=== PATIENT | male | born 1945 | race Caucasian/White ===

== ENCOUNTER 2023-10-22 09:16 | Inpatient (IN) ==
[2023-10-22] MEDS: SODIUM CHLORIDE 0.9% 500 ML IV STA (09:59)
--- NOTE | 2023-10-22 10:04 | Emergency Department Note ---
ED Provider Note History of Present Illness Chief Complaint: Referred by Doctor Stated Complaint: REFERRED BY DOCTOR FOR INFECTION Time Seen by Provider: 10/22/23 09:33 Source: patient Mode of arrival: ambulatory Limitations: no limitations Patient is a 77-year-old male that presents to the emergency department with complaints of an elevated white blood cell count, elevated platelets, persistent cough, bloody nose, abdominal pain and bloating, as well as urinary frequency. Patient states that his symptoms have been ongoing since 09 October, so he was seen by his primary care physician who referred him to the emergency room for further workup and evaluation. Patient denies any shortness of breath though does have a cough. Patient denies chest pain but appreciates pain in his upper abdomen. Home Medications Medication Instructions Recorded Confirmed Type allopurinol 100 mg tablet 100 mg PO DAILY 10/22/23 10/22/23 History amlodipine 10 mg tablet 10 mg PO DAILY 10/22/23 10/22/23 History aspirin 81 mg tablet,delayed 81 mg PO DAILY 10/22/23 10/22/23 History release cetirizine 10 mg tablet 10 mg PO DAILY 10/22/23 10/22/23 History metformin 500 mg tablet 500 mg PO BID 10/22/23 10/22/23 History metoprolol succinate 100 mg 100 mg PO DAILY 10/22/23 10/22/23 History tablet,extended release 24 hr olmesartan 20 mg tablet 20 mg PO DAILY 10/22/23 10/22/23 History rosuvastatin 5 mg tablet 5 mg PO DAILY 10/22/23 10/22/23 History Allergies Allergy/AdvReac Type Severity Reaction Status Date / Time tree and shrub pollen Allergy runny Verified 10/22/23 13:15 nose, cough Past Med/Surg History Problem List CAD (coronary artery disease) DMII (diabetes mellitus, type 2) Myelodysplastic syndrome HTN (hypertension) Acute cholecystitis (Acute) Social History Smoking Status: Never smoker Hx Alcohol Use: Yes Alcohol type: beer Hx Substance Use: No Preferred Language: Fijian Communication Ability: Effective Beliefs That Will Affect Care: None Current Living Situation: Spouse Feels Safe at Home: Yes Assistive Devices: Denture - Upper and Glasses Physical Exam Vital Signs Vital Signs - 24 hr 10/22/23 09:27 10/22/23 10:00 10/22/23 10:00 Temperature 37.1 C Temperature Source Temporal Artery Scan Pulse Rate 81 Pulse Rate [Apical] 81 Pulse Rate from SpO2 Sensor Respiratory Rate 14 16 Respiratory Effort / Characteristics Non-Labored Spontaneous Respiratory Depth Normal Blood Pressure 153/72 H Blood Pressure [Right Arm] 172/75 H Blood Pressure Mean 99 Blood Pressure Mean [Right Arm] 107 Pulse Oximetry 92 94 94 Oxygen Delivery Method Room Air Room Air Room Air Sepsis New/Unexplained Change in Mental Status No Sepsis Action Taken by Nursing No Action Required 10/22/23 10:00 10/22/23 10:00 10/22/23 10:00 Temperature Temperature Source Pulse Rate Pulse Rate [Apical] Pulse Rate from SpO2 Sensor 85 Respiratory Rate 27 H Respiratory Effort / Characteristics Respiratory Depth Blood Pressure 149/73 H 149/73 H Blood Pressure [Right Arm] Blood Pressure Mean 120 120 Blood Pressure Mean [Right Arm] Pulse Oximetry 95 Oxygen Delivery Method Sepsis New/Unexplained Change in Mental Status Sepsis Action Taken by Nursing 10/22/23 10:20 10/22/23 11:52 Temperature Temperature Source Pulse Rate 80 82 Pulse Rate [Apical] Pulse Rate from SpO2 Sensor Respiratory Rate 19 Respiratory Effort / Characteristics Respiratory Depth Blood Pressure 162/76 H Blood Pressure [Right Arm] Blood Pressure Mean 104 Blood Pressure Mean [Right Arm] Pulse Oximetry 95 Oxygen Delivery Method Sepsis New/Unexplained Change in Mental Status Sepsis Action Taken by Nursing VITAL SIGNS - Vital signs and nursing notes were reviewed. GENERAL -77-year-old male appearing his stated age who is in no acute distress, though has an unwell appearance. Patient has a flat affect, though communicates well with provider and answers questions appropriately. HEAD - NC/AT. Pupils PERRL. LUNGS - Chest wall symmetric without accessory muscle use, intercostals retractions, or central cyanosis. Breath sounds clear throughout all mendes. No wheezes, rales, or rhonchi appreciated. CARDIAC - RRR with S1/S2. No murmur, rubs, or gallops appreciated. ABDOMEN - Abdominal contour rounded without pulsations or visible masses. Abdominal pain noted in his upper abdominal area. BS normoactive all four quadrants. No tenderness to palpation appreciated. No guarding. No palpable masses, hepatosplenomegaly, or ascites noted. Patient does report feeling bloated. PSYCH - A&Ox3 and cooperates fully with examiner. Pt is very pleasant and interacts well with examiner. Course Course Patient is a 77-year-old male who presents to the emergency department with complaints of elevated white blood cell count, elevated platelets, a persistent cough, upper abdominal pain, bloody noses, and increased frequency in urination. Patient states that he has been having the symptoms since October 09, therefore he went to see his primary care physician who ordered blood work. His primary care physician then referred him to the emergency department for further workup and evaluation. Patient was evaluated by myself in ER room C10. Findings and exam were noted in the physical exam above. Patient was ordered an IV and lab work, bio fire swab, chest x-ray, abdominal CT, and fluids. Patient is stable at this time slightly hypotensive with a blood pressure of 172/75. Patient is not short of breath and has an O2 sat of 94% on room air. Patient is afebrile. Patient CT shows an acute cholecystitis which correlates clinically with patient's upper abdominal pain, nausea, feelings of bloating and elevated white blood cell count. Discussed with patient that he has an acute Audrey and would likely need to stay in the hospital and patient verbalizes understanding and is agreeable to that plan. 11:40-General Surgery was called for consult at this time. I spoke with Dr. Erickson who was given a report of the patient's status and findings. Dr. Erickson reviewed his CT scan while he was on the phone with him. States that he will see the patient and to have the patient admitted to medicine. 11:55-spoke with Dr. Case with [facility] hospitalist group who reviewed the patient's case and will admit the patient to medicine. Administered Medications Lactated Ringer's (Lr) 1,000 mls @ 100 mls/hr IV .Q10H LORRIE Stop: 11/21/23 12:14 Last Admin: 10/22/23 12:15 Dose: 100 mls/hr Documented By: JONAH Pantoprazole Sodium 40 mg/ (Syringe) 10 mls @ 5 mls/min IV DAILY@1100 LORRIE Stop: 11/21/23 12:44 Last Admin: 10/22/23 13:20 Dose: 5 mls/min Documented By: JONAH Discontinued Medications Sodium Chloride (Nss) 500 mls @ 999 mls/hr IV .Q31M STA Stop: 10/22/23 10:15 Last Infusion: 10/22/23 10:31 Dose: Infused Documented By: Admin: 10/22/23 09:59 Dose: 999 mls/hr Documented By: BHARAT Lactated Ringer's (Lr) 500 mls @ 999 mls/hr IV .Q31M ONE Stop: 10/22/23 12:32 Last Infusion: 10/22/23 13:30 Dose: Infused Documented By: Admin: 10/22/23 12:56 Dose: 999 mls/hr Documented By: JONAH Piperacillin Sod/Tazobactam Sod (Zosyn) 4.5 gm in 100 mls @ 200 mls/hr IV NOW STA Stop: 10/22/23 12:59 Last Infusion: 10/22/23 13:32 Dose: Infused Documented By: Admin: 10/22/23 12:53 Dose: 200 mls/hr Documented By: JONAH Ioversol (Optiray 320 100ml) 94 ml IV ONCE ONE Stop: 10/22/23 10:52 Last Admin: 10/22/23 10:51 Dose: 94 ml Documented By: ERIC Ketorolac Tromethamine (Ketorolac Tromethamine 15 Mg/Ml Vial) 15 mg IV NOW STA Stop: 10/22/23 10:43 Last Admin: 10/22/23 10:45 Dose: 15 mg Documented By: BHARAT Morphine Sulfate (Morphine Sulfate 4 Mg/Ml 1 Ml Carp\Vial) 4 mg IV NOW STA Stop: 10/22/23 11:36 Last Admin: 10/22/23 11:50 Dose: 4 mg Documented By: JONAH Ondansetron HCl (Ondansetron Inj 2 Mg/Ml 2 Ml Vial) 4 mg IV NOW STA Stop: 10/22/23 11:36 Last Admin: 10/22/23 11:50 Dose: 4 mg Documented By: JONAH Medical Decision Making Differential Diagnosis Differential diagnoses includes gastritis, gastroenteritis, small bowel obstruction, pancreatitis, peritonitis, constipation, abdominal abcess, acute coronary syndrome, pulmonary embolism, pneumothorax, pericarditis, myocarditis, endocarditis, anxiety, musculoskeletal pain, GERD, costochondritis, pneumonia, cancer, among others. Medical Records Attestation: I reviewed the patient's medical records. Home Medications was personally reviewed by nv Laboratory Data 10/22/23 09:45 10/22/23 09:45 Lab Results 10/22/23 Range/Units 09:45 WBC 14.51 H (4.8-10.8) K/ul RBC 2.60 L (4.70-6.10) M/uL Hgb 9.0 L (14.0-18.0) g/dl Hct 26.9 L (42.0-52.0) % MCV 103.5 H (80.0-100.0) fL MCH 34.6 H (25.0-34.0) pg MCHC 33.5 (32.0-36.0) g/dL RDW Std Deviation 97.8 H (36.4-46.3) fL RDW Coeff of Cha 26.5 H (11.5-14.5) % Plt Count 990 H (130-400) K/uL MPV 10.3 (9.4-12.4) fL Immature Gran % (Auto) 1.4 % Neut % (Auto) 73.9 % Lymph % (Auto) 9.2 % [place] % (Auto) 14.7 % Eos % (Auto) 0.2 % Baso % (Auto) 0.6 % Neut # (Auto) 10.74 H (1.40-6.50) K/uL Lymph # (Auto) 1.33 (1.20-3.40) K/uL [place] # (Auto) 2.13 H (0.11-0.59) K/uL Eos # (Auto) 0.03 (0.00-0.50) K/uL Baso # (Auto) 0.08 (0.00-0.20) K/uL Immature Gran # (Auto) 0.20 (0.01-0.20) K/uL Polychromasia 2+ Target Cells 1+ Rouleaux 1+ Sodium 132 L (136-145) mmol/L Potassium 4.2 (3.5-5.1) mmol/L Chloride 99 (98-107) mmol/L Carbon Dioxide 25 (21-32) mmol/L Anion Gap 8 (3-11) BUN 17 (6-23) mg/dl Creatinine 1.16 (0.6-1.4) mg/dl Est Cr Clr Drug Dosing 55.8 ml/min Est GFR ( Amer) 70.5 ml/min Est GFR (Non-Af Amer) 60.8 ml/min BUN/Creatinine Ratio 14.7 (10-20) Glucose 107 H (70-99(Fasting)) mg/dl Calcium 8.9 (8.6-10.3) mg/dl Total Bilirubin 0.6 (0.2-1.0) mg/dl AST 51 H (13-39) U/L ALT 59 H (7-52) U/L Alkaline Phosphatase 227 H (34-104) U/L Troponin I High Sens 14.0 (0-20) pg/ml Total Protein 8.9 H (6.0-8.3) gm/dl Albumin 3.3 L (3.4-5.0) gm/dl Globulin 5.6 H (2.5-4.0) gm/dl Albumin/Globulin Ratio 0.6 L (0.9-2) Lipase 17 (11-82) U/L Adenovirus (PCR) Not Detected (NotDetected) B. pertussis DNA (PCR) Not Detected (NotDetected) B.parapertussis DNA PCR Not Detected (NotDetected) C. pneumoniae DNA (PCR) Not Detected (NotDetected) Coronavirus OC43 (PCR) Not Detected (NotDetected) Coronavirus HKU1 (PCR) Not Detected (NotDetected) Coronavirus 229E (PCR) Not Detected (NotDetected) SARS-CoV-2 (PCR) Not Detected (NotDetected) Coronavirus NL63 (PCR) Not Detected (NotDetected) Human Metapneumovir PCR Not Detected (NotDetected) Influenza Type A (PCR) Not Detected (NotDetected) Influenza Type B (PCR) Not Detected (NotDetected) M. pneumoniae (PCR) Not Detected (NotDetected) Parainfluenza 1 (PCR) Not Detected (NotDetected) Parainfluenza 2 (PCR) Not Detected (NotDetected) Parainfluenza 3 (PCR) Not Detected (NotDetected) Parainfluenza 4 (PCR) Not Detected (NotDetected) RSV (PCR) Not Detected (NotDetected) Entero/Rhino (PCR) Not Detected (NotDetected) Imaging Data Radiologist's Impression: Chest X-Ray 10/22/23 09:46 XR chest 1V portable CLINICAL HISTORY: cough x 2-3 weeks COMPARISON STUDY: Chest CT September 14, 2019. Chest radiograph August 26, 2022. FINDINGS: Disrupted median sternotomy wires were shown on prior exams. Moderate cardiomegaly is unchanged. There is no evidence for pulmonary edema. There is no pneumothorax or pleural effusion. Mild elevation of the right hemidiaphragm is unchanged. Linear left basilar opacity favors atelectasis or scarring. Apparent left basilar opacity is likely related to epicardial fat pad. IMPRESSION: No acute cardiopulmonary findings. No significant change in appearance of the chest. Cardiomegaly. ACT 112: Negative or not required by law. Electronically signed by: Johann Marie M.D. 10/22/2023 10:43 AM Abdomen/Pelvis CT 10/22/23 09:47 CT abd pelvis IV con only CLINICAL HISTORY: abd pain and bloating TECHNIQUE: Helical axial images of the abdomen and pelvis were obtained and displayed. Automated dose lowering techniques and/or adjustment according to patient size were utilized for this exam. This exam was performed with intravenous contrast. CT DOSE: 1343.26 mGy.cm COMPARISON: None available at the time of this dictation. FINDINGS: Lower chest: Bibasilar atelectasis versus scarring is seen. Liver: Unremarkable. No focal lesions are seen. Gallbladder and biliary tree: The gallbladder is markedly distended with thickened espinoza measuring up to 6 mm. A gallstone is noted in the gallbladder neck. Irregular projections towards the inferior liver parenchyma are nonspecific and may represent diverticula, less likely adjacent abscess. No intra- or extrahepatic biliary ductal dilation. Pancreas: Unremarkable, no focal lesions. Spleen: Unremarkable. Adrenals: Unremarkable. Kidneys and ureters: Nonobstructive nephrolithiasis is seen. A few renal cysts are seen. Bladder: Unremarkable. Reproductive organs: Unremarkable. Bowel: Unremarkable. Lymph nodes Retroperitoneal: 12 mm retroperitoneal lymph node is noted. Pelvic: Unremarkable. Mesenteric: Unremarkable. Peritoneum: Normal. Vessels: Unremarkable. Abdominal wall: Unremarkable. Bones: Degenerative changes in the visualized spine. Chronic appearing fracture of the left transverse process of L3. IMPRESSION: Findings are compatible with acute cholecystitis. No definite rupture is seen.. Irregular outpouchings towards the liver are favored to represent diverticula rather than abscess. ACT 112: Negative or not required by law. Electronically signed by: Norberto Mcconnell M.D. 10/22/2023 11:11 AM MDM Narrative Patient is a 77-year-old male who presents to the emergency department with complaints of elevated white blood cell count, elevated platelets, a persistent cough, upper abdominal pain, bloody noses, and increased frequency in urination. Patient states that he has been having the symptoms since October 09, therefore he went to see his primary care physician who ordered blood work. This is when he found out about his elevated white blood cell count at 12.6 and an elevated platelet count at 1029. Patient brought those results with him today. His primary care physician then referred him to the emergency department for further workup and evaluation. Patient was evaluated by myself in ER room C10. Findings and exam were noted in the physical exam above. Patient has a somewhat ill or unwell appearance to him. Patient's skin color is pale and patient has a flat affect. Patient notes that he is currently having some upper abdominal pain but declines any pain medication at this time. Patient was ordered an IV and lab work, bio fire swab, chest x-ray, abdominal CT, and fluids. Patient is stable at this time slightly hypotensive with a blood pressure of 172/75. Patient is not short of breath and has an O2 sat of 94% on room air. Patient is afebrile. A CT for PE study was considered however the patient is not hypoxic or tachycardic at this time. Patient denies any chest pain or feelings of shortness of breath. Patient only complains of a persistent cough. Patient's lab work came back and confirmed his elevated white blood cell count. Patient also continues to have a and elevated platelet count which may need further workup from hematology. Patient also had a CT scan done that came back showing an acute cholecystitis. Discussed with patient that he has an acute cholecystitis and would likely need to stay in the hospital. I called general surgery to consult with them at this time. I spoke with Dr. Erickson from general surgery who reviewed the patient's case with me and reviewed the patient's CT while we are on the phone. Dr. Erickson is agreeable to treat the patient here and states that he will see the patient and to have the patient admitted to medicine. I spoke with Dr. Case from [facility] hospitalist group who reviewed the patient's case as well and will admit the patient to the hospital under their care. Impression Acute cholecystitis Discharge Plan Visit Data Chief Complaint: Referred by Doctor Stated Complaint: REFERRED BY DOCTOR FOR INFECTION ED Provider: Carolyn Urbina ED Midlevel Provider: Aliya Chapman Discharge Problem: Acute cholecystitis Patient Disposition: Admitted As Inpatient
[2023-10-22 10:11] LABS: Basophils # (auto) 0.08 K/uL (0.00-0.20); Basophils % (auto) 0.6 %; Eosinophils # (auto) 0.03 K/uL (0.00-0.50); Eosinophils % (auto) 0.2 %; Hematocrit (blood only) 26.9 % (42.0-52.0); Immature Granulocytes % (auto) 1.4 %; Lymphocytes # (auto) 1.33 K/uL (1.20-3.40); Lymphocytes % (auto) 9.2 %; Mean Corpuscular Hemoglobin 34.6 pg (25.0-34.0); Mean Corpuscular Hgb Conc 33.5 g/dL (32.0-36.0); Mean Corpuscular Volume 103.5 fL (80.0-100.0); Mean Platelet Volume 10.3 fL (9.4-12.4); Monocytes # (auto) 2.13 K/uL (0.11-0.59); Monocytes % (auto) 14.7 %; Neutrophils # (auto) 10.74 K/uL (1.40-6.50); Neutrophils % (auto) 73.9 %; Platelet Count 990 K/uL (130-400); RDW Coefficient of Variation 26.5 % (11.5-14.5); RDW Standard Deviation 97.8 fL (36.4-46.3); White Blood Count 14.51 K/ul (4.8-10.8)
[2023-10-22 10:28] LABS: Albumin Globulin Ratio 0.6 (0.9-2); Albumin Level 3.3 gm/dl (3.4-5.0); BUN Creatinine Ratio 14.7 (10-20); Bilirubin,Total 0.6 mg/dl (0.2-1.0); Calcium 8.9 mg/dl (8.6-10.3); Creatinine Clr Calc Pharmacy 55.8 ml/min; Est GFR (African American) 70.5 ml/min; Est GFR (Non-African American) 60.8 ml/min; Globulin 5.6 gm/dl (2.5-4.0); Potassium 4.2 mmol/L (3.5-5.1); Total Protein 8.9 gm/dl (6.0-8.3)
[2023-10-22 10:31] LABS: Polychromasia 2+; Rouleaux 1+; Target Cells 1+
[2023-10-22] MEDS: KETOROLAC TROMETHAMINE 15 MG/ML VIAL IV STA (10:45)
--- NOTE | 2023-10-22 10:45 | XRay Report ---
XR chest 1V portable CLINICAL HISTORY: cough x 2-3 weeks COMPARISON STUDY: Chest CT September 14, 2019. Chest radiograph August 26, 2022. FINDINGS: Disrupted median sternotomy wires were shown on prior exams. Moderate cardiomegaly is uncha nged. There is no evidence for pulmonary edema. There is no pneumothorax or pleural effusion. Mild el evation of the right hemidiaphragm is unchanged. Linear left basilar opacity favors atelectasis or sc arring. Apparent left basilar opacity is likely related to epicardial fat pad. IMPRESSION: No acute cardiopulmonary findings. No significant change in appearance of the chest. Car diomegaly. ACT 112: Negative or not required by law. Electronically signed by: Johann Marie M.D. 10/22/2023 10:43 AM
[2023-10-22] MEDS: OPTIRAY 320 100ml IV ONE (10:51)
[2023-10-22 10:57] LABS: Adenovirus PCR Not Detected (NotDetected); Bordetella parapertussis PCR Not Detected (NotDetected); Bordetella pertussis PCR Not Detected (NotDetected); Chlamydia pneumoniae PCR Not Detected (NotDetected); Coronavirus 229E PCR Not Detected (NotDetected); Coronavirus CoV-2 (COVID19)PCR Not Detected (NotDetected); Coronavirus HKU1 PCR Not Detected (NotDetected); Coronavirus NL63 PCR Not Detected (NotDetected); Coronavirus OC43PCR Not Detected (NotDetected); Human Metapneumovirus PCR Not Detected (NotDetected); Influenza A PCR Not Detected (NotDetected); Influenza B PCR Not Detected (NotDetected); Mycoplasma pneumoniae PCR Not Detected (NotDetected); Parainfluenza Virus 1 PCR Not Detected (NotDetected); Parainfluenza Virus 2 PCR Not Detected (NotDetected); Parainfluenza Virus 3 PCR Not Detected (NotDetected); Parainfluenza Virus 4 PCR Not Detected (NotDetected); Respiratory Syncytial VirusPCR Not Detected (NotDetected); Rhinovirus/Enterovirus PCR Not Detected (NotDetected)
--- OUTSIDE RECORDS SUMMARY | 2023-10-22 11:01 | External Medical Summary | Continuity of Care Document ---
Author Name Unknown Organization [address] Address [address], [place] [id number] Care Team Providers Care Sales Support Specialist Name Role Phone May Siegel Primary Care Physician [phone] [id number] Date(s): 10/19/23 - 10/19/23 [facility] [address], [address] [place] [address] [phone] Encounter Diagnosis CAD in rincon artery(Discharge Diagnosis) - 10/19/23 Tricuspid valve regurgitation(Discharge Diagnosis) - 10/19/23 Irregular heart rhythm(Discharge Diagnosis) - 10/19/23 HTN (hypertension)(Discharge Diagnosis) - 10/19/23 HLD (hyperlipidemia)(Discharge Diagnosis) - 10/19/23 Discharge Disposition: Home or Self Care Attending Physician: SOLOMON Medina Sarah A Allergies, Adverse Reactions, Alerts Substance Criticality Severity Reaction Reaction Severity Status simvastatin myalgias Active Lipitor myalgias Active Trees Unable to assess criticality Mild Sneezing Active Assessment and Plan Extracted from: Title:Cardiology Office Visit Note Author:SOLOMON Hale rd, Sarah A Date:10/19/23 IMPRESSION: 1. Coronary artery disease status post coronary bypass grafting x4, 07/2018 at [facility] with a HYMAN to the LAD, SVG to the PDA, SVG to the diagonal and an SVG to the marginal branch. 2. Preserved left ventricular systolic function July 2018 with type 2 diastolic dysfunction. 3. History of angioplasty and stenting 10/2003 with a Cypher drug-eluting stent and a Hepacoat stent involving the left circumflex. 4. Pre-bypass surgery catheterization, normal left main; 50% proximal and a 70% mid LAD lesion, which was positive by FFR; 70% ostial D1 lesion in a moderate size vessel; known OM lesion and a large bifurcating vessel; large, dominant RCA with a 95% proximal lesion. Significant mid lesion and a distal 50% lesion involving a moderate-sized PDA and post PDA. 5. Hypertension. 6. Hyperlipidemia. 7. History of sternal nonunion, status post partial sternectomy and debridement, 12/2019. 8. Intolerance to Lipitor and Zocor. 9. Gout. 10. Osteoarthritis.11. Upper GI bleed, 05/2021, secondary to NSAIDs in [place]. Mr. Olvera is not having any concerning anginal symptoms. He is on appropriate CAD medications with aspirin He is hypertensive. He will increase amlodipine to 10 mg daily - will let us know if he has swelling in his lower extremitiesor if his bp is not coming under 135/85. His rhythm was irregular to auscultation today. EKG showed SR with PACs. His LDL was at goal on labs last month. Last echo was 3 years ago. I will have him geta repeat. He will return to the clinic in a year Immunizations Given and Recorded Vaccine Date Status Refusal Reason tetanus/diphtheria/pertuss, acel (Tdap) 09/17/23 G iven SARS-CoV-2 (COVID-19) mRNA-vacc - PTO119 01/31/23 Recorded zoster vaccine, inactivated 11/20/22 Recorded zoster vaccine, inactivated 08/26/22 Recorded zoster vaccine, inactivated 03/14/20 Recorded SARS-CoV-2 mRNA-1273 (6y+ bivalent) 01/15/22 Recor ded pneumococcal 20-valent conjugate vaccine 12/11/21 Recorded SARS-CoV-2 (COVID-19) mRNA-1273 vaccine 08/07/21 R ecorded SARS-CoV-2 (COVID-19) mRNA BNT-162b2 vax 01/10/21 Recorded pneumococcal 23-valent vaccine 11/16/20 Recorded pneumococcal 23-valent vaccine 02/18/12 Recorded influenza virus vaccine, inactivated 1 12/20/19 Gi stefania influenza virus vaccine, inactivated 01/31/19 Give n pneumococcal 13-valent vaccine 12/14/14 Recorded influenza virus vaccine, H1N1 03/01/09 Recorded 1Early/Late Reason: Early/Late Reason: Other : Medications allopurinol 100 mg oral tablet Start: 09/15/23 8:24:00 AM EDT, 1 tab, PO, bid, Disp# 180 tab, Refills: 3, Pharmacy: [facility] Start Date: 09/15/23 Status: Ordered amLODIPine 10 mg oral tablet Start: 10/19/23 9:39:00 AM EDT, 1 tab, PO, Daily, Disp# 90 tab, Refills: 3, [facility] Start Date: 10/19/23 Status: Ordered Aranesp 25 mcg/0.42 mL injectable solution Start: 08/27/21 2:40:00 PM EDT, 25 mcg =, IV, [id number], unsure of dosage as given by [facility] depending on lab work q 2wks Start Date: 08/27/21 Status: Ordered aspirin 81 mg oral delayed release tablet Start: 09/06/18 4:06:00 PM EDT, 1 tab, PO, Daily Start Date: 09/06/18 Status: Ordered Co-Q10 200 mg oral capsule Start: 09/06/18 4:06:00 PM EDT, 200 mg =, PO, Daily Start Date: 09/06/18 Status: Ordered metFORMIN 500 mg oral tablet Start: 02/19/23 4:18:00 PM EST, 1 tab, PO, bid, Disp# 180 tab, Refills: 3, [facility] Start Date: 02/19/23 Status: Ordered Metoprolol Succinate ER 100 mg oral tablet, extended release Start: 09/09/23 1:01:00 PM EDT, See Instructions, Disp# 90 tab, Refills: 3, TAKE 1 TABLET DAILY, Pharmacy: [facility] Start Date: 09/09/23 Status: Ordered Mucinex D Max Strength Start: 08/27/21 2:26:00 PM EDT Start Date: 08/27/21 Status: Ordered multivitamin Start: 09/06/18 4:07:00 PM EDT, 1 tab, PO, Daily Start Date: 09/06/18 Status: Ordered Nitrostat 0.4 mg sublingual tablet Start: 09/06/18 4:07:00 PM EDT, 1 tab, SL, q5min, PRN: as needed for chest pain Start Date: 09/06/18 Status: Ordered olmesartan 20 mg oral tablet Start: 08/31/23 4:56:00 PM EDT, 1 tab, PO, Daily, Disp# 90 tab, Refills: 3, Pharmacy: [facility]/pharmacy #[id number] Start Date: 08/31/23 Status: Ordered Vernon-3 oral capsule Start: 09/06/18 4:08:00 PM EDT, 1 cap, PO, Daily Start Date: 09/06/18 Status: Ordered One Touch Delica Plus (33G) Lancets Start: 09/25/22 1:31:00 PM EDT, See Instructions, Disp# 100 each, Refills: 6, Use to check bloodsugar once daily. Dx: E11.9 , Pharmacy: [facility]/pharmacy #[id number] Start Date: 09/25/22 Status: Ordered One Touch Verio Glucose Monitor Start: 09/29/22 11:11:00 AM EDT, See Instructions, Disp# 1 each, Refills: 6, Use to test bloodsugarsonce daily. Dx: E11.9 , Pharmacy: [facility]/pharmacy #[id number] Start Date: 09/29/22 Status: Ordered One Touch Verio Test Strips Start: 09/29/22 11:11:00 AM EDT, See Instructions, Disp# 100 strip, Refills: 6, Use to test bloodsugars once daily. Dx: E11.9 , Pharmacy: [facility]/pharmacy #[id number] Start Date: 09/29/22 Status: Ordered rosuvastatin 5 mg oral tablet Start: 09/09/23 1:01:00 PM EDT, See Instructions, Disp# 90 tab, Refills: 3, TAKE 1 TABLET AT BEDTIME, Pharmacy: [facility] Start Date: 09/09/23 Status: Ordered Tylenol 500 mg oral tablet Start: 12/25/19 10:34:00 AM EDT, 2 tab, PO, q8h, Disp# 24 tab, Refills: 0, PRN: mild pain, Pharmacy: [facility] [place] Start Date: 12/25/19 Status: Ordered ZyrTEC Start: 09/30/18 8:53:00 AM EDT, 10 mg =, PO, Daily Start Date: 09/30/18 Status: Ordered Mental Status 10/19/23 Barriers to Learning one year None evide nt Mandatory Health Literacy Documentation Yes Health Literacy Communication Barriers N ever Primary Language [place] Problem List Condition Confirmation Course Effective Dates Status H ealth Status Informant Acute low back pain Confirmed Active Acute bilateral back pain Confirmed Active Benign essential HTN Confirmed Active Benign essential HTN Confirmed Active 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 Confirmed Active Bruit of right carotid artery Confirmed Active Chronic kidney disease (CKD) Confirmed Active Chronic kidney disease (CKD) Confirmed Active Chronic recurrent sinusitis Confirmed Active Constipation Confirmed Active CAD (coronary artery disease) Confirmed Active Dyspnea Confirmed Active Sternal fracture Confirmed Active Chronic gout Confirmed Active Chronic gout Confirmed Active Acute pain of left hip Confirmed Active Borderline hyperlipidemia Confirmed Active Lumbar radiculopathy, chronic Confirmed Active Nocturia Confirmed Active OA (osteoarthritis) of foot Confirmed Active Chronic pain of toe Confirmed Active Annual physical exam Confirmed Active Annual physical exam Confirmed Active Post-operative state Confirmed Active Mid sternal chest pain Confirmed Active Type 2 diabetes, HbA1c goal < 7% Confirmed Active Diagnosis Diagnosis Type Effective Dates Health Status Clinical Service Informant CAD in rincon artery Discharge Diagnosis 10/19/23 Non-Specified Tricuspid valve regurgitation Discharge Diagnosis 10/19/23 Non-Specified HLD (hyperlipidemia) Discharge Diagnosis 10/19/23 Non-Specified Irregular heart rhythm Discharge Diagnosis 10/19/23 Non-Specified HTN (hypertension) Discharge Diagnosis 10/19/23 Non-Specified Procedures Procedure Date Related Diagnosis Body Site Status Colonoscopy 1, 2 09/14/22 Complete d CXR - Chest X-ray 3 08/26/[address] of lumbar spine 4 12/02/21 Comp leted Bone marrow biopsy 08/01/20 Comple cyndi CABG x 4 - Coronary artery b ypass grafts x 4 5 07/14/18 Completed Cardiac catheterization 07/11/18 C ompleted Colonoscopy 6 09/30/16 Completed Cystoscopy 04/19/12 Completed LASER SURGERY OF PROSTATE 2011 Completed Bilateral Rotator cuff repair 2008 Completed Total LEFT knee replacement 2001 Completed Appendectomy 1950 Completed 1Repeat 5 years 2Diverticulosis in the sigmoid colon and in the descending colon. The examination was otherwise normal. No specimens collected. 3No acute chest disease. 4[facility] Impression: 1. No acute fractures within the lumbar spine 2. Degenerative changes as described, most pronounced at the L3-L4 and L4-L5 levels 5[facility] - [facility] Watson Alex 6normal Vital Signs Most recent to oldest [Reference Range]: 1 Patient Weight 88.8 kg (8/6/24 9:18 AM) Heart Rate 76 bpm (10/19/23 9:18 AM) Respiratory Rate 18 br/min (10/19/23 9:18 AM) Blood Pressure 142/68mmHg (10/19/23 9:18 AM) BP Location # 1 Left Arm (10/19/23 9:18 AM) Social History Social History Type Response Smoking Status Never smoked cigaret vilma Sex Male Sex Representation Male (finding) Implantable Device List Procedure Provider Procedure Date Device Type Site Unknown Unknown 12/19/19 Unknown Unknown Device Identifier Serial Number Lot or Batch Number Manufacturing Date Expiration Date Distinct Identification Code MRI Safety Implantable Status Assigning Authority Unknown Unknown [id number] Unknown 01/12/21 Unknown Unknown Active Unknown Cardiology Outpatient Note * SOLOMON Medina Sarah A: PERFORM, MODIFY Event Display: Cardiology Outpt Note Authored Date: [id number] Primary Care Provider MD Christal, May Orozco Chief Complaint denies chest pain/ tightness, flutters, heart racing, palpitations, shortness of breath, dizziness,or lightheadedness, no edema l, no unusual bleeding, gym 7 days a week 30 min mix without difficulty History of Present Illness Mr. Olvera presents for follow up of his history ofhis history of coronary bypass grafting x4 on 07/2018, preserved left ventricular systolic function (07/2020), rincon 3-vessel coronary artery disease, hypertension, and hyperlipidemia. He is being followed by his pcp for a new finding of hyponatremia. He is off hctz and has increasedhis sodium intake in his diet. Home bps are similar to today. He goes to the gym every day - no sob or chest pain - mix of cardio and weights. No edema Occasional brief palpitation Review of Systems All other systems reviewed and negative except as discussed in the HPI Physical Exam Vitals & Measurements HR:76(Monitored) RR:18 BP:142/68 SpO2:97% WT:88.800kg(Dosing) WT:88.8kg Physical Examination General: Alert and oriented, No acute distress. Respiratory: Lungs are clear to auscultation, Respirations are non-labored. Cardiovascular:Irregular, No murmur, No edema, no carotid bruits to auscultation bilaterally. Integumentary: Warm, Dry, [place] Neurologic: Alert, Oriented. Cognition and Speech: Speech clear and coherent. Psychiatric: Cooperative, Appropriate mood & affect. Assessment/Plan IMPRESSION: 1. Coronary artery disease status post coronary bypass grafting x4, 07/2018 at [facility] with a HYMAN to the LAD, SVG to the PDA, SVG to the diagonal and an SVG to the marginal branch. 2. Preserved left ventricular systolic function July 2018 with type 2 diastolic dysfunction. 3. History of angioplasty and stenting 10/2003 with a Cypher drug-eluting stent and a Hepacoat stent involving the left circumflex. 4. Pre-bypass surgery catheterization, normal left main; 50% proximal and a 70% mid LAD lesion, which was positive by FFR; 70% ostial D1 lesion in a moderate size vessel; known OM lesion and a large bifurcating vessel; large, dominant RCA with a 95% proximal lesion. Significant mid lesion and adistal 50% lesion involving a moderate-sized PDA and post PDA. 5. Hypertension. 6. Hyperlipidemia. 7. History of sternal nonunion, status post partial sternectomy and debridement, 12/2019. 8. Intolerance to Lipitor and Zocor. 9. Gout. 10. Osteoarthritis.11. Upper GI bleed, 05/2021, secondary to NSAIDs in [place]. Mr. Olvera is not having any concerning anginal symptoms. He is on appropriate CAD medications with aspirin He is hypertensive. He will increase amlodipine to 10 mg daily - will let us know if he has swelling in his lower extremitiesor if his bp is not coming under 135/85. His rhythm was irregular to auscultation today. EKG showed SR with PACs. His LDL was at goal on labs last month. Last echo was 3 years ago. I will have him geta repeat. 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 Nocturia OA (osteoarthritis) of foot Post-operative state Sternal fracture Type 2 diabetes, HbA1c goal < 7% Resolved IFG (impaired fasting glucose) Procedure/Surgical History Colonoscopy| Service Date: 09/14/2022XR - Chest X-ray| Service Date: 08/26/2022T of lumbar spine| Service Date: 12/02/2021one marrow biopsy| Service Date: 08/01/2020ABG x 4 - Coronary artery bypass grafts x 4| Service Date: 07/14/2018Cardiac catheterization| Service Date: 07/11Colonoscopy| Service Date: 09/30/2016Cystoscopy| Service Date: 04/19/2012LASER SURGERY OF PROSTATE| Service Date: 2012Bilateral Rotator cuff repair| Service Date: 2008Total LEFT knee replacement| Service Date: 2001Appendectomy| Service Date: 1949 Medications acetaminophen(Tylenol 500 mg oral tablet), 1000 mg= 2 tab, PO, q8h, PRN allopurinol(allopurinol 100 mg oral tablet), 1 tab, PO, bid amLODIPine(amLODIPine 10 mg oral tablet), 10 mg= 1 tab, PO, Daily, 3 refills aspirin(aspirin 81 mg oral delayed release tablet), 81 mg= 1 tab, PO, Daily cetirizine(ZyrTEC), 10 mg, PO, Daily darbepoetin britta(Aranesp 25 mcg/0.42 mL injectable solution), 25 mcg, IV, [id number] diabetes supplies(One Touch Verio Glucose Monitor), See Instructions, 6 refills diabetes supplies(One Touch Verio Test Strips), See Instructions, 6 refills diabetes supplies(One Touch Delica Plus (33G) Lancets), See Instructions, 6 refills guaiFENesin-pseudoephedrine(Mucinex D Max Strength) metFORMIN(metFORMIN 500 mg oral tablet), 500 mg= 1 tab, PO, bid, 3 refills metoprolol(Metoprolol Succinate ER 100 mg oral tablet, extended release), See Instructions, 3 refills multivitamin, 1 tab, PO, Daily nitroglycerin(Nitrostat 0.4 mg sublingual tablet), 0.4 mg= 1 tab, SL, q5min, PRN olmesartan(olmesartan 20 mg oral tablet), 20 mg= 1 tab, PO, Daily, 3 refills omega-3 polyunsaturated fatty acids(Vernon-3 oral capsule), 1 cap, PO, Daily rosuvastatin(rosuvastatin 5 mg oral tablet), See Instructions, 3 refills ubiquinone(Co-Q10 200 mg oral capsule), 200 mg, PO, Daily Allergies Trees (Mild)Sneezing Lipitormyalgias simvastatinmyalgias Social History Smoking Status Never smoked cigarettes Alcohol - Denies Alcohol Use Use:Current Type:Beer Frequency:1-2 times per week Exercise Duration (average number of minutes):120 Times per week:Daily Exercise type:treadmill/free weights Sexual Sexually active:Yes Self described orientation:Straight or heterosexual Substance Abuse - Denies Substance Abuse Tobacco - Denies Tobacco Use Use:Never smoker Family History Heart attack: Father. Heart disease: Father and Brother. Stroke: Father. Health Status Family Member(s) Electronic Signature on File CC: May Siegel MD [address] [place] [phone] Electronically Reviewed/Signed by: SOLOMON Bo Author Signature Dt/Tm:10/19/2023 09:57 AM [facility] [place] [facility] Patient Care team information Care Team Personnel Name: Danette Gill Amy E Position: Pharmacist Member Role: Pharmacy - Lifetime Address: [address] [address] [place] Name: SOLOMON Rodriguez Mayeen R Position: Nurse Pract - CT Surgery Member Role: Lifetime Relationship Address: [address] [place] [address] [place] Name: MD Siegel Amy L Position: Physician - Family Med Member Role: Primary Care Provider Address: [address] [place] [address] [place] Care Team Related Persons Name: YONY OLVERA Name: YONY OLVERA"
--- OUTSIDE RECORDS SUMMARY | 2023-10-22 11:01 | External Medical Summary | Summary of Care ---
Author Name Unknown Organization [facility] Address [address] [place] [address] Phone [phone] Care Team Providers Care Gasser Machine Operator Name Role Phone May Siegel MD Primary Care Provider Reason for Visit * Reason Comments Outpatient Testing Encounter Details Date Type Department Care Team (Late st Contact Info) Description 10/20/2023 11:00 AM EDT Laboratory Laboratory [facility] [place] [address] [place] [phone] [place], Lab [address] [place] [id number] MDS (myelodysplastic syndrome), low grade (HCC) Allergies No known active allergiesdocumented as of this encounter (statuses as of 10/20/2023) Medications Medication Sig Dispensed Refills Start Date End Date Status Aspirin 81 MG Oral Tablet Delayed Release Take 1 Tablet by mouth in the morning. Active CoQ10 200 MG Oral Capsule Take by mouth. Active Rosuvastatin Calcium 5 MG Oral Tablet Take 1 Tablet by mouth in the morning. Active hydroCHLOROthiazide 25 MG Oral Tablet (Hydrodiuril) Take 1 Tablet by mouth in the morning. Active Nitroglycerin 0.4 MG Sublingual Tablet Sublingual (Nitrostat) Place 0.4 mg under the tongue every 5 minutes as needed for Pain, Chest. Active [place]-3 1000 MG Oral Capsule Take by mouth. Active Metoprolol Succinate ER 100 MG Oral Tablet Extended Release 24 Hour (Toprol XL) Take 1 Tablet by mouth in the morning. Active Acetaminophen 500 MG Oral Tablet (Tylenol) Take 500 mg by mouth every 6 hours as needed. Active ZyrTEC Allergy 10 MG Oral Capsule (Cetirizine HCl) Take 1 Capsule by mouth in the morning. Active Allopurinol 100 MG Oral Tablet (Zyloprim) Take 1 Tablet by mouth in the morning. Active Olmesartan Medoxomil 20 MG Oral Tablet (Benicar) 01/01/2022 Active amLODIPine Besylate 5 MG Oral Tablet (Norvasc) Take 1 Tablet by mouth in the morning. Active metFORMIN HCl 500 MG Oral Tablet (Glucophage) Take 1 Tablet by mouth 2 times a day with morning and evening meals. Active documented as of this encounter (statuses as of 10/20/2023) Active Problems Problem Noted Date Diagnosed Date Anemia 08/16/2020 MDS (myelodysplastic syndrome), low grade 2020 documented as of this encounter (statuses as of 10/20/2023) Immunizations Name Administration Dates Next Due Seasonal Influenza, Quadrivalent Hd, 65+ Yrs documented as of this encounter Social History Tobacco Use Types Packs/Day Years Used Date Smoking Tobacco: Former Cigarettes Pipe Smokeless Tobacco: Never Alcohol Use Standard Drinks/Week Comments Yes 0 (1 standard drink = 0.6 oz pur e alcohol) AUDIT-C Answer Date Recorded Q1: How often do you have a drink containing alc ohol? Monthly or less 07/25/2020 Q2: How many drinks containi ng alcohol do you have on a typical day when you are drinking? 1 or 2 07/25/2020 Q3: How often do you have si x or more drinks on one occasion? Less than monthly 07/25/2020 Utilities Answer Date Recorded Do you have trouble paying y our heating, water, or electric bill? (Adult - for ages 18 years and over) Not on file 08/31/2023 Is your family able to pay t he heat, water, or electric bill? (Household - for ages 0-17 years) Not on file 08/31/2023 Does your family have access to good internet? (Household - for ages 0-17 years) Not on file 08/31/2023 Social Connections Answer Date Recorded How often do you feel lonely or isolated from those around you? (Adult - for ages 18 years and over) Not on file 08/31/2023 Sex and Gender Information Value Date Recorded Sex Assigned at Not on file Gender Identity Not on file Sexual Orientation Not on file Job Start Date Occupation Industry Not on file Not on file Not on file documented as of this encounter Plan of Treatment Upcoming Encounters Date Type Department Care Team (Late st Contact Info) Description 10/20/2023 11:30 AM EDT Immunization/Injecti on Hematology/Oncology Treatment, [address] [place] [phone] Imelda, Chair [address] [place] [address] [address] [place] [address] Arrived 10/29/2023 9:00 AM EDT Office Visit Hematology/Oncology [facility] [address] [place] [address] [address] [place] [phone] Tamara Christiansen CRNP [address] [place], [place] [address] [address] 11/03/2023 11:00 AM EDT Laboratory Laboratory [facility] [address] [place] [address] [place] [phone] Imelda Lab [facility] [address] [place], [place] [address] 11/03/2023 11:30 AM EDT Immunization/Injecti on Hematology/Oncology Treatment, [address] [phone] Imelda, Chair [address] [place] [address] [address] [place], [place] [address] 11/17/2023 11:00 AM EDT Laboratory Laboratory Kenzie Segura [place] [address] [place], [place] [phone] [place], Lab [place] [address] [place], [place] [address] 11/17/2023 11:30 AM EDT Immunization/Injecti on Hematology/Oncology Treatment, [address] [place] [phone] Imelda, Chair 7 Hem Onc [address] [facility] [address] Pending Results Name Type Priority Associated Diagnoses Date /Time CBC WITH WBC DIFFERENTIAL Lab STAT MDS (myelodysplastic syndrome), low grade (HCC) 10/20/2023 10:55 AM EDT CBC Lab STAT MDS (myelodysplastic syndrome), low grade (HCC) 10/20/2023 10:55 AM EDT DIFFERENTIAL, AUTOMATED Lab STAT MDS (myelodysplastic syndrome), low grade (HCC) 10/20/2023 10:55 AM EDT Health Maintenance Due Date Last Done Comments Depression Screening 1957 Hepatitis C Screening 1963 DTaP,Tdap,and Td Vaccines (1 - Tdap) 1964 COVID-19 Vaccine (3 - 2022- season) 2023 01/31/2023, 01/10/2021 Influenza Vaccine (FLU shot) (#1) 2023 11/27/2022, 11/27/2022, 12/20/2019, Additional history exists Pneumococcal Vaccine: 65+ Years Completed 12/11/2021, 11/16/2020, 12/14/2014, Additional history exists Zoster Vaccines Completed 11/20/2022, 08/13, 03/14/2020 HPV (Gardasil) Vaccine Aged Out No lo nger eligible based on patient's age to complete this topic Hepatitis B Vaccine Aged Out No longe r eligible based on patient's age to complete this topic MENINGOCOCCAL (MENACTRA/MENVEO) Aged Out No longer eligible based on patient's age to complete this topic documented as of this encounter Medical Devices Not on filedocumented as of this encounter Visit Diagnoses Diagnosis MDS (myelodysplastic syndrome), low grade (HCC) Low grade myelodysplastic syndrome lesions documented in this encounter Care Teams Gasser Machine Operator Relationship Specialty Start Date End Date May Siegel MD [facility] Darrian Silva [facility] [address] [place] [address] PCP - General Family Medicine 07/04/20 documented as of this encounter
--- OUTSIDE RECORDS SUMMARY | 2023-10-22 11:01 | External Medical Summary | Summary of Care ---
Author Name Unknown Organization [facility] Address [address] [place] [address] Phone [phone] Care Team Providers Care Bar Machine Operator Production Name Role Phone May Siegel MD Primary Care Provider Reason for Visit * Reason Comments Medication Administration Aranesp Inject ion * Episode Based Medications (Routine) - Authorized Specialty Diagnoses / Procedures Referred By Contac t Referred To Contact Diagnoses MDS (myelodysplastic syndrome), low grade (HCC) Anemia, unspecified type Procedures [place] DARBEPOETIN ARIEL, NON-ESRD Ramesh Urbina MD [address] [place] [address] Anc Hem/Onc Kenzie Segura DEPT CLOSED - 01/26/23 200 [facility] [place] [phone] Referral ID Status Reason Start Date Expiration Date V isits Requested Visits Authorized [id number] Authorized 08/15/2020 03/14/2099 99 99 Encounter Details Date Type Department Care Team (Late st Contact Info) Description 10/06/2023 11:30 AM EDT Immunization/I njection Hematology/Oncology Treatment, [place] [address] [place] [address] Imelda, Chair 2 Hem Onc Scen[address] [place] [address] MDS (myelodysplastic syndrome), low grade (HCC)*; Anemia, unspecified type Allergies No known active allergiesdocumented as of [...] minutes as needed for Pain, Chest. Active Entriken-3 1000 MG Oral Capsule Take by mouth. [...] on file documented as of this encounter Last Filed Vital Signs Vital Sign Reading Time Taken Comments Blood Pressure 178/77 10/06/2023 11:41 AM EDT Pulse 72 10/06/2023 11:41 AM EDT Temperature 36.3 C (97.3 F) 10/06/2023 11:41 AM E DT Respiratory Rate 16 10/06/2023 11:41 AM EDT Oxygen Saturation 92% 10/06/2023 11:41 AM EDT Inhaled Oxygen Concentration - - Weight - - Height - - Body Mass Index - - documented in this encounter Nursing Notes * Sharmila Che RN - 10/06/2023 12:16 PM EDT Patient ambulatory to chair 7 Patient voices no complaints or issues Safety and Risk for Injury Patient will remain free from injury. Ensure appropriate safety devices are available. Provide and maintain safe environment. Goals: patient will remain free of injury Possible barriers to meeting goals: Stability of the patient: Moderately stable - low risk of patient condition declining or worsening Summary regarding today's goals: Met: patient remained free of injury Dr. Urbina made aware of patient's BP, okay to proceed with injection, pharm made aware. Patient instructed on use of heat and massage functions where applicable. Patient shown how to operate the heat function of the chair and to alert nursing staff if the chair feels too warm. Patient instructed on the risk of potential velazquez while using the heat function. Patient discharged in good condition, verbalized no complaints or issues. documented in this encounter Plan of Treatment Upcoming Encounters Date Type Department Care Team (Late st Contact Info) Description 10/29/2023 9:00 AM EDT Office Visit Hematology/Oncology [facility] Imelda [place] [address] [place] [phone] Tamara Christiansen CRNP 400 [facility] [place] [address] 11/03/2023 11:00 AM EDT Laboratory Laboratory [facility] [place] [address] [address] [place] [address] Im[place], Lab [facility] [address] [facility] [place] [address] 11/03/2023 11:30 AM EDT Immunization/Injecti on Hematology/Oncology [address], [address] [address] Imelda, Chair 3 Hem Onc [facility] [address] [place] [address] 11/17/2023 11:00 AM EDT Laboratory Laboratory [facility] [place] [address] [place] [address] Imelda, Lab [facility] [address] [place] [address] 11/17/2023 11:30 AM EDT Immunization/Injecti on Hematology/Oncology Treatment, [place] 200 [facility] [phone] Imelda, Chair 7 Hem Onc Scenery [address] [place] [address] Health Maintenance Due Date Last Done Comments [...] Diagnoses Diagnosis MDS (myelodysplastic syndrome), low grade (HCC)- Primary Low grade myelodysplastic syndrome lesions Anemia, unspecified type documented in this encounter Administered Medications Inactive Administered Medications - up to 3 most recent administrations Medication Order MAR Action Action Date Dose Rate Site Darbepoetin Ariel (Aranesp) inj 500 mcg 500 mcg, Subcutaneous, ONCE, On Wed10/06/23 at 1230, For 1 dose, If hgb <11 Given 10/06/2023 11:47 AM EDT 500 mcg Arm Left Upper documented in this encounter Care Teams Bar Machine Operator Production Relationship Specialty Start Date End Date May Siegel MD [address] [place] [address], [place] [address] PCP - General Family Medicine 07/04/20 documented as of this encounter
--- OUTSIDE RECORDS SUMMARY | 2023-10-22 11:01 | External Medical Summary | Summary of Care ---
Author Name Unknown Organization [facility] Address [address] [place] [address] Phone [phone] Care Team Providers Care Training And Documentation Specialist Name Role Phone May Siegel MD Primary Care Provider Reason for Visit * Reason Comments Medication Administration Aranesp 500mcg * Episode Based Medications (Routine) - Authorized Specialty Diagnoses / Procedures Referred By Contac t Referred To Contact Diagnoses MDS (myelodysplastic syndrome), low grade (HCC) Anemia, unspecified type Procedures [place] DARBEPOETIN ARIEL, NON-ESRD Ramesh Urbina MD 200 [facility] [place] [address] Anc Hem/Onc Kenzie Segura DEPT CLOSED - 01/26/23 200 [address] [place] [address] Referral ID Status Reason Start Date Expiration Date V isits Requested Visits Authorized [id number] Authorized 08/15/2020 03/14/2099 99 99 Encounter Details Date Type Department Care Team (Late st Contact Info) Description 09/22/2023 11:30 AM EDT Immunization/I njection [facility]ematology/Oncology [facility], [place] [facility] [address] Nurse, Med 4 MDS (myelodysplastic syndrome), low grade (HCC)*; Anemia, unspecified type Allergies No known active allergiesdocumented as of this encounter (statuses as of 10/21/2023) Medications Medication Sig Dispensed Refills Start Date [...] minutes as needed for Pain, Chest. Active Clarendon-3 1000 MG Oral Capsule Take by mouth. [...] as of this encounter (statuses as of 10/21/2023) Active Problems Problem Noted Date Diagnosed Date Anemia 08/16/2020 MDS (myelodysplastic syndrome), low grade 2020 documented as of this encounter (statuses as of 10/21/2023) Immunizations Name Administration Dates Next Due Seasonal Influenza, Quadrivalent Hd, 65+ Yrs documented as of this encounter Social History Tobacco Use Types Packs/Day Years Used Date Smoking Tobacco: Former Cigarettes Pipe Smokeless Tobacco: Never Tobacco Cessation:Counseling Given: Not Answered Alcohol Use Standard Drinks/Week Comments Yes 0 [...] Sign Reading Time Taken Comments Blood Pressure 154/74 09/22/2023 11:27 AM EDT Pulse - - Temperature - - Respiratory Rate - - Oxygen Saturation - - Inhaled Oxygen Concentration - - Weight - - Height - - Body Mass Index - - documented in this encounter Nursing Notes * Leigh Lozada LPN - 09/22/2023 11:39 AM EDT Aranesp 500mcg administered SQ into the left upper extremity per standing order. HGB 9.9 Blood pressure 154/74 - Per Dr. Booth ok to proceed with the Aranesp injection. documented in this encounter Plan of Treatment Upcoming Encounters Date Type Department Care Team (Late st Contact Info) Description 10/29/2023 9:00 AM EDT Office Visit Hematology/Oncology [place] [address] [place] [phone] Tamara Christiansen CRNP [address] [place] [address] 11/03/2023 11:00 AM EDT Laboratory Laboratory [facility] [address] [place] [phone] mIelda, Lab Scenery [address] [place] [address] 11/03/2023 11:30 AM EDT Immunization/Injecti on Hematology/Oncology Treatment, [place] 200 [facility], [place] [phone] Imelda, Chair 3 Hem Onc Scenery 200 [facility] [place], [place] [address] 11/17/2023 11:00 AM EDT Laboratory Laboratory [facility] [place] [address] [place], [place] [phone] Imelda, Lab Scenery 200 [facility] [place], [place] [address] 11/17/2023 11:30 AM EDT Immunization/Injecti on Hematology/Oncology Treatment, [place] 200 [facility], [place] [phone] Imelda, Chair 7 Hem Onc Scenery 200 [facility] [place] [address] Health Maintenance Due Date Last Done Comments [...] 500 mcg 500 mcg, Subcutaneous, ONCE, On Wed09/22/23 at 1230, For 1 dose, If hgb <11 Given 09/22/2023 11:37 AM EDT 500 mcg Arm Left Upper documented in this encounter Care Teams Training And Documentation Specialist Relationship Specialty Start Date End Date May Siegel MD [facility] 1 [place] [address] PCP - General Family Medicine 07/04/20 documented as of this encounter
--- OUTSIDE RECORDS SUMMARY | 2023-10-22 11:01 | External Medical Summary | Continuity of Care Document ---
Author Name Unknown Organization [facility] [address] [facility] 1 Address 303 [facility], [place] [id number] Care Team Providers Care Mechanical Test Engineer Name Role Phone May Siegel Primary Care Physician [phone] [facility]counter [facility] [id number] Date(s): 10/15/23 - 10/15/23 [facility] 303 [facility] [place] 1 [facility] 303 [facility] 1 [place], [place] [phone] Encounter Diagnosis Hypo-osmolality and hyponatremia(Final) - Discharge Disposition: Home or Self Care Attending Physician: MD Siegel Amy L Referring Physician: MD Siegel Amy L Allergies, Adverse Reactions, Alerts Substance Criticality Severity Reaction Reaction Severity Status simvastatin myalgias Active Lipitor myalgias Active Trees Unable to assess criticality Mild Sneezing Active Immunizations Given and Recorded Vaccine Date Status Refusal Reason tetanus/diphtheria/pertuss, acel (Tdap) 09/17/23 G iven SARS-CoV-2 (COVID-19) mRNA-vacc - [id number] 01/31/23 Recorded zoster vaccine, inactivated 11/20/22 Recorded [...] bid, Disp# 180 tab, Refills: 3, [facility] Start Date: 09/15/23 Status: Ordered amLODIPine 5 mg oral tablet Start: 05/24/23 9:50:00 AM EDT, 1 tab, PO, Daily, Disp# 90 tab, Refills: 3, [facility] Start Date: 05/24/23 Status: Ordered Aranesp 25 mcg/0.42 mL injectable solution Start: 08/27/21 2:40:00 PM EDT, 25 mcg =, IV, [id number], unsure of dosage as given by [facility] depending on lab work q 2wks Start Date: 08/27/21 Status: Ordered aspirin 81 mg oral delayed release tablet Start: 09/06/18 4:06:00 PM EDT, 1 tab, PO, Daily Start Date: 09/06/18 Status: Ordered Co-Q10 200 mg oral capsule Start: 09/06/18 4:06:00 PM EDT, 200 mg =, PO, Daily Start Date: 09/06/18 Status: Ordered hydroCHLOROthiazide 25 mg oral tablet Start: 11/27/22 8:10:00 AM EDT, See Instructions, Disp# 90 tab, Refills: 3, TAKE 1 TABLET DAILY, [facility]: [facility] Start Date: 11/27/22 Status: Ordered metFORMIN 500 mg oral tablet Start: 02/19/23 4:18:00 PM EST, 1 tab, PO, bid, Disp# 180 tab, Refills: 3, [facility] Start Date: 02/19/23 Status: Ordered Metoprolol Succinate ER 100 mg oral tablet, extended release Start: 09/09/23 1:01:00 PM EDT, See Instructions, Disp# 90 tab, Refills: 3, TAKE 1 TABLET DAILY, Pharmacy: [facility] Start Date: 09/09/23 Status: Ordered [...] Daily, Disp# 90 tab, Refills: 3, Pharmacy: [facility]/pharmacy #[id number] Start Date: 08/31/23 Status: Ordered Comanche-3 oral capsule Start: 09/06/18 4:08:00 PM EDT, 1 cap, PO, Daily Start Date: 09/06/18 Status: Ordered One Touch Delica Plus (33G) Lancets Start: 09/25/22 1:31:00 PM EDT, See Instructions, Disp# 100 each, Refills: 6, Use to check bloodsugar once daily. Dx: E11.9 , [id number] Start Date: 09/25/22 Status: Ordered One Touch Verio Glucose Monitor Start: 09/29/22 11:11:00 AM EDT, See Instructions, Disp# 1 each, Refills: 6, Use to test bloodsugarsonce daily. Dx: E11.9 , Pharmacy: [id number] Start Date: 09/29/22 Status: Ordered One Touch Verio Test Strips Start: 09/29/22 11:11:00 AM EDT, See Instructions, Disp# 100 strip, Refills: 6, Use to test bloodsugars once daily. Dx: E11.9 , Pharmacy: [id number] Start Date: 09/29/22 Status: Ordered rosuvastatin 5 mg oral tablet Start: 09/09/23 1:01:00 PM EDT, See Instructions, Disp# 90 tab, Refills: 3, TAKE 1 TABLET AT BEDTIME, Pharmacy: [facility] Start Date: 09/09/23 Status: Ordered Tylenol 500 mg oral tablet Start: 12/25/19 10:34:00 AM EDT, 2 tab, PO, q8h, Disp# 24 tab, Refills: 0, PRN: mild pain, Pharmacy: [facility] [place] Start Date: 12/25/19 Status: Ordered ZyrTEC Start: 09/30/18 8:53:00 AM EDT, 10 mg =, PO, Daily Start Date: 09/30/18 Status: Ordered Problem List Condition Confirmation Course Effective Dates [...] diabetes, HbA1c goal < 7% Confirmed Active Procedures Procedure Date Related Diagnosis Body Site [...] specimens collected. 3No acute chest disease. 4[facility] [address] Impression: 1. No acute fractures within the lumbar spine 2. Degenerative changes as described, most pronounced at the L3-L4 and L4-L5 levels 5[facility] Watson Alex 6normal Results Laboratory List Name Date Sodium Level (SODIUM) 8/2/24 Most recent to oldest [Reference Range]: 1 Na [137-145 mmol/L] 127 mmol/L 1 *LOW* (10/15/23 3:01 PM) 1Result Comment: Testing Performed By: Dept of Pathology [facility] Jorden Silva, [address] [place] [address] Social History Social History Type Response Smoking Status Never smoked cigaret vilma Sex Male Sex Representation Male (finding) Implantable Device List Procedure Provider Procedure Date Device Type Site Unknown Unknown 12/19/19 Unknown Unknown Device Identifier Serial Number Lot or Batch Number Manufacturing Date Expiration Date Distinct Identification Code MRI Safety Implantable Status Assigning Authority Unknown Unknown [id number] O Unknown 01/12/21 Unknown Unknown Active Unknown Patient Care team information Care Team Personnel Name: Danette Gill Amy E Position: Pharmacist Member Role: Pharmacy - Lifetime Address: [place] [address] [place] Name: SOLOMON Rodriguez Mayeen R Position: Nurse Pract - CT Surgery Member Role: Lifetime Relationship Address: [address] [place] [address] [place] Name: MD Siegel Amy L Position: Physician - Family Med Member Role: Primary Care Provider Address: 303 [facility] 1 [place] [address] Care Team Related Persons Name: YONY OLVERA Name: YONY OLVERA
--- OUTSIDE RECORDS SUMMARY | 2023-10-22 11:01 | External Medical Summary ---
Author Name Unknown Address Unknown Organization K[facility] [place] [address] Laboratory Report Ordering Provider Test Date Status NICANOR PANIAGUA 10/20/2023 10:55:11 Final Observation Date Value Abnormality Reference (Units ) Status WBC, Total 10/20/2023 10:55:11 12.61 Above high normal 4.00-10.80 (K/uL) Final RBC 10/20/2023 10:55:11 2.67 4.50-5.25 (M/uL) Final Hemoglobin 10/20/2023 10:55:11 9.6 Below low normal 14.0-16.8 (g/dL) Final HCT 10/20/2023 10:55:11 29.0 Below low normal 40.0-48.4 (%) Final MCV 10/20/2023 10:55:11 108.6 82.0-99.5 (fL) Final MCH 10/20/2023 10:55:11 36.0 27.0-34.0 (pg) Final MCHC 10/20/2023 10:55:11 33.1 32.0-36.0 (g/dL) Final RDW 10/20/2023 10:55:11 26.3 11.5-15.5 (%) Final Platelets 10/20/2023 10:55:11 1069 Above upper panic limits 140-400 (K/uL) Final MPV 10/20/2023 10:55:11 10.1 6.6-11.1 (fL) Final Performing Location [facility] [place] [address]
--- OUTSIDE RECORDS SUMMARY | 2023-10-22 11:01 | External Medical Summary | Summary of Care ---
Author Name Unknown Organization [facility] Address [address] [place] [address] Phone [phone] Care Team Providers Care Senior Radiation Therapist Name Role Phone May Siegel MD Primary Care Provider [phone] Reason for Visit * Reason Comments Outpatient Testing Encounter Details Date Type Department Care Team (Late st Contact Info) Description 10/06/2023 11:00 AM EDT Laboratory Laboratory [facility] [place] [address] [place] [phone] [place], Lab Scenery [address] [place] [address] MDS (myelodysplastic syndrome), low grade (HCC) Allergies No known active allergiesdocumented as of this encounter (statuses as of 10/06/2023) Medications Medication Sig Dispensed Refills Start Date [...] minutes as needed for Pain, Chest. Active Fletcher-3 1000 MG Oral Capsule Take by mouth. [...] as of this encounter (statuses as of 10/06/2023) Active Problems Problem Noted Date Diagnosed Date Anemia 08/16/2020 MDS (myelodysplastic syndrome), low grade 2020 documented as of this encounter (statuses as of 10/06/2023) Immunizations Name Administration Dates Next Due Seasonal [...] Upcoming Encounters Date Type Department Care Team (Latest Contact Info) Description 10/06/2023 11:30 AM EDT Immunization/Inject ion Hematology/Oncolog y Treatment, [place] 200 [facility] [place] [phone] Imelda, Chair 2 Hem Onc Scenery 200 [place] [address] MDS (myelodysplastic syndrome), low grade (HCC)*; Anemia, unspecified type 10/20/2023 11:00 AM EDT Laboratory Laboratory [facility] Imel[place] [address] [place] [phone] [place], Lab [place] [address] [place] [id number] 10/20/2023 11:30 AM EDT Immunization/Inject ion Hematology/Oncolog y Treatment, [place] 200 [facility] [place] [phone] Imelda, Chair 1 Hem Onc [facility] [address] [place] [address] [address] 10/29/2023 9:00 AM EDT Office Visit Hematology/Oncolog y [facility] [place] [address] [place] [address] Tamara Christiansen CRNP 400 [facility] [place] [address] 11/03/2023 11:00 AM EDT Laboratory Laboratory [facility] [place] [address] [place] [phone] Imelda, Lab [facility] [address] [facility] [place] [address] 11/03/2023 11:30 AM EDT Immunization/Inject ion Hematology/Oncolog y Treatment, [place] 200 [facility] [place] [address] Imelda, Chair 3 Hem Onc [address] [place] [address] 11/17/2023 11:00 AM EDT Laboratory Laboratory [facility] [place] 200 [facility] [place] [phone] Imelda, Lab [address] [place] [address] 11/17/2023 11:30 AM EDT Immunization/Inject ion Hematology/Oncolog y Treatment, [address], [place] [address] Health Maintenance Due Date Last Done Comments Depression Screening 1957 Hepatitis C Screening 1963 DTaP,Tdap,and Td Vaccines (1 - Tdap) 1964 COVID-19 Vaccine (3 - season) 2023 01/31/2023, 01/10/2021 Influenza Vaccine (FLU [...] Not on filedocumented as of this encounter Procedures Procedure Name Priority Date/Time Associated Diagnosis Comments DIFFERENTIAL, AUTOMATED STAT 10/06/2023 11:01 AM EDT MDS (myelodysplastic syndrome), low grade (HCC) CBC STAT 10/06/2023 11:01 AM EDT MDS (myelodysplastic syndrome), low grade (HCC) CBC STAT 10/06/2023 11:01 AM EDT MDS (myelodysplastic syndrome), low grade (HCC) documented in this encounter Results * (ABNORMAL) DIFFERENTIAL, AUTOMATED (10/06/2023 11:01 AM EDT) WBC 7.15 4.00 - 10.80 K/uL 10/06/2023 11:16 AM EDT [facility] 56-02 Neutrophils % 70.7 40.0 - 75.0 % 10/06/2023 11:16 AM EDT LAB[facility]ORY [place] 56-02 Lymphocytes % 12.4(L) 18.0 - 42.0 % 10/06/2023 11:16 AM EDT LAB[facility]ATORY [place] 56-02 Monocytes % 15.1(H) 1.0 - 11.0 % 10/06/2023 11:16 AM EDT [facility] [place] 56-02 Eosinophils % 1.0 0.0 - 6.0 % 10/06/2023 11:16 AM EDT LAB[facility]ORY [facility] 56-02 Basophils % 0.8 0.0 - 2.0 % 10/06/2023 11:16 AM EDT LAB[facility]ATORY [facility] 56-02 Absolute Neutrophils 5.05 1.80 - 7.70 K/uL 10/06/2023 11:16 AM EDT LAB[facility]ORY [place] 56-02 Absolute Lymphocytes 0.89(L) 1.00 - 4.80 K/ul 10/06/2023 11:16 AM EDT [facility] 56-02 Absolute Monocytes 1.08 0.00 - 1.10 K/uL 10/06/2023 11:16 AM EDT [facility]ORY [place] 56-02 Absolute Eosinophils 0.07 0.00 - 0.70 K/uL 10/06/2023 11:16 AM EDT LAB[facility]ATORY [facility] 56-02 Absolute Basophils 0.06 0.00 - 0.20 K/uL 10/06/2023 11:16 AM EDT [facility]ORY [place] 56-02 Blood Venous blood specimen / Unknown Venipuncture / Unknown 10/06/2023 11:01 AM EDT 10/06/2023 11:01 AM EDT Ramesh Urbina MD LAB BLOOD ORDERABLES [facility] 56 [address] [place] [phone] * (ABNORMAL) CBC (10/06/2023 11:01 AM EDT) WBC 7.15 4.00 - 10.80 K/uL 10/06/2023 11:16 [address] EDT [address] RBC 2.65 4.50 - 5.25 M/uL 10/06/2023 11:16 AM EDT [address] HGB 9.9(L) 14.0 - 16.8 g/dL 10/06/2023 11:16 AM EDT [address] HCT 30.2(L) 40.0 - 48.4 % 10/06/2023 11:16 AM EDT [address] MCV 114.0 82.0 - 99.5 fL 10/06/2023 11:16 AM EDT [address] MCH 37.4 27.0 - 34.0 pg 10/06/2023 11:16 AM EDT [address] MCHC 32.8 32.0 - 36.0 g/dL 10/06/2023 11:16 AM EDT [address] RDW 25.2 11.5 - 15.5 % 10/06/2023 11:[address] EDT [address] PLT 903(H) 140 - 400 K/uL 10/06/2023 11:16 AM EDT [address] MPV 10.0 6.6 - 11.1 fL 10/06/2023 11:16 AM EDT [facility] 56 Blood Venous blood specimen / Unknown Venipuncture / Unknown 10/06/2023 11:01 AM EDT 10/06/2023 11:01 AM EDT Ramesh Urbina MD LAB BLOOD ORDERABLES [facility] 56-[address] [place] [address] documented in this encounter Visit Diagnoses Diagnosis MDS (myelodysplastic syndrome), low grade (HCC)- Primary Low grade myelodysplastic syndrome lesions Anemia, unspecified type MDS (myelodysplastic syndrome), low grade (HCC) Low grade myelodysplastic syndrome lesions documented in this encounter Care Teams Senior Radiation Therapist Relationship Specialty Start Date End Date May Siegel MD [facility] [address] [place] [address] PCP - General Family Medicine 07/04/20 documented as of this encounter
--- OUTSIDE RECORDS SUMMARY | 2023-10-22 11:01 | External Medical Summary | Summary of Care ---
Author Name Unknown Organization [facility] Address [address] [place] [address] Phone [phone] Care Team Providers Care Overlock Elastic Attacher Name Role Phone May Siegel MD Primary Care Provider [phone] Reason for Visit * Reason Comments Medication Administration Aranesp 500mcg * Episode Based Medications (Routine) - Authorized Specialty Diagnoses / Procedures Referred By Contac t Referred To Contact Diagnoses MDS (myelodysplastic syndrome), low grade (HCC) Anemia, unspecified type Procedures [place] DARBEPOETIN ARIEL, NON-ESRD Ramesh Urbina MD 200 [facility] [place] [address] Anc Hem/Onc Kenzie Segura DEPT CLOSED - 01/26/[address] [place] [phone] Referral ID Status Reason Start Date Expiration Date V isits Requested Visits Authorized [id number] Authorized 08/15/2020 03/14/2099 99 99 Encounter Details Date Type Department Care Team (Late st Contact Info) Description 09/22/2023 11:30 AM EDT Immunization/I njection Hematology/Oncology Treatment, [place] [address] [place] [address] Nurse, Med [address] [place] [address] [address] MDS (myelodysplastic syndrome), low grade (HCC)*; Anemia, unspecified type Allergies No known active allergiesdocumented as of this encounter (statuses as of 09/22/2023) Medications Medication Sig Dispensed Refills Start Date [...] minutes as needed for Pain, Chest. Active [place]-3 1000 MG Oral Capsule Take by mouth. [...] as of this encounter (statuses as of 09/22/2023) Active Problems Problem Noted Date Diagnosed Date Anemia 08/16/2020 MDS (myelodysplastic syndrome), low grade 2020 documented as of this encounter (statuses as of 09/22/2023) Immunizations Name Administration Dates Next Due Seasonal [...] Description 10/06/2023 11:00 AM EDT Laboratory Laboratory [facility] Jemal Rodriguez [address] [place] [phone] William Segura [facility] [address] [facility] [place] [address] 10/06/2023 11:30 AM EDT Immunization/Injecti on Hematology/Oncology Treatment, [place] 200 [facility], [place] [phone] Nurse, Med 4 [address] [place], [place] [address] 10/20/2023 11:00 AM EDT Laboratory Laboratory [facility] [place] [address] [place], [place] [address] Park, Lab [facility] [address] [place], [place] [address] 10/20/2023 11:30 AM EDT Immunization/Injecti on Hematology/Oncology Treatment, [place] 200 [facility], [place] [address] Nurse, Med 4 [address] [place], [place] [address] 10/29/2023 9:00 AM EDT Office Visit Hematology/Oncology [facility] [address] [place], [place] [phone] Tamara Christiansen CRNP [address] [place], [place] [address] [address] 11/03/2023 11:00 AM EDT Laboratory Laboratory [facility] [place] [address] [place], [place] [address] Im[place]da, Lab [facility] [address] [place], [place] [address] 11/03/2023 11:30 AM EDT Immunization/Injecti on Hematology/Oncology Treatment, [place] 200 [facility], [place] [phone] Nurse, Med 4 [address] [place], [place] [address] 11/17/2023 11:00 AM EDT Laboratory Laboratory [facility] 200 [facility] [place], [place] [phone] William Segura [facility] [address] [place] [address] 11/17/2023 11:30 AM EDT Immunization/Injecti on Hematology/Oncology Treatment, [place] [address] [facility] [phone] Nurse, Med 200 [facility] [place] [address] Health Maintenance Due Date Last Done Comments [...] Upper documented in this encounter Care Teams Overlock Elastic Attacher Relationship Specialty Start Date End Date May Siegel MD [address] [facility] 1 [place] [address] PCP - General Family Medicine 07/04/20 documented as of this encounter
--- OUTSIDE RECORDS SUMMARY | 2023-10-22 11:01 | External Medical Summary | Summary of Care ---
Author Name Unknown Organization [facility] Address [address] [place] [address] Phone [phone] Care Team Providers Care Sales Product Specialist Name Role Phone May Siegel MD Primary Care Provider [phone] Reason for Visit * Reason Comments Medication Administration Aranesp 500mcg * Episode Based Medications (Routine) - Authorized Specialty Diagnoses / Procedures Referred By Contac t Referred To Contact Diagnoses MDS (myelodysplastic syndrome), low grade (HCC) Anemia, unspecified type Procedures [place] DARBEPOETIN ARIEL, NON-ESRD Ramesh Urbina MD 200 [facility] [place] [address] Anc Hem/Onc Kenzie Segura DEPT CLOSED - 01/26/[address] [place] [address] [address] [phone] Referral ID Status Reason Start Date Expiration Date V isits Requested Visits Authorized [id number] Authorized 08/15/2020 03/14/2099 99 99 Encounter Details Date Type Department Care Team (Late st Contact Info) Description 08/25/2023 11:30 AM EDT Immunization/I njection Hematology/Oncology Treatment, [place] [address] [place] [address] Nurse, Med [address] [place] [address] [address] MDS (myelodysplastic syndrome), low grade (HCC)*; Anemia, [...] minutes as needed for Pain, Chest. Active Ar[place]-3 1000 MG Oral Capsule Take by mouth. [...] on one occasion? Less than monthly 07/25/2020 Sex and Gender Information Value Date Recorded Sex Assigned at Not on file Gender Identity Not on file Sexual Orientation Not on file Job Start Date Occupation Industry Not on file Not on file Not on file documented as of this encounter Last Filed Vital Signs Vital Sign Reading Time Taken Comments Blood Pressure 150/63 08/25/2023 11:13 AM EDT Pulse - - Temperature - - Respiratory Rate - - Oxygen Saturation - - Inhaled Oxygen Concentration - - Weight - - Height - - Body Mass Index - - documented in this encounter Nursing Notes * Leigh Lozada LPN - 08/25/2023 11:19 AM EDT Aranesp 500mcg administered SQ into the left upper extremity per standing order. Patient tolerated injection and will return in 2 weeks. HGB 9.3 documented in this encounter Plan of Treatment Upcoming Encounters Date Type Department Care Team (Late st Contact Info) Description 10/06/2023 11:00 AM EDT Laboratory Laboratory [facility] Imelda [place] [address] [place] [phone] William Segura Loc [address] [facility] [place] [address] 10/06/2023 11:30 AM EDT Immunization/Injecti on Hematology/Oncology Treatment, [place] [address] [place] [phone] Nurse, Med 4 [address] [place] [address] 10/20/2023 11:00 AM EDT Laboratory Laboratory [facility] Imelda [place] [address] [place] [phone] William Segura [address] [facility] [place] [address] 10/20/2023 11:30 AM EDT Immunization/Injecti on Hematology/Oncology Treatment, [place] 200 [facility] Pamela [place], [place] [phone] Nurse, Med 4 [address] [place], [place] [address] 10/29/2023 9:00 AM EDT Office Visit Hematology/Oncology [facility] [place] [address] [place], [place] [phone] Tamara Christiansen CRNP [facility] [place] [address] 11/03/2023 11:00 AM EDT Laboratory Laboratory [facility] [place] [address] [place], [place] [address] Imelda, Lab [place] [address] [address] [place], [place] [address] 11/03/2023 11:30 AM EDT Immunization/Injecti on Hematology/Oncology Treatment, [place] 200 [facility] Pamela [place], [place] [phone] Nurse, Med 4 [address] [place], [place] [address] 11/17/2023 11:00 AM EDT Laboratory Laboratory [facility] [place] [address] [place], [place] [phone] Imelda, Lab [facility] [address] [place] [address] 11/17/2023 11:30 AM EDT Immunization/Injecti on Hematology/Oncology Treatment, [place] [facility] [place] [phone] Nurse, Med 4 [address] [place], [place] [address] Health Maintenance Due Date Last Done Comments [...] 500 mcg 500 mcg, Subcutaneous, ONCE, On Wed08/25/23 at 1215, For 1 dose, If hgb <11 Given 08/25/2023 11:17 AM EDT 500 mcg Arm Left Upper documented in this encounter Care Teams Sales Product Specialist Relationship Specialty Start Date End Date May Siegel MD [facility] [address] [place] [address] PCP - General Family Medicine 07/04/20 documented as of this encounter
--- OUTSIDE RECORDS SUMMARY | 2023-10-22 11:01 | External Medical Summary | Summary of Care ---
Author Name Unknown Organization [facility] Address [address] [place] [address] Phone [phone] Care Team Providers Care Rotary Veneer Machine Operator Name Role Phone May Siegel MD Primary Care Provider [phone] Reason for Visit * Reason Comments Medication Administration Aranesp * Episode Based Medications (Routine) - Authorized Specialty Diagnoses / Procedures Referred By Contac t Referred To Contact Diagnoses MDS (myelodysplastic syndrome), low grade (HCC) Anemia, unspecified type Procedures [place] DARBEPOETIN ARIEL, NON-ESRD Ramesh Urbina MD 200 [facility] [place] [address] Anc Hem/Onc Kenzie Segura DEPT CLOSED - 01/26/[address] [facility] [place] [phone] Referral ID Status Reason Start Date Expiration Date V isits Requested Visits Authorized [id number] Authorized 08/15/2020 03/14/2099 99 99 Encounter Details Date Type Department Care Team (Late st Contact Info) Description 10/20/2023 11:30 AM EDT Immunization/I njection Hematology/Oncology Treatment, [place] [address] [place] [address] Imelda, Chair [address] [facility] [place] [address] MDS (myelodysplastic syndrome), low grade (HCC)*; Anemia, [...] minutes as needed for Pain, Chest. Active [place]-3 1000 MG Oral Capsule Take by mouth. [...] Sign Reading Time Taken Comments Blood Pressure 148/75 10/20/2023 11:26 AM EDT Pulse - - Temperature 37.2 C (98.9 F) 10/20/2023 11:26 AM E DT Respiratory Rate - - Oxygen Saturation - - Inhaled Oxygen Concentration - - Weight - - Height - - Body Mass Index - - documented in this encounter Nursing Notes * Danielle Hardy LPN - 10/20/2023 11:40 AM EDT Pt arrived for Aranesp injection. Hgb 9.6. BP WNL. Administered in [place]AT[place]. Pt tolerated well. Pt reports he hasn't been feeling well and has had some stomach aches. He also reports that he has been having fevers in evening and they've been running around 101. Pt is afebrile here in office. Pts Plts are elevated to 1069. Pts WBCs are also elevated at 12.61. Spoke to nurse specialist and patient is going to schedule with PCP BENNY. Pt was discharged in stable condition. Will return in 2 weeks. documented in this encounter Plan of Treatment Upcoming Encounters Date Type Department Care Team (Late st Contact Info) Description 10/29/2023 9:00 AM EDT Office Visit Hematology/Oncology [facility] [place] [address] [place], [place] [phone] Tamara Christiansen CRNP [address] [facility] [place] [address] 11/03/2023 11:00 AM EDT Laboratory Laboratory [facility] [place] [address] [place], [place] [phone] Imelda, Lab [facility] [address] [place], [place] [address] 11/03/2023 11:30 AM EDT Immunization/Injecti on Hematology/Oncology Treatment, [place] 200 [facility], [place] [address] Imelda, Chair 3 Hem Onc [facility] [address] [place], [place] [address] 11/17/2023 11:00 AM EDT Laboratory Laboratory [facility] [place] [address] [place], [place] [address] Imelda, Lab [facility] [address] [place] [address] 11/17/2023 11:30 AM EDT Immunization/Injecti on Hematology/Oncology Treatment, [place] 200 [place] [address] Imelda, Chair 7 Hem Onc [facility] 200 [place] [address] Health Maintenance Due Date Last Done Comments [...] 500 mcg 500 mcg, Subcutaneous, ONCE, On Wed10/20/23 at 1230, For 1 dose, If hgb <11 Given 10/20/2023 11:30 AM EDT 500 mcg Arm Left Upper documented in this encounter Care Teams Rotary Veneer Machine Operator Relationship Specialty Start Date End Date May Siegel MD [address] [place] [address] PCP - General Family Medicine 07/04/20 documented as of this encounter
--- OUTSIDE RECORDS SUMMARY | 2023-10-22 11:01 | External Medical Summary | Summary of Care ---
Author Name Unknown Organization [facility] Address [address] [place] [address] Phone [phone] Care Team Providers Care Jewelry Store Manager Name Role Phone May Siegel MD Primary Care Provider [phone] Reason for Visit * Reason Comments Medication Administration Aranesp Inject ion * Episode Based Medications (Routine) - Authorized Specialty Diagnoses / Procedures Referred By Contac t Referred To Contact Diagnoses MDS (myelodysplastic syndrome), low grade (HCC) Anemia, unspecified type Procedures [place] DARBEPOETIN ARIEL, NON-ESRD Ramesh Urbina MD [address] [place] [address] Anc Hem/Onc Kenzie Segura DEPT CLOSED - 01/26/23 200 [facility] [place] [address] Referral ID Status Reason Start Date Expiration Date V isits Requested Visits Authorized [id number] Authorized 08/15/2020 03/14/2099 99 99 Encounter Details Date Type Department Care Team (Late st Contact Info) Description 10/06/2023 11:30 AM EDT Immunization/I njection Hematology/Oncology Treatment, [place] [address] [place] [address] Imelda, Chair 2 Hem Onc [place] [address] [place] [address] MDS (myelodysplastic syndrome), low grade (HCC)*; Anemia, [...] minutes as needed for Pain, Chest. Active [place]-3 1000 MG Oral Capsule Take by mouth. [...] Description 10/20/2023 11:00 AM EDT Laboratory Laboratory [facility] [place] [address] [place] [phone] Imelda Lab [facility] [address] [facility] [place] [address] 10/20/2023 11:30 AM EDT Immunization/Injecti on Hematology/Oncology Treatment, [address] [phone] Imelda, Chair 1 Hem Onc [place] [address] [place] [address] 10/29/2023 9:00 AM EDT Office Visit Hematology/Oncology [facility] [place] [address] [place] [address] [address] [phone] Tamara Christiansen, [place] [address] [place] [address] 11/03/2023 11:00 AM EDT Laboratory Laboratory [facility] Im[place] [address] [place] [address] Imelda, Lab [facility] [address] [facility] [place] [address] 11/03/2023 11:30 AM EDT Immunization/Injecti on Hematology/Oncology Treatment, [address] [place] [address] Imelda, Chair 3 Hem Onc [place] [address] [place] [address] [address] 11/17/2023 11:00 AM EDT Laboratory Laboratory [facility] [place] [address] [place] [address] Imelda [facility] 200 [facility] [place] [address] 11/17/2023 11:30 AM EDT Immunization/Injecti on Hematology/Oncology Treatment, [place] 200 [facility] [phone] Health Maintenance Due Date Last Done Comments [...] Upper documented in this encounter Care Teams Jewelry Store Manager Relationship Specialty Start Date End Date May Siegel MD [address] [facility] 1 [place] [address] PCP - General Family Medicine 07/04/20 documented as of this encounter
--- OUTSIDE RECORDS SUMMARY | 2023-10-22 11:01 | External Medical Summary ---
Author Name Unknown Address Unknown Organization K09:[facility] [place] [address] Laboratory Report Ordering Provider Test Date Status NICANOR PANIAGUA 10/06/2023 11:01:51 Final Observation Date Value Abnormality Reference (Units ) Status SYNC LEUKOCYTES IN BLOOD BY AUTOMATED COUNT 10/06/2023 11:01:51 7.15 4.00-10.80 (K/uL) Final Segs 10/06/2023 11:01:51 70.7 40.0-75.0 (%) Final Lymphs % 10/06/2023 11:01:51 12.4 Below low normal 18.0-42.0 (%) Final Monos 10/06/2023 11:01:51 15.1 Above high normal 1.0-11.0 (%) Final Eosinophils 10/06/2023 11:01:51 1.0 0.0-6.0 (%) Final Basos 10/06/2023 11:01:51 0.8 0.0-2.0 (%) Final Absolute Segs 10/06/2023 11:01:51 5.05 1.80-7.70 (K/uL) Final Lymphs, absolute 10/06/2023 11:01:51 0.89 Below low normal 1.00-4.80 (K/ul) Final Monos, Abs 10/06/2023 11:01:51 1.08 0.00-1.10 (K/uL) Final Eos, Abs 10/06/2023 11:01:51 0.07 0.00-0.70 (K/uL) Final Basos, Abs 10/06/2023 11:01:51 0.06 0.00-0.20 (K/uL) Final Performing Location [facility] [address]
--- OUTSIDE RECORDS SUMMARY | 2023-10-22 11:01 | External Medical Summary ---
Author Name Unknown Address Unknown Organization K09:[facility] [address] [place] [address] Laboratory Report Ordering Provider Test Date Status NICANOR PANIAGUA 10/20/2023 10:55:11 Final Observation Date Value Abnormality Reference (Units ) Status SYNC LEUKOCYTES IN BLOOD BY AUTOMATED COUNT 10/20/2023 10:55:11 12.61 Above high normal 4.00-10.80 (K/uL) Final Neutrophils/100 leukocytes in Blood by Manual count 10/20/2023 10:55:11 78.0 Above high normal 40.0-75.0 (%) Final Lymphocytes/100 leukocytes in Blood by Manual count 10/20/2023 10:55:11 7.0 Below low normal 18.0-42.0 (%) Final Monocytes/100 leukocytes in Blood by Manual count 10/20/2023 10:55:11 14.0 Above high normal 1.0-11.0 (%) Final Metamyelocytes/100 leukocytes in Blood by Manual count 10/20/2023 10:55:11 1.0 Above high normal <=0.0 (%) Final Neutrophils [#/volume] in Blood by Manual count 10/20/2023 10:55:11 9.84 Above high normal 1.80-7.70 (K/uL) Final Lymphocytes [#/volume] in Blood by Manual count 10/20/2023 10:55:11 0.88 Below low normal 1.00-4.80 (K/uL) Final Monocytes [#/volume] in Blood by Manual count 10/20/2023 10:55:11 1.77 Above high normal 0.00-1.10 (K/uL) Final Metamyelocytes [#/volume] in Blood by Manual count 10/20/2023 10:55:11 0.13 Above high normal <=0.00 (K/uL) Final Nucleated erythrocytes/100 leukocytes [Ratio] in Blood by Automated count 10/20/2023 10:55:11 Final Acanthocytes [Presence] in Blood by Light microscopy 10/20/2023 10:55:11 Moderate Abnormal None Seen Final Target cells [Presence] in Blood by Light microscopy 10/20/2023 10:55:11 Moderate Abnormal None Seen Final Giant platelets [Presence] in Blood by Light microscopy 10/20/2023 10:55:11 Present Abnormal None Seen Final Performing Location [facility] [address] [place] [address]
--- OUTSIDE RECORDS SUMMARY | 2023-10-22 11:01 | External Medical Summary ---
Author Name Unknown Address Unknown Organization K09:[facility] [place] [address] Laboratory Report Ordering Provider Test Date Status NICANOR PANIAGUA 10/06/2023 11:01:51 Final Observation Date Value Abnormality Reference (Units ) Status WBC, Total 10/06/2023 11:01:51 7.15 4.00-10.8 0 (K/uL) Final RBC 10/06/2023 11:01:51 2.65 4.50-5.25 (M/uL) Final Hemoglobin 10/06/2023 11:01:51 9.9 Below low normal 14 .0-16.8 (g/dL) Final HCT 10/06/2023 11:01:51 30.2 Below low normal 40. 0-48.4 (%) Final MCV 10/06/2023 11:01:51 114.0 82.0-99.5 (fL) Final MCH 10/06/2023 11:01:51 37.4 27.0-34.0 (pg) Final MCHC 10/06/2023 11:01:51 32.8 32.0-36.0 (g/dL) Final RDW 10/06/2023 11:01:51 25.2 11.5-15.5 (%) Final Platelets 10/06/2023 11:01:51 903 Above high normal 14 0-400 (K/uL) Final MPV 10/06/2023 11:01:51 10.0 6.6-11.1 ( fL) Final Performing Location [facility] [place] [address]
--- OUTSIDE RECORDS SUMMARY | 2023-10-22 11:02 | External Medical Summary ---
Author Name Unknown Address Unknown Organization K01:[facility] [place] [facility] [address] [place] [address] Laboratory Report Ordering Provider Test Date Status NICANOR PANIAGUA 09/22/2023 10:55:55 Final Observation Date Value Abnormality Reference (Units ) Status Iron 09/22/2023 10:55:55 297 Above high normal 45-176 (ug/dL) Final Iron-binding capacity 09/22/2023 10:55:55 317 250-425 (ug/dL) Final Transferrin Sat % 09/22/2023 10:55:55 94 Above high normal 15-55 (%) Final Performing Location LABORATORY C - [address] [place] [address]
--- OUTSIDE RECORDS SUMMARY | 2023-10-22 11:02 | External Medical Summary | Summary of Care ---
Author Name Unknown Organization [facility] Address [address] [place] [address] Phone [phone] Care Team Providers Care Telesales Agent Name Role Phone May Siegel MD Primary Care Provider [phone] Reason for Visit * Reason Comments Outpatient Testing Encounter Details Date Type Department Care Team (Late st Contact Info) Description 09/08/2023 9:30 AM EDT Laboratory Laboratory [facility] [place] [address] [place] [phone] [place], Lab Scenery [address] [place] [address] MDS (myelodysplastic syndrome), low grade (HCC) Allergies No known active allergiesdocumented as of this encounter (statuses as of 09/08/2023) Medications Medication Sig Dispensed Refills Start Date [...] minutes as needed for Pain, Chest. Active [place]-3 1000 MG Oral Capsule Take by mouth. [...] as of this encounter (statuses as of 09/08/2023) Active Problems Problem Noted Date Diagnosed Date Anemia 08/16/2020 MDS (myelodysplastic syndrome), low grade 2020 documented as of this encounter (statuses as of 09/08/2023) Immunizations Name Administration Dates Next Due Seasonal [...] Care Team (Late st Contact Info) Description 09/08/2023 10:15 AM EDT Immunization/Injecti on Hematology/Oncology Treatment, [place] 200 [facility] [place] [phone] Nurse, Med [address] [place] [address] Arrived 09/22/2023 11:00 AM EDT Laboratory Laboratory [facility] [place] [address] [place] [address] [place] Lab [place] [address] [place] [address] 09/22/2023 11:30 AM EDT Immunization/Injecti on Hematology/Oncology Treatment, [place] [address] [place] [address] Nurse, Med 4 [address] [place] [address] 10/06/2023 11:00 AM EDT Laboratory Laboratory [facility] [place] [address] [place] [address] [place], Lab Scenery [address] [facility] [place], [place] [address] 10/06/2023 11:30 AM EDT Immunization/Injecti on Hematology/Oncology Treatment, [place] 200 [facility] [place], [place] [address] Nurse, Med 4 [address] [place] [address] 10/20/2023 11:00 AM EDT Laboratory Laboratory [facility] [place] [address] [place] [address] [address] [place], Lab Scenery [address] [facility] [place] [address] 10/20/2023 11:30 AM EDT Immunization/Injecti on Hematology/Oncology Treatment [place] [address] [place], [place] [phone] Nurse, Med 4 [address] [place], [place] [address] 10/29/2023 9:00 AM EDT Office Visit Hematology/Oncology [facility] [place] [address] [place], [place] [address] Tamara Christiansen CRNP [address] [place] [address] [place] [address] 11/03/2023 11:00 AM EDT Laboratory Laboratory [facility] [place] [address] [place], [place] [phone] [place] Lab [place] [address] [place], [place] [address] 11/03/2023 11:30 AM EDT Immunization/Injecti on Hematology/Oncology Treatment, [place] 200 [facility] [place], [place] [phone] Nurse, Med 4 [address] [place], [place] [address] 11/17/2023 11:00 AM EDT Laboratory Laboratory [facility] [place]elda [place] [address] [place], [place] [phone] [place] Lab [place] [address] [place] [address] 11/17/2023 11:30 AM EDT Immunization/Injecti on Hematology/Oncology Treatment, [place] [address] [place], [place] [phone] Nurse, Med 4 [address] [place], [place] [address] Pending Results Name Type Priority Associated Diagnoses Date /Time CBC WITH WBC DIFFERENTIAL Lab STAT MDS (myelodysplastic syndrome), low grade (HCC) 09/08/2023 9:22 AM EDT CBC Lab STAT MDS (myelodysplastic syndrome), low grade (HCC) 09/08/2023 9:22 AM EDT DIFFERENTIAL, AUTOMATED Lab STAT MDS (myelodysplastic syndrome), low grade (HCC) 09/08/2023 9:22 AM EDT Health Maintenance Due Date Last Done Comments Depression Screening 1957 Hepatitis C Screening 1963 DTaP,Tdap,and Td Vaccines (1 - Tdap) 1965 Zoster Vaccines (1 of 2) 1996 Pneumococcal Vaccine: 65+ Years (1 of 1 - PCV) 11/02/2011 COVID-19 Vaccine ( - 2022- season) 2022 Influenza Vaccine (FLU shot) Completed , 11/27/2022, 12/20/2019, Additional history exists GARDASIL-HPV IMMUNIZATION SERIES Aged Out No longer eligible based on patient's age to complete this topic Hepatitis B Aged Out No longer eligi ble based on patient's age to complete this topic MENINGOCOCCAL (MENACTRA/MENVEO) Aged Out No longer eligible based on patient's age to complete this topic documented as of this encounter Medical Devices Not on filedocumented as of this encounter Visit Diagnoses Diagnosis MDS (myelodysplastic syndrome), low grade (HCC) Low grade myelodysplastic syndrome lesions documented in this encounter Care Teams Telesales Agent Relationship Specialty Start Date End Date May Siegel MD [facility] Darrian [address] [address] PCP - General Family Medicine 07/04/20 documented as of this encounter
--- OUTSIDE RECORDS SUMMARY | 2023-10-22 11:02 | External Medical Summary ---
Author Name Unknown Address Unknown Organization K09:[facility]- [address] [place] [address] Laboratory Report Ordering Provider Test Date Status NICANOR PANIAGUA 09/08/2023 09:22:33 Final Observation Date Value Abnormality Reference (Units ) Status SYNC LEUKOCYTES IN BLOOD BY AUTOMATED COUNT 09/08/2023 09:22:33 6.09 4.00-10.80 (K/uL) Final Neutrophils/100 leukocytes in Blood by Manual count 09/08/2023 09:22:33 66.0 40.0-75.0 (%) Final Lymphocytes/100 leukocytes in Blood by Manual count 09/08/2023 09:22:33 16.0 Below low normal 18.0-42.0 (%) Final Monocytes/100 leukocytes in Blood by Manual count 09/08/2023 09:22:33 13.0 Above high normal 1.0-11.0 (%) Final Eosinophils/100 leukocytes in Blood by Manual count 09/08/2023 09:22:33 3.0 0.0-6.0 (%) Final Metamyelocytes/100 leukocytes in Blood by Manual count 09/08/2023 09:22:33 2.0 Above high normal <=0.0 (%) Final Neutrophils [#/volume] in Blood by Manual count 09/08/2023 09:22:33 4.02 1.80-7.70 (K/uL) Final Lymphocytes [#/volume] in Blood by Manual count 09/08/2023 09:22:33 0.97 Below low normal 1.00-4.80 (K/uL) Final Monocytes [#/volume] in Blood by Manual count 09/08/2023 09:22:33 0.79 0.00-1.10 (K/uL) Final Eosinophils [#/volume] in Blood by Manual count 09/08/2023 09:22:33 0.18 0.00-0.70 (K/uL) Final Metamyelocytes [#/volume] in Blood by Manual count 09/08/2023 09:22:33 0.12 Above high normal <=0.00 (K/uL) Final Nucleated erythrocytes/100 leukocytes [Ratio] in Blood by Automated count 09/08/2023 09:22:33 1 Above high normal <=0 (/100 WBCs) Final Stomatocytes [Presence] in Blood by Light microscopy 09/08/2023 09:22:33 Moderate Abnormal None Seen Final Target cells [Presence] in Blood by Light microscopy 09/08/2023 09:22:33 Moderate Abnormal None Seen Final Variant lymphocytes [Presence] in Blood by Light microscopy 09/08/2023 09:22:33 Present Abnormal None Seen Final Performing Location [facility]- 02 [address] [place] [address]
--- OUTSIDE RECORDS SUMMARY | 2023-10-22 11:02 | External Medical Summary | Summary of Care ---
Author Name Unknown Organization [facility] Address [address] [place] [address] Phone [phone] Care Team Providers Care Nut Sifter Name Role Phone May Siegel MD Primary Care Provider [phone] Reason for Visit * Reason Comments Medication Administration Aranesp * Episode Based Medications (Routine) - Authorized Specialty Diagnoses / Procedures Referred By Contac t Referred To Contact Diagnoses MDS (myelodysplastic syndrome), low grade (HCC) Anemia, unspecified type Procedures AL DARBEPOETIN ARIEL, NON-ESRD Ramesh Urbina MD 200 [facility] [place] [address] Anc Hem/Onc Kenzie Segura DEPT CLOSED - 01/26/[address] [place] [address] [address] Referral ID Status Reason Start Date Expiration Date V isits Requested Visits Authorized [id number] Authorized 08/15/2020 03/14/2099 99 99 Encounter Details Date Type Department Care Team (Late st Contact Info) Description 09/08/2023 10:15 AM EDT Immunization/I njection Hematology[facility]cology [facility], [place] [facility] [place] [address] Nurse, Med [address] [place] [address] [address] MDS (myelodysplastic syndrome), low grade (HCC)*; Anemia, unspecified type Allergies No known active allergiesdocumented as of this encounter (statuses as of 09/18/2023) Medications Medication Sig Dispensed Refills Start Date [...] minutes as needed for Pain, Chest. Active [place]-3 1000 MG Oral Capsule Take by mouth. [...] as of this encounter (statuses as of 09/18/2023) Active Problems Problem Noted Date Diagnosed Date Anemia 08/16/2020 MDS (myelodysplastic syndrome), low grade 2020 documented as of this encounter (statuses as of 09/18/2023) Immunizations Name Administration Dates Next Due Seasonal [...] Sign Reading Time Taken Comments Blood Pressure 148/77 09/08/2023 9:31 AM EDT Pulse - - Temperature - - Respiratory Rate - - Oxygen Saturation - - Inhaled Oxygen Concentration - - Weight - - Height - - Body Mass Index - - documented in this encounter Nursing Notes * Danielle Hardy LPN - 09/08/2023 10:14 AM EDT Pt arrived for Aranesp injection. Hgb 9.5. BP WNL. Administered in KATELYNN. Pt tolerated well. To return in 2 weeks. Discharged in stable condition. documented in this encounter Plan of Treatment Upcoming Encounters Date Type Department Care Team (Late st Contact Info) Description 09/22/2023 11:00 AM EDT Laboratory Laboratory Kenzie Segura [place] [address] [place] [address] [place] Lab [facility] [address] [place] [address] 09/22/2023 11:30 AM EDT Immunization/Injecti on Hematology/Oncology Treatment, [place] 200 [facility], [place] [phone] Nurse, Med 4 [address] [place], [place] [address] 10/06/2023 11:00 AM EDT Laboratory Laboratory [facility] [place] [address] [place] [address] [place], Lab Scenery [address] [facility] [place], [place] [address] 10/06/2023 11:30 AM EDT Immunization/Injecti on Hematology/Oncology Treatment, [place] 200 [facility] [place], [place] [address] Nurse, Med 4 [address] [place] [address] 10/20/2023 11:00 AM EDT Laboratory Laboratory [facility] [place] [address] [place], [place] [phone] [place], Lab Sar[place] [address] [place], [place] [address] 10/20/2023 11:30 AM EDT Immunization/Injecti on Hematology/Oncology Treatment, [place] [address] [place], [place] [phone] Nurse, Med 4 [address] [place], [place] [address] 10/29/2023 9:00 AM EDT Office Visit Hematology/Oncology [facility] [place] [address] [phone] Tamara Christiansen CRNP [address] [place] [address] 11/03/2023 11:00 AM EDT Laboratory Laboratory [facility] [place] [address] [place] [phone] Im[place]da Lab Scenery [address] [facility] [place] [address] 11/03/2023 11:30 AM EDT Immunization/Injecti on Hematology/Oncology Treatment, [place] [facility] [phone] Nurse, Med 4 [address] [place] [address] 11/17/2023 11:00 AM EDT Laboratory Laboratory [facility] Imelda [place] [address] [place] [phone] [place], Lab Scenery 200 [facility] [place] [address] 11/17/2023 11:30 AM EDT Immunization/Injecti on Hematology/Oncology Treatment, [place] [facility] [phone] Nurse, Med 4 200 [facility] [place] [address] Health Maintenance Due Date Last Done Comments Depression Screening 1957 Hepatitis C Screening 1964 DTaP,Tdap,and Td Vaccines (1 - Tdap) 1965 Zoster Vaccines (1 of 2) 1996 Pneumococcal Vaccine: 65+ Years (1 of 1 - PCV) 11/02/2011 COVID-19 Vaccine (1 - 2022-24 season) 2022 Influenza Vaccine (FLU shot) (#1) 2023 11/27/2022, 11/27/2022, 12/20/2019, Additional history exists HPV (Gardasil) Vaccine Aged Out No lo [...] 500 mcg 500 mcg, Subcutaneous, ONCE, On Wed09/08/23 at 1100, For 1 dose, If hgb <11 Given 09/08/2023 9:59 AM EDT 500 mcg Arm Left Upper documented in this encounter Care Teams Nut Sifter Relationship Specialty Start Date End Date May Siegel MD [address] [address] PCP - General Family Medicine 07/04/20 documented as of this encounter
--- OUTSIDE RECORDS SUMMARY | 2023-10-22 11:02 | External Medical Summary | Summary of Care ---
Author Name Unknown Organization [facility] Address [address] [place] [address] Phone [phone] Care Team Providers Care Salvage Winder Name Role Phone May Siegel MD Primary Care Provider [phone] Reason for Visit * Reason Comments Outpatient Testing Encounter Details Date Type Department Care Team (Late st Contact Info) Description 09/22/2023 11:00 AM EDT Laboratory Laboratory [facility] [place] [address] [place] [address] [place], Lab Scenery [address] [place] [address] MDS (myelodysplastic syndrome), low grade (HCC); Encounter for long-term (current) use of medications Allergies No known active allergiesdocumented as of [...] minutes as needed for Pain, Chest. Active Christine-3 1000 MG Oral Capsule Take by mouth. [...] Contact Info) Description 09/22/2023 11:30 AM EDT Immunization/Injecti on Hematology/Oncology Treatment, [place] [address] [place] [phone] Nurse, Med [address] [place] [address] [address] Arrived 10/06/2023 11:00 AM EDT Laboratory Laboratory Kenzie Segura [place] [address] [place] [address] [address] Imelda Lab Ken[place] [address] [place] [address] [address] 10/06/2023 11:30 AM EDT Immunization/Injecti on Hematology/Oncology Treatment, [place] [address] [place] [address] Nurse, Med [address] [place] [address] [address] 10/20/2023 11:00 AM EDT Laboratory Laboratory Kenzie Segura [place] [address] [address] [place], Lab Ken[place] [address] [place] [address] [address] 10/20/2023 11:30 AM EDT Immunization/Injecti on Hematology/Oncology Treatment, [place] [address] [place] [address] Nurse, Med [address] [address] 10/29/2023 9:00 AM EDT Office Visit Hematology/Oncology Kenzie Segura [place] [address] [phone] Tamara Christiansen CRNP [facility] [place] [address] 11/03/2023 11:00 AM EDT Laboratory Laboratory [facility] [place] [address] [place] [phone] Im[place]da Lab Scenery [address] [place] [address] 11/03/2023 11:30 AM EDT Immunization/Injecti on Hematology/Oncology Treatment, [place] 200 [facility], [place] [phone] Nurse, Med 4 [address] [place] [address] 11/17/2023 11:00 AM EDT Laboratory Laboratory [facility] Imelda [place] [address] [place] [phone] [place], Lab Scenery [address] [facility] [place], [place] [address] 11/17/2023 11:30 AM EDT Immunization/Injecti on Hematology/Oncology Treatment, [place] 200 [facility], [place] [phone] Nurse, Med 4 [address] [place], [place] [address] Pending Results Name Type Priority Associated Diagnoses Date /Time COMPREHENSIVE METABOLIC PANEL Lab STAT MDS (myelodysplastic syndrome), low grade (HCC) Encounter for long-term (current) use of medications 09/22/2023 10:55 AM EDT FERRITIN Lab STAT MDS (myelodysplastic syndrome), low grade (HCC) Encounter for long-term (current) use of medications 09/22/2023 10:55 AM EDT IRON SCREEN, INCLUDING TIBC Lab STAT MDS (myelodysplastic syndrome), low grade (HCC) Encounter for long-term (current) use of medications 09/22/2023 10:55 AM EDT FOLIC ACID Lab STAT MDS (myelodysplastic syndrome), low grade (HCC) Encounter for long-term (current) use of medications 09/22/2023 10:55 AM EDT VITAMIN B12 Lab STAT MDS (myelodysplastic syndrome), low grade (HCC) Encounter for long-term (current) use of medications 09/22/2023 10:55 AM EDT CBC WITH WBC DIFFERENTIAL Lab STAT MDS (myelodysplastic syndrome), low grade (HCC) 09/22/2023 10:55 AM EDT CBC Lab STAT MDS (myelodysplastic syndrome), low grade (HCC) 09/22/2023 10:55 AM EDT DIFFERENTIAL, AUTOMATED Lab STAT MDS (myelodysplastic syndrome), low grade (HCC) 09/22/2023 10:55 AM EDT Health Maintenance Due Date [...] grade (HCC) Low grade myelodysplastic syndrome lesions Encounter for long-term (current) use of medications Encounter for long-term (current) use of other medications documented in this encounter Care Teams Salvage Winder Relationship Specialty Start Date End Date May Siegel MD [facility] [place] [address] PCP - General Family Medicine 07/04/20 documented as of this encounter
--- OUTSIDE RECORDS SUMMARY | 2023-10-22 11:02 | External Medical Summary ---
Author Name Unknown Address Unknown Organization K09:[facility] [address] [place] [address] Laboratory Report Ordering Provider Test Date Status NICANOR PANIAGUA 09/22/2023 10:55:55 Final Observation Date Value Abnormality Reference (Units ) Status BUN 09/22/2023 10:55:55 18 6-20 (mg/dL) Final Creatinine 09/22/2023 10:55:55 1.1 0.6-1.2 (mg/dL) Final Glomerular filtration rate/1.73 sq M.predicted [Volume Rate/Area] in Serum, Plasma or Blood by Creatinine-based formula (CKD-EPI) 09/22/2023 10:55:55 74 >=60 (mL/min) Final eGFR is calculated based on the CKD-EPI 2020 equation Sodium 09/22/2023 10:55:55 131 Below low normal 135 -146 (mmol/L) Final Potassium 09/22/2023 10:55:55 4.1 3.5-5.1 (m mol/L) Final Cl 09/22/2023 10:55:55 92 Below low normal 98- 107 (mmol/L) Final CO2 09/22/2023 10:55:55 25 22-32 (mmo l/L) Final Anion gap 09/22/2023 10:55:55 14 7-15 (mmol /L) Final Glucose 09/22/2023 10:55:55 113 70-120 (mg /dL) Final Albumin 09/22/2023 10:55:55 4.5 3.8-5.0 (g /dL) Final AST (Aspartate aminotransferase) 09/22/2023 10:55:55 34 10-50 (U/L) Fin al Alk Phos 09/22/2023 10:55:55 48 35-130 (U/ L) Final Bilirubin, Total 09/22/2023 10:55:55 1.0 <=1 .2 (mg/dL) Final Calcium 09/22/2023 10:55:55 9.3 8.4-10.2 ( mg/dL) Final Protein 09/22/2023 10:55:55 8.1 6.0-8.3 (g /dL) Final ALT (Alanine aminotransferase) 09/22/2023 10:55:55 22 10-50 (U/L) Mateusz comer Performing Location [facility] [address] [place] [address]
--- OUTSIDE RECORDS SUMMARY | 2023-10-22 11:02 | External Medical Summary ---
Author Name Unknown Address Unknown Organization K01:[facility] [address] [place] [address] Laboratory Report Ordering Provider Test Date Status NICANOR PANIAGUA 09/22/2023 10:55:55 Final Observation Date Value Abnormality Reference (Units ) Status Ferritin 09/22/2023 10:55:55 528 Above high normal 30 -400 (ng/mL) Final Performing Location [facility] - [address] [place] [address]
--- OUTSIDE RECORDS SUMMARY | 2023-10-22 11:02 | External Medical Summary ---
Author Name Unknown Address Unknown Organization K09:[facility] [place] [address] Laboratory Report Ordering Provider Test Date Status NICANOR PANIAGUA 09/08/2023 09:22:33 Final Observation Date Value Abnormality Reference (Units ) Status WBC, Total 09/08/2023 09:22:33 6.09 4.00-10.8 0 (K/uL) Final RBC 09/08/2023 09:22:33 2.43 4.50-5.25 (M/uL) Final Hemoglobin 09/08/2023 09:22:33 9.5 Below low normal 14 .0-16.8 (g/dL) Final HCT 09/08/2023 09:22:33 28.9 Below low normal 40. 0-48.4 (%) Final MCV 09/08/2023 09:22:33 118.9 82.0-99.5 (fL) Final MCH 09/08/2023 09:22:33 39.1 27.0-34.0 (pg) Final MCHC 09/08/2023 09:22:33 32.9 32.0-36.0 (g/dL) Final RDW 09/08/2023 09:22:33 24.5 11.5-15.5 (%) Final Platelets 09/08/2023 09:22:33 655 Above high normal 14 0-400 (K/uL) Final MPV 09/08/2023 09:22:33 10.2 6.6-11.1 ( fL) Final Performing Location [facility] [place] [address]
--- OUTSIDE RECORDS SUMMARY | 2023-10-22 11:02 | External Medical Summary ---
Author Name Unknown Address Unknown Organization K09:[facility] [address] [place] [address] Laboratory Report Ordering Provider Test Date Status NICANOR PANIAGUA 09/22/2023 10:55:55 Final Observation Date Value Abnormality Reference (Units ) Status SYNC LEUKOCYTES IN BLOOD BY AUTOMATED COUNT 09/22/2023 10:55:55 7.26 4.00-10.80 (K/uL) Final Neutrophils/100 leukocytes in Blood by Manual count 09/22/2023 10:55:55 55.0 40.0-75.0 (%) Final Lymphocytes/100 leukocytes in Blood by Manual count 09/22/2023 10:55:55 28.0 18.0-42.0 (%) Final Monocytes/100 leukocytes in Blood by Manual count 09/22/2023 10:55:55 15.0 Above high normal 1.0-11.0 (%) Final Eosinophils/100 leukocytes in Blood by Manual count 09/22/2023 10:55:55 1.0 0.0-6.0 (%) Final Basophils/100 leukocytes in Blood by Manual count 09/22/2023 10:55:55 1.0 0.0-2.0 (%) Final Neutrophils [#/volume] in Blood by Manual count 09/22/2023 10:55:55 3.99 1.80-7.70 (K/uL) Final Lymphocytes [#/volume] in Blood by Manual count 09/22/2023 10:55:55 2.03 1.00-4.80 (K/uL) Final Monocytes [#/volume] in Blood by Manual count 09/22/2023 10:55:55 1.09 0.00-1.10 (K/uL) Final Eosinophils [#/volume] in Blood by Manual count 09/22/2023 10:55:55 0.07 0.00-0.70 (K/uL) Final Basophils [#/volume] in Blood by Manual count 09/22/2023 10:55:55 0.07 0.00-0.20 (K/uL) Final Nucleated erythrocytes/100 leukocytes [Ratio] in Blood by Automated count 09/22/2023 10:55:55 2 Above high normal <=0 (/100 WBCs) Final Target cells [Presence] in Blood by Light microscopy 09/22/2023 10:55:55 Moderate Abnormal None Seen Final Variant lymphocytes [Presence] in Blood by Light microscopy 09/22/2023 10:55:55 Present Abnormal None Seen Final Performing Location [facility] [address] [place] [address]
--- OUTSIDE RECORDS SUMMARY | 2023-10-22 11:02 | External Medical Summary ---
Author Name Unknown Address Unknown Organization K09:[facility] [place] [address] Laboratory Report Ordering Provider Test Date Status NICANOR PANIAGUA 09/22/2023 10:55:55 Final Observation Date Value Abnormality Reference (Units ) Status WBC, Total 09/22/2023 10:55:55 7.26 4.00-10.8 0 (K/uL) Final RBC 09/22/2023 10:55:55 2.56 4.50-5.25 (M/uL) Final Hemoglobin 09/22/2023 10:55:55 9.9 Below low normal 14 .0-16.8 (g/dL) Final HCT 09/22/2023 10:55:55 29.4 Below low normal 40. 0-48.4 (%) Final MCV 09/22/2023 10:55:55 114.8 82.0-99.5 (fL) Final MCH 09/22/2023 10:55:55 38.7 27.0-34.0 (pg) Final MCHC 09/22/2023 10:55:55 33.7 32.0-36.0 (g/dL) Final RDW 09/22/2023 10:55:55 24.1 11.5-15.5 (%) Final Platelets 09/22/2023 10:55:55 947 Above high normal 14 0-400 (K/uL) Final MPV 09/22/2023 10:55:55 9.4 6.6-11.1 ( fL) Final Performing Location [facility] [place] [address]
--- OUTSIDE RECORDS SUMMARY | 2023-10-22 11:02 | External Medical Summary | Summary of Care ---
Author Name Unknown Organization [facility] Address [address] [place] [address] Phone [phone] Care Team Providers Care Cap Sizer Name Role Phone May Siegel MD Primary Care Provider [phone] Reason for Visit * Reason Comments Medication Administration Aranesp 500mcg * Episode Based Medications (Routine) - Authorized Specialty Diagnoses / Procedures Referred By Contac t Referred To Contact Diagnoses MDS (myelodysplastic syndrome), low grade (HCC) Anemia, unspecified type Procedures [place] DARBEPOETIN ARIEL, NON-ESRD Ramesh Urbina MD 200 [facility] [place] [address] Anc Hem/Onc Kenzie Segura DEPT CLOSED - 01/26/[address] [place] [phone] Referral ID Status Reason Start Date Expiration Date V isits Requested Visits Authorized [id number] Authorized 08/15/2020 03/14/2099 99 99 Encounter Details Date Type Department Care Team (Late st Contact Info) Description 08/25/2023 11:30 AM EDT Immunization/I njection Hematology/Oncology Treatment, [place] [address] [place] [address] Nurse, Med [address] [place] [address] [address] [address] MDS (myelodysplastic syndrome), low grade (HCC)*; Anemia, unspecified type Allergies No known active allergiesdocumented as of this encounter (statuses as of 08/25/2023) Medications Medication Sig Dispensed Refills Start Date [...] minutes as needed for Pain, Chest. Active [place]-3 1000 MG Oral Capsule Take by mouth. [...] as of this encounter (statuses as of 08/25/2023) Active Problems Problem Noted Date Diagnosed Date Anemia 08/16/2020 MDS (myelodysplastic syndrome), low grade 2020 documented as of this encounter (statuses as of 08/25/2023) Immunizations Name Administration Dates Next Due Seasonal [...] Description 09/08/2023 9:30 AM EDT Laboratory Laboratory [facility] [place] [address] [place] [phone] William Segura Loc [address] [facility] [place] [address] 09/08/2023 10:15 AM EDT Immunization/Injectio n Hematology/Oncology Treatment, [place] [address] [place] [phone] Nurse, Med 4 [address] [place] [address] 09/22/2023 11:00 AM EDT Laboratory Laboratory [facility] Imelda [place] [address] [place] [phone] William Segura [address] [facility] [place] [address] 09/22/2023 11:30 AM EDT Immunization/Injectio n Hematology/Oncology Treatment, [place] 200 [facility], [place] [phone] Nurse, Med 4 [address] [place], [place] [address] 10/06/2023 11:00 AM EDT Laboratory Laboratory [facility] [place] [address] [place], [place] [address] Park, Lab Scene [address] [place] [address] 10/06/2023 11:30 AM EDT Immunization/Injectio n Hematology/Oncology Treatment, [place] 200 [facility], [place] [address] Nurse, Med 4 [address] [place], [place] [address] 10/20/2023 11:00 AM EDT Laboratory Laboratory [facility] [address] [place], [place] [phone] Park, Lab [facility] [address] [place] [address] 10/20/2023 11:30 AM EDT Immunization/Injectio n Hematology/Oncology Treatment, [place] [facility] [place], [place] [address] Nurse, Med 4 [address] [place], [place] [address] 10/29/2023 9:15 AM EDT Office Visit Hematology/Oncology [facility] [place] [address] [place] [phone] Ramesh Urbina MD [address] [place], [place] [address] 11/03/2023 11:00 AM EDT Laboratory Laboratory [facility] [place] [address] [place] [phone] Park, Lab Scenery [address] [place] [address] 11/03/2023 11:30 AM EDT Immunization/Injectio n Hematology/Oncology Treatment, [place] 200 [facility] Pamela [place] [phone] Nurse, Med [address] [place] [address] 11/17/2023 11:00 AM EDT Laboratory Laboratory [facility] [place] [address] [place] [phone] Park, Lab [facility] [address] [place] [address] [address] 11/17/2023 11:30 AM EDT Immunization/Injectio n Hematology/Oncology Treatment, [place] 200 [facility] Pamela [place] [phone] Nurse, Med [address] [place] [address] [address] [address] Health Maintenance Due Date Last Done Comments Depression Screening 1957 Hepatitis C Screening 1964 DTaP,Tdap,and Td Vaccines (1 - Tdap) 1965 Zoster Vaccines (1 of 2) 1996 Pneumococcal Vaccine: 65+ Years (1 of 1 - PCV) 11/02/2011 COVID-19 Vaccine (1 - 2022-24 season) 2022 Influenza Vaccine (FLU shot) Completed [...] Upper documented in this encounter Care Teams Cap Sizer Relationship Specialty Start Date End Date May Siegel MD [facility] Darrian [address] [place] [address] PCP - General Family Medicine 07/04/20 documented as of this encounter
--- OUTSIDE RECORDS SUMMARY | 2023-10-22 11:02 | External Medical Summary | Continuity of Care Document ---
Author Name Unknown Organization [facility] [address] [facility] Address [address] [place], [place] [id number] Care Team Providers Care Carrot Buncher Name Role Phone May Siegel Primary Care Physician [phone] Encounter [facility] [id number] Date(s): 09/17/23 - 09/17/23 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) - Discharge Disposition: Home or Self Care Attending Physician: MD Siegel Amy L Referring Physician: MD Siegel Amy L Allergies, Adverse Reactions, Alerts Substance Criticality Severity Reaction Reaction Severity Status simvastatin myalgias Active Lipitor myalgias Active Trees Unable to assess criticality Mild Sneezing Active Immunizations Given and Recorded Vaccine Date Status Refusal Reason tetanus/diphtheria/pertuss, acel (Tdap) 09/17/23 G iven SARS-CoV-2 (COVID-19) mRNA-vacc - [id number] 01/31/23 Recorded zoster vaccine, inactivated 11/20/22 Recorded [...] bid, Disp# 180 tab, Refills: 3, Pharmacy: [facility] Start Date: 09/15/23 Status: Ordered amLODIPine 5 mg oral tablet Start: 05/24/23 9:50:00 AM EDT, 1 tab, PO, Daily, Disp# 90 tab, Refills: 3, Pharmacy: [facility] Start Date: 05/24/23 Status: Ordered Aranesp 25 mcg/0.42 mL injectable solution Start: 08/27/21 2:40:00 PM EDT, 25 mcg =, IV, [id number], unsure of dosage as given by C onc depending on lab work q 2wks [...] 3, TAKE 1 TABLET DAILY, Pharmacy: [facility] Start Date: 11/27/22 Status: Ordered metFORMIN 500 mg oral tablet Start: 02/19/23 4:18:00 PM EST, 1 tab, PO, bid, Disp# 180 tab, Refills: 3, [facility] Start Date: 02/19/23 Status: Ordered Metoprolol Succinate ER 100 mg oral tablet, extended release Start: 09/09/23 1:01:00 PM EDT, See Instructions, Disp# 90 tab, Refills: 3, TAKE 1 TABLET DAILY, Pharmacy: [facility] Start Date: 09/09/23 Status: Ordered [...] Daily, Disp# 90 tab, Refills: 3, Pharmacy: [facility]/pharmacy #[id number] Start Date: 08/31/23 Status: Ordered [place]-3 oral capsule Start: 09/06/18 4:08:00 PM EDT, 1 cap, PO, Daily Start Date: 09/06/18 Status: Ordered One Touch Delica Plus (33G) Lancets Start: 09/25/22 1:31:00 PM EDT, See Instructions, Disp# 100 each, Refills: 6, Use to check bloodsugar once daily. Dx: E11.9 , Pharmacy: [facility]/pharmacy #[id number] Start Date: 09/25/22 Status: Ordered One Touch Verio Glucose Monitor Start: 09/29/22 11:11:00 AM EDT, See Instructions, Disp# 1 each, Refills: 6, Use to test bloodsugarsonce daily. Dx: E11.9 , Pharmacy: [facility]/pharmacy #[id number] Start Date: 09/29/22 Status: Ordered One Touch Verio Test Strips Start: 09/29/22 11:11:00 AM EDT, See Instructions, Disp# 100 strip, Refills: 6, Use to test bloodsugars once daily. Dx: E11.9 , Pharmacy: [facility]/pharmacy #[id number] Start Date: 09/29/22 Status: Ordered rosuvastatin 5 mg oral tablet Start: 09/09/23 1:01:00 PM EDT, See Instructions, Disp# 90 tab, Refills: 3, TAKE 1 TABLET AT BEDTIME, Pharmacy: [facility] Start Date: 09/09/23 Status: Ordered Tylenol 500 mg oral tablet Start: 12/25/19 10:34:00 AM EDT, 2 tab, PO, q8h, Disp# 24 tab, Refills: 0, PRN: mild pain, Pharmacy: [facility] [place] Start Date: 12/25/19 Status: Ordered ZyrTEC Start: [...] specimens collected. 3No acute chest disease. 4[facility] Impression: 1. No acute fractures within the lumbar spine 2. Degenerative changes as described, most pronounced at the L3-L4 and L4-L5 levels 5[facility] Alex 6normal Results Laboratory List Name Date Comprehensive Metabolic Panel (COMP META B PANEL) 09/17/23 Hemoglobin A1C (HEMOGLOBIN, A1C) 09/17/23 Lipid Profile (LIPOPROTEINS) 09/17/23 Thyroid Stimulating Hormone (TSH) 09/17/23 Most recent to oldest [Reference Range]: 1 eGFR CKD-EPI [>60 mL/min/1.73 m2] 66 mL/ min/1.73 m2 1 (09/17/23 8:42 AM) Estimated Average Glucose 97 mg/dL (09/17/23 8:42 AM) Non-HDL 56 mg/dL 2 (09/17/23 8:42 AM) Estimated CrCl 56.74 mL/min (09/17/23 10:44 AM) Anion Gap [5-14 mmol/L] 6 mmol/L (09/17/23 8:42 AM) Alb [3.5-5.0 g/dL] 4.0 g/dL (09/17/23 8:42 AM) Alk Phos [38-126 unit/L] 46 unit/L (09/17/23 8:42 AM) ALT [<50 unit/L] 26 unit/L (09/17/23 8:42 AM) AST [15-46 unit/L] 57 unit/L *HI* (09/17/23 8:42 AM) BUN [7-20 mg/dL] 22 mg/dL *HI* (09/17/23 8:42 AM) Ca [8.4-10.2 mg/dL] 9.4 mg/dL (09/17/23 8:42 AM) Chol/HDL 2 (09/17/23 8:42 AM) Chol [125-200 mg/dL] 113 mg/dL *LOW* (09/17/23 8:42 AM) Cl- [96-107 mmol/L] 94 mmol/L *LOW* (09/17/23 8:42 AM) HCO3 [22-30 mmol/L] 29 mmol/L (09/17/23 8:42 AM) Cret [0.70-1.30 mg/dL] 1.15 mg/dL (09/17/23 8:42 AM) HbA1c [<5.7 %] 5.0 % 3 (09/17/23 8:42 AM) Glu [74-106 mg/dL] 107 mg/dL *HI* (09/17/23 8:42 AM) HDL [>35 mg/dL] 57 mg/dL (09/17/23 8:42 AM) K [3.5-5.1 mmol/L] 4.1 mmol/L (09/17/23 8:42 AM) LDL Chol, Calculated [50-130 mg/dL] 43 m g/dL *LOW* (09/17/23 8:42 AM) Na [137-145 mmol/L] 129 mmol/L *LOW* (09/17/23 8:42 AM) T Bili [0.2-1.3 mg/dL] 0.9 mg/dL (09/17/23 8:42 AM) Prot [6.3-8.2 g/dL] 8.1 g/dL (09/17/23 8:42 AM) TG [<200 mg/dL] 64 mg/dL (09/17/23 8:42 AM) TSH [0.47-4.68 uIU/mL] 2.84 uIU/mL 4 (09/17/23 8:42 AM) 1Result Comment: Testing Performed By: Dept of Pathology [facility] Jorden Silva, [facility] [place] [address] 2Result Comment: Testing Performed By: Dept of Pathology [facility] Jorden Silva, [facility] [place] [address] 3Result Comment: ADA Recommended [place] Reference Range: Normal: <5.7% Prediabetes: 5.7-6.4% Diabetes: >6.4% 4Result Comment: Testing Performed By: Dept of Pathology [facility] Jorden Silva, [facility] [place] [address] Social History Social History Type Response Smoking Status Never smoked cigaret vilma Sex Male Implantable Device List Procedure Provider Procedure Date Device Type Site Unknown Unknown 12/19/19 Unknown Unknown Device Identifier Serial Number Lot or Batch Number Manufacturing Date Expiration Date Distinct Identification Code MRI Safety Implantable Status Assigning Authority Unknown Unknown [id number] O Unknown 01/12/21 Unknown Unknown Active Unknown Patient Care team information Care Team Personnel Name: Danette Gill Amy E Position: Pharmacist Member Role: Pharmacy - Lifetime Address: Address: [facility] [address] [place] [address] [place] Name: SOLOMON Rodriguez Mayeen R Position: Nurse Pract - CT Surgery Member Role: Lifetime Relationship Address: Address: [address] [facility] [address] [place] [address] [place] Name: MD Siegel Amy L Position: Physician - Family Med Member Role: Primary Care Provider Address: Address: [address] [place] [address] [address] [place] [address] Care Team Related Persons Name: YONY OLVERA Address: [place] Address: [address] [id number] Name: YONY OLVERA Address: home [address] [facility] [place] [id number]
--- OUTSIDE RECORDS SUMMARY | 2023-10-22 11:02 | External Medical Summary | Summary of Care ---
Author Name Unknown Organization [facility] Address [address] [place] [address] Phone [phone] Care Team Providers Care Regular Senior Care Provider Name Role Phone May Siegel MD Primary Care Provider [phone] Reason for Visit * Reason Comments Medication Administration Aranesp * Episode Based Medications (Routine) - Authorized Specialty Diagnoses / Procedures Referred By Contac t Referred To Contact Diagnoses MDS (myelodysplastic syndrome), low grade (HCC) Anemia, unspecified type Procedures [place] DARBEPOETIN ARIEL, NON-ESRD Ramesh Urbina MD 200 [facility] [place] [address] Anc Hem/Onc Kenzie Segura DEPT CLOSED - 01/26/[address] [place] [address] [phone] Referral ID Status Reason Start Date Expiration Date V isits Requested Visits Authorized [id number] Authorized 08/15/2020 03/14/2099 99 99 Encounter Details Date Type Department Care Team (Late st Contact Info) Description 09/08/2023 10:15 AM EDT Immunization/I njection [facility]ematology/Oncology Treatment, [place] [facility] [place] [phone] Nurse, Med [address] [place] [address] [address] [address] MDS (myelodysplastic syndrome), low grade (HCC)*; Anemia, [...] minutes as needed for Pain, Chest. Active [place]-3 1000 MG Oral Capsule Take by mouth. [...] 11:00 AM EDT Laboratory Laboratory Kenzie Segura [place] [address] [place] [address] Imelda Lab [facility] [address] [place] [address] 09/22/2023 11:30 AM EDT Immunization/Injecti on Hematology/Oncology Treatment, [place] 200 [facility], [place] [phone] Nurse, Med 4 [address] [place], [place] [address] 10/06/2023 11:00 AM EDT Laboratory Laboratory [facility] [place] [address] [place] [address] Park, Lab Scenery [address] [facility] [place], [place] [address] 10/06/2023 11:30 AM EDT Immunization/Injecti on Hematology/Oncology Treatment, [place] 200 [facility] Santiago [place], [place] [address] Nurse, Med 4 [address] [place] [address] 10/20/2023 11:00 AM EDT Laboratory Laboratory [facility] [place] [address] [place], [place] [phone] Imelda, Lab Saroj [address] [place], [place] [address] 10/20/2023 11:30 AM EDT Immunization/Injecti on Hematology/Oncology Treatment, [place] [address] [place], [place] [phone] Nurse, Med 4 [address] [place], [place] [address] 10/29/2023 9:00 AM EDT Office Visit Hematology/Oncology [facility] Imelda [place] [address] [place] [address] [phone] Tamara Christiansen CRNP [address] [place] [address] 11/03/2023 11:00 AM EDT Laboratory Laboratory [facility] [place] [address] [place] [phone] Imelda Lab Scenery [address] [facility] [place] [address] 11/03/2023 11:30 AM EDT Immunization/Injecti on Hematology/Oncology Treatment, [place] [facility] [phone] Nurse, Med 4 [address] [place] [address] 11/17/2023 11:00 AM EDT Laboratory Laboratory [facility] Imelda [place] [address] [place] [phone] Imelda, Lab Scenery 200 [facility] [place] [address] 11/17/2023 11:30 AM EDT Immunization/Injecti on Hematology/Oncology Treatment, [place] 200 [facility] Pamela [place] [phone] Nurse, Med 4 [address] [facility] [place] [address] Health Maintenance Due Date Last Done Comments Depression Screening 1957 Hepatitis C Screening 1964 DTaP,Tdap,and Td Vaccines (1 - Tdap) 1965 Zoster Vaccines (1 of 2) 1996 Pneumococcal Vaccine: 65+ Years (1 of 1 - PCV) 11/02/2011 COVID-19 Vaccine ( - 2022-24 season) 2022 Influenza Vaccine (FLU [...] Upper documented in this encounter Care Teams Regular Senior Care Provider Relationship Specialty Start Date End Date May Siegel MD [facility] Darrian [address] [address] PCP - General Family Medicine 07/04/20 documented as of this encounter
--- OUTSIDE RECORDS SUMMARY | 2023-10-22 11:02 | External Medical Summary ---
Author Name Unknown Address Unknown Organization [id number]:[facility] - [address] [place] [address] Laboratory Report Ordering Provider Test Date Status NICANOR PANIAGUA 09/22/2023 10:55:55 Final Observation Date Value Abnormality Reference (Units ) Status Vitamin B12 09/22/2023 10:55:55 [phone] (pg/mL) Final Performing Location LAB[facility]ATORY [facility] - [address] [place] [address]
--- OUTSIDE RECORDS SUMMARY | 2023-10-22 11:02 | External Medical Summary ---
Author Name Unknown Address Unknown Organization [id number]:[facility] [place] [address] [place] [address] Laboratory Report Ordering Provider Test Date Status NICANOR PANIAGUA 09/22/2023 10:55:55 Final Observation Date Value Abnormality Reference (Units ) Status Folic Acid 09/22/2023 10:55:55 >20.0 >4.5 (ng/ mL) Final Performing Location [facility]ATORY [facility] - [address] [place] [address]
--- OUTSIDE RECORDS SUMMARY | 2023-10-22 11:02 | External Medical Summary | Continuity of Care Document ---
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) - 09/16/23 Type 2 diabetes, HbA1c goal < 7%(Discharge Diagnosis) - 09/16/23 Bruit of right carotid artery(Discharge Diagnosis) - 09/17/23 Nocturia(Discharge Diagnosis) - 09/17/23 Benign essential HTN(Discharge Diagnosis) - 09/16/23 Borderline hyperlipidemia(Discharge Diagnosis) - 09/16/23 CAD (coronary artery disease)(Discharge Diagnosis) - 09/16/23 Acute hyponatremia(Discharge Diagnosis) - 09/17/23 Discharge Disposition: Home or Self Care Attending Physician: MD Siegel Amy L Allergies, Adverse Reactions, Alerts Substance Criticality Severity Reaction Reaction Severity Status simvastatin myalgias Active Lipitor myalgias Active Trees Unable to assess criticality Mild Sneezing Active Assessment and Plan Extracted from: Title:Office Visit Note Author:MD Siegel Amy L D ate:09/17/23 1.Myelodysplasia present i n bone marrow STATUS: Chronic, stable. DATA: hxreviewed. GOAL: Maintain satisfactoryblood counts. PLAN: Cont current heme/onc follow up & monitoring. 2.Type 2 diabetes, HbA1c goal < 7% Status : chronic, controlled. Data : diet reviewed. Goal : maintain normal blood sugars. Plan : will reviewrecordfor lastglucose &A1C.Continue same meds, pending labs. 3.Bruit of right carotid artery STATUS: new finding,stable. DATA: examreviewed. GOAL: evaluate& txcause of bruit. PLAN: get carotiddoppler. To decide on management & tx accordingly. 4.Nocturia STATUS: new complaint,stable. DATA: hxreviewed. GOAL: Maintain adequate urine flow, relieve sx of BPH. PLAN: discussedpossibleadditionofalpha-blockerfor sxrelief, buthedeclinesatthistime. 5.CAD (coronary artery disease) STATUS : chronic, stable. DATA : hx & exam reviewed. GOAL : maintain euvolemia, stable cardiac rhythm. PLAN : continue cardiology follow up. 6.Benign essential HTN Status : chronic, under faircontrol. Data : BP readings reviewed. Goal : maintain normal BP. Plan : continue current BP meds. 7.Borderline hyperlipidemia STATUS : chronic, stable. DATA : diet & exercise reviewed. GOAL: improve metabolic profile. PLAN : continue Rosuvastatin& to monitor lifestyle. 8. Health maintenance Give tetanus booster today. Return [id number]. Time:Total time spent with this patient on day of evaluation including chart review, ordering, education and coordination of care elements: 35_ minutes Immunizations Given and Recorded Vaccine Date Status Refusal Reason tetanus/diphtheria/pertuss, acel (Tdap) 09/17/23 G iven SARS-CoV-2 (COVID-19) mRNA-vacc - [id number] 01/31/23 Recorded zoster vaccine, inactivated 11/20/22 Recorded [...] Disp# 180 tab, Refills: 3, [facility]acy: [facility] Start Date: 09/15/23 Status: Ordered amLODIPine 5 mg oral tablet Start: 05/24/23 9:50:00 AM EDT, 1 tab, PO, Daily, Disp# 90 tab, Refills: 3, Pharmacy: [facility] Start Date: 05/24/23 Status: Ordered Aranesp 25 mcg/0.42 mL injectable solution Start: 08/27/21 2:40:00 PM EDT, 25 mcg =, IV, [id number], unsure of dosage as given by [facility] depending on lab work q 2wks [...] Refills: 3, TAKE 1 TABLET DAILY, Pharmacy: [facility] Start Date: 11/27/22 Status: Ordered metFORMIN 500 mg oral tablet Start: 02/19/23 4:18:00 PM EST, 1 tab, PO, bid, Disp# 180 tab, Refills: 3, [facility] Start Date: 02/19/23 Status: Ordered Metoprolol Succinate ER 100 mg oral tablet, extended release Start: 09/09/23 1:01:00 PM EDT, See Instructions, Disp# 90 tab, Refills: 3, TAKE 1 TABLET DAILY, Pharmacy: [facility] Start Date: 09/09/23 Status: Ordered [...] Daily, Disp# 90 tab, Refills: 3, Pharmacy: [facility]/pharmacy #[id number] Start Date: 08/31/23 Status: Ordered Brunswick-3 oral capsule Start: 09/06/18 4:08:00 PM EDT, 1 cap, PO, Daily Start Date: 09/06/18 Status: Ordered One Touch Delica Plus (33G) Lancets Start: 09/25/22 1:31:00 PM EDT, See Instructions, Disp# 100 each, Refills: 6, Use to check bloodsugar once daily. Dx: E11.9 , Pharmacy: [facility]/pharmacy #[id number] Start Date: 09/25/22 Status: Ordered One Touch Verio Glucose Monitor Start: 09/29/22 11:11:00 AM EDT, See Instructions, Disp# 1 each, Refills: 6, Use to test bloodsugarsonce daily. Dx: E11.9 , Pharmacy: [facility]/pharmacy #[id number] Start Date: 09/29/22 Status: Ordered One Touch Verio Test Strips Start: 09/29/22 11:11:00 AM EDT, See Instructions, Disp# 100 strip, Refills: 6, Use to test bloodsugars once daily. Dx: E11.9 , Pharmacy: [facility]/pharmacy #[id number] Start Date: 09/29/22 Status: Ordered rosuvastatin 5 mg oral tablet Start: 09/09/23 1:01:00 PM EDT, See Instructions, Disp# 90 tab, Refills: 3, TAKE 1 TABLET AT BEDTIME, Pharmacy: [facility] Start Date: 09/09/23 Status: Ordered Tylenol 500 mg oral tablet Start: 12/25/19 10:34:00 AM EDT, 2 tab, PO, q8h, Disp# 24 tab, Refills: 0, PRN: mild pain, Pharmacy: [facility] Start Date: 12/25/19 Status: Ordered ZyrTEC Start: 09/30/18 8:53:00 AM EDT, 10 mg =, PO, Daily Start Date: 09/30/18 Status: Ordered Mental Status 09/17/23 Barriers to Learning one year None evide nt Mandatory Health Literacy Documentation Yes Health Literacy Communication Barriers N ever Primary Language Russian Problem List Condition Confirmation Course Effective Dates [...] Effective Dates Health Status Clinical Service Informant 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 3No acute chest disease. 4[facility] Impression: 1. No acute fractures within the lumbar spine 2. Degenerative changes as described, most pronounced at the L3-L4 and L4-L5 levels [address] [place] [address] - Dr. Watson Alex 6normal Vital Signs Most recent to oldest [Reference Range]: 1 Patient Weight 91.4 kg (09/17/23 8:52 AM) Heart Rate 70 bpm (09/17/23 8:52 AM) Respiratory Rate 18 br/min (09/17/23 8:52 AM) Blood Pressure 142/70mmHg (09/17/23 8:52 AM) Cuff Pulse Pressure 72 mmHg (09/17/23 8:52 AM) BP Location # 1 Left Arm (09/17/23 8:52 AM) Social History Social History Type Response Smoking Status Never smoked cigaret vilma Sex Male Implantable Device List Procedure Provider Procedure Date Device Type Site Unknown Unknown 12/19/19 Unknown Unknown Device Identifier Serial Number Lot or Batch Number Manufacturing Date Expiration Date Distinct Identification Code MRI Safety Implantable Status Assigning Authority Unknown Unknown [id number] O Unknown 01/12/21 Unknown Unknown Active Unknown FCM Outpt Note * MD Christal, May Orozco: PERFORM Event Display: FCM Outpt Note Authored Date: [id number] Chief Complaint follow up, no concerns History of Present Illness * This patient is being followed longitudinally for chronic serious medical problems by Dr. May Siegel. Their most recent visitwith Dr. Siegel:02/23/23. Here for recheck offollowing concerns : 1) Myelodysplasia - he is stillhaving struggles with anemia. His heme has him on a med for this & he gets regular labs. They had wanted to do another bone marrow biopsy, but he declined to dothis. 2) Type 2 DM - he has not been doing glucometers, because he felt that they never changed. He feels that his diet is good. No low BS. 3) CAD- no problems with this. No chest pain, palpitations or leg swelling. He sees cardiology regularly. Vaccines - tetanus?? Review of Systems Review of Systems- Constitutional: no fatigue or changes in weight. HEENT: no vision changes, or sinus congestion. Respiratory: no cough, SOB, or wheezing. Cardiac: no chest pain, palpitations or pedal edema. GI: no abdominal pain, vomiting or change in bowel habits. : + nocturia. Neurologic: no headaches. Musculoskeletal: back pains resolved. Physical Exam Vitals & Measurements HR:70(Monitored) RR:18 BP:142/70 SpO2:96% WT:91.4kg WT:91.400kg(Dosing) PHQ2 Data(Data Documented on:09/17/2023 08:52) Emotional health assessment NEGATIVE PE : Alert, in NAD. HEENT - PERRL. TM's - normal. Nares - clear. Oropharynx - normal. Neck - supple, without thyromegaly or lymphadenopathy. ? Faintright carotid bruit, no bruit on left. Lungs - clear, with good breath sounds bilaterally. Heart - RRR without murmur. No pedal edema. Abdomen - +BS, soft, NT without HSM or mass. Neuro - alert & oriented, speech & cognition normal. Skin - warm & dry. Psych - affect appropriate. 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 DATA: hxreviewed. GOAL: Maintain satisfactoryblood counts. PLAN: Cont current heme/onc follow up & monitoring. 2.Type 2 diabetes, HbA1c goal < 7% Status : chronic, controlled. Data : diet reviewed. Goal : maintain normal blood sugars. Plan : will reviewrecordfor lastglucose &A1C.Continue same meds, pending labs. 3.Bruit of right carotid artery STATUS: new finding,stable. DATA: examreviewed. GOAL: evaluate& txcause of bruit. PLAN: get carotiddoppler. To decide on management & tx accordingly. 4.Nocturia STATUS: new complaint,stable. DATA: hxreviewed. GOAL: Maintain adequate urine flow, relieve sx of BPH. PLAN: discussedpossibleadditionofalpha-blockerfor sxrelief, buthedeclinesatthistime. 5.CAD (coronary artery disease) STATUS : chronic, stable. DATA : hx & exam reviewed. GOAL : maintain euvolemia, stable cardiac rhythm. PLAN : continue cardiology follow up. 6.Benign essential HTN Status : chronic, under faircontrol. Data : BP readings reviewed. Goal : maintain normal BP. Plan : continue current BP meds. 7.Borderline hyperlipidemia STATUS : chronic, stable. DATA : diet & exercise reviewed. GOAL: improve metabolic profile. PLAN : continue Rosuvastatin& to monitor lifestyle. 8. Health maintenance Give tetanus booster today. Return [id number]. Time:Total time spent with this patient on day of evaluation including chart review, ordering, education and coordination of care elements: 35_ minutes Problem List/Past Medical History Ongoing Acute bilateral [...] Date: 04/19/2012LASER SURGERY OF PROSTATE| Service Date: ilateral Rotator cuff repair| Service Date: 2008Total LEFT knee replacement| Service Date: 2001Appendectomy| Service Date: 1949 Medications acetaminophen(Tylenol 500 mg oral tablet), 1000 mg= 2 tab, PO, q8h, PRN allopurinol(allopurinol 100 mg oral tablet), 1 tab, PO, bid amLODIPine(amLODIPine 5 mg oral tablet), 1 tab, PO, Daily aspirin(aspirin 81 mg oral delayed release tablet), 81 mg= 1 tab, PO, Daily cetirizine(ZyrTEC), 10 mg, PO, Daily darbepoetin britta(Aranesp 25 mcg/0.42 mL injectable solution), 25 mcg, IV, [id number] diabetes supplies(One Touch Verio Glucose Monitor), See Instructions, 6 refills diabetes supplies(One Touch Verio Test Strips), See Instructions, 6 refills diabetes supplies(One Touch Delica Plus (33G) Lancets), See Instructions, 6 refills guaiFENesin-pseudoephedrine(Mucinex D Max Strength) hydroCHLOROthiazide(hydroCHLOROthiazide 25 mg oral tablet), See Instructions metFORMIN(metFORMIN 500 mg oral tablet), 500 mg= 1 tab, PO, bid, 3 refills metoprolol(Metoprolol Succinate ER 100 mg oral tablet, extended release), See Instructions, 3 refills multivitamin, 1 tab, PO, Daily nitroglycerin(Nitrostat 0.4 mg sublingual tablet), 0.4 mg= 1 tab, SL, q5min, PRN olmesartan(olmesartan 20 mg oral tablet), 20 mg= 1 tab, PO, Daily, 3 refills omega-3 polyunsaturated fatty acids(Brunswick-3 oral capsule), 1 cap, PO, Daily rosuvastatin(rosuvastatin [...] Brother. Stroke: Father. Health Status Family Member(s) Immunizations Vaccine Date Status tetanus/diphtheria/pertuss, acel (Tdap) 09/17/2023 Given SARS-CoV-2 (COVID-19) mRNA-vacc - [id number] 01/31/2023 Recorded zoster vaccine, inactivated 11/20/2022 Recorded zoster vaccine, inactivated 08/26/2022 Recorded SARS-CoV-2 mRNA-1273 (6y+ bivalent) 01/15/2022 Recorded pneumococcal 20-valent conjugate vaccine 12/11/2021 Recorded SARS-CoV-2 (COVID-19) mRNA-1273 vaccine 08/07/2021 Recorded SARS-CoV-2 (COVID-19) mRNA BNT-162b2 vax 01/10/2021 Recorded pneumococcal 23-valent vaccine 11/16/2020 Recorded zoster vaccine, inactivated 03/14/2020 Recorded influenza virus vaccine, inactivated 12/20/2019 Given Comments : Early/Late Reason: Other : influenza virus vaccine, inactivated 01/31/2019 Given pneumococcal 13-valent vaccine 12/14/2014 Recorded pneumococcal 23-valent vaccine 02/18/2012 Recorded influenza virus vaccine, H1N1 03/01/2009 Recorded Recommendations Health Maintenance Pending(in the next year) Due Adult Influenza Vaccine due09/12/23and every 1year Adult Social Determinants of Health Screening due09/17/23Unknown Frequency Hepatitis C Screening due09/17/23One-time only Medicare Annual Wellness Visit due09/17/23and every 1year Due In Future Diabetes Management A1c not due until02/23/24and every 366day Satisfied(in the past 1 year) Satisfied Adult Tdap/Td Vaccine on09/17/23.Satisfied by JOE Colmenares Karli R Body Mass Index on02/23/23.Satisfied by JOE Colmenares Karli R Diabetes Management A1c on02/22/23.Satisfied by Contributor_system, [id number] Diabetic Eye Exam on07/09/23.Satisfied by JOE Colmenares Karli R Electronic Signature on File Electronically Reviewed/Signed by: May Siegel MD Author Signature Dt/Tm:09/17/2023 10:44 AM Mixing Machine Tender [facility] [address] [facility], [address] [place] [address] [facility] Patient Care team information Care Team Personnel Name: Danette Gill Amy E Position: Pharmacist Member Role: Pharmacy - Lifetime Address: Address: [address] [address] Name: SOLOMON Rodriguez Mayeen R Position: Nurse Pract - CT Surgery Member Role: Lifetime Relationship Address: Address: [address] [place], [place] [address], [place] [address] Name: MD Christal, May Orozco Position: Physician - Family Med Member Role: Primary Care Provider Address: Address: [address] [place] [address] [address] [place], [place] [address] Care Team Related Persons Name: YONY OLVERA Address: [place] Address: [address] [phone] Name: YONY OLVERA Address: home [address] [facility] [id number]"
--- OUTSIDE RECORDS SUMMARY | 2023-10-22 11:02 | External Medical Summary | Summary of Care ---
Author Name Unknown Organization [facility] Address [address] [place] [address] Phone [phone] Care Team Providers Care Tumor Registrar Name Role Phone May Siegel MD Primary Care Provider [phone] Reason for Visit * Reason Comments Medication Administration Aranesp 500mcg * Episode Based Medications (Routine) - Authorized Specialty Diagnoses / Procedures Referred By Contac t Referred To Contact Diagnoses MDS (myelodysplastic syndrome), low grade (HCC) Anemia, unspecified type Procedures [place] DARBEPOETIN ARIEL, NON-ESRD Ramesh Urbina MD [address] [facility] [place] [address] Anc Hem/Onc Kenzie Segura DEPT CLOSED - 01/26/[address] [place] [address] [phone] Referral ID Status Reason Start Date Expiration Date V isits Requested Visits Authorized [id number] Authorized 08/15/2020 03/14/2099 99 99 Encounter Details Date Type Department Care Team (Late st Contact Info) Description 08/25/2023 11:30 AM EDT Immunization/I njection Hematology/Oncology Treatment, [place] [address] [place] [phone] Nurse, Med [address] [place] [address] [address] MDS (myelodysplastic syndrome), low grade (HCC)*; Anemia, [...] minutes as needed for Pain, Chest. Active [place]-3 1000 MG Oral Capsule Take by mouth. [...] Description 09/08/2023 9:30 AM EDT Laboratory Laboratory [facility] [place] [address] [place] [address] [phone] William Segura [address] [facility] [place] [address] 09/08/2023 10:15 AM EDT Immunization/Injectio n Hematology/Oncology Treatment, [place] [address] [place] [phone] Nurse, Med 4 [address] [place] [address] 09/22/2023 11:00 AM EDT Laboratory Laboratory [facility] Imelda [place] [address] [place] [phone] William Segura [address] [facility] [place] [address] 09/22/2023 11:30 AM EDT Immunization/Injectio n Hematology/Oncology Treatment, [place] 200 [facility], [place] [phone] Nurse, Med 4 [address] [place], [place] [address] 10/06/2023 11:00 AM EDT Laboratory Laboratory [facility] [place] [address] [place], [place] [address] Park, Lab Scene [address] [place] [address] 10/06/2023 11:30 AM EDT Immunization/Injectio n Hematology/Oncology Treatment, [place] 200 [facility], [place] [address] Nurse, Med 4 [address] [place], [place] [address] 10/20/2023 11:00 AM EDT Laboratory Laboratory [facility] [address] [place], [place] [phone] Park, Lab [facility] [address] [place], [place] [address] 10/20/2023 11:30 AM EDT Immunization/Injectio n Hematology/Oncology Treatment, [place] [facility] [place], [place] [address] Nurse, Med 4 [address] [place], [place] [address] 10/29/2023 9:15 AM EDT Office Visit Hematology/Oncology [facility] [place] [address] [place] [phone] Ramesh Urbina MD [address] [place], [place] [address] 11/03/2023 11:00 AM EDT Laboratory Laboratory [facility] [place] [address] [place] [phone] Park, Lab Scenery [address] [place] [address] 11/03/2023 11:30 AM EDT Immunization/Injectio n Hematology/Oncology Treatment, [place] [address] [facility] Pamela [place] [phone] Nurse, Med [address] [place] [address] 11/17/2023 11:00 AM EDT Laboratory Laboratory [facility] [place] [address] [place] [phone] Park, Lab [facility] [address] [place] [address] [address] 11/17/2023 11:30 AM EDT Immunization/Injectio n Hematology/Oncology Treatment, [place] [address] [facility] [place]ela [place] [phone] Nurse, Med [address] [place] [address] [address] Health Maintenance Due Date Last Done Comments [...] Upper documented in this encounter Care Teams Tumor Registrar Relationship Specialty Start Date End Date May Siegel MD [facility] [address] [place] [address] PCP - General Family Medicine 07/04/20 documented as of this encounter
--- OUTSIDE RECORDS SUMMARY | 2023-10-22 11:02 | External Medical Summary | Summary of Care ---
Author Name Unknown Organization [facility] Address [address] [place] [address] Phone [phone] Care Team Providers Care Human Resources Assistant Name Role Phone May Siegel MD Primary Care Provider [phone] Reason for Visit * Reason Comments Medication Administration Aranesp * Episode Based Medications (Routine) - Authorized Specialty Diagnoses / Procedures Referred By Contac t Referred To Contact Diagnoses MDS (myelodysplastic syndrome), low grade (HCC) Anemia, unspecified type Procedures [place] DARBEPOETIN ARIEL, NON-ESRD Ramesh Urbina MD [address] [facility] [place] [address] Anc Hem/Onc Kenzie Segura DEPT CLOSED - 01/26/[address] [place] [address] [phone] Referral ID Status Reason Start Date Expiration Date V isits Requested Visits Authorized [id number] Authorized 08/15/2020 03/14/2099 99 99 Encounter Details Date Type Department Care Team (Late st Contact Info) Description 09/08/2023 10:15 AM EDT Immunization/I njection Hematology/Oncology Treatment, [place] [facility] [place] [address] Nurse, Med [address] [place] [address] [address] MDS (myelodysplastic syndrome), low grade (HCC)*; Anemia, unspecified type Allergies No known active allergiesdocumented as of this encounter (statuses as of 09/20/2023) Medications Medication Sig Dispensed Refills Start Date [...] minutes as needed for Pain, Chest. Active [place]-3 1000 MG Oral Capsule Take by mouth. [...] as of this encounter (statuses as of 09/20/2023) Active Problems Problem Noted Date Diagnosed Date Anemia 08/16/2020 MDS (myelodysplastic syndrome), low grade 2020 documented as of this encounter (statuses as of 09/20/2023) Immunizations Name Administration Dates Next Due Seasonal [...] 11:00 AM EDT Laboratory Laboratory Kenzie Segura [place] [address] [place] [phone] Imelda Lab [facility] [address] [place] [address] 09/22/2023 11:30 AM EDT Immunization/Injecti on Hematology/Oncology Treatment, [place] 200 [facility], [place] [phone] Nurse, Med 4 [address] [place], [place] [address] 10/06/2023 11:00 AM EDT Laboratory Laboratory [facility] [place] [address] [place] [address] Park, Lab Scenery [address] [facility] [place], [place] [address] 10/06/2023 11:30 AM EDT Immunization/Injecti on Hematology/Oncology Treatment, [place] 200 [facility] [place], [place] [address] Nurse, Med 4 [address] [place] [address] 10/20/2023 11:00 AM EDT Laboratory Laboratory [facility] [place] [address] [place], [place] [phone] Imelda, Lab [place] [address] [place], [place] [address] 10/20/2023 11:30 AM EDT Immunization/Injecti on Hematology/Oncology Treatment, [place] [address] [place], [place] [phone] Nurse, Med 4 [address] [place], [place] [address] 10/29/2023 9:00 AM EDT Office Visit Hematology/Oncology [facility] Imelda [place] [address] [place] [address] [phone] Tamara Christiansen CRNP [address] [place] [address] 11/03/2023 11:00 AM EDT Laboratory Laboratory [facility] [place] [address] [place] [phone] Imelda Lab Scenery [address] [facility] [place] [address] 11/03/2023 11:30 AM EDT Immunization/Injecti on Hematology/Oncology Treatment, [place] [facility] [phone] Nurse, Med 4 [address] [place] [address] 11/17/2023 11:00 AM EDT Laboratory Laboratory [facility] Imelda [place] [address] [place] [phone] Imelda, Lab Scenery 200 [facility] [place] [address] 11/17/2023 11:30 AM EDT Immunization/Injecti on Hematology/Oncology Treatment, [place] [facility] [phone] Nurse, Med 4 200 [facility] [address] Health Maintenance Due Date Last Done Comments [...] Upper documented in this encounter Care Teams Human Resources Assistant Relationship Specialty Start Date End Date May Siegel MD [address] [address] PCP - General Family Medicine 07/04/20 documented as of this encounter
--- OUTSIDE RECORDS SUMMARY | 2023-10-22 11:03 | External Medical Summary | Summary of Care ---
Author Name Unknown Organization [facility] Address [address] [place] [address] Phone [phone] Care Team Providers Care Starchmaker Name Role Phone May Siegel MD Primary Care Provider [phone] Reason for Visit * Reason Comments Medication Administration Aranesp * Episode Based Medications (Routine) - Authorized Specialty Diagnoses / Procedures Referred By Contac t Referred To Contact Diagnoses MDS (myelodysplastic syndrome), low grade (HCC) Anemia, unspecified type Procedures IN DARBEPOETIN ARIEL, NON-ESRD Ramesh Urbina MD [address] [facility] [place] [address] Anc Hem/Onc Kenzie Segura DEPT CLOSED - 01/26/[address] [place] [phone] Referral ID Status Reason Start Date Expiration Date V isits Requested Visits Authorized [id number] Authorized 08/15/2020 03/14/2099 99 99 Encounter Details Date Type Department Care Team (Late st Contact Info) Description 07/14/2023 11:30 AM EDT Immunization/I njection Hematology/Oncology Treatment, [place] [address] [facility] [place] [address] Nurse, Med [address] [place] [address] [address] MDS (myelodysplastic syndrome), low grade (HCC)*; Anemia, unspecified type Allergies No known active allergiesdocumented as of this encounter (statuses as of 08/23/2023) Medications Medication Sig Dispensed Refills Start Date [...] minutes as needed for Pain, Chest. Active [place]-3 1000 MG Oral Capsule Take by mouth. [...] as of this encounter (statuses as of 08/23/2023) Active Problems Problem Noted Date Diagnosed Date Anemia 08/16/2020 MDS (myelodysplastic syndrome), low grade 2020 documented as of this encounter (statuses as of 08/23/2023) Immunizations Name Administration Dates Next Due Seasonal [...] Sign Reading Time Taken Comments Blood Pressure 130/62 07/14/2023 11:02 AM EDT Pulse - - Temperature - - Respiratory Rate - - Oxygen Saturation - - Inhaled Oxygen Concentration - - Weight - - Height - - Body Mass Index - - documented in this encounter Nursing Notes * Danielle Hardy LPN - 07/14/2023 1:22 PM EDT 1100: Pt arrived for Aranesp injection. Hgb 8.2. BP WNL. Administered in KATELYNN. Pt tolerated well. Toreturn in 2 weeks. Discharged in stable condition. documented in this encounter Plan of Treatment Upcoming Encounters Date Type Department Care Team (Late st Contact Info) Description 10/29/2023 9:15 AM EDT Office Visit Hematology/Oncology [facility] [address] [facility] [place] [address] Ramesh Urbina MD 200 [place] [address] Health Maintenance Due Date Last Done Comments [...] 500 mcg 500 mcg, Subcutaneous, ONCE, On Wed07/14/23 at 1215, For 1 dose, If hgb <11 Given 07/14/2023 11:04 AM EDT 500 mcg Arm Right Upper documented in this encounter Care Teams Starchmaker Relationship Specialty Start Date End Date May Siegel MD [address] [place] [address] PCP - General Family Medicine 07/04/20 documented as of this encounter
--- OUTSIDE RECORDS SUMMARY | 2023-10-22 11:03 | External Medical Summary | Summary of Care ---
Author Name Unknown Organization [facility] Address [address] [facility] [place] [address] Phone [phone] Care Team Providers Care Equipment Oiler Name Role Phone May Siegel MD Primary Care Provider [phone] Reason for Visit * Reason Comments Treatment Encounter Details Date Type Department Care Team (Late st Contact Info) Description 07/28/2023 1:45 PM EDT Office Visit Hematology/Oncology [facility] [place] 200 [facility] [place] [phone] [facility] [address] MDS (myelodysplastic syndrome), low grade (HCC)* Allergies No known active allergiesdocumented as of this encounter (statuses as of 07/28/2023) Medications Medication Sig Dispensed Refills Start Date End Date Status Aspirin 81 MG Oral Tablet Delayed Release Take 1 Tablet by mouth in the morning. 0 Active CoQ10 200 MG Oral Capsule Take by mouth. 0 Active Rosuvastatin Calcium 5 MG Oral Tablet Take 1 Tablet by mouth in the morning. 0 Active hydroCHLOROthiazide 25 MG Oral Tablet (Hydrodiuril) Take 1 Tablet by mouth in the morning. 0 Active Nitroglycerin 0.4 MG Sublingual Tablet Sublingual (Nitrostat) Place 0.4 mg under the tongue every 5 minutes as needed for Pain, Chest. 0 Active [place]-3 1000 MG Oral Capsule Take by mouth. 0 Active Metoprolol Succinate ER 100 MG Oral Tablet Extended Release 24 Hour (Toprol XL) Take 1 Tablet by mouth in the morning. 0 Active Acetaminophen 500 MG Oral Tablet (Tylenol) Take 500 mg by mouth every 6 hours as needed. 0 Active ZyrTEC Allergy 10 MG Oral Capsule (Cetirizine HCl) Take 1 Capsule by mouth in the morning. 0 Active Allopurinol 100 MG Oral Tablet (Zyloprim) Take 1 Tablet by mouth in the morning. 0 Active Olmesartan Medoxomil 20 MG Oral Tablet (Benicar) 0 01/01/2022 Active amLODIPine Besylate 5 MG Oral Tablet (Norvasc) Take 1 Tablet by mouth in the morning. 0 Active metFORMIN HCl 500 MG Oral Tablet (Glucophage) Take 1 Tablet by mouth 2 times a day with morning and evening meals. 0 Active documented as of this encounter (statuses as of 07/28/2023) Active Problems Problem Noted Date Diagnosed Date Anemia 08/16/2020 MDS (myelodysplastic syndrome), low grade 2020 documented as of this encounter (statuses as of 07/28/2023) Immunizations Name Administration Dates Next Due Seasonal [...] Sign Reading Time Taken Comments Blood Pressure 149/71 07/28/2023 1:27 PM EDT Pulse 78 07/28/2023 1:27 PM EDT Temperature 36.5 C (97.7 F) 07/28/2023 1:27 PM ED T Respiratory Rate 16 07/28/2023 1:27 PM EDT Oxygen Saturation 94% 07/28/2023 1:27 PM EDT Inhaled Oxygen Concentration - - Weight 90.8 kg (200 lb 1.6 oz) 07/28/2023 1:27 P M EDT Height - - Body Mass Index 33.56 01/27/2023 1:08 PM EST documented in this encounter Progress Notes * Ramesh Urbina MD - 07/28/2023 1:45 PM EDT NOLBERTO OLVERA MR # [id number] :1945 77-year-old male, Date of initial consultation with me 07/25/2020 DIAGNOSIS: -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 -Anemia and thrombocytosis. - SF3B1 gene. Positive CURRENT TREATMENT: - Aranesp 500 microgram every 2 weekly started on 08/21/2020. Presently he is not on any oral iron replacement therapy. He had upper GI bleed (thought to be ibuprofen related), received 4 units of PRBC in late May 2021 when he was in [place]. DIAGNOSTIC WORKUP: He is referred to hematology for evaluation of thrombocytosis. I reviewed his medical records. Background history: -he had CABG surgery earlier in July of 2017 - he had no evidence of bony union at the sternotomy site. -he received 1 unit PRBC during the surgery. 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 -he received 6 weeks of antibiotic treatment following that. -he did not have significant local symptoms other than some clicking sensation. He did not have fever at that time. -he received 2 units of PRBC at that time. Blood workup done on 01/04/2020: -WBC 9007, H&H of 8.9/28.6, MCV 99.7, Platelet count of 800,000. -WBC 7300, H&H of 9.9/31.5, MCV 97.8, Platelet count of 592,000 (02/05/2020). - some nucleated red blood cells noted. -BUN/Creat: 16/1.1, normal liver function test (02/02/2020). CT chest (09/14/2019) 1. Linear median sternotomy with separation of right and left bone sternal components of 8 mm throughout. 2. No evidence for bony union at this time. 3. Lungs are grossly clear with mild dependent basilar atelectasis. Blood workup done on 07/01/2020: -WBC 8700, H&H of 9.6/29.8, Platelet count of 551,000. MPV 10.6. -Normal LFT. -BUN/Creat: 16/1.0. Blood workup done on 07/25/2020: -WBC 7400, H&H of 8.4/24.7, Platelet count of 457,000, MPV 9.8, MCV 94.3. -Absolute reticulocyte count --> 18,000 -Ferritin level --> 1364 -Serum iron: 278, TIBC 278, iron saturation 100% -Vitamin B12 --> 351 -Folic acid --> 8.2 -LDH --> 184 -C reactive protein --> less than 3. Bone marrow exam some (08/01/2020): -hypercellular bone marrow with multi lineage maturation and megakaryocytic proliferation, no excess blast -adequate iron stores with increased sideroblast -flow cytometry --> negative. -Normal male chromosome. 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 -EPO level --> 50 (08/01/2020: IPSS score --> 0 which falls into low risk category -revised IPSS score --> 2 which falls into low risk category. OTHER IMPORTANT HISTORY: - History of gout, -Hypertension -Hyperlipidemia - Earlier he responded quite well with Aranesp, when he was in [place] during the winter months, inlate May 2021, he was admitted at local hospital for upper GI bleed, found to have ibuprofen induced the upper GI bleed, he was taking ibuprofen for the back pain. He received 4 units of PRBC during that time. INTERVAL HISTORY: He has come the clinic for the follow-up, he came to clinic by himself. He says that lately for the last few weeks, he is having increasing shortness of breath, not able to run more on the treadmill, denies any bleeding from the sites, he takes multivitamin every day, nonausea no vomiting, not on any oral iron supplementation, no abdominal symptoms, no leg edema, no tingling and numbness of extremities, current weight around 200 lb. No past medical history on file. No past surgical history on file. Current Outpatient Medications Medication Sig Dispense Refill Aspirin 81 MG Oral Tablet Delayed Release Take 1 Tablet by mouth in the morning. CoQ10 200 MG Oral Capsule Take by mouth. Rosuvastatin Calcium 5 MG Oral Tablet Take 1 Tablet by mouth in the morning. hydroCHLOROthiazide 25 MG Oral Tablet (Hydrodiuril) Take 1 Tablet by mouth in the morning. Nitroglycerin 0.4 MG Sublingual Tablet Sublingual (Nitrostat) Place 0.4 mg under the tongue every 5minutes as needed for Pain, Chest. [place]-3 1000 MG Oral Capsule Take by mouth. Metoprolol Succinate ER 100 MG Oral Tablet Extended Release 24 Hour (Toprol XL) Take 1 Tablet by mouth in the morning. Acetaminophen 500 MG Oral Tablet (Tylenol) Take 500 mg by mouth every 6 hours as needed. ZyrTEC Allergy 10 MG Oral Capsule (Cetirizine HCl) Take 1 Capsule by mouth in the morning. Allopurinol 100 MG Oral Tablet (Zyloprim) Take 1 Tablet by mouth in the morning. Olmesartan Medoxomil 20 MG Oral Tablet (Benicar) amLODIPine Besylate 5 MG Oral Tablet (Norvasc) Take 1 Tablet by mouth in the morning. metFORMIN HCl 500 MG Oral Tablet (Glucophage) Take 1 Tablet by mouth 2 times a day with morning andevening meals. No current facility-administered medications for this visit. No family history on file. Social History Socioeconomic History Marital status: Spouse name: Not on file Number of children: Not on file Years of education: Not on file Highest education level: Not on file Occupational History Not on file Social Needs Financial resource strain: Not on file Food insecurity Worry: Not on file Inability: Not on file Transportation needs Medical: Not on file Non-medical: Not on file Tobacco Use Smoking status: Former Smoker Types: Cigarettes, Pipe Smokeless tobacco: Never Used Substance and Sexual Activity Alcohol use: Yes Frequency: Monthly or less Drinks per session: 1 or 2 Binge frequency: Less than monthly Drug use: Never Sexual activity: Not on file Lifestyle Physical activity Days per week: Not on file Minutes per session: Not on file Stress: Not on file Relationships Social connections Talks on phone: Not on file Gets together: Not on file Attends samaritan service: Not on file Active member of club or organization: Not on file Attends meetings of clubs or organizations: Not on file Relationship status: Not on file Intimate partner violence Fear of current or ex partner: Not on file Emotionally abused: Not on file Physically abused: Not on file Forced sexual activity: Not on file Other Topics Concern Not on file Social History Narrative Not on file Vaping/E-Cigarette Use Vaping/E-Cigarette Substances Vaping/E-Cigarette Devices On Exam: BP 149/71 (BP Site: Left Arm, BP Position: Sitting, BP Cuff Size: Regular) | Pulse 78 | Temp 36.5 C (97.7 F) (Tympanic) | Resp 16 | Wt 90.8 kg (200 lb 1.6 oz) | SpO2 94% | BMI 33.56 kg/m | BSA 2.04 m Constitutional: Patient is alert, cooperative and oriented x 3. Well built man, Patient is in no acute distress. HEENT:No icterus, no pallor, Throat and pharynx normal. Sinuses are non-tender. Neck: Supple and without lymphadenopathy or masses. No JVD. No Palpable supraclavicular lymph nodes. Lungs: Clear to auscultation. Bilateral symmetric air entry. No wheezing or rhonchi. Cardiovascular: Normal heart sounds, no murmurs.Regular rate and rhythm. Abdomen: soft, nontender, no hepatomegaly, no splenomegaly. Bowel sounds are normal. Neurological: No gross focal neurological deficit; walks with a normal gait. Extremities: No finger clubbing, No cyanosis. No leg edema. Skin:: No skin rash. SPINE: No spinal or paraspinal tenderness. LABS: Blood workup done on 01/27/2023: -WBC 6800, H&H of 9.7/29.4, Platelet count of 513594. Anemia workup done on 01/13/2023: -Vitamin B12 -->337, folic acid--> 17.2 -Serum iron: 290, TIBC 310, iron saturation 9%. -Ferritin level --> 581 Blood workup done on 07/28/2023: -WBC 8200, H&H of 7.8/23.7, MCV 117, Platelet count of 222025. Anemia workup done on 06/30/2023: -Vitamin B12 --> 303 -folic acid > 20 -Serum iron: 255, iron saturation 92%, TIBC 278 -Ferritin level --> 878 -BUN/Creat: 27/1.3, normal LFT, Calcium 9.3. IMAGING: As described above. ASSESSMENT AND PLAN: 77-year-old male, Myelodysplastic syndrome with ring sideroblast, (July 2020) - normal male chromosome - no increased blasts noted in the bone marrow examination - SF3B1 gene mutation positive. -Ferritin level is around 1300 range at that time the diagnosis in July 2020. (he did receive blood transfusion when he had a cardiac surgery earlier). -EPO level is around 50 Presently he is receiving Aranesp every 2 weekly, gradual improvement Hemoglobin level, Earlier when he was in [place] during the winter months, he had upper GI bleed, he was admitted for4 days in late May 2021, received 4 units of PRBC during that time. Currently he receives Aranesp 500 microgram every 2 weekly if the hemoglobin level less than 11 g/dL, overall he had done well, hemoglobin level between 9 - 10 g/dL. Lately he has not feeling well, has more shortness of breath, blood workup done recently showed gradual drop in the gammaglobulin, latest hemoglobin 7.8 g/dL. No evidence of iron deficiency, B12 deficiency folic acid deficiency, slightly abnormal kidney function test noted with serum around 1.3 mg/dL. Denies any bleeding from the sites. No other systemic symptoms. It is possible he may have progression of the underlying myelodysplastic syndrome, talked to him about getting a bone marrow evaluation but he declined for that. We talked about next treatment options that can be considered with Ana , indications of that, typically It is considered after he become transfusion-dependent. Talked to him that he may need backup blood transfusion if hemoglobin less than 7. Will continue Aranesp every 2 weekly as we planned I am planning to see him back in about [address] Ramesh Urbina Hem/Onc (This note was completed using the dictation program Fluency Direct. As such, there may be misspellings, word substitutions, or other variations that should not change the essence of the clinical content of this encounter note. If there is need for further clarification, please direct questions to the provider listed above.) documented in this encounter Nursing Notes * Danielle Macias MED ASSIST - 07/28/2023 1:29 PM EDT Patient identifed by name and birthdate Do you have any concerns about pain management for today's visit? No Living Will or Advance Directive for Health Care as noted on the problem list. [facility] is a way you can talk to your provider on line through e-mail. Would you like to sign up? I can activate it for you? ALREADY ACTIVE Filed Vitals: 07/28/23 1327 BP: 149/71 Pulse: 78 Resp: 16 Temp: 36.5 C (97.7 F) TempSrc: Tympanic SpO2: 94% Weight: 90.8 kg (200 lb 1.6 oz) Patient was instructed to not get up on the exam table/exam chair until directed and assisted by their provider; patient is to remain seated in the chair/ wheelchair/ exam table/ exam chair for fall prevention and safety reasons. Patient is aware to have assistance to step down off exam table/exam chair with personnel. Patient voiced full comprehension of instructions. documented in this encounter Plan of Treatment Upcoming Encounters Date Type Department Care Team (Latest Contact Info) Description 07/28/2023 2:30 PM EDT Immunization/Inject ion Hematology/Oncology Treatment, [place] 200 [facility] [place] [phone] Nurse, Med 4 200 [facility] [place] [address] MDS (myelodysplastic syndrome), low grade (HCC)*; Anemia, unspecified type 08/11/2023 11:00 AM EDT Laboratory Laboratory [facility] [place] 200 [facility] [place] [phone] [place] [facility] 200 [facility] [place] [address] 08/11/2023 11:30 AM EDT Immunization/Inject ion Hematology/Oncology Treatment, [place] [facility] [phone] Nurse, Med 4 [address] [place] [address] Health Maintenance Due Date Last Done Comments [...] (HCC)- Primary Low grade myelodysplastic syndrome lesions MDS (myelodysplastic syndrome), low grade (HCC)- Primary Low grade myelodysplastic syndrome lesions Anemia, unspecified type documented in this encounter Care Teams Equipment Oiler Relationship Specialty Start Date End Date May Siegel MD [facility] Darrian Silva [address] [address] PCP - General Family Medicine 07/04/20 documented as of this encounter"
--- OUTSIDE RECORDS SUMMARY | 2023-10-22 11:03 | External Medical Summary ---
Author Name Unknown Address Unknown Organization K09:[facility] Kenzie [place]OPEZ [address] Laboratory Report Ordering Provider Test Date Status NICANOR PANIAGUA 08/11/2023 10:58:23 Final Observation Date Value Abnormality Reference (Units ) Status WBC, Total 08/11/2023 10:58:23 7.77 4.00-10.8 0 (K/uL) Final RBC 08/11/2023 10:58:23 2.03 4.50-5.25 (M/uL) Final Hemoglobin 08/11/2023 10:58:23 8.0 Below low normal 14 .0-16.8 (g/dL) Final HCT 08/11/2023 10:58:23 24.5 Below low normal 40. 0-48.4 (%) Final MCV 08/11/2023 10:58:23 120.7 82.0-99.5 (fL) Final MCH 08/11/2023 10:58:23 39.4 27.0-34.0 (pg) Final MCHC 08/11/2023 10:58:23 32.7 32.0-36.0 (g/dL) Final RDW 08/11/2023 10:58:23 25.9 11.5-15.5 (%) Final Platelets 08/11/2023 10:58:23 619 Above high normal 14 0-400 (K/uL) Final MPV 08/11/2023 10:58:23 9.9 6.6-11.1 ( fL) Final Performing Location [facility] [place] [address]
--- OUTSIDE RECORDS SUMMARY | 2023-10-22 11:03 | External Medical Summary | Summary of Care ---
Author Name Unknown Organization [facility] Address [address] [facility] [place] [address] Phone [phone] Care Team Providers Care Brim Welt Sewing Machine Operator Name Role Phone May Siegel MD Primary Care Provider [phone] Reason for Visit * Reason Comments Outpatient Testing Encounter Details Date Type Department Care Team (Late st Contact Info) Description 07/28/2023 12:50 PM EDT Laboratory Laboratory [facility] [address] [place] [phone] [place], Lab [address] [place] [address] MDS (myelodysplastic syndrome), low grade (HCC) Allergies [...] as needed for Pain, Chest. 0 Active [place]-3 1000 MG Oral Capsule Take by mouth. [...] Care Team (Latest Contact Info) Description 07/28/2023 1:45 PM EDT Office Visit Hematology/Oncology [place] Jemal Rodriguez [address] [place] [phone] Ramesh Urbina MD [address] [place] [address] NOLBERTO Ovalle W[place] 07/28/2023 2:30 PM EDT Immunization/Inject ion Hematology/Oncology Treatment, [place] 200 [facility], [place] [phone] Nurse, Med 4 200 [facility] [place], [place] [address] Arrived 08/11/2023 11:00 AM EDT Laboratory Laboratory [facility] [place] 200 [facility] [place], [place] [phone] [place], Lab [facility] 200 [facility] [place], [place] [address] 08/11/2023 11:30 AM EDT Immunization/Inject ion Hematology/Oncology Treatment, [place] [address] [facility], [place] [phone] Nurse, Med 4 200 [facility] [place], [place] [address] Pending Results Name Type Priority Associated Diagnoses Date /Time CBC WITH WBC DIFFERENTIAL Lab STAT MDS (myelodysplastic syndrome), low grade (HCC) 07/28/2023 12:40 PM EDT CBC Lab STAT MDS (myelodysplastic syndrome), low grade (HCC) 07/28/2023 12:40 PM EDT DIFFERENTIAL, AUTOMATED Lab STAT MDS (myelodysplastic syndrome), low grade (HCC) 07/28/2023 12:40 PM EDT Health Maintenance Due Date Last Done [...] lesions documented in this encounter Care Teams Brim Welt Sewing Machine Operator Relationship Specialty Start Date End Date May Siegel MD [address] [place] [address] PCP - General Family Medicine 07/04/20 documented as of this encounter
--- OUTSIDE RECORDS SUMMARY | 2023-10-22 11:03 | External Medical Summary ---
Author Name Unknown Address Unknown Organization K09:[facility] [address] [place] [address] Laboratory Report Ordering Provider Test Date Status NICANOR PANIAGUA 08/11/2023 10:58:23 Final Observation Date Value Abnormality Reference (Units ) Status SYNC LEUKOCYTES IN BLOOD BY AUTOMATED COUNT 08/11/2023 10:58:23 7.77 4.00-10.80 (K/uL) Final Neutrophils/100 leukocytes in Blood by Manual count 08/11/2023 10:58:23 62.0 40.0-75.0 (%) Final Lymphocytes/100 leukocytes in Blood by Manual count 08/11/2023 10:58:23 24.0 18.0-42.0 (%) Final Monocytes/100 leukocytes in Blood by Manual count 08/11/2023 10:58:23 8.0 1.0-11.0 (%) Final Eosinophils/100 leukocytes in Blood by Manual count 08/11/2023 10:58:23 5.0 0.0-6.0 (%) Final Metamyelocytes/100 leukocytes in Blood by Manual count 08/11/2023 10:58:23 1.0 Above high normal <=0.0 (%) Final Neutrophils [#/volume] in Blood by Manual count 08/11/2023 10:58:23 4.82 1.80-7.70 (K/uL) Final Lymphocytes [#/volume] in Blood by Manual count 08/11/2023 10:58:23 1.86 1.00-4.80 (K/uL) Final Monocytes [#/volume] in Blood by Manual count 08/11/2023 10:58:23 0.62 0.00-1.10 (K/uL) Final Eosinophils [#/volume] in Blood by Manual count 08/11/2023 10:58:23 0.39 0.00-0.70 (K/uL) Final Metamyelocytes [#/volume] in Blood by Manual count 08/11/2023 10:58:23 0.08 Above high normal <=0.00 (K/uL) Final Nucleated erythrocytes/100 leukocytes [Ratio] in Blood by Automated count 08/11/2023 10:58:23 2 Above high normal <=0 (/100 WBCs) Final Acanthocytes [Presence] in Blood by Light microscopy 08/11/2023 10:58:23 Moderate Abnormal None Seen Final Polychromasia [Presence] in Blood by Light microscopy 08/11/2023 10:58:23 Many Abnormal None Seen Final Schistocytes 08/11/2023 10:58:23 Moderate Abnormal None Seen Final Target cells [Presence] in Blood by Light microscopy 08/11/2023 10:58:23 Many Abnormal None Seen Final Dacrocytes [Presence] in Blood by Light microscopy 08/11/2023 10:58:23 Moderate Abnormal None Seen Final Giant platelets [Presence] in Blood by Light microscopy 08/11/2023 10:58:23 Present Abnormal None Seen Final Performing Location [facility] [address] [place] [address]
--- OUTSIDE RECORDS SUMMARY | 2023-10-22 11:03 | External Medical Summary | Summary of Care ---
Author Name Unknown Organization [facility] Address [address] [place] [address] Phone [phone] Care Team Providers Care Construction Mgr Name Role Phone May Siegel MD Primary Care Provider [phone] Reason for Visit * Reason Comments Outpatient Testing Encounter Details Date Type Department Care Team (Late st Contact Info) Description 08/11/2023 11:00 AM EDT Laboratory Laboratory [facility] [place] [address] [place] [phone] [place], Lab Scenery [address] [place] [address] MDS (myelodysplastic syndrome), low grade (HCC) Allergies No known active allergiesdocumented as of this encounter (statuses as of 08/11/2023) Medications Medication Sig Dispensed Refills Start Date [...] minutes as needed for Pain, Chest. Active [place]-3 1000 MG Oral Capsule Take by mouth. [...] as of this encounter (statuses as of 08/11/2023) Active Problems Problem Noted Date Diagnosed Date Anemia 08/16/2020 MDS (myelodysplastic syndrome), low grade 2020 documented as of this encounter (statuses as of 08/11/2023) Immunizations Name Administration Dates Next Due Seasonal [...] Care Team (Late st Contact Info) Description 08/11/2023 11:30 AM EDT Immunization/Injec tion Hematology/Oncology Treatment, [place] [address] [place] [phone] [facility] [address] Ar[facility] 10/29/2023 9:15 AM EDT Office Visit Hematology/Oncology Kenzie Segura [place] 200 [facility] [place], [place] [address] Ramesh Urbina MD 200 [facility] [place], [place] [address] Pending Results Name Type Priority Associated Diagnoses Date /Time CBC WITH WBC DIFFERENTIAL Lab STAT MDS (myelodysplastic syndrome), low grade (HCC) 08/11/2023 10:58 AM EDT CBC Lab STAT MDS (myelodysplastic syndrome), low grade (HCC) 08/11/2023 10:58 AM EDT DIFFERENTIAL, AUTOMATED Lab STAT MDS (myelodysplastic syndrome), low grade (HCC) 08/11/2023 10:58 AM EDT Health Maintenance Due Date Last [...] lesions documented in this encounter Care Teams Construction Mgr Relationship Specialty Start Date End Date May Siegel MD [facility] [address] [place] [address] PCP - General Family Medicine 07/04/20 documented as of this encounter
--- OUTSIDE RECORDS SUMMARY | 2023-10-22 11:03 | External Medical Summary | Summary of Care ---
Author Name Unknown Organization [facility] Address [address] [place] [address] Phone [phone] Care Team Providers Care Cleaner And Presser Name Role Phone May Siegel MD Primary Care Provider [phone] Reason for Visit * Reason Comments Medication Administration Aranesp * Episode Based Medications (Routine) - Authorized Specialty Diagnoses / Procedures Referred By Contac t Referred To Contact Diagnoses MDS (myelodysplastic syndrome), low grade (HCC) Anemia, unspecified type Procedures [place] DARBEPOETIN ARIEL, NON-ESRD Raemsh Urbina MD 200 [facility] [place] [address] Anc Hem/Onc Kenzie Segura DEPT CLOSED - 01/26/[address] [place] [phone] Referral ID Status Reason Start Date Expiration Date V isits Requested Visits Authorized [id number] Authorized 08/15/2020 03/14/2099 99 99 Encounter Details Date Type Department Care Team (Late st Contact Info) Description 07/28/2023 2:30 PM EDT Immunization/I njection Hematology/Oncology Treatment, [place] 200 [facility] [place] [address] Nurse, Med [address] [place] [address] [address] MDS (myelodysplastic syndrome), low grade (HCC)*; Anemia, [...] as needed for Pain, Chest. 0 Active [place]-3 1000 MG Oral Capsule Take by mouth. [...] on file documented as of this encounter Nursing Notes * Danielle Hardy LPN - 07/28/2023 2:03 PM EDT Pt arrived for Aranesp injection. Hgb 7.8. Administered in KATELYNN. Pt tolerated well. To return in 2 weeks. Discharged in stable condition. documented in this encounter Plan of Treatment Upcoming Encounters Date Type Department Care Team (Late st Contact Info) Description 08/11/2023 11:00 AM EDT Laboratory Laboratory [facility] [address] [place] [phone] [facility] 200 [facility] [place] [address] 08/11/2023 11:30 AM EDT Immunization/Injectio n Hematology/Oncology Treatment, [place] [address] [place] [phone] Nurse, Med 4 200 [facility] [place] [address] Health Maintenance Due Date Last Done Comments [...] 500 mcg 500 mcg, Subcutaneous, ONCE, On Wed07/28/23 at 1400, For 1 dose, If hgb <11 Given 07/28/2023 1:57 PM EDT 500 mcg Arm Right Upper documented in this encounter Care Teams Cleaner And Presser Relationship Specialty Start Date End Date May Siegel MD [address] [place] [address] 1 [place] [address] PCP - General Family Medicine 07/04/20 documented as of this encounter
--- OUTSIDE RECORDS SUMMARY | 2023-10-22 11:03 | External Medical Summary ---
Author Name Unknown Address Unknown Organization [facility] [place] [address] Laboratory Report Ordering Provider Test Date Status NICANOR PANIAGUA 07/28/2023 12:40:11 Final Observation Date Value Abnormality Reference (Units ) Status SYNC LEUKOCYTES IN BLOOD BY AUTOMATED COUNT 07/28/2023 12:40:11 8.21 4.00-10.80 (K/uL) Final Segs 07/28/2023 12:40:11 64.3 40.0-75.0 (%) Final Lymphs % 07/28/2023 12:40:11 18.8 18.0-42.0 (%) Final Monos 07/28/2023 12:40:11 15.3 Above high normal 1.0-11.0 (%) Final Eosinophils 07/28/2023 12:40:11 0.7 0.0-6.0 (%) Final Basos 07/28/2023 12:40:11 0.9 0.0-2.0 (%) Final Absolute Segs 07/28/2023 12:40:11 5.28 1.80-7.70 (K/uL) Final Lymphs, absolute 07/28/2023 12:40:11 1.54 1.00-4.80 (K/ul) Final Monos, Abs 07/28/2023 12:40:11 1.26 Above high normal 0.00-1.10 (K/uL) Final Eos, Abs 07/28/2023 12:40:11 0.06 0.00-0.70 (K/uL) Final Basos, Abs 07/28/2023 12:40:11 0.07 0.00-0.20 (K/uL) Final Performing Location [facility] [place] [address]
--- OUTSIDE RECORDS SUMMARY | 2023-10-22 11:03 | External Medical Summary | Summary of Care ---
Author Name Unknown Organization [facility] Address [address] [place] [address] Phone [phone] Care Team Providers Care Switch Coupler Name Role Phone May Siegel MD Primary Care Provider [phone] Reason for Visit * Reason Comments Medication Administration Aranesp * Episode Based Medications (Routine) - Authorized Specialty Diagnoses / Procedures Referred By Contac t Referred To Contact Diagnoses MDS (myelodysplastic syndrome), low grade (HCC) Anemia, unspecified type Procedures [place] DARBEPOETIN ARIEL, NON-ESRD Ramesh Urbina MD 200 [facility] [place] [address] Anc Hem/Onc Kenzie Segura DEPT CLOSED - 01/26/[address] [place] [address] [phone] Referral ID Status Reason Start Date Expiration Date V isits Requested Visits Authorized [id number] Authorized 08/15/2020 03/14/2099 99 99 Encounter Details Date Type Department Care Team (Late st Contact Info) Description 08/11/2023 11:30 AM EDT Immunization/I njection [facility], [place] [facility] [place] [address] Nurse, Med [address] [place] [address] [address] MDS (myelodysplastic syndrome), low grade (HCC)*; Anemia, [...] minutes as needed for Pain, Chest. Active [place]-3 1000 MG Oral Capsule Take by mouth. [...] Sign Reading Time Taken Comments Blood Pressure 113/65 08/11/2023 11:19 AM EDT Pulse - - Temperature - - Respiratory Rate - - Oxygen Saturation - - Inhaled Oxygen Concentration - - Weight - - Height - - Body Mass Index - - documented in this encounter Nursing Notes * Danielle Hardy LPN - 08/11/2023 11:38 AM EDT Pt arrived for Aranesp injection. Hgb 8.0. BP WNL. Administered in CLOTILDE. Pt tolerated well. To return in 2 weeks. Discharged in stable condition. documented in this encounter Plan of Treatment Upcoming Encounters Date Type Department Care Team (Late st Contact Info) Description 10/29/2023 9:15 AM EDT Office Visit Hematology/Oncology [facility] 200 [facility] [place] [phone] Ramesh Urbina MD 200 [facility] [place] [address] Health Maintenance Due Date Last Done Comments [...] 500 mcg 500 mcg, Subcutaneous, ONCE, On Wed08/11/23 at 1230, For 1 dose, If hgb <11 Given 08/11/2023 11:33 AM EDT 500 mcg Arm Right Upper documented in this encounter Care Teams Switch Coupler Relationship Specialty Start Date End Date May Siegel MD [address] [place] [address] PCP - General Family Medicine 07/04/20 documented as of this encounter
--- OUTSIDE RECORDS SUMMARY | 2023-10-22 11:03 | External Medical Summary | Summary of Care ---
Author Name Unknown Organization [facility] Address [address] [place] [address] Phone [phone] Care Team Providers Care Consulting Sales Manager Name Role Phone May Siegel MD Primary Care Provider [phone] Reason for Visit * Reason Comments Medication Administration Aranesp * Episode Based Medications (Routine) - Authorized Specialty Diagnoses / Procedures Referred By Contac t Referred To Contact Diagnoses MDS (myelodysplastic syndrome), low grade (HCC) Anemia, unspecified type Procedures [place] DARBEPOETIN ARIEL, NON-ESRD Ramesh Urbina MD 200 [place] [address] Anc Hem/Onc Kenzie Segura DEPT CLOSED - 01/26/[address] [place] [address] [address] Referral ID Status Reason Start Date Expiration Date V isits Requested Visits Authorized [id number] Authorized 08/15/2020 03/14/2099 99 99 Encounter Details Date Type Department Care Team (Late st Contact Info) Description 08/11/2023 11:30 AM EDT Immunization/I njection [facility] [place] [facility] [place] [address] Nurse, Med [address] [place] [address] [address] MDS (myelodysplastic syndrome), low grade (HCC)*; Anemia, unspecified type Allergies No known active allergiesdocumented as of this encounter (statuses as of 08/20/2023) Medications Medication Sig Dispensed Refills Start Date [...] minutes as needed for Pain, Chest. Active [place]-3 1000 MG Oral Capsule Take by mouth. [...] as of this encounter (statuses as of 08/20/2023) Active Problems Problem Noted Date Diagnosed Date Anemia 08/16/2020 MDS (myelodysplastic syndrome), low grade 2020 documented as of this encounter (statuses as of 08/20/2023) Immunizations Name Administration Dates Next Due Seasonal [...] 10/29/2023 9:15 AM EDT Office Visit Hematology/Oncology [facility] 200 [place] [phone] Ramesh Urbina MD 200 [place] [address] Health Maintenance Due Date Last Done Comments [...] Upper documented in this encounter Care Teams Consulting Sales Manager Relationship Specialty Start Date End Date May Siegel MD [address] [place] [address] PCP - General Family Medicine 07/04/20 documented as of this encounter
--- OUTSIDE RECORDS SUMMARY | 2023-10-22 11:03 | External Medical Summary ---
Author Name Unknown Address Unknown Organization [facility] [place] [address] Laboratory Report Ordering Provider Test Date Status NICANOR PANIAGUA 08/25/2023 10:40:32 Correction Observation Date Value Abnormality Reference (Units ) Status WBC, Total 08/25/2023 10:40:32 6.93 4.00-10.8 0 (K/uL) Final RBC 08/25/2023 10:40:32 2.32 4.50-5.25 (M/uL) Final Hemoglobin 08/25/2023 10:40:32 9.3 Below low normal 14 .0-16.8 (g/dL) Final HCT 08/25/2023 10:40:32 28.1 Below low normal 40. 0-48.4 (%) Final MCV 08/25/2023 10:40:32 121.1 82.0-99.5 (fL) Final MCH 08/25/2023 10:40:32 40.1 27.0-34.0 (pg) Final MCHC 08/25/2023 10:40:32 33.1 32.0-36.0 (g/dL) Final RDW 08/25/2023 10:40:32 25.1 11.5-15.5 (%) Final Platelets 08/25/2023 10:40:32 520 Above high normal 14 0-400 (K/uL) Final MPV 08/25/2023 10:40:32 10.3 6.6-11.1 ( fL) Final Performing Location [facility] [place] [address]
--- OUTSIDE RECORDS SUMMARY | 2023-10-22 11:03 | External Medical Summary ---
Author Name Unknown Address Unknown Organization [facility] [place] [address] Laboratory Report Ordering Provider Test Date Status NICANOR PANIAGUA 07/28/2023 12:40:11 Final Observation Date Value Abnormality Reference (Units ) Status WBC, Total 07/28/2023 12:40:11 8.21 4.00-10.8 0 (K/uL) Final RBC 07/28/2023 12:40:11 2.02 4.50-5.25 (M/uL) Final Hemoglobin 07/28/2023 12:40:11 7.8 Below low normal 14 .0-16.8 (g/dL) Final HCT 07/28/2023 12:40:11 23.7 Below low normal 40. 0-48.4 (%) Final MCV 07/28/2023 12:40:11 117.3 82.0-99.5 (fL) Final MCH 07/28/2023 12:40:11 38.6 27.0-34.0 (pg) Final MCHC 07/28/2023 12:40:11 32.9 32.0-36.0 (g/dL) Final RDW 07/28/2023 12:40:11 24.2 11.5-15.5 (%) Final Platelets 07/28/2023 12:40:11 621 Above high normal 14 0-400 (K/uL) Final MPV 07/28/2023 12:40:11 10.1 6.6-11.1 ( fL) Final Performing Location [facility] [place] [place] [address]
--- OUTSIDE RECORDS SUMMARY | 2023-10-22 11:03 | External Medical Summary | Summary of Care ---
Author Name Unknown Organization [facility] Address [address] [place] [address] Phone [phone] Care Team Providers Care Customer Success Advocate Name Role Phone May Siegel MD Primary Care Provider [phone] Reason for Visit * Reason Comments Outpatient Testing Encounter Details Date Type Department Care Team (Late st Contact Info) Description 08/25/2023 11:00 AM EDT Laboratory Laboratory [facility] [address] [place] [phone] [place], Lab Scenery [address] [place] [address] MDS (myelodysplastic syndrome), low grade (HCC) Allergies [...] minutes as needed for Pain, Chest. Active [place]-3 1000 MG Oral Capsule Take by mouth. [...] Department Care Team (Latest Contact Info) Description 08/25/2023 11:30 AM EDT Immunization/Inject ion Hematology/Oncology Treatment, [place] [address] [place] [address] Nurse, Med 200 [facility] [place] [address] MDS (myelodysplastic syndrome), low grade (HCC)*; Anemia, unspecified type 09/08/2023 9:30 AM EDT Laboratory Laboratory [facility] [address] [place], [place] [phone] [place], Lab Scenery [address] [place] [address] 09/08/2023 10:15 AM EDT Immunization/Inject ion Hematology/Oncology Treatment, [place] 200 [facility], [place] [address] Nurse, Med 4 [address] [place], [place] [address] 09/22/2023 11:00 AM EDT Laboratory Laboratory [facility] [address] [place], [place] [address] [place], Lab Scenery [address] [place], [place] [address] 09/22/2023 11:30 AM EDT Immunization/Inject ion Hematology/Oncology Treatment, [place] 200 [facility] [place], [place] [address] Nurse, Med 4 [address] [place], [place] [address] 10/06/2023 11:00 AM EDT Laboratory Laboratory [facility] [place] [address] [place] [phone] [place], Lab Scenery [address] [place] [address] 10/06/2023 11:30 AM EDT Immunization/Inject ion Hematology/Oncology Treatment, [place] 200 [place] [address] Nurse, Med 4 [address] [place], [place] [address] 10/20/2023 11:00 AM EDT Laboratory Laboratory [facility] [address] [place] [address] [place], Lab Scenery [address] [place] [address] 10/20/2023 11:30 AM EDT Immunization/Inject ion Hematology/Oncology Treatment, [place] 200 [facility] [place], [place] [address] Nurse, Med 4 [address] [place], [place] [address] 10/29/2023 9:15 AM EDT Office Visit Hematology/Oncology [facility] [address] [place] [address] Ramesh Urbina MD [address] [place], [place] [address] 11/03/2023 11:00 AM EDT Laboratory Laboratory [facility] [place] [address] [place], [place] [address] [place], Lab Scenery [address] [place] [address] 11/03/2023 11:30 AM EDT Immunization/Inject ion Hematology/Oncology Treatment, [place] 200 [facility] [place], [place] [address] Nurse, Med 4 [address] [place] [address] 11/17/2023 11:00 AM EDT Laboratory Laboratory [facility] [place] [address] [place] [address] [place], Lab Scenery [address] [place] [address] 11/17/2023 11:30 AM EDT Immunization/Inject ion Hematology/Oncology Treatment, [place] 200 [facility] [place] [address] Nurse, Med 4 [address] [place] [address] Health Maintenance Due Date Last Done Comments [...] Date/Time Associated Diagnosis Comments DIFFERENTIAL, AUTOMATED STAT 08/25/2023 10:40 AM EDT MDS (myelodysplastic syndrome), low grade (HCC) CBC STAT 08/25/2023 10:40 AM EDT MDS (myelodysplastic syndrome), low grade (HCC) CBC STAT 08/25/2023 10:40 AM EDT MDS (myelodysplastic syndrome), low grade (HCC) DIFFERENTIAL, TECHNOLOGIST REVIEW Routine 08/25/2023 10:40 AM EDT MDS (myelodysplastic syndrome), low grade (HCC) documented in this encounter Results * (ABNORMAL) DIFFERENTIAL, TECHNOLOGIST REVIEW (08/25/2023 10:40 AM EDT) WBC 6.93 4.00 - 10.80 K/uL 08/25/2023 11:08 AM EDT [facility] [place] 56-02 Neutrophils % 68.0 40.0 - 75.0 % 08/25/2023 11:08 AM EDT [facility] [place] 56-02 Lymphocytes % 18.0 18.0 - 42.0 % 08/25/2023 11:08 AM EDT [address] Monocytes % 11.0 1.0 - 11.0 % 08/25/2023 11:08 AM EDT [facility] 5602 Basophils % 1.0 0.0 - 2.0 % 08/25/2023 11:08 AM EDT [address] Metamyelocytes % 2.0(H) <=0.0 % 08/25/19 11:08 AM EDT [facility] 5602 Absolute Neutrophils 4.71 1.80 - 7.70 K/uL 08/25/2023 11:08 AM EDT [address] Absolute Lymphocytes 1.25 1.00 - 4.80 K/uL 08/25/2023 11:08 AM EDT [address] Absolute Monocytes 0.76 0.00 - 1.10 K/uL 08/25/2023 11:08 AM EDT [address] Absolute Basophils 0.07 0.00 - 0.20 K/uL 08/25/2023 11:08 AM EDT [address] Absolute Metamyelocytes 0.14(H) <=0.00 K/uL 08/25/2023 11:08 AM EDT [address] nRBCs 08/25/2023 11:08 AM EDT [address] Acanthocytes Moderate( A) None Seen 08/25/2023 11:08 AM EDT [address] Polychromasia Moderate( A) None Seen 08/25/2023 11:08 AM T [address] Schistocytes Few(A) None Seen 08/25/2023 11:08 AM EDT [address] Target Cells Moderate( A) None Seen 08/25/2023 11:08 AM EDT [address] Reactive Lymphocytes Present(A ) None Seen 08/25/2023 11:08 AM T [address] Blood Venous blood specimen / Unknown Venipuncture / Unknown 08/25/2023 10:40 AM EDT 08/25/2023 10:40 AM EDT Ramesh Urbina MD LAB BLOOD ORDERABLES [facility] [place] 56- [address] [place] [address] * DIFFERENTIAL, AUTOMATED (08/25/2023 10:40 AM EDT) Blood Venous blood specimen / Unknown Venipuncture / Unknown 08/25/2023 10:40 AM EDT 08/25/2023 10:40 AM EDT Ramesh Urbina MD LAB BLOOD ORDERABLES [place] [address] [address] [place] [address] * (ABNORMAL) CBC (08/25/2023 10:40 AM EDT) WBC 6.93 4.00 - 10.80 K/uL 08/25/2023 11:08 AM EDT [address] RBC 2.32 4.50 - 5.25 M/uL 08/25/2023 11:08 AM EDT [address] HGB 9.3(L) 14.0 - 16.8 g/dL 08/25/2023 11:08 AM EDT [address] HCT 28.1(L) 40.0 - 48.4 % 08/25/2023 11:08 AM EDT [place] [address] MCV 121.1 82.0 - 99.5 fL 08/25/2023 11:08 AM EDT [address] MCH 40.1 27.0 - 34.0 pg 08/25/2023 11:08 AM EDT [address] MCHC 33.1 32.0 - 36.0 g/dL 08/25/2023 11:08 AM EDT [address] RDW 25.1 11.5 - 15.5 % 08/25/2023 11:08 AM EDT [facility] 56 PLT 520(H) 140 - 400 K/uL 08/25/2023 11:08 AM EDT [address] MPV 10.3 6.6 - 11.1 fL 08/25/2023 11:08 AM EDT [facility] 56 Blood Venous blood specimen / Unknown Venipuncture / Unknown 08/25/2023 10:40 AM EDT 08/25/2023 10:40 AM EDT Ramesh Urbina MD LAB BLOOD ORDERABLES [facility] [place] 56-[address] [place] [address] documented in this encounter Visit Diagnoses Diagnosis MDS (myelodysplastic syndrome), low grade (HCC) Low grade myelodysplastic syndrome lesions MDS (myelodysplastic syndrome), low grade (HCC)- Primary Low grade myelodysplastic syndrome lesions Anemia, unspecified type documented in this encounter Care Teams Customer Success Advocate Relationship Specialty Start Date End Date May Siegel MD [facility] [address] [place] [address] PCP - General Family Medicine 07/04/20 documented as of this encounter
--- OUTSIDE RECORDS SUMMARY | 2023-10-22 11:03 | External Medical Summary ---
Author Name Unknown Address Unknown Organization K09:[facility] [place] 56- - [address] [place] [address] Laboratory Report Ordering Provider Test Date Status NICANOR PANIAGUA 08/25/2023 10:40:32 Final Observation Date Value Abnormality Reference (Units ) Status SYNC LEUKOCYTES IN BLOOD BY AUTOMATED COUNT 08/25/2023 10:40:32 6.93 4.00-10.80 (K/uL) Final Neutrophils/100 leukocytes in Blood by Manual count 08/25/2023 10:40:32 68.0 40.0-75.0 (%) Final Lymphocytes/100 leukocytes in Blood by Manual count 08/25/2023 10:40:32 18.0 18.0-42.0 (%) Final Monocytes/100 leukocytes in Blood by Manual count 08/25/2023 10:40:32 11.0 1.0-11.0 (%) Final Basophils/100 leukocytes in Blood by Manual count 08/25/2023 10:40:32 1.0 0.0-2.0 (%) Final Metamyelocytes/100 leukocytes in Blood by Manual count 08/25/2023 10:40:32 2.0 Above high normal <=0.0 (%) Final Neutrophils [#/volume] in Blood by Manual count 08/25/2023 10:40:32 4.71 1.80-7.70 (K/uL) Final Lymphocytes [#/volume] in Blood by Manual count 08/25/2023 10:40:32 1.25 1.00-4.80 (K/uL) Final Monocytes [#/volume] in Blood by Manual count 08/25/2023 10:40:32 0.76 0.00-1.10 (K/uL) Final Basophils [#/volume] in Blood by Manual count 08/25/2023 10:40:32 0.07 0.00-0.20 (K/uL) Final Metamyelocytes [#/volume] in Blood by Manual count 08/25/2023 10:40:32 0.14 Above high normal <=0.00 (K/uL) Final Nucleated erythrocytes/100 leukocytes [Ratio] in Blood by Automated count 08/25/2023 10:40:32 Final Acanthocytes [Presence] in Blood by Light microscopy 08/25/2023 10:40:32 Moderate Abnormal None Seen Final Polychromasia [Presence] in Blood by Light microscopy 08/25/2023 10:40:32 Moderate Abnormal None Seen Final Schistocytes 08/25/2023 10:40:32 Few Abnormal None Seen Final Target cells [Presence] in Blood by Light microscopy 08/25/2023 10:40:32 Moderate Abnormal None Seen Final Variant lymphocytes [Presence] in Blood by Light microscopy 08/25/2023 10:40:32 Present Abnormal None Seen Final Performing Location [facility] [place] 42- [address] [place] [address]
--- OUTSIDE RECORDS SUMMARY | 2023-10-22 11:03 | External Medical Summary | Summary of Care ---
Author Name Unknown Organization [facility] Address [address] [place] [address] Phone [phone] Care Team Providers Care Workforce Analyst Name Role Phone May Siegel MD Primary Care Provider [phone] Reason for Visit * Reason Comments Outpatient Testing Encounter Details Date Type Department Care Team (Late st Contact Info) Description 08/25/2023 11:00 AM EDT Laboratory Laboratory [facility] [address] [place] [phone] [place], Lab Scenery [address] [place] [address] MDS (myelodysplastic syndrome), low grade (HCC) Allergies [...] minutes as needed for Pain, Chest. Active Eden-3 1000 MG Oral Capsule Take by mouth. [...] Description 09/08/2023 9:30 AM EDT Laboratory Laboratory [place] Jemal Rodriguez [address] [place] [address] [phone] William Segura [address] [place] [address] 09/08/2023 10:15 AM EDT Immunization/Injectio n Hematology/Oncology Treatment, [place] 200 [facility], [place] [address] Nurse, Med 4 [address] [place], [place] [address] 09/22/2023 11:00 AM EDT Laboratory Laboratory [facility] [place] [address] [place], [place] [address] [place], Lab Scenery [address] [place] [address] 09/22/2023 11:30 AM EDT Immunization/Injectio n Hematology/Oncology Treatment, [place] 200 [facility], [place] [address] Nurse, Med 4 [address] [place], [place] [address] 10/06/2023 11:00 AM EDT Laboratory Laboratory [facility] [place] [address] [place] [address] [place], Lab Scenery [address] [place], [place] [address] 10/06/2023 11:30 AM EDT Immunization/Injectio n Hematology/Oncology Treatment, [place] 200 [facility] [place], [place] [address] Nurse, Med 4 [address] [place] [address] 10/20/2023 11:00 AM EDT Laboratory Laboratory [facility] [place] [address] [place] [address] [place], Lab Scenery [address] [place] [address] 10/20/2023 11:30 AM EDT Immunization/Injectio n Hematology/Oncology Treatment, [place] 200 [facility], [place] [address] Nurse, Med 4 [address] [place], [place] [address] 10/29/2023 9:15 AM EDT Office Visit Hematology/Oncology [facility] [place] [address] [place], [place] [phone] Ramesh Urbina MD [address] [place], [place] [address] 11/03/2023 11:00 AM EDT Laboratory Laboratory [facility] [place] [address] [place], [place] [phone] [place], Lab Scenery 200 [facility] [place], [place] [address] 11/03/2023 11:30 AM EDT Immunization/Injectio n Hematology/Oncology Treatment, [place] 200 [facility], [place] [phone] Nurse, Med 4 [address] [place], [place] [address] 11/17/2023 11:00 AM EDT Laboratory Laboratory [facility] [place] [address] [place], [place] [phone] [place], Lab Scenery 200 [facility] [place] [address] 11/17/2023 11:30 AM EDT Immunization/Injectio n Hematology/Oncology Treatment, [place] 200 [facility], [place] [address] Nurse, Med 4 [address] [place] [address] Health Maintenance Due Date Last Done Comments [...] 10.80 K/uL 08/25/2023 11:08 AM EDT [facility] [place] [facility]02 Neutrophils % 68.0 40.0 - 75.0 % 08/25/2023 11:08 AM EDT [facility]02 Lymphocytes % 18.0 18.0 - 42.0 % 08/25/2023 11:08 AM EDT [facility] [place] 56-02 Monocytes % 11.0 1.0 - 11.0 % 08/25/2023 11:08 AM EDT [facility] [place] 56-02 Basophils % 1.0 0.0 - 2.0 % 08/25/2023 11:08 AM EDT [facility] [place] 56-02 Metamyelocytes % 2.0(H) <=0.0 % 08/25/19 11:08 AM EDT [place] [address] Absolute Neutrophils 4.71 1.80 - 7.70 K/uL 08/25/2023 11:08 AM EDT [address] Absolute Lymphocytes 1.25 1.00 - 4.80 K/uL 08/25/2023 11:08 AM EDT [address] Absolute Monocytes 0.76 0.00 - 1.10 K/uL 08/25/2023 11:08 AM EDT [address] Absolute Basophils 0.07 0.00 - 0.20 K/uL 08/25/2023 11:08 AM EDT [address] Absolute Metamyelocytes 0.14(H) <=0.00 K/uL 08/25/2023 11:08 AM EDT [address] nRBCs 08/25/2023 11:08 AM EDT [place] [address] Acanthocytes Moderate( A) None Seen 08/25/2023 11:08 AM EDT [address] Polychromasia Moderate( A) None Seen 08/25/2023 11:08 AM EDT [place] [address] Schistocytes Few(A) None Seen 08/25/2023 11:08 AM EDT [place] [address] Target Cells Moderate( A) None Seen 08/25/2023 11:08 AM EDT [address] Reactive Lymphocytes Present(A ) None Seen 08/25/2023 11:08 AM EDT [place] [address] Blood Venous blood specimen / Unknown Venipuncture / Unknown 08/25/2023 10:40 AM EDT 08/25/2023 10:40 AM EDT Ramesh Urbina MD LAB BLOOD ORDERABLES [address] [place] [address] * DIFFERENTIAL, AUTOMATED (08/25/2023 10:40 AM EDT) Blood Venous blood specimen / Unknown Venipuncture / Unknown 08/25/2023 10:40 AM EDT 08/25/2023 10:40 AM EDT Ramesh Urbina MD LAB BLOOD ORDERABLES [place] [address] [address] [place] [address] * (ABNORMAL) CBC (08/25/2023 10:40 AM EDT) WBC 6.93 4.00 - 10.80 K/uL 08/25/2023 11:08 AM EDT [address] RBC 2.32 4.50 - 5.25 M/uL 08/25/2023 11:08 AM EDT [address] HGB 9.3(L) 14.0 - 16.8 g/dL 08/25/2023 11:08 AM EDT [address] HCT 28.1(L) 40.0 - 48.4 % 08/25/2023 11:08 AM EDT [address] MCV 121.1 82.0 - 99.5 fL 08/25/2023 11:08 AM EDT [address] MCH 40.1 27.0 - 34.0 pg 08/25/2023 11:08 AM EDT [address] MCHC 33.1 32.0 - 36.0 g/dL 08/25/2023 11:08 AM EDT [address] RDW 25.1 11.5 - 15.5 % 08/25/2023 11:08 AM EDT [address] PLT 520(H) 140 - 400 K/uL 08/25/2023 11:08 AM EDT [address] MPV 10.3 6.6 - 11.1 fL 08/25/2023 11:08 AM EDT [facility] 56 Blood Venous blood specimen / Unknown Venipuncture / Unknown 08/25/2023 10:40 AM EDT 08/25/2023 10:40 AM EDT Ramesh Urbina MD LAB BLOOD ORDERABLES [facility] 200 [place] [address] documented in this encounter Visit Diagnoses Diagnosis MDS (myelodysplastic syndrome), low grade (HCC) Low grade myelodysplastic syndrome lesions documented in this encounter Care Teams Workforce Analyst Relationship Specialty Start Date End Date May Siegel MD [address] [place] [address] [place] [address] PCP - General Family Medicine 07/04/20 documented as of this encounter
--- OUTSIDE RECORDS SUMMARY | 2023-10-22 11:03 | External Medical Summary | Summary of Care ---
Author Name Unknown Organization [facility] Address [address] [place] [address] Phone [phone] Care Team Providers Care Air Route Controller Name Role Phone May Siegel MD Primary Care Provider [phone] Reason for Visit * Reason Comments Medication Administration Aranesp 500mcg * Episode Based Medications (Routine) - Authorized Specialty Diagnoses / Procedures Referred By Contac t Referred To Contact Diagnoses MDS (myelodysplastic syndrome), low grade (HCC) Anemia, unspecified type Procedures [place] DARBEPOETIN ARIEL, NON-ESRD Ramesh Urbina MD 200 [facility] [place] [address] Anc Hem/Onc Kenzie Segura DEPT CLOSED - 01/26/[address] [place] [address] [phone] Referral ID Status Reason Start Date Expiration Date V isits Requested Visits Authorized [id number] Authorized 08/15/2020 03/14/2099 99 99 Encounter Details Date Type Department Care Team (Late st Contact Info) Description 06/16/2023 11:30 AM EDT Immunization/I njection Hematology/Oncology Treatment, [place] [address] [place] [address] Nurse, Med [address] [place] [address] [address] MDS (myelodysplastic syndrome), low grade (HCC)*; Anemia, [...] as needed for Pain, Chest. 0 Active [place]-3 1000 MG Oral Capsule Take by mouth. [...] Reading Time Taken Comments Blood Pressure 154/74 06/16/2023 11:01 AM EDT Pulse - - Temperature - - Respiratory Rate - - Oxygen Saturation - - Inhaled Oxygen Concentration - - Weight - - Height - - Body Mass Index - - documented in this encounter Nursing Notes * Leigh Lozada LPN - 06/16/2023 11:26 AM EDT Aranesp 500mcg administered SQ into left upper extremity per standing order HGB 9.5 Blood pressure 154/74; Reviewed and approved by Dr. Albino Booth to proceed with Aranesp injection. Patient tolerated injection and will return in 2 weeks. Appointment scheduled * Leigh Lozada LPN - 06/16/2023 11:05 AM EDT Patient's blood pressure is 154/74. Reviewed blood pressure recording with Dr. Davalos; advised is ok to continue with Aranesp injection today after lab results. documented in this encounter Plan of Treatment Upcoming Encounters Date Type Department Care Team (Latest Contact Info) Description 07/28/2023 1:45 PM EDT Office Visit Hematology/Oncology [place] Jemal [place] [address] [place] [address] [address] Rmaesh Urbina MD [address] [place] [address] [place] 07/28/2023 2:30 PM EDT Immunization/Inject ion Hematology/Oncology Treatment, [place] 200 [facility], [place] [address] Nurse, Med 4 [address] [place] [address] MDS (myelodysplastic syndrome), low grade (HCC)*; Anemia, unspecified type 08/11/2023 11:00 AM EDT Laboratory Laboratory [facility] [place] [address] [place] [phone] [place], Lab Scenery 200 [facility] [place] [address] 08/11/2023 11:30 AM EDT Immunization/Inject ion [facility]ematology[facility], [place] [facility] [address] Nurse, Med 4 [address] [place] [address] Health Maintenance Due Date Last Done Comments [...] unspecified type MDS (myelodysplastic syndrome), low grade (HCC)- Primary Low grade myelodysplastic syndrome lesions Anemia, unspecified type documented in this encounter Administered Medications Inactive Administered Medications - up to 3 most recent administrations Medication Order MAR Action Action Date Dose Rate Site Darbepoetin Ariel (Aranesp) inj 500 mcg 500 mcg, Subcutaneous, ONCE, On Wed06/16/23 at 1230, For 1 dose, If hgb <11 Given 06/16/2023 11:24 AM EDT 500 mcg Arm Left Upper documented in this encounter Care Teams Air Route Controller Relationship Specialty Start Date End Date May Siegel MD [address] [address] PCP - General Family Medicine 07/04/20 documented as of this encounter
--- OUTSIDE RECORDS SUMMARY | 2023-10-22 11:03 | External Medical Summary ---
Author Name Unknown Address Unknown Organization [facility] 56-02 - [address] [place] [address] Laboratory Report Ordering Provider Test Date Status [...] Abnormal None Seen Final Performing Location [facility] 78- 00 - [address] [place] [address]
--- OUTSIDE RECORDS SUMMARY | 2023-10-22 11:03 | External Medical Summary ---
Author Name Unknown Address Unknown Organization [facility] [address] [place] [address] Laboratory Report Ordering Provider Test Date Status [...] 6.6-11.1 ( fL) Final Performing Location [facility] [place] [address]
--- OUTSIDE RECORDS SUMMARY | 2023-10-22 11:03 | External Medical Summary | Summary of Care ---
Author Name Unknown Organization [facility] Address [address] [place] [address] Phone [phone] Care Team Providers Care Legal Associate Name Role Phone May Siegel MD Primary Care Provider [phone] Reason for Visit * Reason Comments Medication Administration Aranesp * Episode Based Medications (Routine) - Authorized Specialty Diagnoses / Procedures Referred By Contac t Referred To Contact Diagnoses MDS (myelodysplastic syndrome), low grade (HCC) Anemia, unspecified type Procedures [place] DARBEPOETIN ARIEL, NON-ESRD Ramesh Urbina MD 200 [facility] [place] [address] Anc Hem/Onc Kenzie Segura DEPT CLOSED - 01/26/[address] [place] [address] [address] Referral ID Status Reason Start Date Expiration Date V isits Requested Visits Authorized [id number] Authorized 08/15/2020 03/14/2099 99 99 Encounter Details Date Type Department Care Team (Late st Contact Info) Description 07/28/2023 2:30 PM EDT Immunization/I njection Hematology/Oncology Treatment, [place] 200 [facility] [place] [address] Nurse, Med [address] [place] [address] [address] MDS (myelodysplastic syndrome), low grade (HCC)*; Anemia, unspecified type Allergies No known active allergiesdocumented as of this encounter (statuses as of 08/21/2023) Medications Medication Sig Dispensed Refills Start Date [...] minutes as needed for Pain, Chest. Active [place]-3 1000 MG Oral Capsule Take by mouth. [...] as of this encounter (statuses as of 08/21/2023) Active Problems Problem Noted Date Diagnosed Date Anemia 08/16/2020 MDS (myelodysplastic syndrome), low grade 2020 documented as of this encounter (statuses as of 08/21/2023) Immunizations Name Administration Dates Next Due Seasonal [...] AM EDT Office Visit Hematology/Oncology Kenzie Segura [place] 200 [facility] [place] [address] Ramesh Urbina MD 200 [facility] [place] [address] Health Maintenance Due Date Last Done Comments [...] Upper documented in this encounter Care Teams Legal Associate Relationship Specialty Start Date End Date May Siegel MD [address] [place] [address] PCP - General Family Medicine 07/04/20 documented as of this encounter
--- OUTSIDE RECORDS SUMMARY | 2023-10-22 11:04 | External Medical Summary | Summary of Care ---
Author Name Unknown Organization [facility] Address [address] [place] [address] Phone [phone] Care Team Providers Care Keyseater Operator Name Role Phone May Siegel MD Primary Care Provider [phone] Reason for Visit * Reason Comments Medication Administration Aranesp * Episode Based Medications (Routine) - Authorized Specialty Diagnoses / Procedures Referred By Contac t Referred To Contact Diagnoses MDS (myelodysplastic syndrome), low grade (HCC) Anemia, unspecified type Procedures [place] DARBEPOETIN ARIEL, NON-ESRD Ramesh Urbina MD 200 [facility] [place] [address] Anc Hem/Onc Kenzie Segura DEPT CLOSED - 01/26/[address] [place] [address] [address] [address] Referral ID Status Reason Start Date Expiration Date V isits Requested Visits Authorized [id number] Authorized 08/15/2020 03/14/2099 99 99 Encounter Details Date Type Department Care Team (Late st Contact Info) Description 06/02/2023 11:30 AM EDT Immunization/I njection [facility]emat[facility], [place] [facility] [place] [address] Nurse, Med [address] [place] [place] [address] MDS (myelodysplastic syndrome), low grade (HCC)*; Anemia, unspecified type Allergies No known active allergiesdocumented as of this encounter (statuses as of 07/16/2023) Medications Medication Sig Dispensed Refills Start Date [...] as needed for Pain, Chest. 0 Active [place]-3 1000 MG Oral Capsule Take by mouth. [...] as of this encounter (statuses as of 07/16/2023) Active Problems Problem Noted Date Diagnosed Date Anemia 08/16/2020 MDS (myelodysplastic syndrome), low grade 2020 documented as of this encounter (statuses as of 07/16/2023) Immunizations Name Administration Dates Next Due Seasonal [...] Sign Reading Time Taken Comments Blood Pressure 136/68 06/02/2023 11:11 AM EDT Pulse - - Temperature - - Respiratory Rate - - Oxygen Saturation - - Inhaled Oxygen Concentration - - Weight - - Height - - Body Mass Index - - documented in this encounter Nursing Notes * Danielle Hardy LPN - 06/02/2023 11:21 AM EDT Pt arrived for Aranesp injection. Hgb 9.4. Administered in [place]. Pt tolerated well. BP WNL. To return in 2 weeks. Discharged in stable condition. documented in this encounter Plan of Treatment Upcoming Encounters Date Type Department Care Team (Late st Contact Info) Description 07/28/2023 12:50 PM EDT Laboratory Laboratory [facility] Imelda [place] [address] [place] [address] William Segura [place] [address] [address] [facility] [place] [address] 07/28/2023 1:45 PM EDT Office Visit [facility] [place] [address] [place] [address] Ramesh Urbina MD [address] [place] [address] 07/28/2023 2:30 PM EDT Immunization/Injectio n Hematology/Oncology Treatment, [address] [place] [address] Nurse, Med 4 200 [facility] [place] [address] 08/11/2023 11:00 AM EDT Laboratory Laboratory [facility] [place] [address] [place] [phone] Imelda [facility] 200 [facility] [place] [address] 08/11/2023 11:30 AM EDT Immunization/Injectio n Hematology/Oncology Treatment, [place] [address] [place] [address] Nurse, Med 4 [address] [place] [address] Health Maintenance Due Date Last Done Comments Depression Screening 1957 Hepatitis C Screening 1964 DTaP,Tdap,and Td Vaccines (1 - Tdap) 1965 Zoster Vaccines (1 of 2) 1996 Pneumococcal Vaccine: 65+ Years (1 of 1 - PCV) 11/02/2011 COVID-19 Vaccine (1 - 2022- season) 2022 Influenza Vaccine (FLU [...] 500 mcg 500 mcg, Subcutaneous, ONCE, On Wed06/02/23 at 1215, For 1 dose, If hgb <11 Given 06/02/2023 11:16 AM EDT 500 mcg Arm Left Upper documented in this encounter Care Teams Keyseater Operator Relationship Specialty Start Date End Date May Siegel MD [facility] [address] [facility] 1 [place] [address] PCP - General Family Medicine 07/04/20 documented as of this encounter
--- OUTSIDE RECORDS SUMMARY | 2023-10-22 11:04 | External Medical Summary | Summary of Care ---
Author Name Unknown Organization [facility] Address [address] [place] [address] Phone [phone] Care Team Providers Care Manager Emergency Department Name Role Phone May Siegel MD Primary Care Provider [phone] Reason for Visit * Reason Comments Outpatient Testing Encounter Details Date Type Department Care Team (Late st Contact Info) Description 06/16/2023 11:00 AM EDT Laboratory Laboratory [facility] [address] [place] [address] [place], Lab Scenery [address] [place] [address] MDS (myelodysplastic syndrome), low grade (HCC) Allergies No known active allergiesdocumented as of this encounter (statuses as of 06/16/2023) Medications Medication Sig Dispensed Refills Start Date [...] as needed for Pain, Chest. 0 Active [place]-3 1000 MG Oral Capsule Take by mouth. [...] as of this encounter (statuses as of 06/16/2023) Active Problems Problem Noted Date Diagnosed Date Anemia 08/16/2020 MDS (myelodysplastic syndrome), low grade 2020 documented as of this encounter (statuses as of 06/16/2023) Immunizations Name Administration Dates Next Due Seasonal [...] Contact Info) Description 06/16/2023 11:30 AM EDT Immunization/Injectio n Hematology/Oncology Treatment, [place] [address] [place] [address] Nurse, Med 4 200 [facility] [place] [address] Arrived 06/30/2023 10:50 AM EDT Laboratory Laboratory [facility] Imelda [place] [address] [place], [place] [address] [place], Lab Scenery [address] [place], [place] [address] 06/30/2023 11:15 AM EDT Immunization/Injectio n Hematology/Oncology Treatment, [place] 200 [facility] [place], [place] [address] Nurse, Med 4 [address] [place], [place] [address] 07/14/2023 11:00 AM EDT Laboratory Laboratory [facility] [place] [address] [place], [place] [address] [place], Lab Scenery [address] [facility], [place] [address] 07/14/2023 11:30 AM EDT Immunization/Injectio n Hematology/Oncology Treatment, [place] 200 [facility], [place] [phone] Nurse, Med 4 [address] [place], [place] [address] 07/28/2023 12:50 PM EDT Laboratory [facility] [place] [address] [place], [place] [phone] Imel[place], Lab Scenery [address] [place] [address] 07/28/2023 1:45 PM EDT Office Visit Hematology/Oncology [facility] [place] [address] [place], [place] [phone] Ramesh Urbina MD [address] [place], [place] [address] 07/28/2023 2:30 PM EDT Immunization/Injectio n Hematology/Oncology Treatment, [place] 200 [facility], [place] [address] Nurse, Med 4 200 [facility] [place], [place] [address] 08/11/2023 11:00 AM EDT Laboratory Laboratory [facility] [place] 200 [facility] [place] [address] [place], Lab [address] [facility] [place] [address] 08/11/2023 11:30 AM EDT Immunization/Injectio n Hematology/Oncology Treatment, [place] 200 [facility], [place] [address] Nurse, Med 4 200 [facility] [place] [address] Pending Results Name Type Priority Associated Diagnoses Date /Time CBC WITH WBC DIFFERENTIAL Lab STAT MDS (myelodysplastic syndrome), low grade (HCC) 06/16/2023 10:54 AM EDT CBC Lab STAT MDS (myelodysplastic syndrome), low grade (HCC) 06/16/2023 10:54 AM EDT DIFFERENTIAL, AUTOMATED Lab STAT MDS (myelodysplastic syndrome), low grade (HCC) 06/16/2023 10:54 AM EDT Health Maintenance Due Date Last [...] lesions documented in this encounter Care Teams Manager Emergency Department Relationship Specialty Start Date End Date May Siegel MD [address] [place] [address] PCP - General Family Medicine 07/04/20 documented as of this encounter
--- OUTSIDE RECORDS SUMMARY | 2023-10-22 11:04 | External Medical Summary ---
Author Name Unknown Address Unknown Organization [facility] [address] Laboratory Report Ordering Provider Test Date Status NICANOR PANIAGUA 06/30/2023 10:41:51 Final Observation Date Value Abnormality Reference (Units ) Status WBC, Total 06/30/2023 10:41:51 7.05 4.00-10.8 0 (K/uL) Final RBC 06/30/2023 10:41:51 2.21 4.50-5.25 (M/uL) Final Hemoglobin 06/30/2023 10:41:51 8.4 Below low normal 14 .0-16.8 (g/dL) Final HCT 06/30/2023 10:41:51 25.1 Below low normal 40. 0-48.4 (%) Final MCV 06/30/2023 10:41:51 113.6 82.0-99.5 (fL) Final MCH 06/30/2023 10:41:51 38.0 27.0-34.0 (pg) Final MCHC 06/30/2023 10:41:51 33.5 32.0-36.0 (g/dL) Final RDW 06/30/2023 10:41:51 24.6 11.5-15.5 (%) Final Platelets 06/30/2023 10:41:51 596 Above high normal 14 0-400 (K/uL) Final MPV 06/30/2023 10:41:51 10.4 6.6-11.1 ( fL) Final Performing Location [facility] [place] [address]
--- OUTSIDE RECORDS SUMMARY | 2023-10-22 11:04 | External Medical Summary | Summary of Care ---
Author Name Unknown Organization [facility] Address [address] [place] [address] Phone [phone] Care Team Providers Care Health Policy Manager Name Role Phone May Siegel MD Primary Care Provider [phone] Reason for Visit * Reason Comments Medication Administration Aranesp * Episode Based Medications (Routine) - Authorized Specialty Diagnoses / Procedures Referred By Contac t Referred To Contact Diagnoses MDS (myelodysplastic syndrome), low grade (HCC) Anemia, unspecified type Procedures [place] DARBEPOETIN ARIEL, NON-ESRD Ramesh Urbina MD 200 [facility] [place] [address] Anc Hem/Onc Kenzie Segura DEPT CLOSED - 01/26/[address] [place] [address] [phone] Referral ID Status Reason Start Date Expiration Date V isits Requested Visits Authorized [id number] Authorized 08/15/2020 03/14/2099 99 99 Encounter Details Date Type Department Care Team (Late st Contact Info) Description 07/14/2023 11:30 AM EDT Immunization/I njection Hematology/Oncology Treatment, [place] [facility] [place] [address] Nurse, Med [address] [place] [address] [address] MDS (myelodysplastic syndrome), low grade (HCC)*; Anemia, unspecified type Allergies No known active allergiesdocumented as of this encounter (statuses as of 07/14/2023) Medications Medication Sig Dispensed Refills Start Date [...] as needed for Pain, Chest. 0 Active [place]-3 1000 MG Oral Capsule Take by mouth. [...] as of this encounter (statuses as of 07/14/2023) Active Problems Problem Noted Date Diagnosed Date Anemia 08/16/2020 MDS (myelodysplastic syndrome), low grade 2020 documented as of this encounter (statuses as of 07/14/2023) Immunizations Name Administration Dates Next Due Seasonal [...] Description 07/28/2023 12:50 PM EDT Laboratory Laboratory [facility] Im[place]da [place] [address] [place] [phone] William Segura [place] [address] Kenzie Parker [facility] [place] [address] 07/28/2023 1:45 PM EDT Office Visit [facility] [place] [address] [place] [phone] Ramesh Urbina MD 200 [facility] [place] [address] 07/28/2023 2:30 PM EDT Immunization/Injectio n Hematology/Oncology Treatment, [address] [place] [phone] Nurse, Med 4 200 [facility] [place] [address] 08/11/2023 11:00 AM EDT Laboratory Laboratory [facility] Imelda [place] [address] [place] [phone] Imelda Lab [facility] 200 [facility] [place] [address] 08/11/2023 11:30 AM EDT Immunization/Injectio n Hematology/Oncology Treatment, [place] [address] [place] [phone] Nurse, Med 4 200 [facility] [place] [address] Health Maintenance Due Date Last Done Comments [...] Upper documented in this encounter Care Teams Health Policy Manager Relationship Specialty Start Date End Date May Siegel MD [address] Silva [facility] 1 [place] [address] PCP - General Family Medicine 07/04/20 documented as of this encounter
--- OUTSIDE RECORDS SUMMARY | 2023-10-22 11:04 | External Medical Summary ---
Author Name Unknown Address Unknown Organization K09:[facility]- 200 Kenzie Farrell [place] [address] Laboratory Report Ordering Provider Test Date Status NICANOR PANIAGUA 06/30/2023 10:41:51 Final Observation Date Value Abnormality Reference (Units ) Status BUN 06/30/2023 10:41:51 27 Above high normal 6-20 (mg/dL) Final Creatinine 06/30/2023 10:41:51 1.3 Above high normal 0.6-1.2 (mg/dL) Final Glomerular filtration rate/1.73 sq M.predicted [Volume Rate/Area] in Serum, Plasma or Blood by Creatinine-based formula (CKD-EPI) 06/30/2023 10:41:51 59 Below low normal >=60 (mL/min) Final eGFR is calculated based on the CKD-EPI 2020 equation Sodium 06/30/2023 10:41:51 134 Below low normal 135 -146 (mmol/L) Final Potassium 06/30/2023 10:41:51 4.6 3.5-5.1 (m mol/L) Final Cl 06/30/2023 10:41:51 97 Below low normal 98- 107 (mmol/L) Final CO2 06/30/2023 10:41:51 25 22-32 (mmo l/L) Final Anion gap 06/30/2023 10:41:51 12 7-15 (mmol /L) Final Glucose 06/30/2023 10:41:51 124 Above high normal 70 -120 (mg/dL) Final Albumin 06/30/2023 10:41:51 4.1 3.8-5.0 (g /dL) Final AST (Aspartate aminotransferase) 06/30/2023 10:41:51 34 10-50 (U/L) Fin al Alk Phos 06/30/2023 10:41:51 45 35-130 (U/ L) Final Bilirubin, Total 06/30/2023 10:41:51 0.7 <=1 .2 (mg/dL) Final Calcium 06/30/2023 10:41:51 9.3 8.4-10.2 ( mg/dL) Final Protein 06/30/2023 10:41:51 7.1 6.0-8.3 (g /dL) Final ALT (Alanine aminotransferase) 06/30/2023 10:41:51 25 10-50 (U/L) Mateusz comer Performing Location [facility] [place] [address]
--- OUTSIDE RECORDS SUMMARY | 2023-10-22 11:04 | External Medical Summary | Summary of Care ---
Author Name Unknown Organization [facility] Address [address] [place] [address] Phone [phone] Care Team Providers Care Analytical Laboratory Technician Name Role Phone May Siegel MD Primary Care Provider [phone] Reason for Visit * Reason Comments Medication Administration Aranesp * Episode Based Medications (Routine) - Authorized Specialty Diagnoses / Procedures Referred By Contac t Referred To Contact Diagnoses MDS (myelodysplastic syndrome), low grade (HCC) Anemia, unspecified type Procedures [place] DARBEPOETIN ARIEL, NON-ESRD Ramesh Urbina MD [address] [facility] [place] [address] Anc Hem/Onc Kenzie Segura DEPT CLOSED - 01/26/[address] [place] [address] [phone] Referral ID Status Reason Start Date Expiration Date V isits Requested Visits Authorized [id number] Authorized 08/15/2020 03/14/2099 99 99 Encounter Details Date Type Department Care Team (Late st Contact Info) Description 05/19/2023 11:45 AM EST Immunization/I njection [facility]ematology[facility]cology Treatment, [place] [facility] [place] [phone] Nurse, Med [address] [id number] MDS (myelodysplastic syndrome), low grade (HCC)*; Anemia, unspecified type Allergies No known active allergiesdocumented as of this encounter (statuses as of 07/17/2023) Medications Medication Sig Dispensed Refills Start Date [...] as needed for Pain, Chest. 0 Active [place]-3 1000 MG Oral Capsule Take by mouth. [...] as of this encounter (statuses as of 07/17/2023) Active Problems Problem Noted Date Diagnosed Date Anemia 08/16/2020 MDS (myelodysplastic syndrome), low grade 2020 documented as of this encounter (statuses as of 07/17/2023) Immunizations Name Administration Dates Next Due Seasonal [...] Sign Reading Time Taken Comments Blood Pressure 145/74 05/19/2023 11:28 AM EST Pulse 69 05/19/2023 11:28 AM EST Temperature - - Respiratory Rate - - Oxygen Saturation - - Inhaled Oxygen Concentration - - Weight - - Height - - Body Mass Index - - documented in this encounter Nursing Notes * Danielle Hardy LPN - 05/19/2023 1:11 PM EST Pt arrived for Aranesp injection. Hgb 10.1. Administered in CLOTILDE. Pt tolerated well. To return in 2 weeks. Discharged in stable condition. documented in this encounter Plan of Treatment Upcoming Encounters Date Type Department Care Team (Late st Contact Info) Description 07/28/2023 12:50 PM EDT Laboratory Laboratory [facility] [place] 200 Kenzie Parker [place] [phone] William Segura [facility] [address] [place] [address] 07/28/2023 1:45 PM EDT Office Visit Hematology/Oncology [facility] [place] 200 [place] [phone] Ramesh Urbina MD 200 Sar[address] [place] [address] 07/28/2023 2:30 PM EDT Immunization/Injectio n Hematology/Oncology Treatment, [place] [facility] [phone] Nurse, Med 4 200 [facility] [place] [address] 08/11/2023 11:00 AM EDT Laboratory Laboratory [facility] [place] [address] [facility] [place] [phone] Park, Lab [facility] 200 [facility] Parker [facility] [place] [address] 08/11/2023 11:30 AM EDT Immunization/Injectio n Hematology/Oncology Treatment, [place] 200 [facility] [phone] Nurse, Med [address] [facility] [address] [facility] [place] [address] Health Maintenance Due Date Last Done Comments [...] 500 mcg 500 mcg, Subcutaneous, ONCE, On Wed05/19/23 at 1230, For 1 dose, If hgb <11 Given 05/19/2023 11:32 AM EST 500 mcg Arm Left Upper documented in this encounter Care Teams Analytical Laboratory Technician Relationship Specialty Start Date End Date May Siegel MD [address] Darrian Silva [facility] 1 [place] [address] PCP - General Family Medicine 07/04/20 documented as of this encounter
--- OUTSIDE RECORDS SUMMARY | 2023-10-22 11:04 | External Medical Summary | Summary of Care ---
Author Name Unknown Organization [facility] Address [address] [place] [address] Phone [phone] Care Team Providers Care Repairer Welding Equipment Name Role Phone May Siegel MD Primary Care Provider [phone] Reason for Visit * Reason Comments Medication Administration Aranesp 500mcg * Episode Based Medications (Routine) - Authorized Specialty Diagnoses / Procedures Referred By Contac t Referred To Contact Diagnoses MDS (myelodysplastic syndrome), low grade (HCC) Anemia, unspecified type Procedures [place] DARBEPOETIN ARIEL, NON-ESRD Ramesh Urbina MD 200 [facility] [place] [address] Anc Hem/Onc Kenzie Segura DEPT CLOSED - 01/26/[address] [place] [address] [phone] Referral ID Status Reason Start Date Expiration Date V isits Requested Visits Authorized [id number] Authorized 08/15/2020 03/14/2099 99 99 Encounter Details Date Type Department Care Team (Late st Contact Info) Description 06/30/2023 11:15 AM EDT Immunization/I njection Hematology/Oncology Treatment, [place] [address] [place] [phone] Nurse, Med [address] [place] [address] [address] MDS (myelodysplastic syndrome), low grade (HCC)*; Anemia, unspecified type Allergies No known active allergiesdocumented as of this encounter (statuses as of 06/30/2023) Medications Medication Sig Dispensed Refills Start Date [...] as needed for Pain, Chest. 0 Active [place]-3 1000 MG Oral Capsule Take by mouth. [...] as of this encounter (statuses as of 06/30/2023) Active Problems Problem Noted Date Diagnosed Date Anemia 08/16/2020 MDS (myelodysplastic syndrome), low grade 2020 documented as of this encounter (statuses as of 06/30/2023) Immunizations Name Administration Dates Next Due Seasonal [...] Sign Reading Time Taken Comments Blood Pressure 127/72 06/30/2023 10:56 AM EDT Pulse - - Temperature - - Respiratory Rate - - Oxygen Saturation - - Inhaled Oxygen Concentration - - Weight - - Height - - Body Mass Index - - documented in this encounter Nursing Notes * Leigh Lozada LPN - 06/30/2023 11:05 AM EDT Aranesp 500mcg administered SQ into left upper extremity per standing order. HGB 8.4 Patient tolerated injection and will return in 2 weeks. documented in this encounter Plan of Treatment Upcoming Encounters Date Type Department Care Team (Late st Contact Info) Description 07/14/2023 11:00 AM EDT Laboratory Laboratory Kenzie Segura [place] [address] [phone] William Segura [address] [place] [address] [address] 07/14/2023 11:30 AM EDT Immunization/Injectio n Hematology/Oncology Treatment, [place] [address] [place] [phone] Nurse, Med [address] [place] [address] [address] 07/28/2023 12:50 PM EDT Laboratory Laboratory Kenzie Segura [place] [address] [phone] [place], Lab [place] 200 Kenzie [place] [address] 07/28/2023 1:45 PM EDT Office Visit Hematology/Oncology [facility] [place] [facility] [place] [phone] Ramesh Urbina MD 200 [facility] [place] [address] 07/28/2023 2:30 PM EDT Immunization/Injectio n Hematology/Oncology Treatment, [place] 200 [facility] [phone] Nurse, Med 4 200 [facility] [place] [address] 08/11/2023 11:00 AM EDT Laboratory Laboratory [facility] [place] 200 [place] [phone] [place], [facility] [place], [place] [address] 08/11/2023 11:30 AM EDT Immunization/Injectio n Hematology/Oncology Treatment, [place] 200 [facility], [place] [phone] Nurse, Med 4 200 [facility] [place], [place] [address] Health Maintenance Due Date Last Done Comments [...] 500 mcg 500 mcg, Subcutaneous, ONCE, On Wed06/30/23 at 1200, For 1 dose, If hgb <11 Given 06/30/2023 11:03 AM EDT 500 mcg Arm Left Upper documented in this encounter Care Teams Repairer Welding Equipment Relationship Specialty Start Date End Date May Siegel MD [facility] [address] [address] PCP - General Family Medicine 07/04/20 documented as of this encounter
--- OUTSIDE RECORDS SUMMARY | 2023-10-22 11:04 | External Medical Summary ---
Author Name Unknown Address Unknown Organization K01:[facility] - [address] [place] [address] Laboratory Report Ordering Provider Test Date Status ARCELIAVICK 06/30/2023 10:41:51 Final Observation Date Value Abnormality Reference (Units ) Status Folic Acid 06/30/2023 10:41:51 >20.0 >4.5 (ng/ mL) Final Performing Location [facility] - [address] [place] [address]
--- OUTSIDE RECORDS SUMMARY | 2023-10-22 11:04 | External Medical Summary ---
Author Name Unknown Address Unknown Organization K01:[facility] [address] [place] [address] Laboratory Report Ordering Provider Test Date Status NICANOR PANIAGUA 06/30/2023 10:41:51 Final Observation Date Value Abnormality Reference (Units ) Status Vitamin B12 06/30/2023 10:41:51 [phone] (pg/mL) Final Performing Location [facility] - [address] [place] [address]
--- OUTSIDE RECORDS SUMMARY | 2023-10-22 11:04 | External Medical Summary | Summary of Care ---
Author Name Unknown Organization [facility] Address [address] [place] [address] Phone [phone] Care Team Providers Care Sleeve Wheel Maker Name Role Phone May Siegel MD Primary Care Provider [phone] Reason for Visit * Reason Comments Outpatient Testing Encounter Details Date Type Department Care Team (Late st Contact Info) Description 07/14/2023 11:00 AM EDT Laboratory Laboratory [facility] [address] [place] [phone] [place], Lab [place] [address] [place] [address] MDS (myelodysplastic syndrome), low grade (HCC) Allergies [...] as needed for Pain, Chest. 0 Active [place]-3 1000 MG Oral Capsule Take by mouth. [...] Department Care Team (Latest Contact Info) Description 07/14/2023 11:30 AM EDT Immunization/Inject ion Hematology/Oncology Treatment, [place] [address] [place] [phone] Nurse, Med 200 [facility] [place] [address] MDS (myelodysplastic syndrome), low grade (HCC)*; Anemia, unspecified type 07/28/2023 12:50 PM EDT Laboratory Laboratory [facility] [place] [address] [place], [place] [phone] [place] Lab [facility] 200 [facility] [place], [place] [address] 07/28/2023 1:45 PM EDT Office Visit Hematology/Oncology [facility] [place] 200 [facility] [place], [place] [phone] Ramesh Urbina MD 200 [facility], [place] [address] 07/28/2023 2:30 PM EDT Immunization/Inject ion Hematology/Oncology Treatment, [place] 200 [facility], [place] [phone] Nurse, Med 4 200 [facility] [place], [place] [address] 08/11/2023 11:00 AM EDT Laboratory Laboratory [facility] [place] 200 [facility] [place], [place] [phone] [place], Lab [facility] 200 [facility] [place], [place] [address] 08/11/2023 11:30 AM EDT Immunization/Inject ion Hematology/Oncology Treatment, [place] 200 [facility], [place] [phone] Nurse, Med 4 200 [facility] [place] [address] Health Maintenance Due Date Last Done Comments Depression Screening 1957 Hepatitis C Screening 1964 DTaP,Tdap,and Td Vaccines (1 - Tdap) 1965 Zoster Vaccines (1 of 2) 1996 Pneumococcal Vaccine: 65+ Years (1 of 1 - PCV) 11/02/2011 COVID-19 Vaccine (2022-24 season) 2022 Influenza Vaccine (FLU shot) Completed [...] Date/Time Associated Diagnosis Comments DIFFERENTIAL, AUTOMATED STAT 07/14/2023 10:48 AM EDT MDS (myelodysplastic syndrome), low grade (HCC) CBC STAT 07/14/2023 10:48 AM EDT MDS (myelodysplastic syndrome), low grade (HCC) CBC STAT 07/14/2023 10:48 AM EDT MDS (myelodysplastic syndrome), low grade (HCC) documented in this encounter Results * (ABNORMAL) DIFFERENTIAL, AUTOMATED (07/14/2023 10:48 AM EDT) WBC 7.21 4.00 - 10.80 K/uL 07/14/2023 10:57 AM EDT [facility] [place] 56-02 Neutrophils % 61.9 40.0 - 75.0 % 07/14/2023 10:57 AM EDT [facility]-02 Lymphocytes % 20.9 18.0 - 42.0 % 07/14/2023 10:57 AM EDT [facility] 56-02 Monocytes % 14.7(H) 1.0 - 11.0 % 07/14/2023 10:57 AM EDT [facility] 56-02 Eosinophils % 1.5 0.0 - 6.0 % 07/14/2023 10:57 AM EDT [facility] 56-02 Basophils % 1.0 0.0 - 2.0 % 07/14/2023 10:57 AM EDT [facility]-02 Absolute Neutrophils 4.46 1.80 - 7.70 K/uL 07/14/2023 10:57 AM EDT [facility] 56- Absolute Lymphocytes 1.51 1.00 - 4.80 K/ul 07/14/2023 10:57 AM EDT [facility] 56- Absolute Monocytes 1.06 0.00 - 1.10 K/uL 07/14/2023 10:57 AM EDT [facility] 56- Absolute Eosinophils 0.11 0.00 - 0.70 K/uL 07/14/2023 10:57 AM EDT [facility] 56- Absolute Basophils 0.07 0.00 - 0.20 K/uL 07/14/2023 10:57 AM EDT [facility] 56- Blood Venous blood specimen / Unknown Venipuncture / Unknown 07/14/2023 10:48 AM EDT 07/14/2023 10:48 AM EDT Ramesh Urbina MD LAB BLOOD ORDERABLES Performing Organization Address City/State/[facility] Co de Phone Number [facility] [address] [place] [address] * (ABNORMAL) CBC (07/14/2023 10:48 AM EDT) WBC 7.21 4.00 - 10.80 K/uL 07/14/2023 10:57 AM EDT [facility] 56- RBC 2.11 4.50 - 5.25 M/uL 07/14/2023 10:57 AM T [facility] 56- HGB 8.2(L) 14.0 - 16.8 g/dL 07/14/2023 10:57 AM EDT [facility] 56- HCT 24.1(L) 40.0 - 48.4 % 07/14/2023 10:57 AM EDT [facility] 56- MCV 114.2 82.0 - 99.5 fL 07/14/2023 10:57 AM EDT [facility] 56- MCH 38.9 27.0 - 34.0 pg 07/14/2023 10:57 AM EDT [facility] 56 MCHC 34.0 32.0 - 36.0 g/dL 07/14/2023 10:57 AM EDT [facility] RDW 25.2 11.5 - 15.5 % 07/14/2023 10:57 AM EDT [facility] PLT 629(H) 140 - 400 K/uL 07/14/2023 10:57 AM EDT [facility] MPV 10.1 6.6 - 11.1 fL 07/14/2023 10:57 AM EDT [facility] Blood Venous blood specimen / Unknown Venipuncture / Unknown 07/14/2023 10:48 AM EDT 07/14/2023 10:48 AM EDT Ramesh Urbina MD LAB BLOOD ORDERABLES [facility] [address] [place] [address] documented in this encounter Visit Diagnoses Diagnosis MDS (myelodysplastic syndrome), low grade (HCC)- Primary Low grade myelodysplastic syndrome lesions Anemia, unspecified type MDS (myelodysplastic syndrome), low grade (HCC) Low grade myelodysplastic syndrome lesions documented in this encounter Care Teams Sleeve Wheel Maker Relationship Specialty Start Date End Date May Siegel MD [facility] [place] [address] [address] PCP - General Family Medicine 07/04/20 documented as of this encounter
--- OUTSIDE RECORDS SUMMARY | 2023-10-22 11:04 | External Medical Summary | Summary of Care ---
Author Name Unknown Organization [facility] Address [address] [place] [address] Phone [phone] Care Team Providers Care Signals Intelligence Superintendent Name Role Phone May Siegel MD Primary Care Provider Reason for Visit * Reason Comments Outpatient Testing Encounter Details Date Type Department Care Team (Late st Contact Info) Description 07/14/2023 10:50 AM EDT Laboratory Laboratory [facility] [address] [place] [phone] [facility] [address] [place] [address] Arrived Allergies No known active allergiesdocumented as of [...] as needed for Pain, Chest. 0 Active [place]-3 1000 MG Oral Capsule Take by mouth. [...] 11:30 AM EDT Immunization/Inject ion Hematology/Oncology Treatment, [place] [address] [place] [phone] Nurse, Med 200 [facility] [place] [address] MDS (myelodysplastic syndrome), low grade (HCC)*; Anemia, unspecified type 07/28/2023 12:50 PM EDT Laboratory Laboratory [facility] [place] 200 [facility] [place], [place] [phone] Park Lab [facility] 200 [facility] [place], [place] [address] 07/28/2023 1:45 PM EDT Office Visit Hematology/Oncology [facility] [place] 200 [place] [phone] Ramesh Urbina MD 200 [facility] [place], [place] [address] 07/28/2023 2:30 PM EDT Immunization/Inject ion Hematology/Oncology Treatment, [place] 200 [facility] Pamela [place] [phone] Nurse, Med 4 [address] Kenzie [address] [place], [place] [address] 08/11/2023 11:00 AM EDT Laboratory Laboratory [facility] Imelda [place] 200 [facility] [place], [place] [phone] [place], Lab [facility] 200 [facility] [place], [place] [address] 08/11/2023 11:30 AM EDT Immunization/Inject ion Hematology/Oncology Treatment, [address] [address] Nurse, Med 4 200 [facility] [place], [place] [address] Health Maintenance Due Date Last Done Comments [...] Not on filedocumented as of this encounter Care Teams Signals Intelligence Superintendent Relationship Specialty Start Date End Date May Siegel MD [address] [place] [address] PCP - General Family Medicine 07/04/20 documented as of this encounter
--- OUTSIDE RECORDS SUMMARY | 2023-10-22 11:04 | External Medical Summary ---
Author Name Unknown Address Unknown Organization K09:[facility] [place] [address] Laboratory Report Ordering Provider Test Date Status NICANOR PANIAGUA 07/14/2023 10:48:44 Final Observation Date Value Abnormality Reference (Units ) Status SYNC LEUKOCYTES IN BLOOD BY AUTOMATED COUNT 07/14/2023 10:48:44 7.21 4.00-10.80 (K/uL) Final Segs 07/14/2023 10:48:44 61.9 40.0-75.0 (%) Final Lymphs % 07/14/2023 10:48:44 20.9 18.0-42.0 (%) Final Monos 07/14/2023 10:48:44 14.7 Above high normal 1.0-11.0 (%) Final Eosinophils 07/14/2023 10:48:44 1.5 0.0-6.0 (%) Final Basos 07/14/2023 10:48:44 1.0 0.0-2.0 (%) Final Absolute Segs 07/14/2023 10:48:44 4.46 1.80-7.70 (K/uL) Final Lymphs, absolute 07/14/2023 10:48:44 1.51 1.00-4.80 (K/ul) Final Monos, Abs 07/14/2023 10:48:44 1.06 0.00-1.10 (K/uL) Final Eos, Abs 07/14/2023 10:48:44 0.11 0.00-0.70 (K/uL) Final Basos, Abs 07/14/2023 10:48:44 0.07 0.00-0.20 (K/uL) Final Performing Location [facility] [place] [address]
--- OUTSIDE RECORDS SUMMARY | 2023-10-22 11:04 | External Medical Summary ---
Author Name Unknown Address Unknown Organization K09:[facility] [place] [address] Laboratory Report Ordering Provider Test Date Status NICANOR PANIAGUA 07/14/2023 10:48:44 Final Observation Date Value Abnormality Reference (Units ) Status WBC, Total 07/14/2023 10:48:44 7.21 4.00-10.8 0 (K/uL) Final RBC 07/14/2023 10:48:44 2.11 4.50-5.25 (M/uL) Final Hemoglobin 07/14/2023 10:48:44 8.2 Below low normal 14 .0-16.8 (g/dL) Final HCT 07/14/2023 10:48:44 24.1 Below low normal 40. 0-48.4 (%) Final MCV 07/14/2023 10:48:44 114.2 82.0-99.5 (fL) Final MCH 07/14/2023 10:48:44 38.9 27.0-34.0 (pg) Final MCHC 07/14/2023 10:48:44 34.0 32.0-36.0 (g/dL) Final RDW 07/14/2023 10:48:44 25.2 11.5-15.5 (%) Final Platelets 07/14/2023 10:48:44 629 Above high normal 14 0-400 (K/uL) Final MPV 07/14/2023 10:48:44 10.1 6.6-11.1 ( fL) Final Performing Location [facility] [place] [address]
--- OUTSIDE RECORDS SUMMARY | 2023-10-22 11:04 | External Medical Summary ---
Author Name Unknown Address Unknown Organization K09:[facility] [place] [address] Laboratory Report Ordering Provider Test Date Status NICANOR PANIAGUA 06/30/2023 10:41:51 Final Observation Date Value Abnormality Reference (Units ) Status SYNC LEUKOCYTES IN BLOOD BY AUTOMATED COUNT 06/30/2023 10:41:51 7.05 4.00-10.80 (K/uL) Final Segs 06/30/2023 10:41:51 61.4 40.0-75.0 (%) Final Lymphs % 06/30/2023 10:41:51 19.9 18.0-42.0 (%) Final Monos 06/30/2023 10:41:51 15.9 Above high normal 1.0-11.0 (%) Final Eosinophils 06/30/2023 10:41:51 2.1 0.0-6.0 (%) Final Basos 06/30/2023 10:41:51 0.7 0.0-2.0 (%) Final Absolute Segs 06/30/2023 10:41:51 4.33 1.80-7.70 (K/uL) Final Lymphs, absolute 06/30/2023 10:41:51 1.40 1.00-4.80 (K/ul) Final Monos, Abs 06/30/2023 10:41:51 1.12 Above high normal 0.00-1.10 (K/uL) Final Eos, Abs 06/30/2023 10:41:51 0.15 0.00-0.70 (K/uL) Final Basos, Abs 06/30/2023 10:41:51 0.05 0.00-0.20 (K/uL) Final Performing Location [facility] [place] [address]
--- OUTSIDE RECORDS SUMMARY | 2023-10-22 11:04 | External Medical Summary ---
Author Name Unknown Address Unknown Organization K09:[facility] [place] [address] Laboratory Report Ordering Provider Test Date Status NICANOR PANIAGUA 07/28/2023 12:40:11 Final Observation Date Value Abnormality Reference (Units ) Status Nucleated erythrocytes/100 leukocytes [Ratio] in Blood by Automated count 07/28/2023 12:40:11 Final Acanthocytes [Presence] in Blood by Light microscopy 07/28/2023 12:40:11 Moderate Abnormal None Seen Final Elliptocytes [Presence] in Blood by Light microscopy 07/28/2023 12:40:11 Moderate Abnormal None Seen Final Polychromasia [Presence] in Blood by Light microscopy 07/28/2023 12:40:11 Moderate Abnormal None Seen Final Schistocytes 07/28/2023 12:40:11 Few Abnormal None Seen Final Target cells [Presence] in Blood by Light microscopy 07/28/2023 12:40:11 Moderate Abnormal None Seen Final Dacrocytes [Presence] in Blood by Light microscopy 07/28/2023 12:40:11 Moderate Abnormal None Seen Final Performing Location [facility] [place] [address]
--- OUTSIDE RECORDS SUMMARY | 2023-10-22 11:04 | External Medical Summary ---
Author Name Unknown Address Unknown Organization K01:[facility] - [address] [place] [address] Laboratory Report Ordering Provider Test Date Status NICANOR PANIAGUA 06/30/2023 10:41:51 Final Observation Date Value Abnormality Reference (Units ) Status Iron 06/30/2023 10:41:51 255 Above high normal 45-176 (ug/dL) Final Iron-binding capacity 06/30/2023 10:41:51 278 250-425 (ug/dL) Final Transferrin Sat % 06/30/2023 10:41:51 92 Above high normal 15-55 (%) Final Performing Location [facility] - [address] [place] [address]
--- OUTSIDE RECORDS SUMMARY | 2023-10-22 11:04 | External Medical Summary | Summary of Care ---
Author Name Unknown Organization [facility] Address [address] [place] [address] Phone [phone] Care Team Providers Care Physical Anthropologist Name Role Phone May Siegel MD Primary Care Provider Reason for Visit * Reason Comments Medication Administration Aranesp 500mcg * Episode Based Medications (Routine) - Authorized Specialty Diagnoses / Procedures Referred By Contac t Referred To Contact Diagnoses MDS (myelodysplastic syndrome), low grade (HCC) Anemia, unspecified type Procedures [place] DARBEPOETIN ARIEL, NON-ESRD Ramesh Urbina MD 200 [facility] [place] [address] Anc Hem/Onc Kenzie Segura DEPT CLOSED - 01/26/[address] [place] [address] [address] [phone] Referral ID Status Reason Start Date Expiration Date V isits Requested Visits Authorized [id number] Authorized 08/15/2020 03/14/2099 99 99 Encounter Details Date Type Department Care Team (Late st Contact Info) Description 06/16/2023 11:30 AM EDT Immunization/I njection Hematology/Oncology Treatment, [place] [address] [place] [address] Nurse, Med [address] [place] [address] [address] MDS (myelodysplastic syndrome), low grade (HCC)*; Anemia, [...] as needed for Pain, Chest. 0 Active [place]-3 1000 MG Oral Capsule Take by mouth. [...] Team (Late st Contact Info) Description 06/30/2023 10:50 AM EDT Laboratory [facility] Rodriguez [address] [place] [phone] [place] Scenery [address] [place] [address] 06/30/2023 11:15 AM EDT Immunization/Injectio n Hematology/Oncology Treatment, [place] 200 [facility], [place] [phone] Nurse, Med 4 [address] [place], [place] [address] 07/14/2023 11:00 AM EDT Laboratory Laboratory [facility] [place] [address] [place], [place] [phone] [place], Lab Scenery [address] [place], [place] [address] 07/14/2023 11:30 AM EDT Immunization/Injectio n Hematology/Oncology Treatment, [place] 200 [facility], [place] [phone] Nurse, Med 4 [address] [place], [place] [address] 07/28/2023 12:50 PM EDT Laboratory Laboratory [facility] [place] [address] [place], [place] [phone] [place], Lab Scene [address] [place], [place] [address] 07/28/2023 1:45 PM EDT Office Visit Hematology/Oncology [facility] [place] [address] [place], [place] [phone] Ramesh Urbina MD [address] [place], [place] [address] 07/28/2023 2:30 PM EDT Immunization/Injectio n Hematology/Oncology Treatment, [place] 200 [facility], [place] [phone] Nurse, Med 4 [address] [place], [place] [address] 08/11/2023 11:00 AM EDT Laboratory Laboratory [facility] [place] [address] [place], [place] [phone] [place], Lab Scenery 200 [facility] [place] [address] 08/11/2023 11:30 AM EDT Immunization/Injectio n Hematology[facility]cology Treatment, [place] [address] [facility] [phone] Nurse, Med 200 [facility] [address] Health Maintenance Due Date Last Done Comments [...] Upper documented in this encounter Care Teams Physical Anthropologist Relationship Specialty Start Date End Date May Siegel MD [facility] Dar[address] Silva [facility] 1 [place], [place] [address] PCP - General Family Medicine 07/04/20 documented as of this encounter
--- OUTSIDE RECORDS SUMMARY | 2023-10-22 11:04 | External Medical Summary | Summary of Care ---
Author Name Unknown Organization [facility] Address [address] [place] [facility] [place] [address] Phone [phone] Care Team Providers Care Veneer Gluer Name Role Phone May Siegel MD Primary Care Provider [phone] Reason for Visit * Reason Comments Outpatient Testing Encounter Details Date Type Department Care Team (Late st Contact Info) Description 06/30/2023 10:50 AM EDT Laboratory Laboratory [facility] [place] [address] [place] [phone] [place], Lab Scenery [address] [place] [address] MDS (myelodysplastic syndrome), low grade (HCC); Encounter [...] as needed for Pain, Chest. 0 Active [place]-3 1000 MG Oral Capsule Take by mouth. [...] Department Care Team (Latest Contact Info) Description 06/30/2023 11:15 AM EDT Immunization/Inject ion Hematology/Oncology Treatment, [place] [address] [place] [address] Nurse, Med 4 [address] [place], [place] [address] MDS (myelodysplastic syndrome), low grade (HCC)*; Anemia, unspecified type 07/14/2023 11:00 AM EDT Laboratory Laboratory [facility] [address] [place], [place] [phone] [place], Lab Scenery [address] [facility] [place], [place] [address] 07/14/2023 11:30 AM EDT Immunization/Inject ion Hematology/Oncology Treatment, [place] 200 [facility], [place] [address] Nurse, Med 4 [address] [place], [place] [address] 07/28/2023 12:50 PM EDT Laboratory Laboratory [facility] [place] [address] [place], [place] [address] [place], Lab Scenery [address] [facility] [place], [place] [address] 07/28/2023 1:45 PM EDT Office Visit Hematology/Oncology [facility] [place] [address] [place], [place] [address] Ramesh Urbina MD [address] [place], [place] [address] 07/28/2023 2:30 PM EDT Immunization/Inject ion Hematology/Oncology Treatment, [place] 200 [facility], [place] [address] Nurse, Med 4 [address] [place], [place] [address] 08/11/2023 11:00 AM EDT Laboratory Laboratory [facility] [place] [address] [place], [place] [address] [place], Lab Scenery [address] [facility] [place] [address] 08/11/2023 11:30 AM EDT Immunization/Inject ion Hematology/Oncology Treatment, [place] [address] [place] [address] [facility] [place] [facility] [address] Pending Results Name Type Priority Associated Diagnoses Date /Time COMPREHENSIVE METABOLIC PANEL Lab STAT MDS (myelodysplastic syndrome), low grade (HCC) Encounter for long-term (current) use of medications 06/30/2023 10:41 AM EDT FERRITIN Lab STAT MDS (myelodysplastic syndrome), low grade (HCC) Encounter for long-term (current) use of medications 06/30/2023 10:41 AM EDT IRON SCREEN, INCLUDING TIBC Lab STAT MDS (myelodysplastic syndrome), low grade (HCC) Encounter for long-term (current) use of medications 06/30/2023 10:41 AM EDT FOLIC ACID Lab STAT MDS (myelodysplastic syndrome), low grade (HCC) Encounter for long-term (current) use of medications 06/30/2023 10:41 AM EDT VITAMIN B12 Lab STAT MDS (myelodysplastic syndrome), low grade (HCC) Encounter for long-term (current) use of medications 06/30/2023 10:41 AM EDT Health Maintenance Due Date Last [...] Date/Time Associated Diagnosis Comments DIFFERENTIAL, AUTOMATED STAT 06/30/2023 10:41 AM EDT MDS (myelodysplastic syndrome), low grade (HCC) CBC STAT 06/30/2023 10:41 AM EDT MDS (myelodysplastic syndrome), low grade (HCC) CBC STAT 06/30/2023 10:41 AM EDT MDS (myelodysplastic syndrome), low grade (HCC) documented in this encounter Results * (ABNORMAL) DIFFERENTIAL, AUTOMATED (06/30/2023 10:41 AM EDT) WBC 7.05 4.00 - 10.80 K/uL 06/30/2023 10:51 AM EDT [facility]-02 Neutrophils % 61.4 40.0 - 75.0 % 06/30/2023 10:51 AM EDT [facility] 56-02 Lymphocytes % 19.9 18.0 - 42.0 % 06/30/2023 10:51 AM EDT [facility] 56-02 Monocytes % 15.9(H) 1.0 - 11.0 % 06/30/2023 10:51 AM EDT [facility] [place] 56-02 Eosinophils % 2.1 0.0 - 6.0 % 06/30/2023 10:51 AM EDT [facility] [place] 56-02 Basophils % 0.7 0.0 - 2.0 % 06/30/2023 10:51 AM EDT [facility] [place]-02 Absolute Neutrophils 4.33 1.80 - 7.70 K/uL 06/30/2023 10:51 AM EDT [facility] [place] 56-02 Absolute Lymphocytes 1.40 1.00 - 4.80 K/ul 06/30/2023 10:51 AM EDT [facility] [place] 56-02 Absolute Monocytes 1.12(H) 0.00 - 1.10 K/uL 06/30/2023 10:51 AM EDT [facility] [place] 56-02 Absolute Eosinophils 0.15 0.00 - 0.70 K/uL 06/30/2023 10:51 AM EDT [facility] [place] 56-02 Absolute Basophils 0.05 0.00 - 0.20 K/uL 06/30/2023 10:51 AM EDT [facility] 56 Blood Venous blood specimen / Unknown Venipuncture / Unknown 06/30/2023 10:41 AM EDT 06/30/2023 10:41 AM EDT Ramesh Urbina MD LAB BLOOD ORDERABLES [facility] 56 [address] [place], [place] [id number] * (ABNORMAL) CBC (06/30/2023 10:41 AM EDT) WBC 7.05 4.00 - 10.80 K/uL 06/30/2023 10:51 AM EDT [facility] 56 RBC 2.21 4.50 - 5.25 M/uL 06/30/2023 10:51 AM EDT [address] HGB 8.4(L) 14.0 - 16.8 g/dL 06/30/2023 10:51 AM EDT [facility] 56 HCT 25.1(L) 40.0 - 48.4 % 06/30/2023 10:51 AM EDT [facility] 56 MCV 113.6 82.0 - 99.5 fL 06/30/2023 10:51 AM EDT [facility] 56- MCH 38.0 27.0 - 34.0 pg 06/30/2023 10:51 AM EDT [facility] 56- MCHC 33.5 32.0 - 36.0 g/dL 06/30/2023 10:51 AM EDT [facility] 56- RDW 24.6 11.5 - 15.5 % 06/30/2023 10:51 AM EDT [facility] 56- PLT 596(H) 140 - 400 K/uL 06/30/2023 10:51 AM EDT [facility] 56 MPV 10.4 6.6 - 11.1 fL 06/30/2023 10:51 AM EDT [facility] 56 Blood Venous blood specimen / Unknown Venipuncture / Unknown 06/30/2023 10:41 AM EDT 06/30/2023 10:41 AM EDT Ramesh Urbina MD LAB BLOOD ORDERABLES [facility] [place] 56-02 [address] [place] [address] documented in this encounter Visit Diagnoses Diagnosis MDS (myelodysplastic syndrome), low grade (HCC)- Primary Low grade myelodysplastic syndrome lesions Anemia, unspecified type MDS (myelodysplastic syndrome), low grade (HCC) Low grade myelodysplastic syndrome lesions Encounter for long-term (current) use of medications Encounter for long-term (current) use of other medications documented in this encounter Care Teams Veneer Gluer Relationship Specialty Start Date End Date May Siegel MD [address] [place] [address] PCP - General Family Medicine 07/04/20 documented as of this encounter
--- OUTSIDE RECORDS SUMMARY | 2023-10-22 11:04 | External Medical Summary ---
Author Name Unknown Address Unknown Organization K01:[facility] - [address] [place] [address] Laboratory Report Ordering Provider Test Date Status NICANOR PANIAGUA 06/30/2023 10:41:51 Final Observation Date Value Abnormality Reference (Units ) Status Ferritin 06/30/2023 10:41:51 878 Above high normal 30 -400 (ng/mL) Final Performing Location [facility] - [address] [place] [address]
--- OUTSIDE RECORDS SUMMARY | 2023-10-22 11:04 | External Medical Summary | Summary of Care ---
Author Name Unknown Organization [facility] Address [address] [place] [address] Phone [phone] Care Team Providers Care Director Mortgage Name Role Phone May Siegel MD Primary Care Provider Reason for Visit * Reason Comments Medication Administration Aranesp 500mcg * Episode Based Medications (Routine) - Authorized Specialty Diagnoses / Procedures Referred By Contac t Referred To Contact Diagnoses MDS (myelodysplastic syndrome), low grade (HCC) Anemia, unspecified type Procedures [place] DARBEPOETIN ARIEL, NON-ESRD Ramesh Urbina MD 200 [facility] [place] [address] Anc Hem/Onc Kenzie Segura DEPT CLOSED - 01/26/[address] [place] [address] [address] [phone] Referral ID Status Reason Start Date Expiration Date V isits Requested Visits Authorized [id number] Authorized 08/15/2020 03/14/2099 99 99 Encounter Details Date Type Department Care Team (Late st Contact Info) Description 06/30/2023 11:15 AM EDT Immunization/I njection Hematology/Oncology Treatment, [place] [address] [place] [address] Nurse, Med [address] [place] [address] [place] [address] MDS (myelodysplastic syndrome), low grade (HCC)*; Anemia, unspecified type Allergies No known active allergiesdocumented as of this encounter (statuses as of 07/21/2023) Medications Medication Sig Dispensed Refills Start Date [...] as needed for Pain, Chest. 0 Active [place]-3 1000 MG Oral Capsule Take by mouth. [...] as of this encounter (statuses as of 07/21/2023) Active Problems Problem Noted Date Diagnosed Date Anemia 08/16/2020 MDS (myelodysplastic syndrome), low grade 2020 documented as of this encounter (statuses as of 07/21/2023) Immunizations Name Administration Dates Next Due Seasonal [...] Description 07/28/2023 12:50 PM EDT Laboratory Laboratory [facility] [place] [address] [place] [phone] William Segura [place] [address] [address] [place] [address] 07/28/2023 1:45 PM EDT Office Visit Hematology/Oncology [facility] [place] [address] [place] [address] [phone] Ramesh Urbina MD 200 [facility] [place] [address] 07/28/2023 2:30 PM EDT Immunization/Injectio n Hematology/Oncology Treatment, [address] [place] [address] Nurse, Med 4 200 [facility] [place] [address] 08/11/2023 11:00 AM EDT Laboratory Laboratory [facility] [place] [address] [place] [phone] [facility] 200 [facility] [place] [address] 08/11/2023 11:30 AM EDT Immunization/Injectio n Hematology/Oncology Treatment, [place] [address] [place] [phone] Nurse, Med 4 200 [facility] [place] [address] Health Maintenance Due Date Last Done Comments [...] Upper documented in this encounter Care Teams Director Mortgage Relationship Specialty Start Date End Date May Siegel MD [address] [facility] 1 [place] [address] PCP - General Family Medicine 07/04/20 documented as of this encounter
--- OUTSIDE RECORDS SUMMARY | 2023-10-22 11:05 | External Medical Summary ---
Author Name Unknown Address Unknown Organization K09:[facility] [place] [address] Laboratory Report Ordering Provider Test Date Status NICANOR PANIAGUA 06/16/2023 10:54:14 Final Observation Date Value Abnormality Reference (Units ) Status SYNC LEUKOCYTES IN BLOOD BY AUTOMATED COUNT 06/16/2023 10:54:14 8.57 4.00-10.80 (K/uL) Final Segs 06/16/2023 10:54:14 60.0 40.0-75.0 (%) Final Lymphs % 06/16/2023 10:54:14 23.7 18.0-42.0 (%) Final Monos 06/16/2023 10:54:14 13.7 Above high normal 1.0-11.0 (%) Final Eosinophils 06/16/2023 10:54:14 1.5 0.0-6.0 (%) Final Basos 06/16/2023 10:54:14 1.1 0.0-2.0 (%) Final Absolute Segs 06/16/2023 10:54:14 5.15 1.80-7.70 (K/uL) Final Lymphs, absolute 06/16/2023 10:54:14 2.03 1.00-4.80 (K/ul) Final Monos, Abs 06/16/2023 10:54:14 1.17 Above high normal 0.00-1.10 (K/uL) Final Eos, Abs 06/16/2023 10:54:14 0.13 0.00-0.70 (K/uL) Final Basos, Abs 06/16/2023 10:54:14 0.09 0.00-0.20 (K/uL) Final Performing Location [facility] [place] [address]
--- OUTSIDE RECORDS SUMMARY | 2023-10-22 11:05 | External Medical Summary ---
Author Name Unknown Address Unknown Organization K09:[facility] [place] [address] Laboratory Report Ordering Provider Test Date Status NICANOR PANIAGUA 06/16/2023 10:54:14 Final Observation Date Value Abnormality Reference (Units ) Status Nucleated erythrocytes/100 leukocytes [Ratio] in Blood by Automated count 06/16/2023 10:54:14 Final Acanthocytes [Presence] in Blood by Light microscopy 06/16/2023 10:54:14 Moderate Abnormal None Seen Final Polychromasia [Presence] in Blood by Light microscopy 06/16/2023 10:54:14 Moderate Abnormal None Seen Final Schistocytes 06/16/2023 10:54:14 Few Abnormal None Seen Final Stomatocytes [Presence] in Blood by Light microscopy 06/16/2023 10:54:14 Moderate Abnormal None Seen Final Target cells [Presence] in Blood by Light microscopy 06/16/2023 10:54:14 Moderate Abnormal None Seen Final Performing Location [facility] [place] [address]
--- OUTSIDE RECORDS SUMMARY | 2023-10-22 11:05 | External Medical Summary ---
Author Name Unknown Address Unknown Organization K09:[facility] [place] Kenzie [place]OPEZ [address] Laboratory Report Ordering Provider Test Date Status NICANOR PANIAGUA 06/16/2023 10:54:14 Final Observation Date Value Abnormality Reference (Units ) Status WBC, Total 06/16/2023 10:54:14 8.57 4.00-10.8 0 (K/uL) Final RBC 06/16/2023 10:54:14 2.51 4.50-5.25 (M/uL) Final Hemoglobin 06/16/2023 10:54:14 9.5 Below low normal 14 .0-16.8 (g/dL) Final HCT 06/16/2023 10:54:14 28.4 Below low normal 40. 0-48.4 (%) Final MCV 06/16/2023 10:54:14 113.1 82.0-99.5 (fL) Final MCH 06/16/2023 10:54:14 37.8 27.0-34.0 (pg) Final MCHC 06/16/2023 10:54:14 33.5 32.0-36.0 (g/dL) Final RDW 06/16/2023 10:54:14 23.7 11.5-15.5 (%) Final Platelets 06/16/2023 10:54:14 680 Above high normal 14 0-400 (K/uL) Final MPV 06/16/2023 10:54:14 10.2 6.6-11.1 ( fL) Final Performing Location [facility] [place] [address]
--- OUTSIDE RECORDS SUMMARY | 2023-10-22 11:05 | External Medical Summary | Summary of Care ---
Author Name Unknown Organization [facility] Address [address] [place] [address] Phone [phone] Care Team Providers Care Tack Picker Name Role Phone May Siegel MD Primary Care Provider [phone] Reason for Visit * Reason Comments Medication Administration Aranesp * Episode Based Medications (Routine) - Authorized Specialty Diagnoses / Procedures Referred By Contac t Referred To Contact Diagnoses MDS (myelodysplastic syndrome), low grade (HCC) Anemia, unspecified type Procedures [place] DARBEPOETIN ARIEL, NON-ESRD Ramesh Urbina MD 200 [place] [address] Anc Hem/Onc Kenzie Segura DEPT CLOSED - 01/26/[address] [place] [address] [phone] Referral ID Status Reason Start Date Expiration Date V isits Requested Visits Authorized [id number] Authorized 08/15/2020 03/14/2099 99 99 Encounter Details Date Type Department Care Team (Late st Contact Info) Description 04/21/2023 11:30 AM EST Immunization/I njection [facility]ology[facility], [place] [address] [facility] [place] [address] Nurse, Med [address] [place] [address] [address] MDS (myelodysplastic syndrome), low grade (HCC)*; Anemia, unspecified type Allergies No known active allergiesdocumented as of this encounter (statuses as of 06/08/2023) Medications Medication Sig Dispensed Refills Start Date [...] as needed for Pain, Chest. 0 Active [place]-3 1000 MG Oral Capsule Take by mouth. [...] as of this encounter (statuses as of 06/08/2023) Active Problems Problem Noted Date Diagnosed Date Anemia 08/16/2020 MDS (myelodysplastic syndrome), low grade 2020 documented as of this encounter (statuses as of 06/08/2023) Immunizations Name Administration Dates Next Due Seasonal [...] Sign Reading Time Taken Comments Blood Pressure 146/79 04/21/2023 11:11 AM EST Pulse 69 04/21/2023 11:11 AM EST Temperature - - Respiratory Rate - - Oxygen Saturation - - Inhaled Oxygen Concentration - - Weight - - Height - - Body Mass Index - - documented in this encounter Nursing Notes * Danielle Hardy LPN - 04/21/2023 11:41 AM EST Pt arrived for Aranesp injection. Hgb 9.3. Administered in CLOTILDE. Pt tolerated well. BP WNL. To return in 2 weeks. Discharged in stable condition. documented in this encounter Plan of Treatment Upcoming Encounters Date Type Department Care Team (Late st Contact Info) Description 06/16/2023 11:00 AM EDT Laboratory [facility] Jemal Rodriguez [address] [place] [address] [phone] William Segura [facility] [place] [address] [address] 06/16/2023 11:30 AM EDT Immunization/Injectio n Hematology/Oncology Treatment, [place] [address] [phone] Nurse, Med [address] [place] [address] 07/28/2023 1:45 PM EDT Office Visit Hematology/Oncology Kenzie Segura [place] [phone] Ramesh Urbina MD [address] [facility] [place] [address] Health Maintenance Due Date Last Done Comments [...] 500 mcg 500 mcg, Subcutaneous, ONCE, On Wed04/21/23 at 1230, For 1 dose, If hgb <11 Given 04/21/2023 11:25 AM EST 500 mcg Arm Right Upper documented in this encounter Care Teams Tack Picker Relationship Specialty Start Date End Date May Siegel MD [address] [place], [place] [address] PCP - General Family Medicine 07/04/20 documented as of this encounter
--- OUTSIDE RECORDS SUMMARY | 2023-10-22 11:05 | External Medical Summary | Summary of Care ---
Author Name Unknown Organization [facility] Address [address] [facility] [place] [address] Phone [phone] Care Team Providers Care Inspector And Hand Packager Name Role Phone May Siegel MD Primary Care Provider [phone] Reason for Visit * Reason Comments Outpatient Testing Encounter Details Date Type Department Care Team (Late st Contact Info) Description 05/19/2023 11:10 AM EST Laboratory [facility] [address] [place] [phone] [facility] [address] [place] [address] MDS (myelodysplastic syndrome), low grade (HCC) Allergies No known active allergiesdocumented as of this encounter (statuses as of 05/19/2023) Medications Medication Sig Dispensed Refills Start Date [...] as needed for Pain, Chest. 0 Active [place]-3 1000 MG Oral Capsule Take by mouth. [...] as of this encounter (statuses as of 05/19/2023) Active Problems Problem Noted Date Diagnosed Date Anemia 08/16/2020 MDS (myelodysplastic syndrome), low grade 2020 documented as of this encounter (statuses as of 05/19/2023) Immunizations Name Administration Dates Next Due Seasonal [...] Department Care Team (Latest Contact Info) Description 05/19/2023 11:45 AM EST Immunization/Inject ion Hematology/Oncology Treatment, [place] [address] [place] [address] [facility] Med 4 [facility] [address] [facility]DS (myelodysplastic syndrome), low grade (HCC)*; Anemia, unspecified type 06/02/2023 11:00 AM EDT Laboratory Laboratory [facility] [place] [address] [place], [place] [phone] [facility] [place], [place] [address] 06/02/2023 11:30 AM EDT Immunization/Inject ion Hematology/Oncology Treatment, [place] 200 [facility], [place] [address] Nurse, Med 4 [address] [place] [address] 06/16/2023 11:00 AM EDT Laboratory Laboratory [facility] [place] [address] [facility] [place] [phone] [facility] [address] [facility] [place], [place] [address] 06/16/2023 11:30 AM EDT Immunization/Inject ion Hematology/Oncology Treatment, [place] 200 [facility], [place] [phone] Nurse, Med 4 200 [facility] [place], [place] [address] 07/28/2023 1:45 PM EDT Office Visit Hematology/Oncology [facility] [place] 200 [facility] [place], [place] [phone] Ramesh Urbina MD 200 [facility] [place], [place] [address] Health Maintenance Due Date Last Done Comments [...] Date/Time Associated Diagnosis Comments DIFFERENTIAL, AUTOMATED STAT 05/19/2023 10:59 AM EST MDS (myelodysplastic syndrome), low grade (HCC) CBC STAT 05/19/2023 10:59 AM EST MDS (myelodysplastic syndrome), low grade (HCC) CBC STAT 05/19/2023 10:59 AM EST MDS (myelodysplastic syndrome), low grade (HCC) documented in this encounter Results * (ABNORMAL) DIFFERENTIAL, AUTOMATED (05/19/2023 10:59 AM EST) WBC 6.19 4.00 - 10.80 K/uL 05/19/2023 11:12 AM EST [facility] 56-02 Neutrophils % 58.6 40.0 - 75.0 % 05/19/2023 11:12 AM EST [facility] 56-02 Lymphocytes % 22.5 18.0 - 42.0 % 05/19/2023 11:12 AM EST [facility] 56-02 Monocytes % 16.6(H) 1.0 - 11.0 % 05/19/2023 11:12 AM EST [facility] 56-02 Eosinophils % 1.8 0.0 - 6.0 % 05/19/2023 11:12 AM EST [facility] 56-02 Basophils % 0.5 0.0 - 2.0 % 05/19/2023 11:12 AM EST [facility] 56-02 Absolute Neutrophils 3.63 1.80 - 7.70 K/uL 05/19/2023 11:12 AM EST [facility] 56-02 Absolute Lymphocytes 1.39 1.00 - 4.80 K/ul 05/19/2023 11:12 AM [facility] 56 Absolute Monocytes 1.03 0.00 - 1.10 K/uL 05/19/2023 11:12 AM [facility] 56 Absolute Eosinophils 0.11 0.00 - 0.70 K/uL 05/19/2023 11:12 AM [facility] 56 Absolute Basophils 0.03 0.00 - 0.20 K/uL 05/19/2023 11:12 AM [facility] 56 Blood Venous blood specimen / Unknown Venipuncture / Unknown 05/19/2023 10:59 AM EST 05/19/2023 10:59 AM EST Ramesh Urbina MD LAB BLOOD ORDERABLES Performing Organization Address City/State/[facility] Co de Phone Number [facility] [address] [place] [address] * (ABNORMAL) CBC (05/19/2023 10:59 AM EST) WBC 6.19 4.00 - 10.80 K/uL 05/19/2023 11:12 AM [facility] RBC 2.71 4.50 - 5.25 M/uL 05/19/2023 11:12 AM [facility] 56 HGB 10.1(L) 14.0 - 16.8 g/dL 05/19/2023 11:12 AM [facility] HCT 30.6(L) 40.0 - 48.4 % 05/19/2023 11:12 AM [facility] 56 MCV 112.9 82.0 - 99.5 fL 05/19/2023 11:12 AM [facility] 56 MCH 37.3 27.0 - 34.0 pg 05/19/2023 11:12 AM [facility] 56 MCHC 33.0 32.0 - 36.0 g/dL 05/19/2023 11:12 AM [facility] 56 RDW 23.9 11.5 - 15.5 % 05/19/2023 11:12 AM EST [facility] 56 PLT 567(H) 140 - 400 K/uL 05/19/2023 11:12 AM EST [facility] 56 MPV 10.0 6.6 - 11.1 fL 05/19/2023 11:12 AM EST [facility] 56 Blood Venous blood specimen / Unknown Venipuncture / Unknown 05/19/2023 10:59 AM EST 05/19/2023 10:59 AM EST Ramesh Urbina MD LAB BLOOD ORDERABLES [facility] [address] [place] [address] documented in this encounter Visit Diagnoses Diagnosis MDS (myelodysplastic syndrome), low grade (HCC)- Primary Low grade myelodysplastic syndrome lesions Anemia, unspecified type MDS (myelodysplastic syndrome), low grade (HCC) Low grade myelodysplastic syndrome lesions documented in this encounter Care Teams Inspector And Hand Packager Relationship Specialty Start Date End Date May Siegel MD [address] [place] [address] PCP - General Family Medicine 07/04/20 documented as of this encounter
--- OUTSIDE RECORDS SUMMARY | 2023-10-22 11:05 | External Medical Summary | Summary of Care ---
Author Name Unknown Organization [facility] Address [address] [place] [address] Phone [phone] Care Team Providers Care Lockstitch Tunnel Elastic Operator Name Role Phone May Siegel MD Primary Care Provider [phone] Reason for Visit * Reason Comments Medication Administration Aranesp * Episode Based Medications (Routine) - Authorized Specialty Diagnoses / Procedures Referred By Contac t Referred To Contact Diagnoses MDS (myelodysplastic syndrome), low grade (HCC) Anemia, unspecified type Procedures [place] DARBEPOETIN ARIEL, NON-ESRD Ramesh Urbina MD 200 [facility] [place] [address] Anc Hem/Onc Kenzie Segura DEPT CLOSED - 01/26/[address] [place] [address] [address] [phone] Referral ID Status Reason Start Date Expiration Date V isits Requested Visits Authorized [id number] Authorized 08/15/2020 03/14/2099 99 99 Encounter Details Date Type Department Care Team (Late st Contact Info) Description 05/19/2023 11:45 AM EST Immunization/I njection Hematology/Oncology Treatment, [place] [facility] [place] [address] Nurse, Med [address] [place] [address] [address] MDS (myelodysplastic syndrome), low grade (HCC)*; Anemia, [...] as needed for Pain, Chest. 0 Active [place]-3 1000 MG Oral Capsule Take by mouth. [...] Team (Late st Contact Info) Description 06/02/2023 11:00 AM EDT Laboratory Laboratory [facility] [place] [address] [place] [address] [address] [phone] William Segura [address] [facility] [place] [address] 06/02/2023 11:30 AM EDT Immunization/Injectio n Hematology/Oncology Treatment, [place] [address] [place] [phone] Nurse, Med [address] [place] [address] [address] 06/16/2023 11:00 AM EDT Laboratory Laboratory [facility] [place] [address] [place] [address] [phone] William Segura [facility] 200 [facility] [place] [address] 06/16/2023 11:30 AM EDT Immunization/Injectio n Hematology/Oncology Treatment, [place] [address] [facility] [address] [place] [phone] Nurse, Med 200 [facility] [place] [address] 07/28/2023 1:45 PM EDT Office Visit Hematology/Oncology [facility] [place] 200 [facility] [place] [phone] Ramesh Urbina MD 200 [facility] [place] [address] Health Maintenance Due Date Last Done Comments [...] Upper documented in this encounter Care Teams Lockstitch Tunnel Elastic Operator Relationship Specialty Start Date End Date May Siegel MD [address] [facility] 1 [place] [address] PCP - General Family Medicine 07/04/20 documented as of this encounter
--- OUTSIDE RECORDS SUMMARY | 2023-10-22 11:05 | External Medical Summary | Summary of Care ---
Author Name Unknown Organization [facility] Address [address] [place] [address] Phone [phone] Care Team Providers Care Lock Setter Name Role Phone May Siegel MD Primary Care Provider [phone] Reason for Visit * Reason Comments Medication Administration Aranesp * Episode Based Medications (Routine) - Authorized Specialty Diagnoses / Procedures Referred By Contac t Referred To Contact Diagnoses MDS (myelodysplastic syndrome), low grade (HCC) Anemia, unspecified type Procedures [place] DARBEPOETIN ARIEL, NON-ESRD Ramesh Urbina MD 200 [place] [address] Anc Hem/Onc Kenzie Segura DEPT CLOSED - 01/26/[address] [place] [address] [phone] Referral ID Status Reason Start Date Expiration Date V isits Requested Visits Authorized [id number] Authorized 08/15/2020 03/14/2099 99 99 Encounter Details Date Type Department Care Team (Late st Contact Info) Description 03/24/2023 11:30 AM EST Immunization/I njection Hematology/Oncology Treatment, [place] [facility] [place] [address] Nurse, Med [address] [place] [address] [address] MDS (myelodysplastic syndrome), low grade (HCC)*; Anemia, unspecified type Allergies No known active allergiesdocumented as of this encounter (statuses as of 05/10/2023) Medications Medication Sig Dispensed Refills Start Date [...] as needed for Pain, Chest. 0 Active [place]-3 1000 MG Oral Capsule Take by mouth. [...] as of this encounter (statuses as of 05/10/2023) Active Problems Problem Noted Date Diagnosed Date Anemia 08/16/2020 MDS (myelodysplastic syndrome), low grade 2020 documented as of this encounter (statuses as of 05/10/2023) Immunizations Name Administration Dates Next Due Seasonal [...] Sign Reading Time Taken Comments Blood Pressure 137/68 03/24/2023 11:23 AM EST Pulse 88 03/24/2023 11:23 AM EST Temperature - - Respiratory Rate - - Oxygen Saturation - - Inhaled Oxygen Concentration - - Weight - - Height - - Body Mass Index - - documented in this encounter Nursing Notes * Danielle Hardy LPN - 03/24/2023 2:12 PM EST 1130: Pt arrived for Aranesp injection. Hgb 8.8. Administered in CLOTILDE. Pt tolerated well. BP WNL. Toreturn in 2 weeks. Discharged in stable condition. documented in this encounter Plan of Treatment Upcoming Encounters Date Type Department Care Team (Late st Contact Info) Description 05/19/2023 11:10 AM EST Laboratory [facility] [place] [address] [place] [address] [phone] William Segura [address] [place] [address] [address] 05/19/2023 11:45 AM EST Immunization/Injectio n Hematology/Oncology Treatment, [place] [address] [place] [phone] Nurse, Med [address] [place] [address] [address] 06/02/2023 11:00 AM EDT Laboratory Laboratory Kenzie Segura [place] [address] [place] [address] [phone] [facility] 200 [facility] [place], [place] [address] 06/02/2023 11:30 AM EDT Immunization/Injectio n Hematology/Oncology Treatment, [place] 200 [facility], [place] [phone] Nurse, Med 4 200 [place] [address] 06/16/2023 11:00 AM EDT Laboratory Laboratory [facility] [place] [address] [facility] [place] [phone] [facility] [place] [address] [facility] [place] [address] 06/16/2023 11:30 AM EDT Immunization/Injectio n Hematology/Oncology Treatment, [place] 200 [facility], [place] [phone] Nurse, Med 4 200 [facility] [place], [place] [address] 07/28/2023 1:45 PM EDT Office Visit Hematology/Oncology [facility] [place] [address] [facility] [place], [place] [phone] Ramesh Urbina MD 200 [facility] [place], [place] [address] Health Maintenance Due Date Last Done Comments [...] 500 mcg 500 mcg, Subcutaneous, ONCE, On Wed03/24/23 at 1230, For 1 dose, If hgb <11 Given 03/24/2023 11:39 AM EST 500 mcg Arm Right Upper documented in this encounter Care Teams Lock Setter Relationship Specialty Start Date End Date May Siegel MD [address] [address] PCP - General Family Medicine 07/04/20 documented as of this encounter
--- OUTSIDE RECORDS SUMMARY | 2023-10-22 11:05 | External Medical Summary ---
Author Name Unknown Address Unknown Organization K09[facility] [place] [address] Laboratory Report Ordering Provider Test Date Status NICANOR PANIAGUA 05/19/2023 10:59:41 Final Observation Date Value Abnormality Reference (Units ) Status SYNC LEUKOCYTES IN BLOOD BY AUTOMATED COUNT 05/19/2023 10:59:41 6.19 4.00-10.80 (K/uL) Final Segs 05/19/2023 10:59:41 58.6 40.0-75.0 (%) Final Lymphs % 05/19/2023 10:59:41 22.5 18.0-42.0 (%) Final Monos 05/19/2023 10:59:41 16.6 Above high normal 1.0-11.0 (%) Final Eosinophils 05/19/2023 10:59:41 1.8 0.0-6.0 (%) Final Basos 05/19/2023 10:59:41 0.5 0.0-2.0 (%) Final Absolute Segs 05/19/2023 10:59:41 3.63 1.80-7.70 (K/uL) Final Lymphs, absolute 05/19/2023 10:59:41 1.39 1.00-4.80 (K/ul) Final Monos, Abs 05/19/2023 10:59:41 1.03 0.00-1.10 (K/uL) Final Eos, Abs 05/19/2023 10:59:41 0.11 0.00-0.70 (K/uL) Final Basos, Abs 05/19/2023 10:59:41 0.03 0.00-0.20 (K/uL) Final Performing Location [facility] [place] [address]
--- OUTSIDE RECORDS SUMMARY | 2023-10-22 11:05 | External Medical Summary | Summary of Care ---
Author Name Unknown Organization [facility] Address [address] [place] [address] Phone [phone] Care Team Providers Care Naphthalene Operator Helper Name Role Phone May Siegel MD Primary Care Provider [phone] Reason for Visit * Reason Comments Medication Administration Aranesp * Episode Based Medications (Routine) - Authorized Specialty Diagnoses / Procedures Referred By Contac t Referred To Contact Diagnoses MDS (myelodysplastic syndrome), low grade (HCC) Anemia, unspecified type Procedures [place] DARBEPOETIN ARIEL, NON-ESRD Ramesh Urbina MD 200 [facility] [place] [address] Anc Hem/Onc Kenzie Segura DEPT CLOSED - 01/26/[address] [place] [address] [phone] Referral ID Status Reason Start Date Expiration Date V isits Requested Visits Authorized [id number] Authorized 08/15/2020 03/14/2099 99 99 Encounter Details Date Type Department Care Team (Late st Contact Info) Description 04/07/2023 11:30 AM EST Immunization/I njection Hematology/Oncology Treatment, [place] [facility] [place] [address] Nurse, Med [address] [place] [address] [address] MDS (myelodysplastic syndrome), low grade (HCC)*; Anemia, unspecified type Allergies No known active allergiesdocumented as of this encounter (statuses as of 05/05/2023) Medications Medication Sig Dispensed Refills Start Date [...] as needed for Pain, Chest. 0 Active [place]-3 1000 MG Oral Capsule Take by mouth. [...] as of this encounter (statuses as of 05/05/2023) Active Problems Problem Noted Date Diagnosed Date Anemia 08/16/2020 MDS (myelodysplastic syndrome), low grade 2020 documented as of this encounter (statuses as of 05/05/2023) Immunizations Name Administration Dates Next Due Seasonal [...] Sign Reading Time Taken Comments Blood Pressure 144/69 04/07/2023 10:56 AM EST Pulse 72 04/07/2023 10:56 AM EST Temperature - - Respiratory Rate - - Oxygen Saturation - - Inhaled Oxygen Concentration - - Weight - - Height - - Body Mass Index - - documented in this encounter Nursing Notes * Danielle Hardy LPN - 04/07/2023 11:13 AM EST Pt arrived for Aranesp injection. Hgb 9.4. BP WNL. Administered in KATELYNN. Pt tolerated well. To return in 2 weeks. Discharged in stable condition. documented in this encounter Plan of Treatment Upcoming Encounters Date Type Department Care Team (Late st Contact Info) Description 05/19/2023 11:10 AM EST Laboratory Laboratory Kenzie Segura [place] [address] [place] [phone] William Segura [address] [facility] [place] [address] 05/19/2023 11:45 AM EST Immunization/Injectio n Hematology/Oncology Treatment, [place] [address] [place] [phone] Nurse, Med 4 [address] [place] [address] 06/02/2023 11:00 AM EDT Laboratory Laboratory Kenzie Segura [place] 200 [place] [phone] [place], Lab Scenery 200 [facility] [place], [place] [address] 06/02/2023 11:30 AM EDT Immunization/Injectio n Hematology/Oncology Treatment, [place] 200 [facility], [place] [phone] Nurse, Med 4 200 [facility] [place] [address] 06/16/2023 11:00 AM EDT Laboratory Laboratory [facility] [place] 200 [facility] [place] [phone] Park Lab [facility] 200 [facility] [place] [address] 06/16/2023 11:30 AM EDT Immunization/Injectio n Hematology/Oncology Treatment, [place] 200 [facility], [place] [phone] Nurse, Med 4 200 [facility] [place], [place] [address] 07/28/2023 1:45 PM EDT Office Visit Hematology/Oncology [facility] [place] 200 [facility] [place], [place] [phone] Ramesh Urbina MD 200 [facility] [place], [place] [address] Health Maintenance Due Date Last Done Comments [...] 500 mcg 500 mcg, Subcutaneous, ONCE, On Wed04/07/23 at 1200, For 1 dose, If hgb <11 Given 04/07/2023 11:01 AM EST 500 mcg Arm Left Upper documented in this encounter Care Teams Naphthalene Operator Helper Relationship Specialty Start Date End Date May Siegel MD [address] [address] PCP - General Family Medicine 07/04/20 documented as of this encounter
--- OUTSIDE RECORDS SUMMARY | 2023-10-22 11:05 | External Medical Summary ---
Author Name Unknown Address Unknown Organization K09:[facility] [place] [address] Laboratory Report Ordering Provider Test Date Status NICANOR PANIAGUA 06/02/2023 10:44:44 Final Observation Date Value Abnormality Reference (Units ) Status SYNC LEUKOCYTES IN BLOOD BY AUTOMATED COUNT 06/02/2023 10:44:44 7.51 4.00-10.80 (K/uL) Final Segs 06/02/2023 10:44:44 59.7 40.0-75.0 (%) Final Lymphs % 06/02/2023 10:44:44 22.6 18.0-42.0 (%) Final Monos 06/02/2023 10:44:44 15.7 Above high normal 1.0-11.0 (%) Final Eosinophils 06/02/2023 10:44:44 1.3 0.0-6.0 (%) Final Basos 06/02/2023 10:44:44 0.7 0.0-2.0 (%) Final Absolute Segs 06/02/2023 10:44:44 4.48 1.80-7.70 (K/uL) Final Lymphs, absolute 06/02/2023 10:44:44 1.70 1.00-4.80 (K/ul) Final Monos, Abs 06/02/2023 10:44:44 1.18 Above high normal 0.00-1.10 (K/uL) Final Eos, Abs 06/02/2023 10:44:44 0.10 0.00-0.70 (K/uL) Final Basos, Abs 06/02/2023 10:44:44 0.05 0.00-0.20 (K/uL) Final Performing Location [facility] [place] [address]
--- OUTSIDE RECORDS SUMMARY | 2023-10-22 11:05 | External Medical Summary | Summary of Care ---
Author Name Unknown Organization [facility] Address [address] [place] [address] Phone [phone] Care Team Providers Care Inspecting And Testing Lead Hand Name Role Phone May Siegel MD Primary Care Provider [phone] Reason for Visit * Reason Comments Medication Administration Aranesp * Episode Based Medications (Routine) - Authorized Specialty Diagnoses / Procedures Referred By Contac t Referred To Contact Diagnoses MDS (myelodysplastic syndrome), low grade (HCC) Anemia, unspecified type Procedures [place] DARBEPOETIN ARIEL, NON-ESRD Ramesh Urbina MD 200 [facility] [place] [address] Anc Hem/Onc Kenzie Segura DEPT CLOSED - 01/26/[address] [place] [address] [address] Referral ID Status Reason Start Date Expiration Date V isits Requested Visits Authorized [id number] Authorized 08/15/2020 03/14/2099 99 99 Encounter Details Date Type Department Care Team (Late st Contact Info) Description 06/02/2023 11:30 AM EDT Immunization/I njection [facility]ematology[facility]cology [facility], [place] [facility] [place] [address] Nurse, Med [address] [place] [address] [address] MDS (myelodysplastic syndrome), low grade (HCC)*; Anemia, unspecified type Allergies No known active allergiesdocumented as of this encounter (statuses as of 06/02/2023) Medications Medication Sig Dispensed Refills Start Date [...] as needed for Pain, Chest. 0 Active [place]-3 1000 MG Oral Capsule Take by mouth. [...] as of this encounter (statuses as of 06/02/2023) Active Problems Problem Noted Date Diagnosed Date Anemia 08/16/2020 MDS (myelodysplastic syndrome), low grade 2020 documented as of this encounter (statuses as of 06/02/2023) Immunizations Name Administration Dates Next Due Seasonal [...] in this encounter Nursing Notes * Danielle Had[place] LPN - 06/02/2023 11:21 AM EDT Pt arrived for Aranesp injection. Hgb 9.4. Administered in KATELYNN. Pt tolerated well. BP WNL. To return in 2 weeks. Discharged in stable condition. documented in this encounter Plan of Treatment Upcoming Encounters Date Type Department Care Team (Late st Contact Info) Description 06/16/2023 11:00 AM EDT Laboratory Laboratory Kenzie Segura [place] [address] [place] [address] [phone] William Segura [place] [address] [address] 06/16/2023 11:30 AM EDT Immunization/Injectio n Hematology/Oncology Treatment, [place] [address] [place] [phone] Nurse, Med [address] [place] [address] [address] 07/28/2023 1:45 PM EDT Office Visit Hematology/Oncology Kenzie Segura [place] [address] [place] [phone] Ramesh Urbina MD [address] [facility] [place] [address] Health Maintenance Due Date Last Done Comments [...] Upper documented in this encounter Care Teams Inspecting And Testing Lead Hand Relationship Specialty Start Date End Date May Siegel MD [address] [place] [address] PCP - General Family Medicine 07/04/20 documented as of this encounter
--- OUTSIDE RECORDS SUMMARY | 2023-10-22 11:05 | External Medical Summary ---
Author Name Unknown Address Unknown Organization K09:[facility] Kenzie [place] [address] Laboratory Report Ordering Provider Test Date Status NICANOR PANIAGUA 05/19/2023 10:59:41 Final Observation Date Value Abnormality Reference (Units ) Status WBC, Total 05/19/2023 10:59:41 6.19 4.00-10.8 0 (K/uL) Final RBC 05/19/2023 10:59:41 2.71 4.50-5.25 (M/uL) Final Hemoglobin 05/19/2023 10:59:41 10.1 Below low normal 14 .0-16.8 (g/dL) Final HCT 05/19/2023 10:59:41 30.6 Below low normal 40. 0-48.4 (%) Final MCV 05/19/2023 10:59:41 112.9 82.0-99.5 (fL) Final MCH 05/19/2023 10:59:41 37.3 27.0-34.0 (pg) Final MCHC 05/19/2023 10:59:41 33.0 32.0-36.0 (g/dL) Final RDW 05/19/2023 10:59:41 23.9 11.5-15.5 (%) Final Platelets 05/19/2023 10:59:41 567 Above high normal 14 0-400 (K/uL) Final MPV 05/19/2023 10:59:41 10.0 6.6-11.1 ( fL) Final Performing Location [facility] [place] [address]
--- OUTSIDE RECORDS SUMMARY | 2023-10-22 11:05 | External Medical Summary ---
Author Name Unknown Address Unknown Organization [facility]09:[facility] [place] Kenzie [place] [address] Laboratory Report Ordering Provider Test Date Status NICANOR PANIAGUA 06/02/2023 10:44:44 Final Observation Date Value Abnormality Reference (Units ) Status WBC, Total 06/02/2023 10:44:44 7.51 4.00-10.8 0 (K/uL) Final RBC 06/02/2023 10:44:44 2.46 4.50-5.25 (M/uL) Final Hemoglobin 06/02/2023 10:44:44 9.4 Below low normal 14 .0-16.8 (g/dL) Final HCT 06/02/2023 10:44:44 27.7 Below low normal 40. 0-48.4 (%) Final MCV 06/02/2023 10:44:44 112.6 82.0-99.5 (fL) Final MCH 06/02/2023 10:44:44 38.2 27.0-34.0 (pg) Final MCHC 06/02/2023 10:44:44 33.9 32.0-36.0 (g/dL) Final RDW 06/02/2023 10:44:44 23.5 11.5-15.5 (%) Final Platelets 06/02/2023 10:44:44 576 Above high normal 14 0-400 (K/uL) Final MPV 06/02/2023 10:44:44 10.3 6.6-11.1 ( fL) Final Performing Location [facility] [place] [address]
--- OUTSIDE RECORDS SUMMARY | 2023-10-22 11:05 | External Medical Summary | Summary of Care ---
Author Name Unknown Organization [facility] Address [address] [place] [address] Phone [phone] Care Team Providers Care Lift Operator Name Role Phone May Siegel MD Primary Care Provider [phone] Reason for Visit * Reason Comments Medication Administration Aranesp * Episode Based Medications (Routine) - Authorized Specialty Diagnoses / Procedures Referred By Contac t Referred To Contact Diagnoses MDS (myelodysplastic syndrome), low grade (HCC) Anemia, unspecified type Procedures [place] DARBEPOETIN ARIEL, NON-ESRD Ramesh Urbina MD 200 [facility] [place] [address] Anc Hem/Onc Kenzie Segura DEPT CLOSED - 01/26/[address] [place] [address] [phone] Referral ID Status Reason Start Date Expiration Date V isits Requested Visits Authorized [id number] Authorized 08/15/2020 03/14/2099 99 99 Encounter Details Date Type Department Care Team (Late st Contact Info) Description 05/05/2023 11:45 AM EST Immunization/I njection [facility], [place] [facility] [place] [address] Nurse, Med [address] [place] [address] [address] MDS (myelodysplastic syndrome), low grade (HCC)*; Anemia, unspecified type Allergies No known active allergiesdocumented as of this encounter (statuses as of 06/01/2023) Medications Medication Sig Dispensed Refills Start Date [...] as needed for Pain, Chest. 0 Active [place]-3 1000 MG Oral Capsule Take by mouth. [...] as of this encounter (statuses as of 06/01/2023) Active Problems Problem Noted Date Diagnosed Date Anemia 08/16/2020 MDS (myelodysplastic syndrome), low grade 2020 documented as of this encounter (statuses as of 06/01/2023) Immunizations Name Administration Dates Next Due Seasonal [...] Sign Reading Time Taken Comments Blood Pressure 135/66 05/05/2023 11:27 AM EST Pulse 88 05/05/2023 11:27 AM EST Temperature - - Respiratory Rate - - Oxygen Saturation - - Inhaled Oxygen Concentration - - Weight - - Height - - Body Mass Index - - documented in this encounter Nursing Notes * Danielle Hardy LPN - 05/05/2023 12:14 PM EST 1130: Pt arrived for Aranesp injection. Hgb 9.7. BP WNL. Administered in KATELYNN. Pt tolerated well. Toreturn in 2 weeks. Discharged in stable condition. documented in this encounter Plan of Treatment Upcoming Encounters Date Type Department Care Team (Late st Contact Info) Description 06/02/2023 11:00 AM EDT Laboratory Laboratory [facility] [place] [address] [phone] William Segura 200 Kenzie Parker [facility] [place] [address] 06/02/2023 11:30 AM EDT Immunization/Injectio n Hematology/Oncology Treatment, [place] [address] [place] [phone] Nurse, Med [address] [place] [address] [address] 06/16/2023 11:00 AM EDT Laboratory Laboratory Kenzie Segura [place] [address] [place] [address] [address] [phone] William Segura [facility] [address] [facility] [place] [address] 06/16/2023 11:30 AM EDT Immunization/Injectio n Hematology/Oncology Treatment, [place] [address] [facility] [address] [place] [phone] Nurse, Med 200 [facility] [place] [address] 07/28/2023 1:45 PM EDT Office Visit Hematology/Oncology [facility] [place] [address] [facility] [place] [phone] Ramesh Urbina MD [address] [facility] [place] [address] Health Maintenance Due Date Last Done Comments [...] 500 mcg 500 mcg, Subcutaneous, ONCE, On Wed05/05/23 at 1230, For 1 dose, If hgb <11 Given 05/05/2023 11:33 AM EST 500 mcg Arm Left Upper documented in this encounter Care Teams Lift Operator Relationship Specialty Start Date End Date May Siegel MD [address] Darrian Silva [facility] 1 [place] [address] PCP - General Family Medicine 07/04/20 documented as of this encounter
--- OUTSIDE RECORDS SUMMARY | 2023-10-22 11:05 | External Medical Summary | Summary of Care ---
Author Name Unknown Organization [facility] Address [address] [place] [place] [address] Phone [phone] Care Team Providers Care Moveman Name Role Phone May Siegel MD Primary Care Provider [phone] Reason for Visit * Reason Comments Med Request Outpatient Testing Encounter Details Date Type Department Care Team (Late st Contact Info) Description 06/02/2023 11:00 AM EDT Laboratory Laboratory [facility] [address] [place] [phone] [place], Lab Scenery [address] [place] [address] MDS (myelodysplastic syndrome), low grade (HCC) Allergies [...] as needed for Pain, Chest. 0 Active [place]-3 1000 MG Oral Capsule Take by mouth. [...] Contact Info) Description 06/02/2023 11:30 AM EDT Immunization/Injectio n Hematology/Oncology Treatment, [place] [address] [place] [address] Nurse, Med [address] [place], [place] [address] Arrived 06/16/2023 11:00 AM EDT Laboratory Laboratory [facility] Imelda [place] [address] [place] [phone] [place], Lab Scenery 200 [facility] [place] [address] 06/16/2023 11:30 AM EDT Immunization/Injectio n Hematology/Oncology Treatment, [place] 200 [facility] [place] [phone] Nurse, Med 200 [facility] [place] [address] 07/28/2023 1:45 PM EDT Office Visit Hematology/Oncology [facility] [place] [address] [place] [phone] Ramesh Urbina MD 200 [facility] [place] [address] Health Maintenance Due Date Last Done Comments [...] Date/Time Associated Diagnosis Comments DIFFERENTIAL, AUTOMATED STAT 06/02/2023 10:44 AM EDT MDS (myelodysplastic syndrome), low grade (HCC) CBC STAT 06/02/2023 10:44 AM EDT MDS (myelodysplastic syndrome), low grade (HCC) CBC STAT 06/02/2023 10:44 AM EDT MDS (myelodysplastic syndrome), low grade (HCC) documented in this encounter Results * (ABNORMAL) DIFFERENTIAL, AUTOMATED (06/02/2023 10:44 AM EDT) WBC 7.51 4.00 - 10.80 K/uL 06/02/2023 10:49 AM EDT LABORATORY [facility] [place] 56-02 Neutrophils % 59.7 40.0 - 75.0 % 06/02/2023 10:49 AM EDT LABORATORY [facility] [place] 56-02 Lymphocytes % 22.6 18.0 - 42.0 % 06/02/2023 10:49 AM EDT [facility] [place] 56-02 Monocytes % 15.7(H) 1.0 - 11.0 % 06/02/2023 10:49 AM EDT [facility] [place] 56-02 Eosinophils % 1.3 0.0 - 6.0 % 06/02/2023 10:49 AM EDT [facility] [place] 56-02 Basophils % 0.7 0.0 - 2.0 % 06/02/2023 10:49 AM EDT [facility] [place] 56-02 Absolute Neutrophils 4.48 1.80 - 7.70 K/uL 06/02/2023 10:49 AM EDT [facility] [place] 56-02 Absolute Lymphocytes 1.70 1.00 - 4.80 K/ul 06/02/2023 10:49 AM EDT [facility] [place] 56-02 Absolute Monocytes 1.18(H) 0.00 - 1.10 K/uL 06/02/2023 10:49 AM EDT [facility] [place] 56-02 Absolute Eosinophils 0.10 0.00 - 0.70 K/uL 06/02/2023 10:49 AM EDT LABORATORY [facility] [place] 56-02 Absolute Basophils 0.05 0.00 - 0.20 K/uL 06/02/2023 10:49 AM EDT LABORATORY [place] 56-02 Blood Venous blood specimen / Unknown Venipuncture / Unknown 06/02/2023 10:44 AM EDT 06/02/2023 10:44 AM EDT Ramesh Urbina MD LAB BLOOD ORDERABLES [facility] 56- [address] [place] [address] * (ABNORMAL) CBC (06/02/2023 10:44 AM EDT) WBC 7.51 4.00 - 10.80 K/uL 06/02/2023 10:49 AM EDT [facility] 56 RBC 2.46 4.50 - 5.25 M/uL 06/02/2023 10:49 AM EDT [facility] 56 HGB 9.4(L) 14.0 - 16.8 g/dL 06/02/2023 10:49 AM EDT [facility] 56 HCT 27.7(L) 40.0 - 48.4 % 06/02/2023 10:49 AM EDT [facility] 56 MCV 112.6 82.0 - 99.5 fL 06/02/2023 10:49 AM EDT [facility] 56 MCH 38.2 27.0 - 34.0 pg 06/02/2023 10:49 AM EDT [facility] 56 MCHC 33.9 32.0 - 36.0 g/dL 06/02/2023 10:49 AM EDT [facility] 56- RDW 23.5 11.5 - 15.5 % 06/02/2023 10:49 AM EDT [facility] 56- PLT 576(H) 140 - 400 K/uL 06/02/2023 10:49 AM EDT [facility] 56- MPV 10.3 6.6 - 11.1 fL 06/02/2023 10:49 AM EDT [facility] 56-02 Blood Venous blood specimen / Unknown Venipuncture / Unknown 06/02/2023 10:44 AM EDT 06/02/2023 10:44 AM EDT Ramesh Urbina MD LAB BLOOD ORDERABLES [facility] [place] 56-[address] [place] [address] documented in this encounter Visit Diagnoses Diagnosis MDS (myelodysplastic syndrome), low grade (HCC) Low grade myelodysplastic syndrome lesions documented in this encounter Care Teams Moveman Relationship Specialty Start Date End Date May Siegel MD [facility] [address] [address] PCP - General Family Medicine 07/04/20 documented as of this encounter
--- OUTSIDE RECORDS SUMMARY | 2023-10-22 11:05 | External Medical Summary | Summary of Care ---
Author Name Unknown Organization [facility] Address [address] [place] [address] Phone [phone] Care Team Providers Care Magnetic Prospecting Supervisor Name Role Phone May Siegel MD Primary Care Provider [phone] Reason for Visit * Reason Comments Medication Administration Aranesp * Episode Based Medications (Routine) - Authorized Specialty Diagnoses / Procedures Referred By Contac t Referred To Contact Diagnoses MDS (myelodysplastic syndrome), low grade (HCC) Anemia, unspecified type Procedures [place] DARBEPOETIN ARIEL, NON-ESRD Ramesh Urbina MD 200 [place] [address] Anc Hem/Onc Kenzie Segura DEPT CLOSED - 01/26/[address] [place] [address] [phone] Referral ID Status Reason Start Date Expiration Date V isits Requested Visits Authorized [id number] Authorized 08/15/2020 03/14/2099 99 99 Encounter Details Date Type Department Care Team (Late st Contact Info) Description 04/07/2023 11:30 AM EST Immunization/I njection Hematology/Oncology Treatment, [place] [facility] [place] [phone] Nurse, Med [address] [place] [address] [address] [address] MDS (myelodysplastic syndrome), low grade (HCC)*; Anemia, unspecified type Allergies No known active allergiesdocumented as of this encounter (statuses as of 05/06/2023) Medications Medication Sig Dispensed Refills Start Date [...] as needed for Pain, Chest. 0 Active [place]-3 1000 MG Oral Capsule Take by mouth. [...] as of this encounter (statuses as of 05/06/2023) Active Problems Problem Noted Date Diagnosed Date Anemia 08/16/2020 MDS (myelodysplastic syndrome), low grade 2020 documented as of this encounter (statuses as of 05/06/2023) Immunizations Name Administration Dates Next Due Seasonal [...] 11:10 AM EST Laboratory Laboratory Kenzie Segura [place] [address] [place] [phone] William Segura 200 [address] [facility] [place] [address] 05/19/2023 11:45 AM EST Immunization/Injectio n Hematology/Oncology Treatment, [place] [address] [place] [phone] Nurse, Med 4 [address] [place] [address] 06/02/2023 11:00 AM EDT Laboratory Laboratory Kenzie Segura [place] 200 [place] [phone] [place], Lab Scenery 200 [facility] [place], [place] [address] 06/02/2023 11:30 AM EDT Immunization/Injectio n Hematology/Oncology Treatment, [place] 200 [facility], [place] [phone] Nurse, Med 4 200 [place] [address] 06/16/2023 11:00 AM EDT Laboratory Laboratory [facility] [place] [address] [place] [phone] Park [facility] [place] [address] 06/16/2023 11:30 AM EDT Immunization/Injectio n Hematology/Oncology Treatment, [place] [address] [facility], [place] [phone] Nurse, Med 4 200 [facility] [place], [place] [address] 07/28/2023 1:45 PM EDT Office Visit Hematology/Oncology [facility] [place] [address] [facility] [place], [place] [phone] Ramesh Urbina MD 200 [facility] [place], [place] [address] Health Maintenance Due Date Last Done Comments [...] Upper documented in this encounter Care Teams Magnetic Prospecting Supervisor Relationship Specialty Start Date End Date May Siegel MD [address] [address] PCP - General Family Medicine 07/04/20 documented as of this encounter
--- OUTSIDE RECORDS SUMMARY | 2023-10-22 11:06 | External Medical Summary ---
Author Name Unknown Address Unknown Organization K[facility] [place] [address] Laboratory Report Ordering Provider Test Date Status NICANOR PANIAGUA 05/05/2023 11:06:53 Final Observation Date Value Abnormality Reference (Units ) Status SYNC LEUKOCYTES IN BLOOD BY AUTOMATED COUNT 05/05/2023 11:06:53 8.49 4.00-10.80 (K/uL) Final Segs 05/05/2023 11:06:53 64.8 40.0-75.0 (%) Final Lymphs % 05/05/2023 11:06:53 20.6 18.0-42.0 (%) Final Monos 05/05/2023 11:06:53 12.4 Above high normal 1.0-11.0 (%) Final Eosinophils 05/05/2023 11:06:53 1.5 0.0-6.0 (%) Final Basos 05/05/2023 11:06:53 0.7 0.0-2.0 (%) Final Absolute Segs 05/05/2023 11:06:53 5.50 1.80-7.70 (K/uL) Final Lymphs, absolute 05/05/2023 11:06:53 1.75 1.00-4.80 (K/ul) Final Monos, Abs 05/05/2023 11:06:53 1.05 0.00-1.10 (K/uL) Final Eos, Abs 05/05/2023 11:06:53 0.13 0.00-0.70 (K/uL) Final Basos, Abs 05/05/2023 11:06:53 0.06 0.00-0.20 (K/uL) Final Performing Location [facility] [place] [address]
--- OUTSIDE RECORDS SUMMARY | 2023-10-22 11:06 | External Medical Summary | Summary of Care ---
Author Name Unknown Organization [facility] Address [address] [place] [facility] [address] Phone [phone] Care Team Providers Care Pressure Test Operator Name Role Phone May Siegel MD Primary Care Provider [phone] Reason for Visit * Reason Comments Outpatient Testing Encounter Details Date Type Department Care Team (Late st Contact Info) Description 05/05/2023 11:20 AM EST Laboratory [facility] [address] [place] [phone] [facility] Lab Scenery [address] [place] [address] MDS (myelodysplastic syndrome), low grade (HCC) Allergies [...] as needed for Pain, Chest. 0 Active [place]-3 1000 MG Oral Capsule Take by mouth. [...] Contact Info) Description 05/05/2023 11:45 AM EST Immunization/Injectio n Hematology/Oncology Treatment, [place] [address] [place] [phone] Nurse, Med 4 200 [facility] [place] [address] Arrived 05/19/2023 11:10 AM EST Laboratory Laboratory [facility] [place] [address] [place], [place] [address] [place], Lab Scenery [address] [facility] [place], [place] [address] 05/19/2023 11:45 AM EST Immunization/Injectio n Hematology/Oncology Treatment, [place] [address] [place], [place] [address] Nurse, Med 4 [address] [place], [place] [address] 06/02/2023 11:00 AM EDT Laboratory Laboratory [facility] [place] [address] [place], [place] [address] [place], Lab Scenery [address] [facility] [place], [place] [address] 06/02/2023 11:30 AM EDT Immunization/Injectio n Hematology/Oncology Treatment, [place] [address] [place], [place] [address] Nurse, Med 4 [address] [place], [place] [address] 06/16/2023 11:00 AM EDT [facility] [place] [address] [place], [place] [address] [place], Lab Scenery [address] [place] [address] 06/16/2023 11:30 AM EDT Immunization/Injectio n Hematology/Oncology Treatment, [place] 200 [facility] [place], [place] [address] Nurse, Med 4 [address] [place], [place] [address] 07/28/2023 1:45 PM EDT Office Visit Hematology/Oncology [facility] [place] [address] [place] [phone] Ramesh Urbina MD [address] [place] [address] Pending Results Name Type Priority Associated Diagnoses Date /Time CBC WITH WBC DIFFERENTIAL Lab STAT MDS (myelodysplastic syndrome), low grade (HCC) 05/05/2023 11:06 AM EST CBC Lab STAT MDS (myelodysplastic syndrome), low grade (HCC) 05/05/2023 11:06 AM EST DIFFERENTIAL, AUTOMATED Lab STAT MDS (myelodysplastic syndrome), low grade (HCC) 05/05/2023 11:06 AM EST Health Maintenance Due Date Last Done Comments [...] lesions documented in this encounter Care Teams Pressure Test Operator Relationship Specialty Start Date End Date May Siegel MD [facility] Darrian Silva [facility] [address] PCP - General Family Medicine 07/04/20 documented as of this encounter
--- OUTSIDE RECORDS SUMMARY | 2023-10-22 11:06 | External Medical Summary | Summary of Care ---
Author Name Unknown Organization [facility] Address [address] [place] [address] Phone [phone] Care Team Providers Care Healthcare Consultant Name Role Phone May Siegel MD Primary Care Provider [phone] Reason for Visit * Reason Comments Medication Administration Aranesp * Episode Based Medications (Routine) - Authorized Specialty Diagnoses / Procedures Referred By Contac t Referred To Contact Diagnoses MDS (myelodysplastic syndrome), low grade (HCC) Anemia, unspecified type Procedures [place] DARBEPOETIN ARIEL, NON-ESRD Ramesh Urbina MD 200 [facility] [place] [address] Anc Hem/Onc Kenzie Segura DEPT CLOSED - 01/26/[address] [place] [address] [address] Referral ID Status Reason Start Date Expiration Date V isits Requested Visits Authorized [id number] Authorized 08/15/2020 03/14/2099 99 99 Encounter Details Date Type Department Care Team (Late st Contact Info) Description 05/05/2023 11:45 AM EST Immunization/I njection [facility], [place] [facility] [place] [address] Nurse, Med [address] [place] [address] [address] MDS (myelodysplastic syndrome), low grade (HCC)*; Anemia, [...] as needed for Pain, Chest. 0 Active [place]-3 1000 MG Oral Capsule Take by mouth. [...] 11:10 AM EST Laboratory Laboratory Kenzie Segura [place] [address] [phone] William Segura [address] [place] [address] [address] 05/19/2023 11:45 AM EST Immunization/Injectio n Hematology/Oncology Treatment, [place] [address] [place] [phone] Nurse, Med [address] [place] [address] [address] 06/02/2023 11:00 AM EDT Laboratory Laboratory Kenzie Segura [place] [address] [phone] [place] [facility] 200 [facility] [place], [place] [address] 06/02/2023 11:30 AM EDT Immunization/Injectio n Hematology/Oncology Treatment, [place] 200 [facility], [place] [phone] Nurse, Med 4 200 [facility] [place] [address] 06/16/2023 11:00 AM EDT Laboratory Laboratory [facility] [place] 200 [facility] [place] [phone] [place] Lab [facility] 200 [facility] [place] [address] 06/16/2023 11:30 AM EDT Immunization/Injectio n Hematology/Oncology Treatment, [place] 200 [facility], [place] [phone] Nurse, Med 4 200 [facility] [place], [place] [address] 07/28/2023 1:45 PM EDT Office Visit Hematology/Oncology [facility] [place] 200 [facility] [place], [place] [phone] Ramesh Urbina MD 200 [facility] [place], [place] [address] Health Maintenance Due Date Last Done Comments [...] Upper documented in this encounter Care Teams Healthcare Consultant Relationship Specialty Start Date End Date May Siegel MD [address] [address] PCP - General Family Medicine 07/04/20 documented as of this encounter
--- OUTSIDE RECORDS SUMMARY | 2023-10-22 11:06 | External Medical Summary ---
Author Name Unknown Address Unknown Organization K09:[facility] [place]zie [place] [address] Laboratory Report Ordering Provider Test Date Status NICANOR PANIAGUA 05/05/2023 11:06:53 Final Observation Date Value Abnormality Reference (Units ) Status WBC, Total 05/05/2023 11:06:53 8.49 4.00-10.8 0 (K/uL) Final RBC 05/05/2023 11:06:53 2.58 4.50-5.25 (M/uL) Final Hemoglobin 05/05/2023 11:06:53 9.7 Below low normal 14 .0-16.8 (g/dL) Final HCT 05/05/2023 11:06:53 29.7 Below low normal 40. 0-48.4 (%) Final MCV 05/05/2023 11:06:53 115.1 82.0-99.5 (fL) Final MCH 05/05/2023 11:06:53 37.6 27.0-34.0 (pg) Final MCHC 05/05/2023 11:06:53 32.7 32.0-36.0 (g/dL) Final RDW 05/05/2023 11:06:53 24.5 11.5-15.5 (%) Final Platelets 05/05/2023 11:06:53 585 Above high normal 14 0-400 (K/uL) Final MPV 05/05/2023 11:06:53 10.5 6.6-11.1 ( fL) Final Performing Location [facility] [place] [address]
--- NOTE | 2023-10-22 11:12 | CT Scan Report ---
CT abd pelvis IV con only CLINICAL HISTORY: abd pain and bloating TECHNIQUE: Helical axial images of the abdomen and pelvis were obtained and displayed. Automated dose lowering techniques and/or adjustment according to patient size were utilized for this exam. This e xam was performed with intravenous contrast. CT DOSE: 1343.26 mGy.cm COMPARISON: None available at the time of this dictation. FINDINGS: Lower chest: Bibasilar atelectasis versus scarring is seen. Liver: Unremarkable. No focal lesions are seen. Gallbladder and biliary tree: The gallbladder is markedly distended with thickened espinoza measuring up to 6 mm. A gallstone is noted in the gallbladder neck. Irregular projections towards the inferior li christopher parenchyma are nonspecific and may represent diverticula, less likely adjacent abscess. No intra- or extrahepatic biliary ductal dilation. Pancreas: Unremarkable, no focal lesions. Spleen: Unremarkable. Adrenals: Unremarkable. Kidneys and ureters: Nonobstructive nephrolithiasis is seen. A few renal cysts are seen. Bladder: Unremarkable. Reproductive organs: Unremarkable. Bowel: Unremarkable. Lymph nodes Retroperitoneal: 12 mm retroperitoneal lymph node is noted. Pelvic: Unremarkable. Mesenteric: Unremarkable. Peritoneum: Normal. Vessels: Unremarkable. Abdominal wall: Unremarkable. Bones: Degenerative changes in the visualized spine. Chronic appearing fracture of the left transvers e process of L3. IMPRESSION: Findings are compatible with acute cholecystitis. No definite rupture is seen.. Irregular outpouching s towards the liver are favored to represent diverticula rather than abscess. ACT 112: Negative or not required by law. Electronically signed by: Norberto Mcconnell M.D. 10/22/2023 11:11 AM
[2023-10-22] MEDS: ONDANSETRON INJ 2 MG/ML 2 ML VIAL IV STA (11:50)
[2023-10-22] MEDS: MoRPHine SULFATE 4 MG/ML 1 ML CARP\\VIAL IV STA (11:50)
[2023-10-22] MEDS ORDERED: ONDANSETRON INJ 2 MG/ML 2 ML VIAL IV PRN (11:58)
[2023-10-22] MEDS ORDERED: GLUCAGON FOR INJ 1 MG VIAL SQ PRN (12:01)
[2023-10-22] MEDS ORDERED: GLUCOSE 10 TAB/TUBE PO PRN (12:01)
[2023-10-22] MEDS ORDERED: CARBOHYDRATES FOR HYPOGLYCEMIA PO PRN (12:01)
[2023-10-22] MEDS ORDERED: DEXTROSE 50% 50 ML SYRINGE IV PRN (12:01)
[2023-10-22] MEDS ORDERED: GLUCOSE 40% GEL 15 GM TUBE PO PRN (12:01)
[2023-10-22] MEDS: LACTATED RINGER'S 1,000 ML IV SCH (12:15)
--- NOTE | 2023-10-22 12:20 | History & Physical Report ---
Date of Service October 22, 2023 Assessment & Plan (1) Acute cholecystitis: Plan: Admit to [facility] telemetry and pulse oximetry Currently stable and nontoxic-appearing Presented to the ED today after ongoing bilateral upper abdominal pain with associated fever of 101 Fahrenheit since 10/10/2023, patient has been afebrile since arrival CT of the abdomen pelvis with IV contrast shows findings consistent with acute cholecystitis with possible associated abscess due to irregular outpouchings towards the liver Will obtain stat blood cultures and start the patient on Zosyn Will give an additional 500 mL LR bolus until he evaluated by general surgery as he does not meet sepsis criteria at this time Pain control with morphine Will obtain type and screen with his history of MDS Hold chemical DVT prophylaxis until general surgery is comfortable from a ble eding risk standpoint Strict n.p.o. until evaluated by general surgery, consult has been placed AM CBC, CMP, fasting lipid panel (2) HTN (hypertension): Plan: Patient was noted to be hypertensive on arrival at 172/75, likely due to pain Patient confirm he took his a.m. antihypertensives, will follow-up when his neck is complete Will plan to hold his oral antihypertensives in the perioperative period he can use as needed IV antihypertensives if needed (3) Myelodysplastic syndrome: Plan: Hemoglobin currently stable at 9 Is followed by hematology outpatient. He gets routine labs States he did have a dose of bone marrow stimulating medication 10/20/2023 but cannot recall the name at this time, this could account for some of his leukocytosis and thrombocytosis Monitor daily CBC (4) DMII (diabetes mellitus, type 2): Plan: Hold metformin Monitor BSG ACHS for now with hypoglycemia protocol as patient has been stable off metformin Can add into hypertensive regimen if needed during this admission (5) CAD (coronary artery disease): Plan: Status post CABG x 5 at [facility] in 2019 No current chest pain or concerning EKG changes Resume daily aspirin when general surgery is comfortable from bleeding Plan The patient was discussed with Dr. Case at the time of the admission History of Present Illness Chief Complaint: Fevers, abdominal pain Primary Care Provider: NO PCP Nolberto is a 77-year-old male with a past medical history significant for coronary artery disease status post CABG x 5 at [facility] in 2019 complicated by postoperative infection of the sternum status post complete sternectomy, hypertension, diabetes mellitus type 2, and myelodysplastic syndrome who presented to [facility] ED on 10/22/2023 due to ongoing fever and upper abdominal pain since 10/10/2023. He was noted to be hypertensive on arrival at 172/75 but remained otherwise stable. Labs are significant for leukocytosis of 14 with neutrophil predominance of 10, hemoglobin of 9, platelet count of 990, sodium of 132, AST of 51, ALT of 59, alk phos of 227, total bili within normal limits and full respiratory BioFire negative. Chest x-ray was read as negative for acute findings. CT of the abdomen pelvis with IV contrast was read as "findings are compatible with acute cholecystitis. No definite rupture is seen. Irregular outpouching towards the liver are favored to represent diverticula rather than abscess. The ED staff spoke with general surgery who will be evaluating the patient shortly in preparation for the OR. Prior to admission the patient was given 500 mL normal saline, 15 mg IV Toradol, and 4 mg IV morphine. Patient was lying in bed no acute distress at the time of exam. He states that he started to develop bilateral upper abdominal pain on 10/10/2023. Has had intermittent fevers as high as 101 Fahrenheit. Pain has generally stayed in the bilateral upper abdomen without radiation. Denies recent chest pain, shortness of breath, nausea/vomiting, dysuria, hematuria, diarrhea, lower extremity swelling, and recent trauma. He confirms he had his a.m. doses of aspirin and antihypertensives prior to arrival. We discussed CODE STATUS, he wishes to be a full code and for his to make medical decisions for him if he cannot make them himself. Please refer to Dr. Case' attestation for any changes to treatment plan Past Med/Surg History Problem List (Updated 10/22/23 @ 12:23 by Urbano Siu PA-C) CAD (coronary artery disease) DMII (diabetes mellitus, type 2) Myelodysplastic syndrome HTN (hypertension) Acute cholecystitis (Acute) Social History Smoking Status: Never smoker Preferred Language: [place] Feels Safe at Home: Yes Physical Exam Physical Exam: Physical Exam: General: In no acute distress, stated age, ill appearing but non-toxic HEENT: Normocephalic, atraumatic, no scleral icterus, pupils around round, symmetrical, and reactive to light, dry mucus membranes, trachea midline, no thyromegaly Chest/Pulm: No respiratory distress, symmetrical chest expansion, clear breath sounds throughout Cardiac: RRR, no murmurs noted Abdomen: Distended abdomen without signs of bruising, hyperactive bowel sounds, mildly firm, nontender to percussion throughout, tender to palpation bilateral upper abdominal mendes without rebound tenderness, positive Maya sign, epigastric abdominal hernia noted from BiPAP without signs of strangulation Musculoskeletal: Symmetrical and without signs of acute trauma, upper and lower extremities with full ROM, no atrophy, spasticity, or flaccidity Extremities: Radial, dorsalis pedis, and posterior tibial pulses are intact and symmetrical, no edema noted in the BL LE's Skin: Warm, dry, no rashes , lesions, or scars noted Neuro: Alert and oriented to person, place, month, year, and president, no focal defects, no tremors noted Psych: No acute distress, calm and cooperative during the exam Results & Data Results & Data Vital Signs (Past 12 Hours) Vital Signs Temp Pulse Pulse Resp BP BP Pulse Ox 10/22/23 10:20 80 10/22/23 10:00 94 10/22/23 10:00 81 16 172/75 H 94 10/22/23 09:27 37.1 C 81 14 153/72 H 92 O2 Del Method 10/22/23 10:20 10/22/23 10:00 Room Air 10/22/23 10:00 Room Air 10/22/23 09:27 Room Air Laboratory Results Abnormal lab results 10/22/23 Range/Units 09:45 WBC 14.51 H (4.8-10.8) K/ul RBC 2.60 L (4.70-6.10) M/uL Hgb 9.0 L (14.0-18.0) g/dl Hct 26.9 L (42.0-52.0) % MCV 103.5 H (80.0-100.0) fL MCH 34.6 H (25.0-34.0) pg RDW Std Deviation 97.8 H (36.4-46.3) fL RDW Coeff of Cha 26.5 H (11.5-14.5) % Plt Count 990 H (130-400) K/uL Neut # (Auto) 10.74 H (1.40-6.50) K/uL [place] # (Auto) 2.13 H (0.11-0.59) K/uL Sodium 132 L (136-145) mmol/L Glucose 107 H (70-99(Fasting)) mg/dl AST 51 H (13-39) U/L ALT 59 H (7-52) U/L Alkaline Phosphatase 227 H (34-104) U/L Total Protein 8.9 H (6.0-8.3) gm/dl Albumin 3.3 L (3.4-5.0) gm/dl Globulin 5.6 H (2.5-4.0) gm/dl Albumin/Globulin Ratio 0.6 L (0.9-2) Diagnostic Findings Chest X-Ray 10/22/23 09:46 XR chest 1V portable CLINICAL HISTORY: cough x 2-3 weeks COMPARISON STUDY: Chest CT September 14, 2019. Chest radiograph August 26, 2022. FINDINGS: Disrupted median sternotomy wires were shown on prior exams. Moderate cardiomegaly is unchanged. There is no evidence for pulmonary edema. There is no pneumothorax or pleural effusion. Mild elevation of the right hemidiaphragm is unchanged. Linear left basilar opacity favors atelectasis or scarring. Apparent left basilar opacity is likely related to epicardial fat pad. IMPRESSION: No acute cardiopulmonary findings. No significant change in appearance of the chest. Cardiomegaly. ACT 112: Negative or not required by law. Electronically signed by: Johann Marie M.D. 10/22/2023 10:43 AM Abdomen/Pelvis CT 10/22/23 09:47 CT abd pelvis IV con only CLINICAL HISTORY: abd pain and bloating TECHNIQUE: Helical axial images of the abdomen and pelvis were obtained and displayed. Automated dose lowering techniques and/or adjustment according to patient size were utilized for this exam. This exam was performed with intravenous contrast. CT DOSE: 1343.26 mGy.cm COMPARISON: None available at the time of this dictation. FINDINGS: Lower chest: Bibasilar atelectasis versus scarring is seen. Liver: Unremarkable. No focal lesions are seen. Gallbladder and biliary tree: The gallbladder is markedly distended with thicke siobhan espinoza measuring up to 6 mm. A gallstone is noted in the gallbladder neck. Irregular projections towards the inferior liver parenchyma are nonspecific and may represent diverticula, less likely adjacent abscess. No intra- or extrahepatic biliary ductal dilation. Pancreas: Unremarkable, no focal lesions. Spleen: Unremarkable. Adrenals: Unremarkable. Kidneys and ureters: Nonobstructive nephrolithiasis is seen. A few renal cysts are seen. Bladder: Unremarkable. Reproductive organs: Unremarkable. Bowel: Unremarkable. Lymph nodes Retroperitoneal: 12 mm retroperitoneal lymph node is noted. Pelvic: Unremarkable. Mesenteric: Unremarkable. Peritoneum: Normal. Vessels: Unremarkable. Abdominal wall: Unremarkable. Bones: Degenerative changes in the visualized spine. Chronic appearing fracture of the left transverse process of L3. IMPRESSION: Findings are compatible with acute cholecystitis. No definite rupture is seen.. Irregular outpouchings towards the liver are favored to represent diverticula rather than abscess. ACT 112: Negative or not required by law. Electronically signed by: Norberto Mcconnell M.D. 10/22/2023 11:11 AM ECG Additional Comments: Sinus rhythm with premature atrial complexes otherwise negative for acute ST segment or T wave Code Status & VTE Plan Code Status Full code VTE Prophylaxis Plan VTE Prophylaxis will be ordered: Yes Supervising Physician Co-Signing Physician Notes I have personally seen, evaluated and examined the patient. I have also personally discussed the management of the patient with the resident physician/HARMONY and I agree with the exam findings documented in the history and physical examination and the documented assessment and plan unless otherwise stated below. Brief Exam: In general pleasant 77-year-old male is alert and oriented x 3. His only complaint is abdominal pain not out of proportion to his current acute cholecystitis. HEENT: Normocephalic atraumatic. Pupils are equal round react light bilaterally. Heart: Regular rate and rhythm no murmur or ectopy or rub. Sternectomy is noted. Lungs: Clear to auscultation bilaterally. Abdomen: Incisional hernia noted. Diffusely tender mostly right upper quadrant midepigastric region. No rebound. No peritoneal sign. Positive but hypoactive bowel sounds. Extremities: Intact without any edema. Neurologically: Intact with no focal deficit. Assessment/plan: As described above. Will keep n.p.o. await input from general surgery. Suspect the patient will be scheduled for acute cholecystectomy during this admission. I have ordered Accu-Cheks to be called less than 80 or greater than 180. Will do these every 4. As needed morphine for pain as needed Zofran for nausea. Please refer to orders for further planning. PG Care Time/CCT Total # of Minutes Spent Total Time Spent with Patient: Total time spent is greater than 50% in coordination of care (as documented) at patient's floor/unit and/or counseling patient: [place] [address] INT INP/OBS CARE 3/75MIN Patient Type New Medical Decision Making High Complexity Diagnoses Acute cholecystitis K81.0 HTN (hypertension) I10 Myelodysplastic syndrome D46.9 DMII (diabetes mellitus, type 2) E11.9 CAD (coronary artery disease) I25.10
[2023-10-22] MEDS: PIPERACILLIN/TAZOBACTAM 4.5 GM/100 ML BAG IV STA (12:53)
[2023-10-22] MEDS: LACTATED RINGER'S 500 ML IV ONE (12:56)
[2023-10-22] MEDS: PANTOprazole 40 MG in SYRINGE 0 ML IV SCH (13:20)
--- NOTE | 2023-10-22 13:51 | Surgery Consultation ---
Date of Consultation October 22, 2023 Assessment & Plan (1) Acute cholecystitis: Plan 77-year-old gentleman with extensive heart history presents with a 2-week history of acute cholecystitis. Given the time course of the symptoms, and the appearance on CT scan, I would not recommend immediate surgery. I would recommend IV antibiotics and bowel rest. He may require percutaneous cholecystostomy tube drainage. We will continue to follow while he is here. History of Present Illness Reason for Consultation: Acute on chronic cholecystitis Requesting Physician: ED physician Attending Physician: ED physician History of Present Illness 77-year-old gentleman presents with a 2-week history of mid upper to right sided abdominal pain, nausea. He has been having fevers and chills throughout the past 2 weeks. He has had decreased appetite. He was seen by his physician and was sent to the emergency department. CT scan demonstrates what appears to be acute cholecystitis with possible diverticula versus small abscesses in the liver bed. He has not been on any biotics. Allergies Allergy/AdvReac Type Severity Reaction Status Date / Time tree and shrub pollen Allergy runny Verified 10/22/23 13:15 nose, cough Home Medications Medication Instructions Recorded Confirmed Type allopurinol 100 mg tablet 100 mg PO DAILY 10/22/23 10/22/23 History amlodipine 10 mg tablet 10 mg PO DAILY 10/22/23 10/22/23 History aspirin 81 mg tablet,delayed 81 mg PO DAILY 10/22/23 10/22/23 History release cetirizine 10 mg tablet 10 mg PO DAILY 10/22/23 10/22/23 History metformin 500 mg tablet 500 mg PO BID 10/22/23 10/22/23 History metoprolol succinate 100 mg 100 mg PO DAILY 10/22/23 10/22/23 History tablet,extended release 24 hr olmesartan 20 mg tablet 20 mg PO DAILY 10/22/23 10/22/23 History rosuvastatin 5 mg tablet 5 mg PO DAILY 10/22/23 10/22/23 History Patient History Social History Smoking Status: Never smoker Preferred Language: Nepali Feels Safe at Home: Yes Review of Systems Review of Systems: All systems reviewed & are unremarkable except as noted in HPI & below Physical Exam Constitutional: WD/WN, vitals as above Eyes: PERRL, conjunctivae normal, anicteric sclerae Neck: trachea midline, no thyromegaly Respiratory: normal respiratory effort; no respiratory distress and no labored breathing Cardiovascular: Rate/Rhythm: regular rate and regular rhythm Gastrointestinal (Abdomen): Inspection/Auscultation: abdomen normal to inspection; abdomen not distended Percussion/Palpation: + abdomen tender ( RUQ) and abdomen soft; no guarding and abdomen not rigid Skin: no rashes, warm and dry Psychiatric: A+Ox3, euthymic affect Results & Data Vital Signs (Past 12 Hours) Vital Signs Temp Pulse Pulse Resp BP BP Pulse Ox 10/22/23 10:20 80 10/22/23 10:00 94 10/22/23 10:00 81 16 172/75 H 94 10/22/23 09:27 37.1 C 81 14 153/72 H 92 O2 Del Method 10/22/23 10:20 10/22/23 10:00 Room Air 10/22/23 10:00 Room Air 10/22/23 09:27 Room Air Laboratory Results 10/22/23 10/22/23 Range/Units 12:15 09:45 WBC 14.51 H (4.8-10.8) K/ul RBC 2.60 L (4.70-6.10) M/uL Hgb 9.0 L (14.0-18.0) g/dl Hct 26.9 L (42.0-52.0) % MCV 103.5 H (80.0-100.0) fL MCH 34.6 H (25.0-34.0) pg MCHC 33.5 (32.0-36.0) g/dL RDW Std Deviation 97.8 H (36.4-46.3) fL RDW Coeff of Cha 26.5 H (11.5-14.5) % Plt Count 990 H (130-400) K/uL MPV 10.3 (9.4-12.4) fL Immature Gran % (Auto) 1.4 % Neut % (Auto) 73.9 % Lymph % (Auto) 9.2 % Lamb % (Auto) 14.7 % Eos % (Auto) 0.2 % Baso % (Auto) 0.6 % Neut # (Auto) 10.74 H (1.40-6.50) K/uL Lymph # (Auto) 1.33 (1.20-3.40) K/uL Lamb # (Auto) 2.13 H (0.11-0.59) K/uL Eos # (Auto) 0.03 (0.00-0.50) K/uL Baso # (Auto) 0.08 (0.00-0.20) K/uL Immature Gran # (Auto) 0.20 (0.01-0.20) K/uL Polychromasia 2+ Target Cells 1+ Rouleaux 1+ Sodium 132 L (136-145) mmol/L Potassium 4.2 (3.5-5.1) mmol/L Chloride 99 (98-107) mmol/L Carbon Dioxide 25 (21-32) mmol/L Anion Gap 8 (3-11) BUN 17 (6-23) mg/dl Creatinine 1.16 (0.6-1.4) mg/dl Est Cr Clr Drug Dosing 55.8 ml/min Est GFR ( Amer) 70.5 ml/min Est GFR (Non-Af Amer) 60.8 ml/min BUN/Creatinine Ratio 14.7 (10-20) Glucose 107 H (70-99(Fasting)) mg/dl Calcium 8.9 (8.6-10.3) mg/dl Total Bilirubin 0.6 (0.2-1.0) mg/dl AST 51 H (13-39) U/L ALT 59 H (7-52) U/L Alkaline Phosphatase 227 H (34-104) U/L Troponin I High Sens 14.0 (0-20) pg/ml Total Protein 8.9 H (6.0-8.3) gm/dl Albumin 3.3 L (3.4-5.0) gm/dl Globulin 5.6 H (2.5-4.0) gm/dl Albumin/Globulin Ratio 0.6 L (0.9-2) Lipase 17 (11-82) U/L Adenovirus (PCR) Not Detected (NotDetected) B. pertussis DNA (PCR) Not Detected (NotDetected) B.parapertussis DNA PCR Not Detected (NotDetected) C. pneumoniae DNA (PCR) Not Detected (NotDetected) Coronavirus OC43 (PCR) Not Detected (NotDetected) Coronavirus HKU1 (PCR) Not Detected (NotDetected) Coronavirus 229E (PCR) Not Detected (NotDetected) SARS-CoV-2 (PCR) Not Detected (NotDetected) Coronavirus NL63 (PCR) Not Detected (NotDetected) Human Metapneumovir PCR Not Detected (NotDetected) Influenza Type A (PCR) Not Detected (NotDetected) Influenza Type B (PCR) Not Detected (NotDetected) M. pneumoniae (PCR) Not Detected (NotDetected) Parainfluenza 1 (PCR) Not Detected (NotDetected) Parainfluenza 2 (PCR) Not Detected (NotDetected) Parainfluenza 3 (PCR) Not Detected (NotDetected) Parainfluenza 4 (PCR) Not Detected (NotDetected) RSV (PCR) Not Detected (NotDetected) Entero/Rhino (PCR) Not Detected (NotDetected) Blood Type A Positive Antibody Screen NEGATIVE Diagnostic Findings CT abd pelvis IV con only CLINICAL HISTORY: abd pain and bloating TECHNIQUE: Helical axial images of the abdomen and pelvis were obtained and displayed. Automated dose lowering techniques and/or adjustment according to patient size were utilized for this exam. This exam was performed with intravenous contrast. CT DOSE: 1343.26 mGy.cm COMPARISON: None available at the time of this dictation. FINDINGS: Lower chest: Bibasilar atelectasis versus scarring is seen. Liver: Unremarkable. No focal lesions are seen. Gallbladder and biliary tree: The gallbladder is markedly distended with thickened espinoza measuring up to 6 mm. A gallstone is noted in the gallbladder neck. Irregular projections towards the inferior liver parenchyma are nonspecific and may represent diverticula, less likely adjacent abscess. No intra- or extrahepatic biliary ductal dilation. Pancreas: Unremarkable, no focal lesions. Spleen: Unremarkable. Adrenals: Unremarkable. Kidneys and ureters: Nonobstructive nephrolithiasis is seen. A few renal cysts are seen. Bladder: Unremarkable. Reproductive organs: Unremarkable. Bowel: Unremarkable. Lymph nodes Retroperitoneal: 12 mm retroperitoneal lymph node is noted. Pelvic: Unremarkable. Mesenteric: Unremarkable. Peritoneum: Normal. Vessels: Unremarkable. Abdominal wall: Unremarkable. Bones: Degenerative changes in the visualized spine. Chronic appearing fracture of the left transverse process of L3. IMPRESSION: Findings are compatible with acute cholecystitis. No definite rupture is seen.. Irregular outpouchings towards the liver are favored to represent diverticula rather than abscess.
--- NOTE | 2023-10-22 14:43 | Electrocardiogram Report ---
Test Reason : Blood Pressure : */* mmHG Vent. Rate : 79 BPM Atrial Rate : 79 BPM P-R Int : 206 ms QRS Dur : 78 ms QT Int : 382 ms P-R-T Axes : 6 48 -5 degrees QTcB Int : 438 ms Sinus rhythm with Premature atrial complexes Possible Inferior infarct , age undetermined Abnormal ECG No previous ECGs available Confirmed by Bo Cardoso ([id number]) on 10/22/2023 2:43:04 PM Referred By: Giovanna Lozada Confirmed By: Bo Cardoso
[2023-10-22 16:40] LABS: Appearance Urine Clear (Clear); Bacteria Urine Automated None Seen (None Seen); Bilirubin Urine Negative (Negative); Blood Urine Negative (Negative); Cast Urine Automated 0-2 /lpf (0-2); Color Urine Dark Yellow; Epithelial Cell Urine Auto 0-2 /hpf (0-2); Glucose Urine UA Negative (Negative); Ketones Urine Trace (Negative); Leukocyte Esterase Urine Negative (Negative); Nitrite Urine Negative (Negative); Protein Urine 1+ (Negative); RBC Urine Automated 0-2 /hpf (0-2); Specific Gravity Urine > 1.045 (1.000-1.030); Urobilinogen Urine Negative (Negative); WBC Urine Automated 0-5 /hpf (0-5); pH Urine 5.5 (4.5-7.5)
[2023-10-22] MEDS: ACETAMINOPHEN 325 MG TAB PO PRN (17:53)
[2023-10-22] MEDS: PIPERACILLIN/TAZOBACTAM 4.5 GM in DEXTROSE 5% MINI-B 100 ML IV SCH (18:37)
[2023-10-23 07:22] LABS: Basophils # (auto) 0.09 K/uL (0.00-0.20); Basophils % (auto) 0.7 %; Eosinophils # (auto) 0.08 K/uL (0.00-0.50); Eosinophils % (auto) 0.7 %; Hematocrit (blood only) 26.5 % (42.0-52.0); Hemoglobin 8.4 g/dl (14.0-18.0); Immature Granulocytes # (auto) 0.16 K/uL (0.01-0.20); Immature Granulocytes % (auto) 1.3 %; Lymphocytes # (auto) 1.14 K/uL (1.20-3.40); Lymphocytes % (auto) 9.4 %; Mean Corpuscular Hemoglobin 33.7 pg (25.0-34.0); Mean Corpuscular Hgb Conc 31.7 g/dL (32.0-36.0); Mean Corpuscular Volume 106.4 fL (80.0-100.0); Mean Platelet Volume 10.2 fL (9.4-12.4); Monocytes # (auto) 1.55 K/uL (0.11-0.59); Monocytes % (auto) 12.8 %; Neutrophils # (auto) 9.09 K/uL (1.40-6.50); Neutrophils % (auto) 75.1 %; Platelet Count 858 K/uL (130-400); RDW Coefficient of Variation 26.5 % (11.5-14.5); RDW Standard Deviation 100.1 fL (36.4-46.3); Red Blood Count 2.49 M/uL (4.70-6.10); White Blood Count 12.11 K/ul (4.8-10.8)
[2023-10-23 07:33] LABS: Estimated Average Glucose 117 mg/dl; Hemoglobin A1C 5.7 % (4.5-5.6)
[2023-10-23] MEDS: METOPROLOL SUCC 50MG EXT REL TAB PO SCH (07:40)
[2023-10-23] MEDS: MoRPHine SULFATE 2 MG/ML CARP IV PRN (07:40)
[2023-10-23 07:52] LABS: Polychromasia 1+; Rouleaux 1+; Target Cells 1+
[2023-10-23 08:54] LABS: Albumin Globulin Ratio 0.6 (0.9-2); Albumin Level 2.9 gm/dl (3.4-5.0); BUN Creatinine Ratio 12.5 (10-20); Bilirubin,Total 0.7 mg/dl (0.2-1.0); Calcium 8.4 mg/dl (8.6-10.3); Chol HDL Ratio 4.4 (0-5); Creatinine Clr Calc Pharmacy 54.3 ml/min; Est GFR (African American) 67.7 ml/min; Est GFR (Non-African American) 58.4 ml/min; Globulin 5.1 gm/dl (2.5-4.0); Magnesium 1.9 mg/dl (1.7-2.4); Potassium 4.2 mmol/L (3.5-5.1)
[2023-10-23 09:16] LABS: Thyroid Stimulating Hormone 4.722 uIu/ml (0.300-4.500)
[2023-10-23 09:51] LABS: T4 Free Thyroxine 0.87 ng/dl (0.61-1.60)
--- NOTE | 2023-10-23 11:01 | Surgery Progress Note ---
Date of Service October 23, 2023 Assessment & Plan (1) Acute cholecystitis: Plan 77-year-old gentleman with extensive heart history presents with a 2-week history of acute cholecystitis. Given the time course of the symptoms, and the appearance on CT scan, I would not recommend immediate surgery. I would recommend IV antibiotics and bowel rest. He may require percutaneous cholecystostomy tube drainage. We will continue to follow while he is here. Admission and Anticipated Discharge Date Admission Date: October 22, 2023 Subjective Feeling slightly improved today. Still with abdominal pain. No nausea. No fevers. Physical Exam Physical Exam: NAD, A&O x 3 AFVSS NCAT Abdomen: Soft, mild TTP in RUQ Results & Data Vital Signs (Past 12 Hours) Vital Signs Temp Pulse Pulse Resp BP Pulse Ox O2 Del Method 10/23/23 07:48 Nasal Cannula 10/23/23 07:08 73 10/23/23 07:08 37.2 C 77 19 137/76 94 Nasal Cannula 10/23/23 04:00 36.9 C 69 18 147/74 H 93 Room Air O2 Flow Rate 10/23/23 07:48 2 10/23/23 07:08 10/23/23 07:08 2 10/23/23 04:00 Laboratory Results 10/23/23 10/23/23 10/23/23 Range/Units 10:16 06:39 05:37 WBC 12.11 H (4.8-10.8) K/ul RBC 2.49 L (4.70-6.10) M/uL Hgb 8.4 L (14.0-18.0) g/dl Hct 26.5 L (42.0-52.0) % MCV 106.4 H (80.0-100.0) fL MCH 33.7 (25.0-34.0) pg MCHC 31.7 L (32.0-36.0) g/dL RDW Std Deviation 100.1 H (36.4-46.3) fL RDW Coeff of Cha 26.5 H (11.5-14.5) % Plt Count 858 H (130-400) K/uL MPV 10.2 (9.4-12.4) fL Immature Gran % (Auto) 1.3 % Neut % (Auto) 75.1 % Lymph % (Auto) 9.4 % [place] % (Auto) 12.8 % Eos % (Auto) 0.7 % Baso % (Auto) 0.7 % Neut # (Auto) 9.09 H (1.40-6.50) K/uL Lymph # (Auto) 1.14 L (1.20-3.40) K/uL [place] # (Auto) 1.55 H (0.11-0.59) K/uL Eos # (Auto) 0.08 (0.00-0.50) K/uL Baso # (Auto) 0.09 (0.00-0.20) K/uL Immature Gran # (Auto) 0.16 (0.01-0.20) K/uL Polychromasia 1+ Target Cells 1+ Rouleaux 1+ Sodium 133 L (136-145) mmol/L Potassium 4.2 (3.5-5.1) mmol/L Chloride 100 (98-107) mmol/L Carbon Dioxide 25 (21-32) mmol/L Anion Gap 8 (3-11) BUN 15 (6-23) mg/dl Creatinine 1.20 (0.6-1.4) mg/dl Est Cr Clr Drug Dosing 54.3 ml/min Est GFR ( Amer) 67.7 ml/min Est GFR (Non-Af Amer) 58.4 ml/min BUN/Creatinine Ratio 12.5 (10-20) Glucose 78 (70-99(Fasting)) mg/dl POC Glucose 91 93 (70-99) mg/dl Estimat Average Glucose 117 mg/dl Hemoglobin A1c 5.7 H (4.5-5.6) % Calcium 8.4 L (8.6-10.3) mg/dl Magnesium 1.9 (1.7-2.4) mg/dl Total Bilirubin 0.7 (0.2-1.0) mg/dl AST 64 H (13-39) U/L ALT 68 H (7-52) U/L Alkaline Phosphatase 308 H (34-104) U/L Total Protein 8.0 (6.0-8.3) gm/dl Albumin 2.9 L (3.4-5.0) gm/dl Globulin 5.1 H (2.5-4.0) gm/dl Albumin/Globulin Ratio 0.6 L (0.9-2) Triglycerides 79 (0-150) mg/dl Cholesterol 61 (0-200) mg/dl LDL Cholesterol, Calc 31 mg/dl VLDL Cholesterol, Calc 16 (0-30) mg/dl HDL Cholesterol 14 mg/dl Cholesterol/HDL Ratio 4.4 (0-5) TSH 4.722 H (0.300-4.500) uIu/ml Free T4 0.87 (0.61-1.60) ng/dl Urine Color Urine Appearance (Clear) Urine pH (4.5-7.5) Ur Specific [place] (1.000-1.030) Urine Protein (Negative) Urine Glucose (UA) (Negative) Urine Ketones (Negative) Urine Blood (Negative) Urine Nitrite (Negative) Urine Bilirubin (Negative) Urine Urobilinogen (Negative) Ur Leukocyte Esterase (Negative) Urine WBC (Auto) (0-5) /hpf Urine RBC (Auto) (0-2) /hpf U Hyaline Cast (Auto) (0-2) /lpf U Epithel Cells (Auto) (0-2) /hpf Urine Bacteria (Auto) (None Seen) Blood Type Antibody Screen 10/23/23 10/22/23 10/22/23 Range/Units 01:32 22:36 17:45 WBC (4.8-10.8) K/ul RBC (4.70-6.10) M/uL Hgb (14.0-18.0) g/dl Hct (42.0-52.0) % MCV (80.0-100.0) fL MCH (25.0-34.0) pg MCHC (32.0-36.0) g/dL RDW Std Deviation (36.4-46.3) fL RDW Coeff of Cha (11.5-14.5) % Plt Count (130-400) K/uL MPV (9.4-12.4) fL Immature Gran % (Auto) % Neut % (Auto) % Lymph % (Auto) % [place] % (Auto) % Eos % (Auto) % Baso % (Auto) % Neut # (Auto) (1.40-6.50) K/uL Lymph # (Auto) (1.20-3.40) K/uL [place] # (Auto) (0.11-0.59) K/uL Eos # (Auto) (0.00-0.50) K/uL Baso # (Auto) (0.00-0.20) K/uL Immature Gran # (Auto) (0.01-0.20) K/uL Polychromasia Target Cells Rouleaux Sodium (136-145) mmol/L Potassium (3.5-5.1) mmol/L Chloride (98-107) mmol/L Carbon Dioxide (21-32) mmol/L Anion Gap (3-11) BUN (6-23) mg/dl Creatinine (0.6-1.4) mg/dl Est Cr Clr Drug Dosing ml/min Est GFR ( Amer) ml/min Est GFR (Non-Af Amer) ml/min BUN/Creatinine Ratio (10-20) Glucose (70-99(Fasting)) mg/dl POC Glucose 88 107 H 94 (70-99) mg/dl Estimat Average Glucose mg/dl Hemoglobin A1c (4.5-5.6) % Calcium (8.6-10.3) mg/dl Magnesium (1.7-2.4) mg/dl Total Bilirubin (0.2-1.0) mg/dl AST (13-39) U/L ALT (7-52) U/L Alkaline Phosphatase (34-104) U/L Total Protein (6.0-8.3) gm/dl Albumin (3.4-5.0) gm/dl Globulin (2.5-4.0) gm/dl Albumin/Globulin Ratio (0.9-2) Triglycerides (0-150) mg/dl Cholesterol (0-200) mg/dl LDL Cholesterol, Calc mg/dl VLDL Cholesterol, Calc (0-30) mg/dl HDL Cholesterol mg/dl Cholesterol/HDL Ratio (0-5) TSH (0.300-4.500) uIu/ml Free T4 (0.61-1.60) ng/dl Urine Color Urine Appearance (Clear) Urine pH (4.5-7.5) Ur Specific [place] (1.000-1.030) Urine Protein (Negative) Urine Glucose (UA) (Negative) Urine Ketones (Negative) Urine Blood (Negative) Urine Nitrite (Negative) Urine Bilirubin (Negative) Urine Urobilinogen (Negative) Ur Leukocyte Esterase (Negative) Urine WBC (Auto) (0-5) /hpf Urine RBC (Auto) (0-2) /hpf U Hyaline Cast (Auto) (0-2) /lpf U Epithel Cells (Auto) (0-2) /hpf Urine Bacteria (Auto) (None Seen) Blood Type Antibody Screen 10/22/23 10/22/23 Range/Units 16:22 12:15 WBC (4.8-10.8) K/ul RBC (4.70-6.10) M/uL Hgb (14.0-18.0) g/dl Hct (42.0-52.0) % MCV (80.0-100.0) fL MCH (25.0-34.0) pg MCHC (32.0-36.0) g/dL RDW Std Deviation (36.4-46.3) fL RDW Coeff of Cha (11.5-14.5) % Plt Count (130-400) K/uL MPV (9.4-12.4) fL Immature Gran % (Auto) % Neut % (Auto) % Lymph % (Auto) % [place] % (Auto) % Eos % (Auto) % Baso % (Auto) % Neut # (Auto) (1.40-6.50) K/uL Lymph # (Auto) (1.20-3.40) K/uL [place] # (Auto) (0.11-0.59) K/uL Eos # (Auto) (0.00-0.50) K/uL Baso # (Auto) (0.00-0.20) K/uL Immature Gran # (Auto) (0.01-0.20) K/uL Polychromasia Target Cells Rouleaux Sodium (136-145) mmol/L Potassium (3.5-5.1) mmol/L Chloride (98-107) mmol/L Carbon Dioxide (21-32) mmol/L Anion Gap (3-11) BUN (6-23) mg/dl Creatinine (0.6-1.4) mg/dl Est Cr Clr Drug Dosing ml/min Est GFR ( Amer) ml/min Est GFR (Non-Af Amer) ml/min BUN/Creatinine Ratio (10-20) Glucose (70-99(Fasting)) mg/dl POC Glucose (70-99) mg/dl Estimat Average Glucose mg/dl Hemoglobin A1c (4.5-5.6) % Calcium (8.6-10.3) mg/dl Magnesium (1.7-2.4) mg/dl Total Bilirubin (0.2-1.0) mg/dl AST (13-39) U/L ALT (7-52) U/L Alkaline Phosphatase (34-104) U/L Total Protein (6.0-8.3) gm/dl Albumin (3.4-5.0) gm/dl Globulin (2.5-4.0) gm/dl Albumin/Globulin Ratio (0.9-2) Triglycerides (0-150) mg/dl Cholesterol (0-200) mg/dl LDL Cholesterol, Calc mg/dl VLDL Cholesterol, Calc (0-30) mg/dl HDL Cholesterol mg/dl Cholesterol/HDL Ratio (0-5) TSH (0.300-4.500) uIu/ml Free T4 (0.61-1.60) ng/dl Urine Color Dark Yellow Urine Appearance Clear (Clear) Urine pH 5.5 (4.5-7.5) Ur Specific [place] > 1.045 H (1.000-1.030) Urine Protein 1+ H (Negative) Urine Glucose (UA) Negative (Negative) Urine Ketones Trace H (Negative) Urine Blood Negative (Negative) Urine Nitrite Negative (Negative) Urine Bilirubin Negative (Negative) Urine Urobilinogen Negative (Negative) Ur Leukocyte Esterase Negative (Negative) Urine WBC (Auto) 0-5 (0-5) /hpf Urine RBC (Auto) 0-2 (0-2) /hpf U Hyaline Cast (Auto) 0-2 (0-2) /lpf U Epithel Cells (Auto) 0-2 (0-2) /hpf Urine Bacteria (Auto) None Seen (None Seen) Blood Type A Positive Antibody Screen NEGATIVE
--- NOTE | 2023-10-23 11:51 | Hospitalist Progress Note ---
Date of Service October 23, 2023 Assessment & Plan (1) Acute cholecystitis: Plan: supportive and symptomatic care with bowel rest, IV Abx, analgesics, IVF and antiemetics as needed surgical plans per surgery (2) HTN (hypertension): Plan: Patient was noted to be hypertensive on arrival at 172/75, likely due to pain Cont metoprolol PRN IV Hydralazine (3) Myelodysplastic syndrome: Plan: Monitor hemoglobin Is followed by hematology outpatient. He gets routine labs States he did have a dose of bone marrow stimulating medication 10/20/2023 but cannot recall the name at this time, this could account for some of his leukocytosis and thrombocytosis Monitor daily CBC (4) DMII (diabetes mellitus, type 2): Plan: Hold metformin Monitor BSG ACHS for now with hypoglycemia protocol as patient has been stable off metformin (5) CAD (coronary artery disease): Plan: Status post CABG x 5 at [facility] in 2019 No current chest pain or concerning EKG changes Resume daily aspirin when general surgery is comfortable from bleeding Plan DVT Px Admission and Anticipated Discharge Date Admission Date: October 22, 2023 Subjective abd pain better, no nausea or vomiting, no fever, no BM but says may have today Physical Exam Physical Exam: NAD, A&O x 3 AFVSS NCAT Abdomen: Soft, mild TTP in RUQ Constitutional: WD/WN, vitals as above Eyes: PERRL, conjunctivae normal, anicteric sclerae Neck: trachea midline, no thyromegaly Respiratory: normal respiratory effort; no respiratory distress and no labored breathing Cardiovascular: Rate/Rhythm: regular rate and regular rhythm Gastrointestinal (Abdomen): Inspection/Auscultation: abdomen normal to inspection; abdomen not distended Percussion/Palpation: + abdomen tender ( RUQ) and abdomen soft; no guarding and abdomen not rigid Skin: no rashes, warm and dry Psychiatric: A+Ox3, euthymic affect Results & Data Results & Data Vital Signs (Past 12 Hours) Vital Signs Temp Pulse Pulse Resp BP Pulse Ox O2 Del Method 10/23/23 11:30 37.3 C 73 18 147/74 H 96 Nasal Cannula 10/23/23 07:48 Nasal Cannula 10/23/23 07:08 73 10/23/23 07:08 37.2 C 77 19 137/76 94 Nasal Cannula 10/23/23 04:00 36.9 C 69 18 147/74 H 93 Room Air O2 Flow Rate 10/23/23 11:30 2 10/23/23 07:48 2 10/23/23 07:08 10/23/23 07:08 2 10/23/23 04:00 Coding Level of Care Code 78305 SUB INP/OBS CARE 235MIN Diagnoses Acute cholecystitis K81.0 HTN (hypertension) I10 Myelodysplastic syndrome D46.9 DMII (diabetes mellitus, type 2) E11.9 CAD (coronary artery disease) I25.10
[2023-10-23] MEDS: ENOXAPARIN INJ 40 MG/0.4 ML SYR SQ SCH (12:52)
--- NOTE | 2023-10-23 19:57 | XRay Report ---
XR chest 1V portable CLINICAL HISTORY: Shortness of breath. COMPARISON STUDY: Chest radiograph October 22, 2023. FINDINGS: There is no pneumothorax or pleural effusion. No consolidation is identified. Mild intersti tial thickening has developed. Cardiomegaly is again noted. Mediastinal contours are stable. IMPRESSION: Cardiomegaly. Interval development of suspected mild interstitial pulmonary edema. ACT 112: Negative or not required by law. Electronically signed by: Johann Marie M.D. 10/23/2023 7:55 PM
--- NOTE | 2023-10-23 20:26 | Communication Note ---
Date of Service: October 23, 2023 Alerted by nursing due to pt being SOB with activity. Pt told nursing that he has a hx of pulmonary edema after his CABG in 2018. At that time, LR 100 mL/hr was stopped. CXR ordered which showed interval development of mild pulmonary edema compared to CXR from 10/21. Pt seen at bedside- he relays concerns of trouble breathing but is unsure if this has worsened within the last day or two. On exam, pt's breathing appears labored at rest with accessory muscle use. Heart is regular rhythm and rate w/o murmur, lungs are diminished in bilateral bases but otherwise CTA. O2 sat >90 on 1L NC. Lasix 20 mg IV x1 ordered. Echo ordered for AM. Per pt, he was to have a repeat echo performed next week as an outpatient- his last was in 2020 which showed normal EF. Resident Activity Tracking Resident Involvement: Resident Care Provided Care Provided: Adult Hospital Medicine
[2023-10-23] MEDS: FUROSEMIDE INJ 20 MG/2 ML VIAL IV ONE (20:54)
--- NOTE | 2023-10-24 01:53 | Surgery Progress Note ---
Date of Service October 24, 2023 Assessment & Plan (1) Acute cholecystitis: Plan 77-year-old gentleman with extensive heart history presents with a 2-week history of acute cholecystitis. Given the time course of the symptoms, and the appearance on CT scan, I would not recommend immediate surgery. I would recommend IV antibiotics and bowel rest. He may require percutaneous cholecystostomy tube drainage. We will continue to follow while he is here. 10/24/23 - Somewhat improved. Continue conservative measures. Still may require PERC Audrey tube if no improvement by tomorrow. Admission and Anticipated Discharge Date Admission Date: October 22, 2023 Subjective States he is feeling somewhat better. Less pain. No nausea or vomiting. Physical Exam Physical Exam: NAD, A&O x 3 AFVSS NCAT Abdomen: Soft, mild TTP in RUQ Results & Data Vital Signs (Past 12 Hours) Vital Signs Temp Pulse Pulse Pulse Resp BP Pulse Ox 10/23/23 23:00 36.9 C 79 18 161/72 H 93 10/23/23 22:13 74 10/23/23 19:11 10/23/23 19:11 10/23/23 18:20 36.8 C 76 20 158/73 H 94 10/23/23 15:28 37.3 C 76 20 156/71 H 97 10/23/23 14:05 86 Pulse Ox O2 Del Method O2 Del Method O2 Flow Rate 10/23/23 23:00 Nasal Cannula 1 10/23/23 22:13 10/23/23 19:11 94 Nasal Cannula 10/23/23 19:11 Nasal Cannula 1 10/23/23 18:20 Nasal Cannula 1 10/23/23 15:28 Room Air 10/23/23 14:05
[2023-10-24] MEDS: hydrALAZINE HCL 20 MG/ML VIAL IV PRN (05:01)
[2023-10-24 07:19] LABS: Basophils % (auto) 0.8 %; Eosinophils # (auto) 0.07 K/uL (0.00-0.50); Eosinophils % (auto) 0.5 %; Hematocrit (blood only) 24.5 % (42.0-52.0); Hemoglobin 8.4 g/dl (14.0-18.0); Immature Granulocytes # (auto) 0.14 K/uL (0.01-0.20); Immature Granulocytes % (auto) 1.1 %; Lymphocytes # (auto) 1.25 K/uL (1.20-3.40); Lymphocytes % (auto) 9.5 %; Mean Corpuscular Hgb Conc 34.3 g/dL (32.0-36.0); Mean Corpuscular Volume 102.1 fL (80.0-100.0); Mean Platelet Volume 10.5 fL (9.4-12.4); Monocytes # (auto) 1.65 K/uL (0.11-0.59); Monocytes % (auto) 12.5 %; Neutrophils # (auto) 9.96 K/uL (1.40-6.50); Neutrophils % (auto) 75.6 %; Platelet Count 868 K/uL (130-400); RDW Coefficient of Variation 25.7 % (11.5-14.5); White Blood Count 13.17 K/ul (4.8-10.8)
[2023-10-24 07:27] LABS: Albumin Globulin Ratio 0.6 (0.9-2); Albumin Level 2.9 gm/dl (3.4-5.0); BUN Creatinine Ratio 11.5 (10-20); Bilirubin,Total 0.8 mg/dl (0.2-1.0); Calcium 8.3 mg/dl (8.6-10.3); Creatinine Clr Calc Pharmacy 57.7 ml/min; Est GFR (African American) 72.8 ml/min; Est GFR (Non-African American) 62.8 ml/min; Globulin 5.1 gm/dl (2.5-4.0); Magnesium 1.7 mg/dl (1.7-2.4); Potassium 3.9 mmol/L (3.5-5.1)
[2023-10-24 08:00] LABS: Polychromasia 1+; Rouleaux 1+; Target Cells 1+
[2023-10-24] MEDS ORDERED: POLYETHYLENE (MIRALAX) 17 GM PACK PO PRN (09:54)
[2023-10-24] MEDS: bisacodyL 5 MG TABEC PO ONE (10:09)
[2023-10-24] MEDS: LOSARTAN POTASSIUM 50 MG TAB PO SCH (10:09)
[2023-10-24] MEDS: allopurinoL 100 MG TAB PO SCH (10:09)
--- NOTE | 2023-10-24 13:34 | Hospitalist Progress Note ---
Date of Service October 24, 2023 Assessment & Plan (1) Acute cholecystitis: Plan: supportive and symptomatic care with bowel rest, IV Abx, analgesics, IVF and antiemetics as needed surgical plans per surgery - percutaneous cholecystotomy before cholecystectomy (2) HTN (hypertension): Plan: Patient was noted to be hypertensive on arrival at 172/75, likely due to pain PRN IV Hydralazine Resumed all home meds (3) Myelodysplastic syndrome: Plan: Monitor hemoglobin Is followed by hematology outpatient. He gets routine labs States he did have a dose of bone marrow stimulating medication 10/20/2023 but cannot recall the name at this time, this could account for some of his leukocytosis and thrombocytosis Monitor daily CBC (4) DMII (diabetes mellitus, type 2): Plan: Hold metformin Monitor BSG ACHS for now with hypoglycemia protocol as patient has been stable off metformin (5) CAD (coronary artery disease): Plan: Status post CABG x 5 at [facility] in 2019 No current chest pain or concerning EKG changes Resume daily aspirin when general surgery is comfortable from bleeding Plan DVT Px Admission and Anticipated Discharge Date Admission Date: October 22, 2023 Subjective Mild abd pain, distended - constipated, no fever or chills, no N/V Physical Exam Physical Exam: NAD, A&O x 3 Abdomen: Soft, mild TTP in RUQ Constitutional: WD/WN, vitals as above Respiratory: normal respiratory effort; no respiratory distress and no labored breathing Cardiovascular: Rate/Rhythm: regular rate and regular rhythm Gastrointestinal (Abdomen): Inspection/Auscultation: abdomen normal to inspection; abdomen not distended Percussion/Palpation: + abdomen tender ( RUQ) and abdomen soft; no guarding and abdomen not rigid Skin: no rashes, warm and dry Psychiatric: A+Ox3, euthymic affect Results & Data Results & Data Vital Signs (Past 12 Hours) Vital Signs Temp Pulse Pulse Resp BP BP Pulse Ox 10/24/23 11:33 37.1 C 73 18 158/79 H 95 10/24/23 09:47 10/24/23 07:50 37.1 C 79 18 152/73 H 94 10/24/23 07:30 71 10/24/23 05:08 65 158/73 H 10/24/23 05:00 166/74 H 10/24/23 03:30 37.3 C 74 18 167/74 H O2 Del Method O2 Flow Rate 10/24/23 11:33 Nasal Cannula 1 10/24/23 09:47 Nasal Cannula 1 10/24/23 07:50 Nasal Cannula 1 10/24/23 07:30 10/24/23 05:08 10/24/23 05:00 10/24/23 03:30 Nasal Cannula 1 PG Care Time/CCT Total # of Minutes Spent Total Time Spent with Patient: Total time spent is greater than 50% in coordination of care (as documented) at patient's floor/unit and/or counseling patient: Coding Level of Care Code 79686 SUB INP/OBS CARE 2/35MIN Diagnoses Acute cholecystitis K81.0 HTN (hypertension) I10 Myelodysplastic syndrome D46.9 DMII (diabetes mellitus, type 2) E11.9 CAD (coronary artery disease) I25.10
--- NOTE | 2023-10-24 13:56 | XCELERA ---
[id number]
[2023-10-24] MEDS: bisacodyL 10 MG SUPP PR STA (17:31)
[2023-10-24] MEDS: POLYETHYLENE (MIRALAX) 17 GM PACK PO STA (18:01)
[2023-10-24 23:49] LABS: Base Excess ABG 3.3 mEq/L (-9-1.8); HCO3 ABG 28 mmol/L (19-24); Oxygen Saturation ABG 97.5 % (90-95); PCO2 ABG 41 mmHg (35-46); PO2 ABG 78 mmHg (80-95); pH ABG 7.44 (7.35-7.45)
[2023-10-25 00:18] LABS: Allen Test Pos (Pos)
[2023-10-25 07:16] LABS: Basophils # (auto) 0.08 K/uL (0.00-0.20); Basophils % (auto) 0.7 %; Eosinophils # (auto) 0.05 K/uL (0.00-0.50); Eosinophils % (auto) 0.4 %; Hemoglobin 8.3 g/dl (14.0-18.0); Immature Granulocytes # (auto) 0.15 K/uL (0.01-0.20); Immature Granulocytes % (auto) 1.3 %; Lymphocytes # (auto) 0.93 K/uL (1.20-3.40); Lymphocytes % (auto) 7.9 %; Mean Corpuscular Hemoglobin 34.7 pg (25.0-34.0); Mean Corpuscular Hgb Conc 33.2 g/dL (32.0-36.0); Mean Corpuscular Volume 104.6 fL (80.0-100.0); Mean Platelet Volume 9.9 fL (9.4-12.4); Monocytes # (auto) 1.48 K/uL (0.11-0.59); Monocytes % (auto) 12.6 %; Neutrophils % (auto) 77.1 %; Platelet Count 750 K/uL (130-400); RDW Standard Deviation 97.4 fL (36.4-46.3); Red Blood Count 2.39 M/uL (4.70-6.10); White Blood Count 11.79 K/ul (4.8-10.8)
[2023-10-25] MEDS: ALBUT/IPRATROP 3MG/0.5MG NEB 3 ML VIAL NEB ONE (07:33)
[2023-10-25 07:38] LABS: Albumin Globulin Ratio 0.5 (0.9-2); Albumin Level 2.5 gm/dl (3.4-5.0); BUN Creatinine Ratio 8.1 (10-20); Bilirubin,Total 0.7 mg/dl (0.2-1.0); Calcium 8.1 mg/dl (8.6-10.3); Creatinine Clr Calc Pharmacy 58.7 ml/min; Est GFR (African American) 74.4 ml/min; Est GFR (Non-African American) 64.2 ml/min; Globulin 4.9 gm/dl (2.5-4.0); Potassium 3.8 mmol/L (3.5-5.1); Total Protein 7.4 gm/dl (6.0-8.3)
[2023-10-25 07:44] LABS: Anisocytosis Present; Target Cells 1+
[2023-10-25 08:47] LABS: Folate (Folic Acid),Ser orPlas > 22.30 ng/ml (>5.38)
[2023-10-25 08:48] LABS: Vitamin B12 522 pg/ml (180-914)
[2023-10-25] MEDS: ASPIRIN 81 MG ECTAB PO SCH (09:25)
[2023-10-25] MEDS: ROSUVASTATIN CALCIUM 5 MG TAB PO SCH (09:25)
--- NOTE | 2023-10-25 09:56 | Surgery Progress Note ---
Date of Service October 25, 2023 Assessment & Plan (1) Acute cholecystitis: Plan 77-year-old gentleman with extensive heart history presents with a 2-week history of acute cholecystitis. Given the time course of the symptoms, and the appearance on CT scan, I would not recommend immediate surgery. I would recommend IV antibiotics and bowel rest. He may require percutaneous cholecystostomy tube drainage. We will continue to follow while he is here. 10/25/23 - avss leukocytosis improved t. bili and lfts wnl alk phos trending down abdominal pain improving Plan: Would recommend continuation of IV abx as improving with such. Recommend outpatient cholecystectomy in 6 weeks after course of abx given severe cholecystitis and prolonged symptoms (2 weeks). Likely has scared in gallbladder with severe inflammation at this stage Full liquids, DM diet Continue medical management Dr. Erickson has seen and examined pt, agrees with above. Admission and Anticipated Discharge Date Admission Date: October 22, 2023 Supervising Physician Co-Signing Physician Notes I have seen and examined the patient personally and agree with the above assessment and plan. We discussed the fact that overnight he was still having significant pain. I would strongly recommend a percutaneous cholecystostomy tube at this time, however he would like to continue with the antibiotic therapy. He states he is feeling much better today. He seems to be tolerating his liquid diet. We will continue antibiotics and continue to monitor. Again I would recommend against surgery at this time due to the prolonged symptomatology of the 2 weeks and the severe cholecystitis. Subjective had a rough night, got confused no chest pain or shortness of breath feeling distended had abdominal pain last night, not much this morning no n,v Physical Exam Constitutional: WD/WN, vitals as above + obese, cooperative and comfortable; no acute distress Respiratory: normal respiratory effort, lungs clear to auscultation no respiratory distress, no labored breathing and no retractions Gastrointestinal (Abdomen): Inspection/Auscultation: abdomen normal to inspection, + abdomen distended (mild) and + hypoactive bowel sounds; + abnormal bowel sounds Percussion/Palpation: + abdomen tender (mild in RUQ) and abdomen soft; no guarding, abdomen not rigid and abdomen not firm Skin: no rashes, warm and dry Psychiatric: A+Ox3, euthymic affect Results & Data Vital Signs (Past 12 Hours) Vital Signs Temp Pulse Pulse Resp BP BP Pulse Ox 10/25/23 08:35 66 10/25/23 08:27 36.7 C 83 16 165/74 H 90 10/25/23 03:00 36.6 C 69 20 156/77 H 93 10/24/23 23:00 36.8 C 68 24 161/75 H 97 O2 Del Method O2 Flow Rate 10/25/23 08:35 10/25/23 08:27 Room Air 10/25/23 03:00 Nasal Cannula 1 10/24/23 23:00 Nasal Cannula 1 Laboratory Results 10/25/23 10/25/23 10/25/23 Range/Units 12:15 08:17 06:54 WBC 11.79 H (4.8-10.8) K/ul RBC 2.39 L (4.70-6.10) M/uL Hgb 8.3 L (14.0-18.0) g/dl Hct 25.0 L (42.0-52.0) % MCV 104.6 H (80.0-100.0) fL MCH 34.7 H (25.0-34.0) pg MCHC 33.2 (32.0-36.0) g/dL RDW Std Deviation 97.4 H (36.4-46.3) fL RDW Coeff of Cha 26.0 H (11.5-14.5) % Plt Count 750 H (130-400) K/uL MPV 9.9 (9.4-12.4) fL Immature Gran % (Auto) 1.3 % Neut % (Auto) 77.1 % Lymph % (Auto) 7.9 % [place] % (Auto) 12.6 % Eos % (Auto) 0.4 % Baso % (Auto) 0.7 % Neut # (Auto) 9.10 H (1.40-6.50) K/uL Lymph # (Auto) 0.93 L (1.20-3.40) K/uL [place] # (Auto) 1.48 H (0.11-0.59) K/uL Eos # (Auto) 0.05 (0.00-0.50) K/uL Baso # (Auto) 0.08 (0.00-0.20) K/uL Immature Gran # (Auto) 0.15 (0.01-0.20) K/uL Anisocytosis Present Target Cells 1+ ABG pH (7.35-7.45) ABG pCO2 (35-46) mmHg ABG pO2 (80-95) mmHg ABG HCO3 (19-24) mmol/L ABG O2 Saturation (90-95) % ABG Base Excess (-9-1.8) mEq/L [place] Test (Pos) Oxygen Given Sodium 132 L (136-145) mmol/L Potassium 3.8 (3.5-5.1) mmol/L Chloride 98 (98-107) mmol/L Carbon Dioxide 28 (21-32) mmol/L Anion Gap 6 (3-11) BUN 9 (6-23) mg/dl Creatinine 1.11 (0.6-1.4) mg/dl Est Cr Clr Drug Dosing 58.7 ml/min Est GFR ( Amer) 74.4 ml/min Est GFR (Non-Af Amer) 64.2 ml/min BUN/Creatinine Ratio 8.1 L (10-20) Glucose 89 (70-99(Fasting)) mg/dl POC Glucose 103 H 95 (70-99) mg/dl Calcium 8.1 L (8.6-10.3) mg/dl Total Bilirubin 0.7 (0.2-1.0) mg/dl AST 39 (13-39) U/L ALT 45 (7-52) U/L Alkaline Phosphatase 293 H (34-104) U/L Total Protein 7.4 (6.0-8.3) gm/dl Albumin 2.5 L (3.4-5.0) gm/dl Globulin 4.9 H (2.5-4.0) gm/dl Albumin/Globulin Ratio 0.5 L (0.9-2) Vitamin B12 522 (180-914) pg/ml Folate > 22.30 (>5.38) ng/ml 10/24/23 10/24/23 10/24/23 Range/Units 23:42 20:16 17:03 WBC (4.8-10.8) K/ul RBC (4.70-6.10) M/uL Hgb (14.0-18.0) g/dl Hct (42.0-52.0) % MCV (80.0-100.0) fL MCH (25.0-34.0) pg MCHC (32.0-36.0) g/dL RDW Std Deviation (36.4-46.3) fL RDW Coeff of Cha (11.5-14.5) % Plt Count (130-400) K/uL MPV (9.4-12.4) fL Immature Gran % (Auto) % Neut % (Auto) % Lymph % (Auto) % [place] % (Auto) % Eos % (Auto) % Baso % (Auto) % Neut # (Auto) (1.40-6.50) K/uL Lymph # (Auto) (1.20-3.40) K/uL [place] # (Auto) (0.11-0.59) K/uL Eos # (Auto) (0.00-0.50) K/uL Baso # (Auto) (0.00-0.20) K/uL Immature Gran # (Auto) (0.01-0.20) K/uL Anisocytosis Target Cells ABG pH 7.44 (7.35-7.45) ABG pCO2 41 (35-46) mmHg ABG pO2 78 L (80-95) mmHg ABG HCO3 28 H (19-24) mmol/L ABG O2 Saturation 97.5 H (90-95) % ABG Base Excess 3.3 H (-9-1.8) mEq/L [place] Test Pos (Pos) Oxygen Given 1L Sodium (136-145) mmol/L Potassium (3.5-5.1) mmol/L Chloride (98-107) mmol/L Carbon Dioxide (21-32) mmol/L Anion Gap (3-11) BUN (6-23) mg/dl Creatinine (0.6-1.4) mg/dl Est Cr Clr Drug Dosing ml/min Est GFR ( Amer) ml/min Est GFR (Non-Af Amer) ml/min BUN/Creatinine Ratio (10-20) Glucose (70-99(Fasting)) mg/dl POC Glucose 111 H 118 H (70-99) mg/dl Calcium (8.6-10.3) mg/dl Total Bilirubin (0.2-1.0) mg/dl AST (13-39) U/L ALT (7-52) U/L Alkaline Phosphatase (34-104) U/L Total Protein (6.0-8.3) gm/dl Albumin (3.4-5.0) gm/dl Globulin (2.5-4.0) gm/dl Albumin/Globulin Ratio (0.9-2) Vitamin B12 (180-914) pg/ml Folate (>5.38) ng/ml
--- NOTE | 2023-10-25 13:47 | Hospitalist Progress Note ---
Date of Service October 25, 2023 Assessment & Plan (1) Acute cholecystitis: Plan: Presented with 10 days of fevers and chills, upper abdominal pain, found to have leukocytosis, elevated LFTs, and evidence of acute cholecystitis on CT abdomen/pelvis Given prolonged course of illness and potential for significantly inflamed gallbladder, surgery has opted for IV antibiotics and more conservative management to allow time for the gallbladder to "cool off" Patient is improving, pain is gone, remains afebrile, leukocytosis improving, LFTs almost completely back to normal at this point Entertain the possibility of a percutaneous cholecystostomy tube but that is most likely not necessary at this point as he is improving with IV antibiotics alone Continue IV Zosyn Advance diet to full liquids Follow CBC, CMP in the morning Discontinue IV morphine as this cause delirium, can use Tylenol as needed for pain IV fluids have been discontinued as he developed some volume overload Discontinue IV PPI as not necessary (2) Acute respiratory failure with hypoxia: Plan: On 10/22 developed dyspnea on exertion and pulmonary edema on chest x-ray with labored breathing with accessory muscle use he required 1 L nasal cannula and was given IV Lasix and IV fluids were discontinued Echocardiogram showed EF 60-65%, RV mildly dilated and RV function mildly reduced, moderate TR, elevated RVSP 50-60 mmHg Continue to wean off oxygen as able to Will give another dose of IV Lasix 20 mg x 1 (3) HTN (hypertension): Plan: Blood pressures elevated initially and now remain modestly elevated Continue home losartan, Toprol-XL IV hydralazine as needed Give IV Lasix Holding home amlodipine (4) Hyponatremia: Plan: Sodium mildly low at 132 and stable from previous, could be due recent poor p.o. intake? However, he is requiring some oxygen from suspected volume overload so could also be from that? Follow BMP Received Lasix and will give another dose 10/24 (5) Myelodysplastic syndrome: Plan: Is followed by hematology outpatient and he states he did have a dose of bone marrow stimulating medication 10/20/2023 but cannot recall the name at this time WBC count is down to 11, hemoglobin low but remained stable at 8.3, macrocytic. No evidence of bleeding on imaging or clinically Platelets were significantly elevated at 900 on admission and are now down to 750-most likely an acute phase reactant from acute illness for the last 10 days prior to admission Check B12 and folate given macrocytosis and anemia-both normal Macrocytosis most likely due to MDS Follow CBC (6) DMII (diabetes mellitus, type 2): Plan: Hold metformin from home, glucose here is well-controlled Monitor BSG ACHS for now with hypoglycemia protocol as patient has been stable off metformin (7) CAD (coronary artery disease): Plan: Status post CABG x 5 at [facility] in 2019 No current chest pain or concerning EKG changes Resume daily aspirin as he will not be having any procedures Resume statin-likely was on hold due to elevated LFTs but can be resumed Continue home metoprolol Plan Gout-continue home allopurinol Allergies-no acute issues, holding home cetirizine DVT Px-SCDs, continue Lovenox SQ Disposition-continued stay on med/tele unit Admission and Anticipated Discharge Date Admission Date: October 22, 2023 Subjective Patient feeling much better today. He was confused overnight he thinks after receiving morphine. Denies any abdominal pain or nausea. He moved his bowels today after taking a l axative and they were loose. He is tolerating clear liquids. He remains on 1 L nasal cannula I discussed his care with the surgical PA Telemetry with normal sinus rhythm with rates in the 70s Physical Exam Constitutional: WD/WN, vitals as above Neck: trachea midline, no thyromegaly Respiratory: normal respiratory effort, lungs clear to auscultation Cardiovascular: RRR, no murmur, no edema Chest (Breasts): Chest: normal inspection of chest Gastrointestinal (Abdomen): normal bowel sounds, soft, nontender, no hepatosplenomegaly Musculoskeletal: Extremities: extremities normal to inspection; no cyanosis and no clubbing Skin: no rashes, warm and dry Neurologic: moves all extremities and awake; no focal motor deficits Psychiatric: A+Ox3, euthymic affect Lymphatic: no lymphedema Results & Data Results & Data Vital Signs (Past 12 Hours) Vital Signs Temp Pulse Pulse Resp BP BP Pulse Ox 10/25/23 11:41 36.8 C 76 16 178/76 H 94 10/25/23 10:49 10/25/23 08:35 66 10/25/23 08:27 36.7 C 83 16 165/74 H 90 10/25/23 03:00 36.6 C 69 20 156/77 H 93 O2 Del Method O2 Flow Rate 10/25/23 11:41 Nasal Cannula 1 10/25/23 10:49 Nasal Cannula 1 10/25/23 08:35 10/25/23 08:27 Room Air 10/25/23 03:00 Nasal Cannula 1 Laboratory Results CBC, CMP, ABG reviewed PG Care Time/CCT Total # of Minutes Spent Total Time Spent with Patient: Total time spent is greater than 50% in coordination of care (as documented) at patient's floor/unit and/or counseling patient: Coding Level of Care Code 71418 SUB INP/OBS CARE 2/35MIN Diagnoses Acute cholecystitis K81.0 Acute respiratory failure with hypoxia J96.01 HTN (hypertension) I10 Hyponatremia E87.1 Myelodysplastic syndrome D46.9 DMII (diabetes mellitus, type 2) E11.9 CAD (coronary artery disease) I25.10
[2023-10-25] MEDS: FUROSEMIDE INJ 20 MG/2 ML VIAL IV ONE (15:14)
[2023-10-26 06:47] LABS: Basophils # (auto) 0.09 K/uL (0.00-0.20); Basophils % (auto) 0.7 %; Eosinophils # (auto) 0.05 K/uL (0.00-0.50); Eosinophils % (auto) 0.4 %; Hematocrit (blood only) 25.3 % (42.0-52.0); Hemoglobin 8.4 g/dl (14.0-18.0); Immature Granulocytes # (auto) 0.16 K/uL (0.01-0.20); Immature Granulocytes % (auto) 1.3 %; Lymphocytes # (auto) 1.17 K/uL (1.20-3.40); Lymphocytes % (auto) 9.7 %; Mean Corpuscular Hemoglobin 33.7 pg (25.0-34.0); Mean Corpuscular Hgb Conc 33.2 g/dL (32.0-36.0); Mean Corpuscular Volume 101.6 fL (80.0-100.0); Mean Platelet Volume 10.3 fL (9.4-12.4); Monocytes # (auto) 1.47 K/uL (0.11-0.59); Monocytes % (auto) 12.2 %; Neutrophils % (auto) 75.7 %; Platelet Count 826 K/uL (130-400); RDW Standard Deviation 93.2 fL (36.4-46.3); Red Blood Count 2.49 M/uL (4.70-6.10); White Blood Count 12.04 K/ul (4.8-10.8)
[2023-10-26 07:06] LABS: Albumin Globulin Ratio 0.6 (0.9-2); Albumin Level 2.7 gm/dl (3.4-5.0); BUN Creatinine Ratio 6.7 (10-20); Bilirubin,Total 0.6 mg/dl (0.2-1.0); Calcium 8.1 mg/dl (8.6-10.3); Creatinine Clr Calc Pharmacy 62.7 ml/min; Est GFR (African American) 80.5 ml/min; Est GFR (Non-African American) 69.4 ml/min; Globulin 4.9 gm/dl (2.5-4.0); Magnesium 1.6 mg/dl (1.7-2.4); Potassium 3.5 mmol/L (3.5-5.1); Total Protein 7.6 gm/dl (6.0-8.3)
[2023-10-26 07:08] LABS: Anisocytosis Present; Macrocytosis Present; Poikilocytosis Present; Polychromasia 1+
[2023-10-26] MEDS: POTASSIUM CHLORIDE CRTAB 20 MEQ TABCR PO STA (08:14)
[2023-10-26] MEDS: MAGNESIUM SULFATE / D5W 1 GM/100 ML BAG IV SCH (08:14)
--- NOTE | 2023-10-26 11:53 | Surgery Progress Note ---
Date of Service October 26, 2023 Assessment & Plan (1) Acute cholecystitis: Plan 77-year-old gentleman with extensive heart history presents with a 2-week history of acute cholecystitis. Given the time course of the symptoms, and the appearance on CT scan, I would not recommend immediate surgery. I would recommend IV antibiotics and bowel rest. He may require percutaneous cholecystostomy tube drainage. We will continue to follow while he is here. 10/26/23 - avss leukocytosis stable around 12k t. bili and lfts wnl alk phos trending down abdominal pain improving Plan: Would recommend continuation of IV abx as improving with such. Recommend outpatient cholecystectomy after course of abx given severe cholecystitis and prolonged symptoms (2 weeks). Likely has scared in gallbladder with severe inflammation at this stage low fat DM diet Continue medical management Admission and Anticipated Discharge Date Admission Date: October 22, 2023 Supervising Physician Co-Signing Physician Notes I have seen and examined the patient personally and agree with above assessment and plan. He is significantly improved this morning. He denies any pain. He is tolerating a liquid diet. On exam he has minimal tenderness to palpation in the right upper quadrant. We will continue to advance his diet as tolerated and continue the IV antibiotics. We will hold off on percutaneous cholecystostomy tube for now. Subjective feeling better today some twinges of abdominal pain but intermittent . No abdominal pain with advancing diet, tolerating full liquids no n,v no belching passing gas and having loose bowel movements no chest pain or shortness of breath Physical Exam Constitutional: WD/WN, vitals as above cooperative and comfortable; no acute distress and not ill appearing Respiratory: no respiratory distress, no labored breathing and no retractions Auscultation: + diminished lung sounds Cardiovascular: Rate/Rhythm: regular rate and regular rhythm Gastrointestinal (Abdomen): Inspection/Auscultation: abdomen normal to inspection; abdomen not distended Percussion/Palpation: abdomen soft; abdomen nontender, no guarding, abdomen not rigid and abdomen not firm Skin: no rashes, warm and dry Psychiatric: Orientation: alert and oriented x 3 Results & Data Vital Signs (Past 12 Hours) Vital Signs Temp Pulse Pulse Resp BP BP Pulse Ox 10/26/23 11:05 36.7 C 68 16 158/71 H 97 10/26/23 08:15 10/26/23 07:25 72 10/26/23 07:16 36.7 C 75 16 169/65 H 97 10/26/23 03:28 163/70 H 10/26/23 03:12 66 16 95 10/26/23 02:47 36.5 C 68 16 166/73 H 91 O2 Del Method O2 Flow Rate 10/26/23 11:05 Nasal Cannula 1 10/26/23 08:15 Nasal Cannula 1 10/26/23 07:25 10/26/23 07:16 Nasal Cannula 1 10/26/23 03:28 10/26/23 03:12 Nasal Cannula 1 10/26/23 02:47 Room Air Laboratory Results 10/26/23 10/26/23 10/25/23 Range/Units 07:51 06:11 20:17 WBC 12.04 H (4.8-10.8) K/ul RBC 2.49 L (4.70-6.10) M/uL Hgb 8.4 L (14.0-18.0) g/dl Hct 25.3 L (42.0-52.0) % MCV 101.6 H (80.0-100.0) fL MCH 33.7 (25.0-34.0) pg MCHC 33.2 (32.0-36.0) g/dL RDW Std Deviation 93.2 H (36.4-46.3) fL RDW Coeff of Cha 26.0 H (11.5-14.5) % Plt Count 826 H (130-400) K/uL MPV 10.3 (9.4-12.4) fL Immature Gran % (Auto) 1.3 % Neut % (Auto) 75.7 % Lymph % (Auto) 9.7 % [place] % (Auto) 12.2 % Eos % (Auto) 0.4 % Baso % (Auto) 0.7 % Neut # (Auto) 9.10 H (1.40-6.50) K/uL Lymph # (Auto) 1.17 L (1.20-3.40) K/uL [place] # (Auto) 1.47 H (0.11-0.59) K/uL Eos # (Auto) 0.05 (0.00-0.50) K/uL Baso # (Auto) 0.09 (0.00-0.20) K/uL Immature Gran # (Auto) 0.16 (0.01-0.20) K/uL Polychromasia 1+ Poikilocytosis Present Anisocytosis Present Macrocytosis Present Sodium 131 L (136-145) mmol/L Potassium 3.5 (3.5-5.1) mmol/L Chloride 97 L (98-107) mmol/L Carbon Dioxide 27 (21-32) mmol/L Anion Gap 7 (3-11) BUN 7 (6-23) mg/dl Creatinine 1.04 (0.6-1.4) mg/dl Est Cr Clr Drug Dosing 62.7 ml/min Est GFR ( Amer) 80.5 ml/min Est GFR (Non-Af Amer) 69.4 ml/min BUN/Creatinine Ratio 6.7 L (10-20) Glucose 98 (70-99(Fasting)) mg/dl POC Glucose 102 H 138 H (70-99) mg/dl Calcium 8.1 L (8.6-10.3) mg/dl Magnesium 1.6 L (1.7-2.4) mg/dl Total Bilirubin 0.6 (0.2-1.0) mg/dl AST 35 (13-39) U/L ALT 40 (7-52) U/L Alkaline Phosphatase 249 H (34-104) U/L Total Protein 7.6 (6.0-8.3) gm/dl Albumin 2.7 L (3.4-5.0) gm/dl Globulin 4.9 H (2.5-4.0) gm/dl Albumin/Globulin Ratio 0.6 L (0.9-2) 10/25/23 10/25/23 Range/Units 17:00 12:15 WBC (4.8-10.8) K/ul RBC (4.70-6.10) M/uL Hgb (14.0-18.0) g/dl Hct (42.0-52.0) % MCV (80.0-100.0) fL MCH (25.0-34.0) pg MCHC (32.0-36.0) g/dL RDW Std Deviation (36.4-46.3) fL RDW Coeff of Cha (11.5-14.5) % Plt Count (130-400) K/uL MPV (9.4-12.4) fL Immature Gran % (Auto) % Neut % (Auto) % Lymph % (Auto) % [place] % (Auto) % Eos % (Auto) % Baso % (Auto) % Neut # (Auto) (1.40-6.50) K/uL Lymph # (Auto) (1.20-3.40) K/uL [place] # (Auto) (0.11-0.59) K/uL Eos # (Auto) (0.00-0.50) K/uL Baso # (Auto) (0.00-0.20) K/uL Immature Gran # (Auto) (0.01-0.20) K/uL Polychromasia Poikilocytosis Anisocytosis Macrocytosis Sodium (136-145) mmol/L Potassium (3.5-5.1) mmol/L Chloride (98-107) mmol/L Carbon Dioxide (21-32) mmol/L Anion Gap (3-11) BUN (6-23) mg/dl Creatinine (0.6-1.4) mg/dl Est Cr Clr Drug Dosing ml/min Est GFR ( Amer) ml/min Est GFR (Non-Af Amer) ml/min BUN/Creatinine Ratio (10-20) Glucose (70-99(Fasting)) mg/dl POC Glucose 116 H 103 H (70-99) mg/dl Calcium (8.6-10.3) mg/dl Magnesium (1.7-2.4) mg/dl Total Bilirubin (0.2-1.0) mg/dl AST (13-39) U/L ALT (7-52) U/L Alkaline Phosphatase (34-104) U/L Total Protein (6.0-8.3) gm/dl Albumin (3.4-5.0) gm/dl Globulin (2.5-4.0) gm/dl Albumin/Globulin Ratio (0.9-2)
--- NOTE | 2023-10-26 13:28 | Hospitalist Progress Note ---
Date of Service October 26, 2023 Assessment & Plan (1) Acute cholecystitis: Plan: Presented with 10 days of fevers and chills, upper abdominal pain, found to have leukocytosis, thrombocytosis, elevated LFTs, and evidence of acute cholecystitis on CT abdomen/pelvis Given prolonged course of illness and potential for significantly inflamed gallbladder, surgery has opted for IV antibiotics and more conservative management to allow time for the gallbladder to "cool off" Patient continues to improve, is tolerating advancement of diet, pain is gone, remains afebrile, leukocytosis remains but is stable from previous (overall improved), thrombocytosis remains LFTs almost completely back to normal at this point-still mildly elevated alk phos Entertained the possibility of a percutaneous cholecystostomy tube but that is most likely not necessary at this point as he is improving with IV antibiotics alone Continue IV Zosyn Advance diet to low fat Follow CBC, CMP, mag in the morning Discontinued IV morphine as this caused delirium, can use Tylenol as needed for pain IV fluids have been discontinued as he developed some volume overload Discontinued IV PPI as wasn't necessary Will need interval cholecystectomy in a few weeks as outpt (2) Acute respiratory failure with hypoxia: Plan: On 10/22 developed dyspnea on exertion and pulmonary edema on chest x-ray with labored breathing with accessory muscle use he required 1 L nasal cannula and was given IV Lasix and IV fluids were discontinued With acute on chronic right sided and HFpEF----Echocardiogram showed EF 60-65%, RV mildly dilated and RV function mildly reduced, moderate TR, elevated RVSP 50- 60 mmHg Gave lasix 20mg IV x 1 on 10/24 with improvement, now weaned off O2, however remains with significant peripheral edema Add another dose of IV Lasix 20 mg x 1 (3) HTN (hypertension): Plan: Blood pressures elevated initially and now remain modestly elevated Continue home losartan, Toprol-XL IV hydralazine as needed Giving more IV Lasix Holding home amlodipine (4) Hyponatremia: Plan: Sodium mildly low at 131-132 and stable from previous, could be due recent poor p.o. intake? However, he is requiring some oxygen from suspected volume overload so could also be from that? Follow BMP continue diuresis Hypomagnesemia-replace with IV magnesium-likely from poor po intake and diuresis Hypokalemia-given cardiac history, keep optimal at 4.0--> give KCl 40 meq po x 1 Follow BMP, mag (5) Myelodysplastic syndrome: Plan: Is followed by hematology outpatient and he states he did have a dose of bone marrow stimulating medication 10/20/2023 but cannot recall the name at this time WBC count is down to 11-12, hemoglobin low but remained stable at 8.4, macrocytic. No evidence of bleeding on imaging or clinically Platelets were significantly elevated at 900 on admission and are now down to [id number] likely an acute phase reactant from acute illness for the last 10 days prior to admission B12 and folate given macrocytosis and anemia-both normal Macrocytosis most likely due to MDS Follow CBC (6) DMII (diabetes mellitus, type 2): Plan: Holding metformin from home, glucose here is well-controlled Monitor BSG ACHS for now with hypoglycemia protocol as patient has been stable off metformin (7) CAD (coronary artery disease): Plan: Status post CABG x 5 at [facility] in 2019 No current chest pain or concerning EKG changes Continue daily aspirin Resumed statin-likely was on hold due to elevated LFTs but can be resumed Continue home metoprolol Remain on tele while diuresing Plan Gout-continue home allopurinol Allergies-no acute issues, holding home cetirizine DVT Px-SCDs, continue Lovenox SQ Disposition-continued stay on med/tele unit Admission and Anticipated Discharge Date Admission Date: October 22, 2023 Subjective Pt denies abd pain, no nausea, is moving bowels. Tolerated low fat diet for lunch. Denies SOB and is now weaned off O2. Has c/o his legs being the most swollen he has ever seen them. Tele with NSR rates 70s, some PVCs Physical Exam Constitutional: WD/WN, vitals as above Neck: trachea midline, no thyromegaly Respiratory: normal respiratory effort, lungs clear to auscultation Cardiovascular: Rate/Rhythm: regular rate and regular rhythm Heart Sounds: no murmur Extremities: + edema (2+ pitting edema of legs to knees bilat) Chest (Breasts): Chest: normal inspection of chest Gastrointestinal (Abdomen): normal bowel sounds, soft, nontender, no hepatosplenomegaly Musculoskeletal: Extremities: extremities normal to inspection; no cyanosis and no clubbing Skin: no rashes, warm and dry Neurologic: moves all extremities and awake; no focal motor deficits Psychiatric: A+Ox3, euthymic affect Results & Data Results & Data Vital Signs (Past 12 Hours) Vital Signs Temp Pulse Pulse Resp BP BP Pulse Ox 10/26/23 12:51 93 10/26/23 11:05 36.7 C 68 16 158/71 H 97 10/26/23 08:15 10/26/23 07:25 72 10/26/23 07:16 36.7 C 75 16 169/65 H 97 10/26/23 03:28 163/70 H 10/26/23 03:12 66 16 95 10/26/23 02:47 36.5 C 68 16 166/73 H 91 O2 Del Method O2 Flow Rate 10/26/23 12:51 Room Air 10/26/23 11:05 Nasal Cannula 1 10/26/23 08:15 Nasal Cannula 1 10/26/23 07:25 10/26/23 07:16 Nasal Cannula 1 10/26/23 03:28 10/26/23 03:12 Nasal Cannula 1 10/26/23 02:47 Room Air Laboratory Results CBC, CMP, magnesium, and blood cxs reviewed PG Care Time/CCT Total # of Minutes Spent Total Time Spent with Patient: Total time spent is greater than 50% in coordination of care (as documented) at patient's floor/unit and/or counseling patient: Coding Level of Care Code 13019 SUB INP/OBS CARE 2/35MIN Diagnoses Acute cholecystitis K81.0 Acute respiratory failure with hypoxia J96.01 HTN (hypertension) I10 Hyponatremia E87.1 Myelodysplastic syndrome D46.9 DMII (diabetes mellitus, type 2) E11.9 CAD (coronary artery disease) I25.10
[2023-10-26] MEDS: FUROSEMIDE INJ 20 MG/2 ML VIAL IV ONE (13:48)
[2023-10-27 03:06] VITALS: O2SAT 93
[2023-10-27 06:29] LABS: Basophils % (auto) 0.9 %; Eosinophils # (auto) 0.06 K/uL (0.00-0.50); Eosinophils % (auto) 0.5 %; Hematocrit (blood only) 25.2 % (42.0-52.0); Hemoglobin 8.4 g/dl (14.0-18.0); Immature Granulocytes % (auto) 1.7 %; Lymphocytes # (auto) 1.35 K/uL (1.20-3.40); Lymphocytes % (auto) 11.7 %; Mean Corpuscular Hemoglobin 34.4 pg (25.0-34.0); Mean Corpuscular Hgb Conc 33.3 g/dL (32.0-36.0); Mean Corpuscular Volume 103.3 fL (80.0-100.0); Mean Platelet Volume 10.2 fL (9.4-12.4); Monocytes # (auto) 1.43 K/uL (0.11-0.59); Monocytes % (auto) 12.4 %; Neutrophils # (auto) 8.41 K/uL (1.40-6.50); Neutrophils % (auto) 72.8 %; Platelet Count 816 K/uL (130-400); RDW Coefficient of Variation 25.5 % (11.5-14.5); RDW Standard Deviation 92.4 fL (36.4-46.3); Red Blood Count 2.44 M/uL (4.70-6.10); White Blood Count 11.55 K/ul (4.8-10.8)
[2023-10-27 06:43] LABS: Albumin Globulin Ratio 0.6 (0.9-2); Albumin Level 2.7 gm/dl (3.4-5.0); BUN Creatinine Ratio 6.6 (10-20); Bilirubin,Total 0.5 mg/dl (0.2-1.0); Calcium 8.1 mg/dl (8.6-10.3); Creatinine Clr Calc Pharmacy 61.5 ml/min; Est GFR (African American) 78.6 ml/min; Est GFR (Non-African American) 67.8 ml/min; Globulin 4.8 gm/dl (2.5-4.0); Magnesium 1.9 mg/dl (1.7-2.4); Potassium 3.6 mmol/L (3.5-5.1); Total Protein 7.5 gm/dl (6.0-8.3)
[2023-10-27 06:55] LABS: Anisocytosis Present; Macrocytosis Present
[2023-10-27 07:44] VITALS: TEMP 97.9
--- NOTE | 2023-10-27 08:51 | Surgery Progress Note ---
Date of Service October 27, 2023 Assessment & Plan (1) Acute cholecystitis: Plan 77-year-old gentleman with extensive heart history presents with a 2-week history of acute cholecystitis. Given the time course of the symptoms, and the appearance on CT scan, I would not recommend immediate surgery. I would recommend IV antibiotics and bowel rest. He may require percutaneous cholecystostomy tube drainage. We will continue to follow while he is here. 10/27/23 - avss leukocytosis stable around 11.5k (12k) t. bili and lfts wnl alk phos trending down abdominal pain resolved Plan: Doing well from surg standpoint for discharge with oral antibiotics for another 10 days. Recommend outpatient cholecystectomy after course of abx given severe cholecystitis and prolonged symptoms (2 weeks). Likely has scared in gallbladder with severe inflammation at this stage Follow-up with Dr. Erickson in 2 weeks low fat DM diet on discharge Continue medical management Discussed with Dr. Erickson who agrees with above. Admission and Anticipated Discharge Date Admission Date: October 22, 2023 Subjective feeling good today no abdominal pain, twinges of pain have resolved no n,v passing gas and bowel movements tolerated low fat diet without pain, n,v ambulating okay urinating without difficulty swelling in legs has resolved Physical Exam Constitutional: WD/WN, vitals as above + obese, cooperative and comfortable; no acute distress and not ill appearing Respiratory: normal respiratory effort; no respiratory distress and no labored breathing Gastrointestinal (Abdomen): Inspection/Auscultation: abdomen normal to inspection and normal bowel sounds; abdomen not distended Percussion/Palpation: abdomen soft; abdomen nontender, no guarding, abdomen not rigid and abdomen not firm Musculoskeletal: Extremities: extremities normal to inspection Skin: no rashes, warm and dry no jaundice Psychiatric: Orientation: alert and oriented x 3 Results & Data Vital Signs (Past 12 Hours) Vital Signs Temp Pulse Pulse Resp BP Pulse Ox O2 Del Method 10/27/23 07:42 36.6 C 76 16 166/71 H 93 Room Air 10/27/23 07:35 Room Air 10/27/23 06:49 71 10/27/23 02:42 36.9 C 72 19 152/65 H 93 Room Air 10/27/23 00:32 37.5 C 76 20 156/65 H 94 Room Air 10/26/23 21:57 73 Laboratory Results 10/27/23 10/27/23 10/26/23 Range/Units 08:20 06:07 20:19 WBC 11.55 H (4.8-10.8) K/ul RBC 2.44 L (4.70-6.10) M/uL Hgb 8.4 L (14.0-18.0) g/dl Hct 25.2 L (42.0-52.0) % MCV 103.3 H (80.0-100.0) fL MCH 34.4 H (25.0-34.0) pg MCHC 33.3 (32.0-36.0) g/dL RDW Std Deviation 92.4 H (36.4-46.3) fL RDW Coeff of Cha 25.5 H (11.5-14.5) % Plt Count 816 H (130-400) K/uL MPV 10.2 (9.4-12.4) fL Immature Gran % (Auto) 1.7 % Neut % (Auto) 72.8 % Lymph % (Auto) 11.7 % [place] % (Auto) 12.4 % Eos % (Auto) 0.5 % Baso % (Auto) 0.9 % Neut # (Auto) 8.41 H (1.40-6.50) K/uL Lymph # (Auto) 1.35 (1.20-3.40) K/uL [place] # (Auto) 1.43 H (0.11-0.59) K/uL Eos # (Auto) 0.06 (0.00-0.50) K/uL Baso # (Auto) 0.10 (0.00-0.20) K/uL Immature Gran # (Auto) 0.20 (0.01-0.20) K/uL Anisocytosis Present Macrocytosis Present Sodium 132 L (136-145) mmol/L Potassium 3.6 (3.5-5.1) mmol/L Chloride 99 (98-107) mmol/L Carbon Dioxide 28 (21-32) mmol/L Anion Gap 5 (3-11) BUN 7 (6-23) mg/dl Creatinine 1.06 (0.6-1.4) mg/dl Est Cr Clr Drug Dosing 61.5 ml/min Est GFR ( Amer) 78.6 ml/min Est GFR (Non-Af Amer) 67.8 ml/min BUN/Creatinine Ratio 6.6 L (10-20) Glucose 104 H (70-99(Fasting)) mg/dl POC Glucose 101 H 153 H (70-99) mg/dl Calcium 8.1 L (8.6-10.3) mg/dl Magnesium 1.9 (1.7-2.4) mg/dl Total Bilirubin 0.5 (0.2-1.0) mg/dl AST 34 (13-39) U/L ALT 37 (7-52) U/L Alkaline Phosphatase 216 H (34-104) U/L Total Protein 7.5 (6.0-8.3) gm/dl Albumin 2.7 L (3.4-5.0) gm/dl Globulin 4.8 H (2.5-4.0) gm/dl Albumin/Globulin Ratio 0.6 L (0.9-2) 10/26/23 10/26/23 Range/Units 17:15 11:58 WBC (4.8-10.8) K/ul RBC (4.70-6.10) M/uL Hgb (14.0-18.0) g/dl Hct (42.0-52.0) % MCV (80.0-100.0) fL MCH (25.0-34.0) pg MCHC (32.0-36.0) g/dL RDW Std Deviation (36.4-46.3) fL RDW Coeff of Cha (11.5-14.5) % Plt Count (130-400) K/uL MPV (9.4-12.4) fL Immature Gran % (Auto) % Neut % (Auto) % Lymph % (Auto) % [place] % (Auto) % Eos % (Auto) % Baso % (Auto) % Neut # (Auto) (1.40-6.50) K/uL Lymph # (Auto) (1.20-3.40) K/uL [place] # (Auto) (0.11-0.59) K/uL Eos # (Auto) (0.00-0.50) K/uL Baso # (Auto) (0.00-0.20) K/uL Immature Gran # (Auto) (0.01-0.20) K/uL Anisocytosis Macrocytosis Sodium (136-145) mmol/L Potassium (3.5-5.1) mmol/L Chloride (98-107) mmol/L Carbon Dioxide (21-32) mmol/L Anion Gap (3-11) BUN (6-23) mg/dl Creatinine (0.6-1.4) mg/dl Est Cr Clr Drug Dosing ml/min Est GFR ( Amer) ml/min Est GFR (Non-Af Amer) ml/min BUN/Creatinine Ratio (10-20) Glucose (70-99(Fasting)) mg/dl POC Glucose 126 H 157 H (70-99) mg/dl Calcium (8.6-10.3) mg/dl Magnesium (1.7-2.4) mg/dl Total Bilirubin (0.2-1.0) mg/dl AST (13-39) U/L ALT (7-52) U/L Alkaline Phosphatase (34-104) U/L Total Protein (6.0-8.3) gm/dl Albumin (3.4-5.0) gm/dl Globulin (2.5-4.0) gm/dl Albumin/Globulin Ratio (0.9-2)
[2023-10-27] MEDS: POTASSIUM CHLORIDE CRTAB 20 MEQ TABCR PO STA (09:09)
[2023-10-27] MEDS: FUROSEMIDE 40 MG/4 ML VIAL IV ONE (09:09)
[2023-10-27 11:25] VITALS: BP 167/73; PULSE 84; RESP 15
--- NOTE | 2023-10-27 11:41 | Discharge Summary ---
Discharge Summary Date of Service October 27, 2023 Principal Dx & Hospital Course #1 = Principal Diagnosis (1) Acute cholecystitis: Presented with 10 days of fevers and chills, upper abdominal pain, found to have leukocytosis, thrombocytosis, elevated LFTs, and evidence of acute cholecystitis on CT abdomen/pelvis Given prolonged course of illness and potential for significantly inflamed gallbladder, surgery has opted for IV antibiotics and more conservative management to allow time for the gallbladder to "cool off" Patient continues to improve, is tolerating advancement of diet to low fat, pain is gone, remains afebrile, leukocytosis remains but is stable from previous (overall improved) at 11-12, thrombocytosis remains in 800s LFTs almost completely back to normal at this point-still mildly elevated alk phos Entertained the possibility of a percutaneous cholecystostomy tube but that is most likely not necessary at this point as he is improving with IV antibiotics alone Received IV Zosyn and will convert to po Augmentin on discharge for 10 additional days Continue low fat diet Follow CBC, CMP in 1 week to follow WBC, anemia, and thrombocytosis, LFTs, sodium--> gave Rx for CMP and h already has an order for his usual CBC q2 weeks from [facility] IV fluids were given and then discontinued as he developed some volume overload Plan for interval cholecystectomy in a few weeks as outpt-f/u with Surgery (2) Acute respiratory failure with hypoxia: On 10/22 developed dyspnea on exertion and pulmonary edema on chest x-ray with labored breathing with accessory muscle use he required 1 L nasal cannula and was given IV Lasix and IV fluids were discontinued With acute on chronic right sided and HFpEF----Echocardiogram showed EF 60-65%, RV mildly dilated and RV function mildly reduced, moderate TR, elevated RVSP 50-60 mmHg Gave lasix 20mg IV x 2 and then lasix 40mg IV x 1 with improvement in peripheral edema, resolution of hypoxia and SOB Monitor after discharge but no further lasix needed (3) HTN (hypertension): Blood pressures elevated initially and now remain modestly elevated Continue home ARB, Toprol-XL, and resume home amlodipine on discharge was given IV lasix as well (4) Hyponatremia: Sodium mildly low at 131-132 and stable from previous, likely from volume overload vs poor solute diet from prolonged illness Follow BMP as outpt was given diuresis Hypomagnesemia-replaced with IV magnesium-likely from poor po intake and diuresis--> improved Hypokalemia-resolved with replacement and increased po intake (5) Myelodysplastic syndrome: Is followed by hematology outpatient and he states he did have a dose of bone marrow stimulating medication 10/20/2023 but cannot recall the name at this time WBC count is down to 11-12, hemoglobin low but remained stable at 8.4, macrocytic. No evidence of bleeding on imaging or clinically Platelets were significantly elevated at 900 on admission and are now down to 800s-most likely an acute phase reactant from acute illness for the last 10 days prior to admission on baseline thrombocytosis in the 500-600s B12 and folate given macrocytosis and anemia-both normal Macrocytosis most likely due to MDS Follow CBC as outpt with Heme (6) DMII (diabetes mellitus, type 2): resume metformin from home on discharge (7) CAD (coronary artery disease): Status post CABG x 5 at [facility] in 2019 No current chest pain or concerning EKG changes Continue daily aspirin, statin Continue home metoprolol no events on tele Plan Gout-continue home allopurinol Allergies-no acute issues, cont home cetirizine DVT Px-SCDs, Lovenox SQ Disposition-dc to home Discussed care with SUrgery PA on day of discharge Notes For Next Care Provider Check CBC, CMP in 1 week F/u with Surgery in 2 weeks to arrange cholecystectomy Medication Changes From Visit Added Augmentin 875/125mg po bid x 10 more days Admission HPI Per Admitting Provider Nolberto is a 77-year-old male with a past medical history significant for coronary artery disease status post CABG x 5 at [facility] in 2019 complicated by postoperative infection of the sternum status post complete sternectomy, hypertension, diabetes mellitus type 2, and myelodysplastic syndrome who presented to [facility] ED on 10/22/2023 due to ongoing fever and upper abdominal pain since 10/10/2023. He was noted to be hypertensive on arrival at 172/75 but remained otherwise stable. Labs are significant for leukocytosis of 14 with neutrophil predominance of 10, hemoglobin of 9, platelet count of 990, sodium of 132, AST of 51, ALT of 59, alk phos of 227, total bili within normal limits and full respiratory BioFire negative. Chest x-ray was read as negative for acute findings. CT of the abdomen pelvis with IV contrast was read as "findings are compatible with acute cholecystitis. No definite rupture is seen. Irregular outpouching towards the liver are favored to represent diverticula rather than abscess. The ED staff spoke with general surgery who will be evaluating the patient shortly in preparation for the OR. Prior to admission the patient was given 500 mL normal saline, 15 mg IV Toradol, and 4 mg IV morphine. Patient was lying in bed no acute distress at the time of exam. He states that he started to develop bilateral upper abdominal pain on 10/10/2023. Has had intermittent fevers as high as 101 Fahrenheit. Pain has generally stayed in the bilateral upper abdomen without radiation. Denies recent chest pain, shortness of breath, nausea/vomiting, dysuria, hematuria, diarrhea, lower extremity swelling, and recent trauma. He confirms he had his a.m. doses of aspirin and antihypertensives prior to arrival. We discussed CODE STATUS, he wishes to be a full code and for his to make medical decisions for him if he cannot make them himself. Please refer to Dr. Case' attestation for any changes to treatment plan Discharge Exam Constitutional WD/WN, vitals as above Neck trachea midline, no thyromegaly Respiratory normal respiratory effort, lungs clear to auscultation Cardiovascular Rate/Rhythm: regular rate and regular rhythm Heart Sounds: no murmur Extremities: + edema (1+ pitting edema of legs to knees bilat-improved) Chest (Breasts) Chest: normal inspection of chest Gastrointestinal (Abdomen) normal bowel sounds, soft, nontender, no hepatosplenomegaly Musculoskeletal Extremities: extremities normal to inspection; no cyanosis and no clubbing Skin no rashes, warm and dry Neurologic moves all extremities and awake; no focal motor deficits Psychiatric A+Ox3, euthymic affect Updated Medication List Medication Instructions Recorded Confirmed Type allopurinol 100 mg tablet 100 mg PO DAILY 10/22/23 10/22/23 History amlodipine 10 mg tablet 10 mg PO DAILY 10/22/23 10/22/23 History aspirin 81 mg tablet,delayed 81 mg PO DAILY 10/22/23 10/22/23 History release cetirizine 10 mg tablet 10 mg PO DAILY 10/22/23 10/22/23 History metformin 500 mg tablet 500 mg PO BID 10/22/23 10/22/23 History metoprolol succinate 100 mg 100 mg PO DAILY 10/22/23 10/22/23 History tablet,extended release 24 hr olmesartan 20 mg tablet 20 mg PO DAILY 10/22/23 10/22/23 History rosuvastatin 5 mg tablet 5 mg PO DAILY 10/22/23 10/22/23 History amoxicillin 875 mg-potassium 1 tab PO BID #20 tabs 10/27/23 Rx clavulanate 125 mg tablet Hospital Stay Data Consultations 10/22/23 11:48 ED Decision to Admit Stat 10/22/23 11:58 Consult General Surgery Routine Diagnostic Imagining Performed 10/22/23 09:47 CT abd pelvis IV con only Stat Pending Results Patient Have Any Pending Studies at Discharge: No Discharge Instructions Given to Patient (Per Discharging Provider) Please continue taking the antibiotic called Augmentin, twice a day for 10 more days. If you develop fevers, worsening pain, nausea, or have any other concerns, please return to the hospital or call the Surgeon's office. Please have your CBC drawn as scheduled next week for your logistics clerk, and also have a chemistry panel checked for your sodium level and liver tests. You will be given a prescription for this. You will need to follow up with the surgeon in 2 weeks and then will be scheduled for a surgery to remove your gallbladder at that time. Total Time Total Time Spent Total Time Spent (In Minutes): 40 min Total Time Includes: Examination of the Patient, Discharge Planning, Medication Reconciliation and Communication With Other Providers Coding Level of Care Code 57289 INP/OBS DISCH >30 MIN Diagnoses Acute cholecystitis K81.0 Acute respiratory failure with hypoxia J96.01 HTN (hypertension) I10 Hyponatremia E87.1 Myelodysplastic syndrome D46.9 DMII (diabetes mellitus, type 2) E11.9 CAD (coronary artery disease) I25.10
[2023-10-28] MEDS ORDERED: PIPERACILLIN/TAZOBACTAM 4.5 GM/100 ML BAG IV SCH (02:00)
== END 2023-10-27 14:02 | disposition home or self-care (01) | DRG 444 ==
LOC: ED 09:16 → EDINP 11:59 → SUATTDRO 11:59 → 3N 14:19 → 2N 21:55
DX: E87.6 Hypokalemia; E83.42 Hypomagnesemia; D46.9 Myelodysplastic syndrome, unspecified; E11.9 Type 2 diabetes mellitus without complications; J81.0 Acute pulmonary edema; Z79.84 Long term (current) use of oral hypoglycemic drugs; E87.1 Hypo-osmolality and hyponatremia; J96.01 Acute respiratory failure with hypoxia; D75.839 Thrombocytosis, unspecified; Z95.1 Presence of aortocoronary bypass graft; I25.10 Atherosclerotic heart disease of native coronary artery without angina pectoris; E66.9 Obesity, unspecified; I50.33 Acute on chronic diastolic (congestive) heart failure; Z68.33 Body mass index [BMI] 33.0-33.9, adult; Z79.82 Long term (current) use of aspirin; Z79.899 Other long term (current) drug therapy; M10.9 Gout, unspecified; K81.0 Acute cholecystitis

== ENCOUNTER 2024-12-01 16:51 | Inpatient (IN) ==
[2024-12-01 18:19] LABS: Hematocrit (blood only) 28.8 % (42.0-52.0); Hemoglobin 9.6 g/dl (14.0-18.0); Immature Granulocytes # (auto) 0.05 K/uL (0.01-0.20); Immature Granulocytes % (auto) 0.6 %; Mean Corpuscular Hemoglobin 31.2 pg (25.0-34.0); Mean Corpuscular Volume 93.5 fL (80.0-100.0); Platelet Count 588 K/uL (130-400); RDW Standard Deviation 93.0 fL (36.4-46.3); Red Blood Count 3.08 M/uL (4.70-6.10); White Blood Count 8.23 K/ul (4.8-10.8)
--- NOTE | 2024-12-01 18:30 | Emergency Department Note ---
Impression & Plan Sepsis, Fever, Elevated lactic acid level, Acute hypokalemia ED Provider Note NAME: JOSÉ OLVERA AGE: 79 SEX: M : 1945 ARRIVES VIA: Walk-In INFORMANT: Patient ED PROVIDER(S): Andrew Sweeney DO CHIEF COMPLAINT: Abdominal pain HPI: Patient is a 79-year-old male with a past medical history of diabetes, CAD, hyponatremia, myelodysplastic syndrome who presents to the ER for lower abdominal pain which started about 3 days ago associated with fevers. Today he is having nausea and vomiting. Denies any headache or change in vision. No dysuria, urgency, or frequency. He notes that he has chronic right upper quadrant pain since the drain was placed in his gallbladder over a year ago but this has been unchanged. ADDITIONAL HISTORY OBTAINED: Per HPI Chronic Medical/Social Conditions Affecting Care: Per HPI PAST MEDICAL HISTORY:See Below PAST SURGICAL HISTORY:See Below FAMILY HISTORY:See Below SOCIAL HISTORY:See Below HOME MEDICATIONS:See Below ALLERGIES:See Below VITALS:See Below PHYSICAL EXAMINATION: GENERAL: Sitting up in bed, alert, well appearing, well nourished, no distress, non-toxic EYE EXAM: normal conjunctiva. PERRL and EOM's grossly intact. OROPHARYNX: no exudate, no erythema, lips, buccal mucosa, and tongue normal and mucous membranes are moist NECK: supple, no nuchal rigidity, no adenopathy, non-tender LUNGS: Clear to auscultation. Normal chest wall mechanics HEART: no murmurs, S1 normal and S2 normal ABDOMEN: abdomen soft, tenderness palpation lower abdomen, normo-active bowel sounds, no masses, no rebound or guarding. UPPER EXTREMITIES: upper extremities are grossly normal. LOWER EXTREMITIES: No pitting edema. NEURO EXAM: Normal sensorium, cranial nerves II-XII grossly intact, normal speech, no gross weakness of arms, no gross weakness of legs. MEDICAL DECISION MAKING: Patient is a 79-year-old male who presents to the ER found be febrile and tachycardic. IV was established and blood work is obtained. Labs show no significant leukocytosis. Mild anemia 9.6. INR unremarkable. BMP with mild hyponatremia 131. LFTs was unremarkable. T. bili at 2.0. Troponin negative. Pro-Al 0.56. Lactic acid was elevated and trended down with fluids. UA was clean. CT abdomen pelvis showed no acute pathology. Patient was given IV fluids and IV Zosyn. Updated bedside and discussed the case with the hospitalist for further evaluation management treatment. Consults/Care Managements Discussions: Per [facility] Triage Nursing notes reviewed. Limited review of prior medical records performed Vital Signs: reviewed and remarkable for febrile Differential diagnosis: Differential diagnosis includes etiologies such as sepsis, UTI, pneumonia, metabolic, electrolyte abnormalities, cardiac sources, intracerebral event, toxicologic, neurological, as well as others were entertained. ER treatment provided: See below Diagnostics interpreted by me include EKG and cardiac monitoring as listed below: -Cardiac Monitoring: An order was placed for continuous cardiac monitoring. The monitor shows a rate of 80 with sinus rhythm. -ECG: Sinus rhythm rate 83 Normal axis No PVCs QTc 620 -Laboratory studies:Interpreted by me as stated above in MDM and shown below. Imaging studies: Xrays: As interpreted by me: Portable AP upright 1 view of the chest shows no focal Lutrate CTs show: CT abdomen pelvis per radiology showed no acute pathology Procedures:none Critical Care: None Past Med/Surg History Problem List (Updated 12/01/24 @ 23:47 by Andrew Sweeney DO) Acute hypokalemia (Acute) Elevated lactic acid level (Acute) Fever (Acute) Sepsis (Acute) Pulmonary hypertension Abnormal chest CT Pleural effusion Hyponatremia CAD (coronary artery disease) DMII (diabetes mellitus, type 2) Myelodysplastic syndrome HTN (hypertension) Acute cholecystitis (Acute) Social History Smoking Status: Never smoker Hx Alcohol Use: Yes Alcohol type: beer Hx Substance Use: No Preferred Language: Polish Communication Ability: Effective Community Recreation Coordinator Required: No Beliefs That Will Affect Care: None Current Living Situation: Spouse Feels Safe at Home: Yes Assistive Devices: Cane, Walker and Wheelchair Allergies Allergies Allergy/AdvReac Type Severity Reaction Status Date / Time tree and shrub pollen Allergy Intermediate runny Verified 12/01/24 19:48 nose, cough Home Meds Home Medications Medication Instructions Recorded Confirmed allopurinol 100 mg tablet 100 mg PO DAILY 10/22/23 12/01/24 amlodipine 10 mg tablet 10 mg PO DAILY 10/22/23 12/01/24 aspirin 81 mg tablet,delayed 81 mg PO DAILY 08/09/24 09/19/25 release cetirizine 10 mg tablet 10 mg PO DAILY 10/22/23 12/01/24 metformin 500 mg tablet 500 mg PO BID 10/22/23 12/01/24 metoprolol succinate 100 mg 100 mg PO DAILY 10/22/23 12/01/24 tablet,extended release 24 hr olmesartan 20 mg tablet 20 mg PO DAILY 10/22/23 12/01/24 rosuvastatin 5 mg tablet 5 mg PO DAILY 10/22/23 12/01/24 hydroxyurea 500 mg capsule 50 mg PO DAILY 12/01/24 12/01/24 sacubitril 97 mg-valsartan 103 mg 1 tab PO BID 12/01/24 12/01/24 tablet (Entresto) Results & Data (ED) Vital Signs Vital Signs - 24 hr 12/01/24 17:12 12/01/24 18:12 12/01/24 18:17 Temperature 38.3 C H Temperature Source Oral Pulse Rate 93 H Pulse Rate [Right Finger] 86 Pulse Rhythm [Right Finger] Respiratory Rate 20 12 Respiratory Effort / Characteristics Non-Labored Spontaneous Respiratory Depth Normal Respiratory Pattern Blood Pressure 136/69 Blood Pressure [Left Arm] 137/68 Blood Pressure Mean 91 Blood Pressure Mean [Left Arm] 91 Blood Pressure Position [Left Arm] Pulse Oximetry 93 95 Oxygen Delivery Method Room Air Room Air Room Air Sepsis Recent Fever Within 48 Hours Yes Sepsis New/Unexplained Change in Mental Status N/A Sepsis Action Taken by Nursing No Action Required 12/01/24 18:22 12/01/24 20:03 Temperature 37.5 C Temperature Source Oral Pulse Rate 79 Pulse Rate [Right Finger] 61 Pulse Rhythm [Right Finger] Regular Respiratory Rate 20 Respiratory Effort / Characteristics Non-Labored Spontaneous Respiratory Depth Normal Respiratory Pattern Regular Blood Pressure Blood Pressure [Left Arm] 96/51 L Blood Pressure Mean Blood Pressure Mean [Left Arm] 66 Blood Pressure Position [Left Arm] Semi-fowlers Pulse Oximetry 93 Oxygen Delivery Method Room Air Sepsis Recent Fever Within 48 Hours Sepsis New/Unexplained Change in Mental Status Sepsis Action Taken by Nursing Laboratory Data 12/01/24 18:07 12/01/24 18:07 Lab Results 12/01/24 12/01/24 12/01/24 Range/Units 18:07 18:30 19:05 WBC 8.23 (4.8-10.8) K/ul RBC 3.08 L (4.70-6.10) M/uL Hgb 9.6 L (14.0-18.0) g/dl POC Hgb 10.9 L (14.0-18.0) g/dl Hct 28.8 L (42.0-52.0) % POC Hct 32 L (42-52) % MCV 93.5 (80.0-100.0) fL MCH 31.2 (25.0-34.0) pg MCHC 33.3 (32.0-36.0) g/dL RDW Std Deviation 93.0 H (36.4-46.3) fL RDW Coeff of Cha 27.3 H (11.5-14.5) % Plt Count 588 H (130-400) K/uL MPV 10.0 (9.4-12.4) fL Immature Gran % (Auto) 0.6 % Neut % (Auto) 84.8 % Lymph % (Auto) 3.5 % [place] % (Auto) 10.8 % Eos % (Auto) 0.1 % Baso % (Auto) 0.2 % Neut # (Auto) 6.97 H (1.40-6.50) K/uL Lymph # (Auto) 0.29 L (1.20-3.40) K/uL [place] # (Auto) 0.89 H (0.11-0.59) K/uL Eos # (Auto) 0.01 (0.00-0.50) K/uL Baso # (Auto) 0.02 (0.00-0.20) K/uL Immature Gran # (Auto) 0.05 (0.01-0.20) K/uL Polychromasia 1+ Anisocytosis Present Stomatocytes 1+ PT 11.5 (9.0-12.0) Seconds INR 1.1 (0.9-1.1) APTT 38 H (21-31) Seconds PTT Ratio 1.4 POC Sodium 132 L (135-144) mmol/L Sodium 131 L (136-145) mmol/L POC Potassium 3.1 L (3.3-5.0) mmol/L Potassium 3.1 L (3.5-5.1) mmol/L POC Chloride 94 L (101-112) mmol/L Chloride 95 L (98-107) mmol/L Carbon Dioxide 27 (21-32) mmol/L POC Total CO2 24 (24-31) mmol/L Anion Gap 9 (3-11) POC Anion Gap 18.0 (16-25) mmol/L POC BUN 19 H (7-18) mg/dl BUN 20 (6-23) mg/dl Creatinine 1.12 (0.6-1.4) mg/dl POC Creatinine 1.8 H (0.6-1.3) mg/dl Est Cr Clr Drug Dosing 47.3 ml/min eGFR 67.24 BUN/Creatinine Ratio 17.9 (10-20) Glucose 150 H (70-99(Fasting)) mg/dl POC Glucose (other) 153 H (70-99) mg/dl Lactate 2.1 H* (0.4-2.0) mmol/L Calcium 8.7 (8.6-10.3) mg/dl POC Ioniz Calcium Jeffery 1.07 L (1.12-1.32) mmol/l Magnesium 1.6 L (1.7-2.4) mg/dl Total Bilirubin 2.0 H (0.2-1.0) mg/dl AST 33 (13-39) U/L ALT 40 (7-52) U/L Alkaline Phosphatase 226 H (34-104) U/L Troponin I High Sens 12.6 (0-20) pg/ml C-Reactive Protein 11.34 H (0-0.5) mg/dl Total Protein 7.3 (6.0-8.3) gm/dl Albumin 3.6 (3.4-5.0) gm/dl Globulin 3.7 (2.5-4.0) gm/dl Albumin/Globulin Ratio 1.0 (0.9-2) Procalcitonin 0.56 H (0-0.5) ng/ml Urine Color Dark Yellow Urine Appearance Clear (Clear) Urine pH 5.5 (4.5-7.5) Ur Specific [place] 1.020 (1.000-1.030) Urine Protein 1+ H (Negative) Urine Glucose (UA) Negative (Negative) Urine Ketones 1+ H (Negative) Urine Blood Negative (Negative) Urine Nitrite Negative (Negative) Urine Bilirubin 1+ H (Negative) Urine Urobilinogen Negative (Negative) Ur Leukocyte Esterase Trace H (Negative) Urine WBC (Auto) 0-5 (0-5) /hpf Urine RBC (Auto) 0-2 (0-2) /hpf U Hyaline Cast (Auto) 3-5 H (0-2) /lpf U Epithel Cells (Auto) 0-2 (0-2) /hpf Urine Bacteria (Auto) None Seen (None Seen) Urine Comment 12/01/24 Range/Units 19:52 WBC (4.8-10.8) K/ul RBC (4.70-6.10) M/uL Hgb (14.0-18.0) g/dl POC Hgb (14.0-18.0) g/dl Hct (42.0-52.0) % POC Hct (42-52) % MCV (80.0-100.0) fL MCH (25.0-34.0) pg MCHC (32.0-36.0) g/dL RDW Std Deviation (36.4-46.3) fL RDW Coeff of Cha (11.5-14.5) % Plt Count (130-400) K/uL MPV (9.4-12.4) fL Immature Gran % (Auto) % Neut % (Auto) % Lymph % (Auto) % [place] % (Auto) % Eos % (Auto) % Baso % (Auto) % Neut # (Auto) (1.40-6.50) K/uL Lymph # (Auto) (1.20-3.40) K/uL [place] # (Auto) (0.11-0.59) K/uL Eos # (Auto) (0.00-0.50) K/uL Baso # (Auto) (0.00-0.20) K/uL Immature Gran # (Auto) (0.01-0.20) K/uL Polychromasia Anisocytosis Stomatocytes PT (9.0-12.0) Seconds INR (0.9-1.1) APTT (21-31) Seconds PTT Ratio POC Sodium (135-144) mmol/L Sodium (136-145) mmol/L POC Potassium (3.3-5.0) mmol/L Potassium (3.5-5.1) mmol/L POC Chloride (101-112) mmol/L Chloride (98-107) mmol/L Carbon Dioxide (21-32) mmol/L POC Total CO2 (24-31) mmol/L Anion Gap (3-11) POC Anion Gap (16-25) mmol/L POC BUN (7-18) mg/dl BUN (6-23) mg/dl Creatinine (0.6-1.4) mg/dl POC Creatinine (0.6-1.3) mg/dl Est Cr Clr Drug Dosing ml/min eGFR BUN/Creatinine Ratio (10-20) Glucose (70-99(Fasting)) mg/dl POC Glucose (other) (70-99) mg/dl Lactate 1.4 (0.4-2.0) mmol/L Calcium (8.6-10.3) mg/dl POC Ioniz Calcium Jeffery (1.12-1.32) mmol/l Magnesium (1.7-2.4) mg/dl Total Bilirubin (0.2-1.0) mg/dl AST (13-39) U/L ALT (7-52) U/L Alkaline Phosphatase (34-104) U/L Troponin I High Sens (0-20) pg/ml C-Reactive Protein (0-0.5) mg/dl Total Protein (6.0-8.3) gm/dl Albumin (3.4-5.0) gm/dl Globulin (2.5-4.0) gm/dl Albumin/Globulin Ratio (0.9-2) Procalcitonin (0-0.5) ng/ml Urine Color Urine Appearance (Clear) Urine pH (4.5-7.5) Ur Specific [place] (1.000-1.030) Urine Protein (Negative) Urine Glucose (UA) (Negative) Urine Ketones (Negative) Urine Blood (Negative) Urine Nitrite (Negative) Urine Bilirubin (Negative) Urine Urobilinogen (Negative) Ur Leukocyte Esterase (Negative) Urine WBC (Auto) (0-5) /hpf Urine RBC (Auto) (0-2) /hpf U Hyaline Cast (Auto) (0-2) /lpf U Epithel Cells (Auto) (0-2) /hpf Urine Bacteria (Auto) (None Seen) Urine Comment Administered Medications Lactated Ringer's (Lr) 1,000 mls @ 80 mls/hr IV .[id number] LORRIE Stop: 12/02/24 11:14 Last Admin: 12/01/24 23:23 Dose: 80 mls/hr Documented By: MACK Magnesium Sulfate/Dextrose (Magnesium Sulfate / D5w) 1 gm in 100 mls @ 50 mls/hr IV Q2H LORRIE Stop: 12/02/24 02:44 Last Admin: 12/01/24 23:23 Dose: 50 mls/hr Documented By: MACK Piperacillin Sod/Tazobactam Sod (Zosyn) 4.5 gm in 100 mls @ 25 mls/hr IV Q8H LORRIE; Protocol Stop: 12/04/24 00:00 Last Admin: 12/01/24 23:28 Dose: 25 mls/hr Documented By: MACK Insulin Aspart (Insulin Aspart Per Unit Charge) 0 units SC ACHS LORRIE Stop: 12/31/24 22:28 Last Admin: 12/01/24 23:23 Dose: Not Given Documented By: MACK Discontinued Medications Acetaminophen (Acetaminophen 325 Mg Tab) 650 mg PO NOW STA Stop: 12/01/24 18:27 Last Admin: 12/01/24 19:01 Dose: 650 mg Documented By: YESY Sodium Chloride (Nss) 1,000 mls @ 999 mls/hr IV .Q1H1M ONE Stop: 12/01/24 19:26 Last Infusion: 12/01/24 20:02 Dose: Infused Documented By: Admin: 12/01/24 19:01 Dose: 999 mls/hr Documented By: YESY Piperacillin Sod/Tazobactam Sod (Zosyn) 4.5 gm in 100 mls @ 200 mls/hr IV NOW ONE; Protocol Stop: 12/01/24 18:55 Last Infusion: 12/01/24 19:32 Dose: Infused Documented By: Admin: 12/01/24 19:02 Dose: 200 mls/hr Documented By: YESY Potassium Chloride (Potassium Chloride Crtab 20 Meq Tabcr) 40 meq PO NOW STA Stop: 12/01/24 22:30 Last Admin: 12/01/24 23:23 Dose: 40 meq Documented By: MACK Imaging Data Radiologist's Impression: Chest X-Ray 12/01/24 17:18 Chest radiograph, one view History: Sepsis Comparison: 12/01/2023 Findings: Single AP view of the chest performed. Blunted right costophrenic angle suggesting pleural effusion. No pneumothorax. The cardiomediastinal silhouette is enlarged. Normal pulmonary vascularity. No evidence for lymphadenopathy. No visualized bony or soft tissue abnormality. Impression: Right pleural effusion appears to be seen on multiple prior exams dating back to 12/01/2023. Otherwise no acute superimposed process Electronically signed by Bo Lozada 12-01-2024 6:33 PM Abdomen/Pelvis CT 12/01/24 18:36 EXAMINATION: CT of the abdomen and pelvis performed without contrast TECHNIQUE: Helical CT images from the lung bases through the symphysis pubis were obtained without contrast. Coronal and sagittal reformatted images were generated at a workstation for further assessment. Dose reduction techniques were achieved by using automatic exposure control and/or adjustment of mA and/or kV according to patient size and/or use of iterative reconstruction technique. COMPARISON: 11/06/2023 HISTORY: Abdominal pain FINDINGS: Lower chest: There is a small right pleural effusion with subjacent compressive atelectasis. Heavily calcified right coronary artery is seen. Liver: No suspicious liver lesions. Gallbladder: There are calcified gallstones. No evidence of acute cholecystitis. The gallbladder is contracted Spleen: Normal size. Pancreas: No suspicious pancreatic lesions. The pancreatic duct is not dilated. Adrenal glands: No adrenal nodules. Kidneys: No hydronephrosis or obstructing renal stones. There is a punctate nonobstructing right renal stone. Bladder / Pelvic organs: Unremarkable. Bowel: No bowel obstruction. No abnormal bowel wall thickening. The appendix is unremarkable. Sigmoid colonic diverticulosis without diverticulitis. Lymph nodes: No retroperitoneal, mesenteric, or pelvic lymphadenopathy. Peritoneum / Retroperitoneum: No free fluid or air within the abdomen. Vessels: No infrarenal aortic aneurysm. Heavy aortoiliac calcification. Bones and soft tissues: No suspicious lesion in the bones. IMPRESSION: No acute intra-abdominal process. Small right pleural effusion. Cholelithiasis. The gallbladder is contracted. Electronically signed by Bo Lozada 12-01-2024 7:29 PM Discharge Plan Visit Data Chief Complaint: Abdominal Pain Stated Complaint: STOMACHE PAIN ED Provider: Andrew Sweeney Discharge Problem: Sepsis, Fever, Elevated lactic acid level, Acute hypokalemia Patient Disposition: Admitted As Inpatient Condition: Fair Discharge Instructions Interventions: ED Discharge Assessment Last Done: 12/01/24 22:08 Discharge Problem: Sepsis Qualifiers: Sepsis type: sepsis due to unspecified organism Sepsis acute organ dysfunction status: unspecified Qualified Code(s): A41.9 - Sepsis, unspecified organism Fever Qualifiers: Fever type: unspecified Qualified Code(s): R50.9 - Fever, unspecified
--- NOTE | 2024-12-01 18:33 | XRay Report ---
Chest radiograph, one view History: Sepsis Comparison: 12/01/2023 Findings: Single AP view of the chest performed. Blunted right costophrenic angle suggesting pleural effusion. No pneumothorax. The cardiomediastinal silhouette is enlarged. Normal pulmonary vascularity. No evidence for lymphadenopathy. No visualized bony or soft tissue abnormality. Impression: Right pleural effusion appears to be seen on multiple prior exams dating back to 12/01/2023. Otherwise no acute superimposed process Electronically signed by Bo Lozada 12-01-2024 6:33 PM
[2024-12-01 18:37] LABS: Alanine Aminotransferase 40.0 U/L (7-52); Albumin Globulin Ratio 1.0 (0.9-2); Albumin Level 3.6 gm/dl (3.4-5.0); Alkaline Phosphatase 226.0 U/L (34-104); Anion Gap 9.0 (3-11); Bilirubin,Total 2.0 mg/dl (0.2-1.0); Blood Urea Nitrogen 20.0 mg/dl (6-23); Calcium 8.7 mg/dl (8.6-10.3); Carbon Dioxide 27.0 mmol/L (21-32); Chloride 95.0 mmol/L (98-107); Creatinine Clr Calc Pharmacy 47.3 ml/min; Globulin 3.7 gm/dl (2.5-4.0); Glucose 150.0 mg/dl (70-99(Fasting)); Magnesium 1.6 mg/dl (1.7-2.4); Potassium 3.1 mmol/L (3.5-5.1); Sodium 131.0 mmol/L (136-145); Total Protein 7.3 gm/dl (6.0-8.3)
[2024-12-01 18:41] LABS: Anisocytosis Present; Polychromasia 1+; Stomatocytes 1+
[2024-12-01 18:46] LABS: INR 1.1 (0.9-1.1); Partial Thromboplastin Time 38 Seconds (21-31); Prothrombin Time 11.5 Seconds (9.0-12.0)
[2024-12-01] MEDS: SODIUM CHLORIDE 0.9% 1,000 ML IV ONE (19:01)
[2024-12-01] MEDS: ACETAMINOPHEN 325 MG TAB PO STA (19:01)
[2024-12-01] MEDS: PIPERACILLIN/TAZOBACTAM 4.5 GM/100 ML BAG IV ONE (19:02)
--- NOTE | 2024-12-01 19:30 | CT Scan Report ---
EXAMINATION: CT of the abdomen and pelvis performed without contrast TECHNIQUE: Helical CT images from the lung bases through the symphysis pubis were obtained without contrast. Coronal and sagittal reformatted images were generated at a workstation for further assessment. Dose reduction techniques were achieved by using automatic exposure control and/or adjustment of mA and/or kV according to patient size and/or use of iterative reconstruction technique. COMPARISON: 11/06/2023 HISTORY: Abdominal pain FINDINGS: Lower chest: There is a small right pleural effusion with subjacent compressive atelectasis. Heavily calcified right coronary artery is seen. Liver: No suspicious liver lesions. Gallbladder: There are calcified gallstones. No evidence of acute cholecystitis. The gallbladder is contracted Spleen: Normal size. Pancreas: No suspicious pancreatic lesions. The pancreatic duct is not dilated. Adrenal glands: No adrenal nodules. Kidneys: No hydronephrosis or obstructing renal stones. There is a punctate nonobstructing right renal stone. Bladder / Pelvic organs: Unremarkable. Bowel: No bowel obstruction. No abnormal bowel wall thickening. The appendix is unremarkable. Sigmoid colonic diverticulosis without diverticulitis. Lymph nodes: No retroperitoneal, mesenteric, or pelvic lymphadenopathy. Peritoneum / Retroperitoneum: No free fluid or air within the abdomen. Vessels: No infrarenal aortic aneurysm. Heavy aortoiliac calcification. Bones and soft tissues: No suspicious lesion in the bones. IMPRESSION: No acute intra-abdominal process. Small right pleural effusion. Cholelithiasis. The gallbladder is contracted. Electronically signed by Bo Lozada 12-01-2024 7:29 PM
[2024-12-01 19:32] LABS: Appearance Urine Clear (Clear); Bacteria Urine Automated None Seen (None Seen); Epithelial Cell Urine Auto 0-2 /hpf (0-2); Glucose Urine UA Negative (Negative); RBC Urine Automated 0-2 /hpf (0-2); WBC Urine Automated 0-5 /hpf (0-5)
--- NOTE | 2024-12-01 20:43 | History & Physical Report ---
Date of Service December 01, 2024 Assessment & Plan (1) Fever: (2) CAD (coronary artery disease): (3) DMII (diabetes mellitus, type 2): (4) HTN (hypertension): Plan 79yo male with history of HTN, HLP, DM and CAD presenting with several weeks of progressively worsening chills and rigors. Episodes of RUQ and lower abdominal pain. Patient afebrile, HD stable in the ER Initially with elevated Lactate=2.1 --> 1.4 as well as mildly elevated procalcitonin=0.56. CRP=11.34. Fever/Abdominal pain - patient with elevated Tbili and Alkaline phosphatase. He has gallstones present on CT imaging but no evidence of cholecystitis or cholangitis/bile duct abnormality. Patient with history of ruptured gallbladder in Summer 2023 which was treated with antibiotics and a drain. Possible symptomatic stones? -Admit to medical with telemetry -Follow cultures sent from the ER -blood -Repeat chemistry, LFTs in the morning -Gentle IVF with LR at 80ml/hr x 1L ordered -Zosyn 4.5gm IV q 8 -Tylenol PRN pain or fever #CAD - s/p CABG x 5v in July 2018. 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 No report of chest pain. Patient with preserved LV function with Type 2 diastolic dysfunction. -Continue ASA and Crestor #Diabetes - Patient on Metformin. Well controlled. Last [id number]=7.7 from 10/23/2023 -Hold Metformin -ISS, goal blood sugar 110 - 140 #Hypertension - borderline low blood pressures in the ER -Hold anti-hypertensives for now -Patient listed to be on both Entresto AND Olmesartan as well a Metoprolol and Amlodipine. Entresto recently filled while Olmesartan has not been F/E/N- LR at 100mL/hr x 1L. Potassium repletion. PO as tolerated - Heart Healthy, CC diet Ppx - Lovenox for DVT prophylaxis History of Present Illness Chief Complaint: chills, abdominal pain Primary Care Provider: May Siegel MD Nolberto Florian is a 79yo male with history of HTN, HLP, DM, CAD presenting with abdominal pain, rigors. Patient reports over the last two weeks he has been experiencing increased frequency of chills and rigors. He feels cold throughout the day and needs to pile on blankets. He has also been having worsening abdominal pain, episodes of sharp/stabbing RUQ pain as well as pain in the lower abdomen. Over the last three days these symptoms have gotten worse. Today he had chills and rigors until 17:00 then improved. Also with nausea with one episode of non-bloody/non-bilious vomiting, no chest pain cough or SOB. No diarrhea or urinary complaints. In the ER patient is afebrile, HD stable. ER Course: Zosyn Allergies Allergy/AdvReac Type Severity Reaction Status Date / Time tree and shrub pollen Allergy Intermediate runny Verified 12/01/24 19:48 nose, cough Home Medications Medication Instructions Recorded Confirmed Type allopurinol 100 mg tablet 100 mg PO DAILY 10/22/23 12/01/24 History amlodipine 10 mg tablet 10 mg PO DAILY 10/22/23 12/01/24 History aspirin 81 mg tablet,delayed 81 mg PO DAILY 10/22/23 12/01/24 History release cetirizine 10 mg tablet 10 mg PO DAILY 10/22/23 12/01/24 History metformin 500 mg tablet 500 mg PO BID 10/22/23 12/01/24 History metoprolol succinate 100 mg 100 mg PO DAILY 10/22/23 12/01/24 History tablet,extended release 24 hr olmesartan 20 mg tablet 20 mg PO DAILY 10/22/23 12/01/24 History rosuvastatin 5 mg tablet 5 mg PO DAILY 10/22/23 12/01/24 History hydroxyurea 500 mg capsule 50 mg PO DAILY 12/01/24 12/01/24 History sacubitril 97 mg-valsartan 103 mg 1 tab PO BID 12/01/24 12/01/24 History tablet (Entresto) Past Med/Surg History Problem List Acute hypokalemia (Acute) Elevated lactic acid level (Acute) Fever (Acute) Sepsis (Acute) Pulmonary hypertension Abnormal chest CT Pleural effusion Hyponatremia CAD (coronary artery disease) DMII (diabetes mellitus, type 2) Myelodysplastic syndrome HTN (hypertension) Acute cholecystitis (Acute) Social History Smoking Status: Never smoker Hx Alcohol Use: No Hx Substance Use: No Preferred Language: [place] Communication Ability: Effective Microsoft Application Developer Required: No Beliefs That Will Affect Care: None Current Living Situation: Spouse Other Information That Helps Us Care for You: No Feels Safe at Home: Yes Safety Concerns: Feels Safe At This Time Assistive Devices: Denture - Upper and Glasses Review of Systems Review of Systems: All systems reviewed & are unremarkable except as noted in HPI & below Physical Exam Physical Exam: General: patient resting comfortably, NAD, non-toxic in appearance, AA&O x 4 Skin: warm, dry, intact, no rashes or lesions HEENT: NC/AT, PERRL, EOMI, anicteric sclera, conjunctiva without injection, external ear normal to inspection and nontender, nares patent, moist mucus membranes, dentition intact, no oropharyngeal lesions, neck supple, trachea midline, no LAD, no thyromegaly, no JVD Heart: +S1/S2, regular, no m/r/g Lungs: equal air entry bilaterally, no rales/rhonchi/wheezes Abd: +BS, soft, ND, RUQ tenderness with no rebound/guarding, no masses/organomegaly/ascites Ext: warm, 2+ pulses in UE/LE bilaterally, no clubbing/cyanosis or edema Neuro: nonfocal, patient AA&O x 4, speech intact, no facial droop, moving all extremities on command with equal strength 5/5 Results & Data Results & Data Vital Signs (Past 12 Hours) Vital Signs Temp Pulse Pulse Resp BP BP Pulse Ox 12/01/24 20:03 37.5 C 61 20 96/51 L 93 12/01/24 18:22 79 12/01/24 18:17 86 12 137/68 95 12/01/24 18:12 12/01/24 17:12 38.3 C H 93 H 20 136/69 93 O2 Del Method 12/01/24 20:03 Room Air 12/01/24 18:22 12/01/24 18:17 Room Air 12/01/24 18:12 Room Air 12/01/24 17:12 Room Air Laboratory Results Laboratory Results WBC 8.23 K/ul (4.8-10.8) 12/01/24 18:07 RBC 3.08 M/uL (4.70-6.10) L 12/01/24 18:07 Hgb 9.6 g/dl (14.0-18.0) L 12/01/24 18:07 POC Hgb 10.9 g/dl (14.0-18.0) L 12/01/24 18:30 Hct 28.8 % (42.0-52.0) L 12/01/24 18:07 POC Hct 32 % (42-52) L 12/01/24 18:30 MCV 93.5 fL (80.0-100.0) 12/01/24 18:07 MCH 31.2 pg (25.0-34.0) 12/01/24 18:07 MCHC 33.3 g/dL (32.0-36.0) 12/01/24 18:07 RDW Std Deviation 93.0 fL (36.4-46.3) H 12/01/24 18:07 RDW Coeff of Cha 27.3 % (11.5-14.5) H 12/01/24 18:07 Plt Count 588 K/uL (130-400) H 12/01/24 18:07 MPV 10.0 fL (9.4-12.4) 12/01/24 18:07 Immature Gran % (Auto) 0.6 % 12/01/24 18:07 Neut % (Auto) 84.8 % 12/01/24 18:07 Lymph % (Auto) 3.5 % 12/01/24 18:07 [place] % (Auto) 10.8 % 12/01/24 18:07 Eos % (Auto) 0.1 % 12/01/24 18:07 Baso % (Auto) 0.2 % 12/01/24 18:07 Neut # (Auto) 6.97 K/uL (1.40-6.50) H 12/01/24 18:07 Lymph # (Auto) 0.29 K/uL (1.20-3.40) L 12/01/24 18:07 [place] # (Auto) 0.89 K/uL (0.11-0.59) H 12/01/24 18:07 Eos # (Auto) 0.01 K/uL (0.00-0.50) 12/01/24 18:07 Baso # (Auto) 0.02 K/uL (0.00-0.20) 12/01/24 18:07 Immature Gran # (Auto) 0.05 K/uL (0.01-0.20) 12/01/24 18:07 Polychromasia 1+ 12/01/24 18:07 Anisocytosis Present 12/01/24 18:07 Stomatocytes 1+ 12/01/24 18:07 PT 11.5 Seconds (9.0-12.0) 12/01/24 18:07 INR 1.1 (0.9-1.1) 12/01/24 18:07 APTT 38 Seconds (21-31) H 12/01/24 18:07 PTT Ratio 1.4 12/01/24 18:07 POC Sodium 132 mmol/L (135-144) L 12/01/24 18:30 Sodium 131 mmol/L (136-145) L 12/01/24 18:07 POC Potassium 3.1 mmol/L (3.3-5.0) L 12/01/24 18:30 Potassium 3.1 mmol/L (3.5-5.1) L 12/01/24 18:07 POC Chloride 94 mmol/L (101-112) L 12/01/24 18:30 Chloride 95 mmol/L (98-107) L 12/01/24 18:07 Carbon Dioxide 27 mmol/L (21-32) 12/01/24 18:07 POC Total CO2 24 mmol/L (24-31) 12/01/24 18:30 Anion Gap 9 (3-11) 12/01/24 18:07 POC Anion Gap 18.0 mmol/L (16-25) 12/01/24 18:30 POC BUN 19 mg/dl (7-18) H 12/01/24 18:30 BUN 20 mg/dl (6-23) 12/01/24 18:07 Creatinine 1.12 mg/dl (0.6-1.4) 12/01/24 18:07 POC Creatinine 1.8 mg/dl (0.6-1.3) H 12/01/24 18:30 Est Cr Clr Drug Dosing 47.3 ml/min 12/01/24 18:07 eGFR 67.24 12/01/24 18:07 BUN/Creatinine Ratio 17.9 (10-20) 12/01/24 18:07 Glucose 150 mg/dl (70-99(Fasting)) H 12/01/24 18:07 POC Glucose 135 mg/dl (70-99) H 12/01/24 23:22 POC Glucose (other) 153 mg/dl (70-99) H 12/01/24 18:30 Lactate 1.4 mmol/L (0.4-2.0) 12/01/24 19:52 Calcium 8.7 mg/dl (8.6-10.3) 12/01/24 18:07 POC Ioniz Calcium Jeffery 1.07 mmol/l (1.12-1.32) L 12/01/24 18:30 Magnesium 1.6 mg/dl (1.7-2.4) L 12/01/24 18:07 Total Bilirubin 2.0 mg/dl (0.2-1.0) H 12/01/24 18:07 AST 33 U/L (13-39) 12/01/24 18:07 ALT 40 U/L (7-52) 12/01/24 18:07 Alkaline Phosphatase 226 U/L (34-104) H 12/01/24 18:07 Troponin I High Sens 12.6 pg/ml (0-20) 12/01/24 18:07 C-Reactive Protein 11.34 mg/dl (0-0.5) H 12/01/24 18:07 Total Protein 7.3 gm/dl (6.0-8.3) 12/01/24 18:07 Albumin 3.6 gm/dl (3.4-5.0) 12/01/24 18:07 Globulin 3.7 gm/dl (2.5-4.0) 12/01/24 18:07 Albumin/Globulin Ratio 1.0 (0.9-2) 12/01/24 18:07 Procalcitonin 0.56 ng/ml (0-0.5) H 12/01/24 18:07 Urine Color Dark Yellow 12/01/24 19:05 Urine Appearance Clear (Clear) 12/01/24 19:05 Urine pH 5.5 (4.5-7.5) 12/01/24 19:05 Ur Specific [place] 1.020 (1.000-1.030) 12/01/24 19:05 Urine Protein 1+ (Negative) H 12/01/24 19:05 Urine Glucose (UA) Negative (Negative) 12/01/24 19:05 Urine Ketones 1+ (Negative) H 12/01/24 19:05 Urine Blood Negative (Negative) 12/01/24 19:05 Urine Nitrite Negative (Negative) 12/01/24 19:05 Urine Bilirubin 1+ (Negative) H 12/01/24 19:05 Urine Urobilinogen Negative (Negative) 12/01/24 19:05 Ur Leukocyte Esterase Trace (Negative) H 12/01/24 19:05 Urine WBC (Auto) 0-5 /hpf (0-5) 12/01/24 19:05 Urine RBC (Auto) 0-2 /hpf (0-2) 12/01/24 19:05 U Hyaline Cast (Auto) 3-5 /lpf (0-2) H 12/01/24 19:05 U Epithel Cells (Auto) 0-2 /hpf (0-2) 12/01/24 19:05 Urine Bacteria (Auto) None Seen (None Seen) 12/01/24 19:05 Urine Comment 12/01/24 19:05 Impressions Chest X-Ray 12/01/24 17:18 Chest radiograph, one view History: Sepsis Comparison: 12/01/2023 Findings: Single AP view of the chest performed. Blunted right costophrenic angle suggesting pleural effusion. No pneumothorax. The cardiomediastinal silhouette is enlarged. Normal pulmonary vascularity. No evidence for lymphadenopathy. No visualized bony or soft tissue abnormality. Impression: Right pleural effusion appears to be seen on multiple prior exams dating back to 12/01/2023. Otherwise no acute superimposed process Electronically signed by Bo Lozada 12-01-2024 6:33 PM Abdomen/Pelvis CT 12/01/24 18:36 EXAMINATION: CT of the abdomen and pelvis performed without contrast TECHNIQUE: Helical CT images from the lung bases through the symphysis pubis were obtained without contrast. Coronal and sagittal reformatted images were generated at a workstation for further assessment. Dose reduction techniques were achieved by using automatic exposure control and/or adjustment of mA and/or kV according to patient size and/or use of iterative reconstruction technique. COMPARISON: 11/06/2023 HISTORY: Abdominal pain FINDINGS: Lower chest: There is a small right pleural effusion with subjacent compressive atelectasis. Heavily calcified right coronary artery is seen. Liver: No suspicious liver lesions. Gallbladder: There are calcified gallstones. No evidence of acute cholecystitis. The gallbladder is contracted Spleen: Normal size. Pancreas: No suspicious pancreatic lesions. The pancreatic duct is not dilated. Adrenal glands: No adrenal nodules. Kidneys: No hydronephrosis or obstructing renal stones. There is a punctate nonobstructing right renal stone. Bladder / Pelvic organs: Unremarkable. Bowel: No bowel obstruction. No abnormal bowel wall thickening. The appendix is unremarkable. Sigmoid colonic diverticulosis without diverticulitis. Lymph nodes: No retroperitoneal, mesenteric, or pelvic lymphadenopathy. Peritoneum / Retroperitoneum: No free fluid or air within the abdomen. Vessels: No infrarenal aortic aneurysm. Heavy aortoiliac calcification. Bones and soft tissues: No suspicious lesion in the bones. IMPRESSION: No acute intra-abdominal process. Small right pleural effusion. Cholelithiasis. The gallbladder is contracted. Electronically signed by Bo Lozada 12-01-2024 7:29 PM ECG Additional Comments: KG with NSR, no acute ischemic changes PG Care Time/CCT Total # of Minutes Spent Total Time Spent with Patient: Total time spent is greater than 50% in coordination of care (as documented) at patient's floor/unit and/or counseling patient: Coding Level of Care Code 88843 INT INP/OBS CARE 3/75MIN Diagnoses Fever R50.9 Fever type: unspecified CAD (coronary artery disease) I25.10 DMII (diabetes mellitus, type 2) E11.9 HTN (hypertension) I10 (1) Fever Fever type: unspecified Qualified Code(s): R50.9 - Fever, unspecified
[2024-12-01] MEDS ORDERED: GLUCOSE 10 TAB/TUBE PO PRN (22:29)
[2024-12-01] MEDS ORDERED: GLUCAGON FOR INJ 1 MG VIAL SQ PRN (22:29)
[2024-12-01] MEDS ORDERED: GLUCOSE 40% GEL 15 GM TUBE PO PRN (22:29)
[2024-12-01] MEDS ORDERED: DEXTROSE 50% 50 ML SYRINGE IV PRN (22:29)
[2024-12-01] MEDS ORDERED: CARBOHYDRATES FOR HYPOGLYCEMIA PO PRN (22:29)
[2024-12-01] MEDS: LACTATED RINGER'S 1,000 ML IV SCH (23:23)
[2024-12-01] MEDS: INSULIN ASPART PER UNIT CHARGE SC SCH (23:23)
[2024-12-01] MEDS: MAGNESIUM SULFATE / D5W 1 GM/100 ML BAG IV SCH (23:23)
[2024-12-01] MEDS: POTASSIUM CHLORIDE CRTAB 20 MEQ TABCR PO STA (23:23)
[2024-12-01] MEDS: PIPERACILLIN/TAZOBACTAM 4.5 GM/100 ML BAG IV SCH (23:28)
[2024-12-02 06:57] LABS: Hematocrit (blood only) 25.4 % (42.0-52.0); Hemoglobin 8.3 g/dl (14.0-18.0); Mean Corpuscular Hemoglobin 31.1 pg (25.0-34.0); Mean Corpuscular Volume 95.1 fL (80.0-100.0); Platelet Count 468 K/uL (130-400); RDW Standard Deviation 93.6 fL (36.4-46.3); Red Blood Count 2.67 M/uL (4.70-6.10); White Blood Count 6.01 K/ul (4.8-10.8)
[2024-12-02 07:25] LABS: Alanine Aminotransferase 29.0 U/L (7-52); Albumin Level 3.1 gm/dl (3.4-5.0); Alkaline Phosphatase 175.0 U/L (34-104); Anion Gap 8.0 (3-11); Bilirubin,Total 1.8 mg/dl (0.2-1.0); Blood Urea Nitrogen 19.0 mg/dl (6-23); Calcium 8.0 mg/dl (8.6-10.3); Carbon Dioxide 26.0 mmol/L (21-32); Chloride 99.0 mmol/L (98-107); Creatinine Clr Calc Pharmacy 52.8 ml/min; Glucose 114.0 mg/dl (70-99(Fasting)); Potassium 3.3 mmol/L (3.5-5.1); Sodium 133.0 mmol/L (136-145); Total Protein 5.9 gm/dl (6.0-8.3)
[2024-12-02] MEDS: ENOXAPARIN INJ 40 MG/0.4 ML SYR SQ SCH (07:56)
[2024-12-02] MEDS: ASPIRIN 81 MG ECTAB PO SCH (07:57)
[2024-12-02] MEDS: CETIRIZINE HCL 10 MG TABLET PO SCH (07:57)
[2024-12-02] MEDS: ROSUVASTATIN CALCIUM 5 MG TAB PO SCH (07:57)
[2024-12-02] MEDS: ACETAMINOPHEN 325 MG TAB PO PRN (08:11)
[2024-12-02] MEDS: PNEUMOCOCCAL VACCINE (PCV20) 20-VAL CONJ-DIP CRM/PF 0.5 ML SYR IM ONE (08:12)
[2024-12-02] MEDS: HYDROXYUREA 500 MG CAP PO SCH (08:12)
--- NOTE | 2024-12-02 08:52 | Hospitalist Progress Note ---
Date of Service December 02, 2024 Assessment & Plan (1) Fever: (2) RUQ pain: (3) CAD (coronary artery disease): (4) HTN (hypertension): Plan 79yo male with history of HTN, HLP, DM and CAD presenting with several weeks of progressively worsening chills and rigors. Episodes of RUQ and lower abdominal pain. Patient afebrile, HD stable. Initially with elevated Lactate=2.1 --> 1.4 as well as mildly elevated procalcitonin=0.56. CRP=11.34. Fever/Abdominal pain - patient with elevated Tbili and Alkaline phosphatase. He has gallstones present on CT imaging but no evidence of cholecystitis or cholangitis/bile duct abnormality. Patient with history of ruptured gallbladder in Summer 2023 which was treated with antibiotics and a drain. Suspect secondary to choledocholithiasis vs symptomatic stones. -admitted to inpatient -Zosyn 4.5gm IV q 8 -Tylenol PRN pain or fever -GI consult, appreciate recs -ordered RUQ US and MRCP -CBC and CMP, direct bili in AM, follow -Tick-borne panel due to possible tick exposure #Hypokalemia -ordered 40mEq PO KCl once #CAD - s/p CABG x 5v in July 2018. 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 No report of chest pain. Patient with preserved LV function with Type 2 diastolic dysfunction. -Continue ASA and Crestor #Diabetes - Patient on Metformin. Well controlled. Last [id number]=8.7 from 10/23/2023 -Hold Metformin -ISS, goal blood sugar 110 - 140 #Hypertension - borderline low blood pressures -Hold anti-hypertensives for now -Patient listed to be on both Entresto AND Olmesartan as well a Metoprolol and Amlodipine. Entresto recently filled while Olmesartan has not been Ppx - Lovenox for DVT prophylaxis Diet: PO as tolerated: Heart Healthy, CC diet Code Status: Full Code Admission and Anticipated Discharge Date Admission Date: December 01, 2024 Supervising Physician Co-Signing Physician Notes I personally examined the patient and verified all myers points of history and exam, discussed case, and agree with decision making with Dr. Ventura PGY1 Patient complained of RUQ abdominal pain radiating to the periumbilical area. Total bili is elevated, concerned for choledocholithiasis. Patient will have RUQ US and MRCP. Will consult gastro. Plan as above. Otherwise as above, pending placement. Subjective Overnight pt developed low grade fever and was given Tylenol. At bedside, pt states he is feeling better since yesterday. He still has RUQ and periumbilical pain but diminished since yesterday. He is not complaining of fever or chills today. Not complaining of joint pain. Unsure of tick exposure but states he is avidly outdoors. Denies CP, SOB, or complaints. Review of Systems Review of Systems: per HPI Physical Exam Physical Exam: GA: well groomed, well nourished in no apparent distress. AAOx3. Eating breakfast. HEENT: head normocephalic, atraumatic. EOMI. No conjunctival pallor RESP: vesicular breath sounds b/l. No wheezes, rhonchi, or rales CARDIOVASCULAR: S1 and S2 heard. No murmurs, rubs, or gallops. Radial pulses 2+ b/l GI: Normoactive bowel sounds, no tenderness or masses felt to palpation, normal percussion MSK: no gross abnormalities or focal deficits SKIN: warm, dry, no edema PSYCH: appropriate mood and affect NEURO: no focal deficits Results & Data Results & Data Vital Signs (Past 12 Hours) Vital Signs Temp Pulse Pulse Resp BP BP Pulse Ox 12/02/24 08:09 37.7 C H 72 16 171/73 H 12/02/24 07:14 65 12/02/24 03:40 36.7 C 67 18 98/52 L 90 12/01/24 22:37 61 12/01/24 22:28 12/01/24 22:28 36.6 C 66 18 121/57 L 96 12/01/24 22:08 60 17 97/53 L 94 12/01/24 21:12 62 16 101/50 L 94 O2 Del Method 12/02/24 08:09 Room Air 12/02/24 07:14 12/02/24 03:40 Room Air 12/01/24 22:37 12/01/24 22:28 Room Air 12/01/24 22:28 Room Air 12/01/24 22:08 Room Air 12/01/24 21:12 Room Air Resident Activity Tracking Resident Involvement: Resident Care Provided Care Provided: Adult Hospital Medicine (1) Fever Fever type: unspecified Qualified Code(s): R50.9 - Fever, unspecified (3) CAD (coronary artery disease) Associated angina: unspecified whether angina present Coronary Disease- Associated Artery/Lesion type: unspecified vessel or lesion type [place] vs. transplanted heart: unspecified whether [place] or transplanted heart Qualified Code(s): I25.10 - Atherosclerotic heart disease of [place] coronary artery without angina pectoris (4) HTN (hypertension) Hypertension type: unspecified Qualified Code(s): I10 - Essential (primary) hypertension
[2024-12-02] MEDS ORDERED: HYDROXYUREA 500 MG CAP PO SCH (09:00)
--- NOTE | 2024-12-02 11:55 | Electrocardiogram Report ---
Test Reason : Blood Pressure : */* mmHG Vent. Rate : 83 BPM Atrial Rate : 83 BPM P-R Int : 188 ms QRS Dur : 88 ms QT Int : 528 ms P-R-T Axes : 2 5 0 degrees QTcB Int : 620 ms Normal sinus rhythm Anterior infarct (cited on or before 22-Oct-2023) Abnormal ECG When compared with ECG of 28-Oct-2023 21:46, QT has lengthened Confirmed by Brooke Cheung (Lux) on 12/02/2024 11:54:59 AM Referred By: Confirmed By: Brooke Cheung
[2024-12-02] MEDS: POTASSIUM CHLORIDE CRTAB 20 MEQ TABCR PO STA (14:51)
[2024-12-02] MEDS ORDERED: POLYETHYLENE (MIRALAX) 17 GM PACK PO PRN (16:36)
[2024-12-02] MEDS: ONDANSETRON INJ 2 MG/ML 2 ML VIAL IV PRN (16:53)
--- NOTE | 2024-12-02 17:45 | Magnetic Resonance Report ---
HISTORY: Right upper quadrant pain, nausea, and vomiting for 3 days. TECHNIQUE: MRI of the abdomen without contrast was performed with MRCP protocol. Axial and coronal T2 weighted imaging and 3D rotating MIP reconstructions are provided. COMPARISON: None. FINDINGS: Small right pleural effusion with adjacent compressive atelectasis. Trace left pleural effusion. Trace perihepatic ascites. The liver is otherwise unremarkable.The gallbladder is surgically absent. No intrahepatic biliary ductal dilation. The common bile duct is normal in caliber for age measuring up to 0.7 cm in diameter. The common bile duct tapers distally. No choledocholithiasis is visible. The main pancreatic duct is not dilated. The pancreatic parenchyma is unremarkable. Symmetric perinephric stranding. T2 hyperintense cortical cysts within both kidneys. No hydronephrosis. The adrenal glands are unremarkable. No abdominal aortic aneurysm. The distal esophagus, stomach, and duodenum are unremarkable. The small and large bowel loops are normal in caliber. Mild body wall edema. Mild degenerative changes of the spine. IMPRESSION: 1. Nonvisualization of the gallbladder suggesting cholecystectomy. No intra or extrahepatic biliary ductal dilation. Common bile duct is normal in caliber for age measuring up to 0.7 cm in diameter. No evidence of choledocholithiasis. 2. Small right and trace left pleural effusions with associated compressive atelectasis. 3. Trace perihepatic ascites. 4. Additional chronic and/or incidental findings as above. Electronically signed by Asim Stoner 12-02-2024 5:43 PM
[2024-12-02] MEDS: MoRPHine SULFATE 2 MG/ML CARP IV STA (21:47)
[2024-12-03 04:25] LABS: Hematocrit (blood only) 25.7 % (42.0-52.0); Hemoglobin 8.5 g/dl (14.0-18.0); Immature Granulocytes # (auto) 0.02 K/uL (0.01-0.20); Immature Granulocytes % (auto) 0.4 %; Mean Corpuscular Hemoglobin 31.7 pg (25.0-34.0); Mean Corpuscular Volume 95.9 fL (80.0-100.0); Platelet Count 512 K/uL (130-400); RDW Standard Deviation 95.7 fL (36.4-46.3); Red Blood Count 2.68 M/uL (4.70-6.10); White Blood Count 5.60 K/ul (4.8-10.8)
[2024-12-03 04:42] LABS: Alanine Aminotransferase 32.0 U/L (7-52); Albumin Globulin Ratio 1.1 (0.9-2); Albumin Level 3.2 gm/dl (3.4-5.0); Alkaline Phosphatase 192.0 U/L (34-104); Anion Gap 7.0 (3-11); Bilirubin,Total 1.6 mg/dl (0.2-1.0); Blood Urea Nitrogen 15.0 mg/dl (6-23); Calcium 8.2 mg/dl (8.6-10.3); Carbon Dioxide 27.0 mmol/L (21-32); Chloride 102.0 mmol/L (98-107); Creatinine Clr Calc Pharmacy 47.6 ml/min; Globulin 2.9 gm/dl (2.5-4.0); Glucose 100.0 mg/dl (70-99(Fasting)); Potassium 3.8 mmol/L (3.5-5.1); Sodium 136.0 mmol/L (136-145); Total Protein 6.1 gm/dl (6.0-8.3)
[2024-12-03 04:46] LABS: Anisocytosis Present; Polychromasia 1+; Target Cells 1+
--- NOTE | 2024-12-03 10:21 | History & Physical Report ---
Date of Service December 03, 2024 Assessment & Plan (1) RUQ pain: (2) Cholelithiasis: (3) Elevated bilirubin: (4) Nausea: Plan IMPRESSION: 79-year-old gentleman with multiple comorbidities including a history of perforated gallbladder status post cholecystostomy tube, presenting w ith abdominal pain, right upper quad abdominal pain, subjective chills with abnormal liver function tests, question biliary etiology. Differential diagnosis includes cholangitis, viral syndrome, persistent chronic cholecystitis -- There is no evidence of choledocholithiasis or bili obstruction to warrant ERCP. Risk greatly exceeds benefit at this time -- In light of patient's history of choledocholithiasis, perforated gallbladder, suspect chronic cholecystitis. Surgical consultation for removal of residual gallbladder should be considered given risk of recurrence of symptoms -- Continue antibiotics with transition to oral antibiotics to cover biliary organisms -- Trend LFTs -- Advance to low-fat diet as tolerated -- Patient notes no bowel movement for 3 days. Increase MiraLAX titrated to benefit. Add occasional stimulant laxative such as Dulcolax or Senokot as needed Thank you for the courtesy of this consultation. We will continue to follow. Admission and Anticipated Discharge Date Admission Date: December 02, 2024 History of Present Illness Chief Complaint: Right upper quadrant abdominal pain, question choledocholithiasis (question ERCP) Primary Care Provider: May Siegel MD The patient is a 79-year-old gentleman with medical history including hypertension, coronary disease, diabetes, hyperlipidemia, coronary disease status post 5 vessel coronary bypass 07/2018 (chronic aspirin 81 mg) who presented to [facility] on 12/01/2024 with complaints of right upper quadrant abdominal pain along with subjective chills. Symptoms have been occurring over the past 2 weeks with escalating symptoms including a stabbing right upper quadrant abdominal pain with some radiation to the lower abdomen. Associated symptoms include an isolated episode of nonbloody emesis. Interestingly the patient has a history of gallbladder rupture approximately a year ago treated conservatively with antibiotic therapy and a cholecystostomy tube. Labs on presentation show no evidence of leukocytosis. The patient presents with anemia with a hemoglobin of 8.3 on presentation. This is unchanged compared to previous labs a year prior. Chemistry is notable for elevated glucose, total bilirubin 1.6 with a direct fraction of 0.8. Transaminases are normal. Alkaline phosphatase is 192. The patient had CT abdomen without contrast 12/01/2024 showing no acute intra-abdominal process, cholelithiasis with a contracted gallbladder, calcified gallstones, normal liver. MRCP 12/02/2024 shows nonvisualization of the gallbladder without intra or extrahepatic biliary ductal dilatation, common bile duct 0.7 cm, trace perihepatic ascites, symmetric perinephric stranding, small pleural effusion. Allergies Allergy/AdvReac Type Severity Reaction Status Date / Time tree and shrub pollen Allergy Intermediate runny Verified 12/01/24 19:48 nose, cough Home Medications Medication Instructions Recorded Confirmed Type allopurinol 100 mg tablet 100 mg PO DAILY 10/22/23 12/01/24 History amlodipine 10 mg tablet 10 mg PO DAILY 10/22/23 12/01/24 History aspirin 81 mg tablet,delayed 81 mg PO DAILY 10/22/23 12/01/24 History release cetirizine 10 mg tablet 10 mg PO DAILY 10/22/23 12/01/24 History metformin 500 mg tablet 500 mg PO BID 10/22/23 12/01/24 History metoprolol succinate 100 mg 100 mg PO DAILY 10/22/23 12/01/24 History tablet,extended release 24 hr olmesartan 20 mg tablet 20 mg PO DAILY 10/22/23 12/01/24 History rosuvastatin 5 mg tablet 5 mg PO DAILY 10/22/23 12/01/24 History hydroxyurea 500 mg capsule 50 mg PO DAILY 12/01/24 12/01/24 History sacubitril 97 mg-valsartan 103 mg 1 tab PO BID 12/01/24 12/01/24 History tablet (Entresto) Past Med/Surg History Problem List (Updated 12/03/24 @ 10:49 by Wilbert Saeed MD) Nausea Elevated bilirubin Cholelithiasis RUQ pain Acute hypokalemia (Acute) Elevated lactic acid level (Acute) Fever (Acute) Sepsis (Acute) Pulmonary hypertension Abnormal chest CT Pleural effusion Hyponatremia CAD (coronary artery disease) DMII (diabetes mellitus, type 2) Myelodysplastic syndrome HTN (hypertension) Acute cholecystitis (Acute) Social History Smoking Status: Never smoker Hx Alcohol Use: No Hx Substance Use: No Preferred Language: Dutch Communication Ability: Effective [place] Required: No Beliefs That Will Affect Care: None Current Living Situation: Spouse Other Information That Helps Us Care for You: No Feels Safe at Home: Yes Safety Concerns: Feels Safe At This Time Assistive Devices: Denture - Upper and Glasses Review of Systems All systems reviewed & are unremarkable except as noted in HPI & below no increased appetite no cough, no chest congestion, no dyspnea and no pain on inspiration + nausea and + constipation; no abdominal pain, no bloating, no heartburn, no c [place] ground emesis, no hematemesis, no dysphagia, no fecal incontinence, no blood in stools and no melena no dysuria, no urinary frequency, no hematuria or no urinary urgency Physical Exam Constitutional: WD/WN, vitals as above Respiratory: normal respiratory effort, lungs clear to auscultation Cardiovascular: RRR, no murmur, no edema Gastrointestinal (Abdomen): normal bowel sounds, soft, nontender, no hepatosplenomegaly Neurologic: moves all extremities and awake Results & Data Vital Signs (Past 12 Hours) Vital Signs Temp Pulse Pulse Resp BP Pulse Ox O2 Del Method 12/03/24 07:38 37.2 C 62 18 112/54 L 96 Room Air 12/03/24 07:13 58 L 12/03/24 03:58 36.9 C 66 18 112/50 L 94 Room Air 12/02/24 23:40 37.1 C 62 18 124/80 97 Room Air [place] [address] INT INP/OBS CARE 3/75MIN Patient Type New History Expanded Problem Focused Exam Detailed Medical Decision Making Moderate Complexity Diagnoses RUQ pain R10.11 Cholelithiasis K80.20 Elevated bilirubin R17 Nausea R11.0
--- NOTE | 2024-12-03 11:41 | Hospitalist Progress Note ---
Date of Service December 03, 2024 Assessment & Plan (1) Fever: (2) RUQ pain: (3) CAD (coronary artery disease): (4) HTN (hypertension): Plan 79yo male with history of HTN, HLP, DM and CAD presenting with several weeks of progressively worsening chills and rigors. Episodes of RUQ and lower abdominal pain. Patient afebrile, HD stable. Initially with elevated Lactate=2.1 --> 1.4 as well as mildly elevated procalcitonin=0.56. CRP=11.34-->8.97. Fever/Abdominal pain - patient with elevated Tbili and Alkaline phosphatase. He has gallstones present on CT imaging but no evidence of cholecystitis or cholangitis/bile duct abnormality. MRCP shows trace ascites but no choledocholithiasis. Patient with history of ruptured gallbladder in Summer 2023 which was treated with antibiotics and a drain. Suspect secondary to chronic cholecystitis vs hepatitis infection vs cholangitis. -Zosyn 4.5gm IV q 8 -Tylenol PRN mild/moderate pain or fever -Ibuprofen 600mg prn for breakthrough or severe pain -Pantoprazole 40mg daily -ordered RUQ US for further clarity of gallbladder as imaging is conflicting -CBC and CMP, direct bili in AM -ordered hepatitis panel -GI on board, appreciate recs -consult general surgery -MiraLax and Ducolax suppository prn for constipation #Hypokalemia, resolved -will follow #CAD - s/p CABG x 5v in July 2018. 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 No report of chest pain. Patient with preserved LV function with Type 2 diastolic dysfunction. -Continue ASA and Crestor #Diabetes - Patient on Metformin. Well controlled. Last [id number] from 10/23/2023 -Hold Metformin -ISS, goal blood sugar 110 - 140 #Hypertension - borderline low blood pressures -Hold anti-hypertensives for now #Myelodysplastic Syndrome/Thrombocytosis/Anemia -on Aranesp injections [id number] -stable, will monitor Ppx - Lovenox for DVT prophylaxis Diet: PO as tolerated: Heart Healthy, CC diet, low fat Code Status: Full Code Admission and Anticipated Discharge Date Admission Date: December 02, 2024 Supervising Physician Co-Signing Physician Notes I personally examined the patient and verified all myers points of history and exam, discussed case, and agree with decision making with Dr. Ventura PGY1 Patient complained of RUQ abdominal pain radiating to the periumbilical area and still with pain today. Total bili is elevated, concerned for choledocholithiasis. Patient will have RUQ US and MRCP: MRCP was negative. Appreciate Gastro input. No GI intervention recommended at this time, Will consult general surgery as patient may benefit from cholecystectomy. On zosyn. Plan as above. Otherwise as above, pending placement. Subjective Overnight events: pt had abdominal pain and required dose of morphine . Pt seen and examined this morning at bedside. He states he is feeling better and not experiencing any pain. He is tolerating the diet well and is not having any nausea, vomiting, or diarrhea. Passing flatus. He states he feels constipated and requests a suppository as MiraLax does not help him. Pt does have a hx of myelodysplastic syndrome, anemia, and thrombocytosis for which he is being follow by [facility]. He receives Aranesp injections every 2 weeks although occasionally misses some doses as per Heme-Onc note. Denies fevers, chills, CP, SOB, complaints. Review of Systems Review of Systems: per HPI Physical Exam Physical Exam: GA: well groomed, well nourished in no apparent distress. AAOx3. HEENT: head normocephalic, atraumatic. EOMI. Sclera anicteric RESP: vesicular breath sounds b/l. No wheezes, rhonchi, or rales CARDIOVASCULAR: S1 and S2 heard. No murmurs, rubs, or gallops. Radial pulses 2+ b/l GI: Normoactive bowel sounds, no tenderness or masses felt to palpation MSK: no gross abnormalities or focal deficits SKIN: warm, dry, no edema PSYCH: appropriate mood and affect NEURO: no focal deficits Results & Data Results & Data Vital Signs (Past 12 Hours) Vital Signs Temp Pulse Pulse Resp BP BP Pulse Ox 12/03/24 11:27 36.7 C 58 L 18 123/60 96 12/03/24 07:38 37.2 C 62 18 112/54 L 96 12/03/24 07:13 58 L 12/03/24 03:58 36.9 C 66 18 112/50 L 94 12/02/24 23:40 37.1 C 62 18 124/80 97 O2 Del Method 12/03/24 11:27 Room Air 12/03/24 07:38 Room Air 12/03/24 07:13 12/03/24 03:58 Room Air 12/02/24 23:40 Room Air Resident Activity Tracking Resident Involvement: Resident Care Provided Care Provided: Adult Hospital Medicine (1) Fever Fever type: unspecified Qualified Code(s): R50.9 - Fever, unspecified (3) CAD (coronary artery disease) Associated angina: unspecified whether angina present Coronary Disease- Associated Artery/Lesion type: unspecified vessel or lesion type [place] vs. transplanted heart: unspecified whether [place] or transplanted heart Qualified Code(s): I25.10 - Atherosclerotic heart disease of [place] coronary artery without angina pectoris (4) HTN (hypertension) Hypertension type: unspecified Qualified Code(s): I10 - Essential (primary) hypertension
[2024-12-03 14:09] LABS: Hep B Surface Ag with confirm Negative (Negative)
[2024-12-03 14:14] LABS: Hep C Ab Rflx HepCQuant RNA Negative (Negative)
--- NOTE | 2024-12-03 17:06 | Ultrasound Report ---
ABDOMINAL ULTRASOUND LIMITED INDICATION: Abdominal pain. TECHNIQUE: Limited upper quadrant ultrasound examination of the abdomen. COMPARISON: CT abdomen and pelvis December 01, 2024, MRCP December 02, 2024. FINDINGS: LIVER: Size: Mildly enlarged measuring up to 16.1 cm in craniocaudal length. Echogenicity: Increased Surface nodularity: None Mass: None identified. BILE DUCTS: Intrahepatic ducts: Nondilated Common bile duct diameter: 7 mm GALLBLADDER: Contracted gallbladder containing gallstones. No abnormal gallbladder wall thickening or significant pericholecystic fluid. Sonographic Maya sign: Absent PANCREAS: Visualized portions appear unremarkable RIGHT KIDNEY LENGTH: 10.2 cm No shadowing stones or hydronephrosis identified. ASCITES: Trace perihepatic ascites identified. Moderate right pleural fluid IMPRESSION: Echogenic liver suggesting a parenchymal process including but not limited to steatosis. Cholelithiasis without evidence of cholecystitis. Trace perihepatic ascites. Moderate right pleural fluid. Electronically signed by Nigel Andres 12-03-2024 5:05 PM
[2024-12-03] MEDS: MoRPHine SULFATE 2 MG/ML CARP IV STA (20:16)
--- NOTE | 2024-12-03 22:40 | Billing Data ---
Date of Service December 02, 2024 Coding Level of Care Code 76698 SUB INP/OBS CARE MIN
[2024-12-04 07:00] LABS: Hematocrit (blood only) 25.1 % (42.0-52.0); Hemoglobin 8.3 g/dl (14.0-18.0); Immature Granulocytes # (auto) 0.04 K/uL (0.01-0.20); Immature Granulocytes % (auto) 0.7 %; Mean Corpuscular Hemoglobin 31.8 pg (25.0-34.0); Mean Corpuscular Volume 96.2 fL (80.0-100.0); Platelet Count 520 K/uL (130-400); RDW Standard Deviation 95.4 fL (36.4-46.3); Red Blood Count 2.61 M/uL (4.70-6.10); White Blood Count 6.09 K/ul (4.8-10.8)
--- NOTE | 2024-12-04 07:04 | Hospitalist Progress Note ---
Date of Service December 04, 2024 Assessment & Plan (1) Fever: (2) RUQ pain: (3) CAD (coronary artery disease): (4) HTN (hypertension): Plan 79yo male with history of HTN, HLP, DM and CAD presenting with several weeks of progressively worsening chills and rigors. Episodes of RUQ and lower abdominal pain. Patient afebrile, HD stable. Initially with elevated Lactate=2.1 --> 1.4 as well as mildly elevated procalcitonin=0.56. CRP=11.34-->8.97. Fever/Abdominal pain - patient with elevated Tbili and Alkaline phosphatase. He has gallstones present on CT imaging but no evidence of cholecystitis or cholangitis/bile duct abnormality. MRCP shows trace ascites but no choledocholithiasis. Patient with history of ruptured gallbladder in Summer 2023 which was treated with antibiotics and a drain. Suspect secondary to chronic cholecystitis vs hepatitis infection vs cholangitis. -suspect secondary to tick-borne illness despite negative tick panel -start Doxycycline 100mg q12hrs -Zosyn 4.5gm IV q8hr -Tylenol PRN mild/moderate pain or fever -Ibuprofen 600mg prn for breakthrough or severe pain -Pantoprazole 40mg daily -CBC and CMP in AM -following hepatitis panel -GI on board, appreciate recs -HIDA Scan today and EGD tomorrow -general surgery on board, no plans for surgery at this time -MiraLax and Ducolax suppository prn for constipation #Hypokalemia, resolved -will follow #CAD - s/p CABG x 5v in July 2018. 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 No report of chest pain. Patient with preserved LV function with Type 2 diastolic dysfunction. -Continue ASA and Crestor #Diabetes - Patient on Metformin. Well controlled. Last [id number]=7.7 from 10/23/2023 -Hold Metformin -ISS, goal blood sugar 110 - 140 #Hypertension - borderline low blood pressures -Hold anti-hypertensives for now #Myelodysplastic Syndrome/Thrombocytosis/Anemia -on Aranesp injections [id number] -stable, will monitor Ppx - Lovenox for DVT prophylaxis Diet: PO as tolerated: Heart Healthy, CC diet, low fat: NPO after midnight for EGD 12/05 Code Status: Full Code Admission and Anticipated Discharge Date Admission Date: December 02, 2024 Supervising Physician Co-Signing Physician Notes I personally examined the patient and verified all myers points of history and exam, discussed case, and agree with decision making with Dr Ventura Still with chills. Notes about 2 weeks of shaking chills. Abdominal pain to him seems to be maybe slightly worse, but more or less in line with what he has been dealing with for the last year. Does not seem to be a dominant part of the picture. Continues to have chills. Vitals noted, in general he is awake and alert pleasant but fatigued. HEENT normocephalic atraumatic mucous membranes moist. Cardio is regular without rubs murmurs or gallops. Lungs clear to auscultation bilaterally no rales rhonchi or wheeze with good effort. Abdomen soft mild epigastric and right upper quadrant tenderness no guarding rebound or rigidity. Labs and diagnostics noted. Rigorsuncertain etiology. Appreciate GI and surgery working up abdominal/biliary anglesalthough given that his abdominal complaints seem to be about the same over the last year without a lot of worsening, I will also look at it through the lens of the rigors alone. With that in mind, tickborne illness is certainly loom large, he did note taking a tick off of himself and the skin was kind of swollen afterwards and because he got rid of it he did not seek treatment at that time (beyond that, we live [place] very endemic area)beta- lactam's would treat Lyme fairly well, although I am not entirely certain of the specific efficacy of Zosynbut regardless we will add doxycycline and follow. Would ask GI or surgery to look at the MRCP images as I am not able to really interpret them myself, but the interpreting radiologist did comment that the gallbladder is surgically absentalthough it is visualized in the preceding CT and the following ultrasound. Continue Zosyn for GI coverage, started doxycycline. Lovenox for DVT prophylaxis. Subjective Overnight developed a low grade fever that was relieved with Tylenol. Today at bedside, he stated he had chills but feeling okay and his abdominal pain was well controlled. He said he does not have much of an appetite and requested Boost drink as he feels he can tolerate that. He is passing gas and had a BM yesterday that was normal color, nonbloody but more looser than usual. Denies fever, nausea, vomiting, CP, SOB, or complaints. Review of Systems Review of Systems: per HPI Physical Exam Physical Exam: GA: well groomed, well nourished in no apparent distress. AAOx3. HEENT: head normocephalic, atraumatic. EOMI. RESP: vesicular breath sounds b/l. No wheezes, rhonchi, or rales CARDIOVASCULAR: S1 and S2 heard. Systolic murmur, no rubs, or gallops. Radial pulses 2+ b/l RRR GI: Normoactive bowel sounds, no tenderness or masses felt to palpation, normal percussion, no splenomegaly MSK: no gross abnormalities or focal deficits SKIN: warm, dry, no edema PSYCH: appropriate mood and affect NEURO: no focal deficits Results & Data Results & Data Vital Signs (Past 12 Hours) Vital Signs Temp Pulse Pulse Resp BP BP Pulse Ox 12/04/24 03:44 37 C 58 L 16 112/53 L 93 12/03/24 22:35 36.9 C 59 L 18 110/56 L 94 12/03/24 21:51 68 12/03/24 19:40 37.9 C H 80 16 112/56 L 93 O2 Del Method 12/04/24 03:44 Room Air 12/03/24 22:35 Room Air 12/03/24 21:51 12/03/24 19:40 Room Air Resident Activity Tracking Resident Involvement: Resident Care Provided Care Provided: Adult Hospital Medicine (1) Fever Fever type: unspecified Qualified Code(s): R50.9 - Fever, unspecified (3) CAD (coronary artery disease) Associated angina: unspecified whether angina present Coronary Disease-As sociated Artery/Lesion type: unspecified vessel or lesion type [place] vs. transplanted heart: unspecified whether [place] or transplanted heart Qualified Code(s): I25.10 - Atherosclerotic heart disease of [place] coronary artery without angina pectoris (4) HTN (hypertension) Hypertension type: unspecified Qualified Code(s): I10 - Essential (primary) hypertension
[2024-12-04 07:28] LABS: Anisocytosis Present; Hypochromasia Present; Poikilocytosis Present
[2024-12-04 07:35] LABS: Alanine Aminotransferase 26.0 U/L (7-52); Albumin Globulin Ratio 1.0 (0.9-2); Albumin Level 3.1 gm/dl (3.4-5.0); Alkaline Phosphatase 188.0 U/L (34-104); Anion Gap 9.0 (3-11); Bilirubin,Total 1.7 mg/dl (0.2-1.0); Blood Urea Nitrogen 12.0 mg/dl (6-23); Calcium 8.4 mg/dl (8.6-10.3); Carbon Dioxide 26.0 mmol/L (21-32); Chloride 102.0 mmol/L (98-107); Creatinine Clr Calc Pharmacy 51.9 ml/min; Globulin 3.0 gm/dl (2.5-4.0); Glucose 97.0 mg/dl (70-99(Fasting)); Potassium 3.7 mmol/L (3.5-5.1); Sodium 137.0 mmol/L (136-145); Total Protein 6.1 gm/dl (6.0-8.3)
--- NOTE | 2024-12-04 08:26 | Billing Data ---
Date of Service December 03, 2024 Coding Level of Care Code 35157 SUB INP/OBS CARE MIN
--- NOTE | 2024-12-04 08:59 | Gastroenterology Progress Note ---
Date of Service December 04, 2024 Assessment & Plan (1) Nausea: (2) Elevated bilirubin: (3) Cholelithiasis: Plan 79-year-old gentleman with multiple comorbidities including a history of perforated gallbladder status post cholecystostomy tube 2023, presenting with abdominal pain, right upper quad abdominal pain, subjective chills with abnormal liver function tests, question biliary etiology is seen today on daily GI rounds. Clinically he reports that his symptoms are improving in severity although he continues to have some poor appetite and nausea. No fevers. LFTs improving. Hepatitis pending. Liver US reveal cholelithiasis without signs of acute cholecystitis.Blood cultures negative. VSS. Abdominal examination benign. (1) Abdominal pain with N/V and elevation in LFTs. -- Clinically abdominal pain and LFTs stable/mildly improving, but he continues to have nausea with eating. -- Reviewed General Surgery's notes. No plans for surgery at this time. -- Continue with antibiotics as ordered by Primary team. -- We'll proceed with further evaluation with HIDA today. -- Discussed risks and rationale for further evaluation EGD. Patient agreeable. We'll plan to make NPO after midnight for add on EGD tomorrow. -- Thank you for allowing us to participate in the care of this patient. Please call with any acute changes, questions or concerns. Please see addendum below with additional recommendation from my supervising physician. Admission and Anticipated Discharge Date Admission Date: December 02, 2024 Supervising Physician Co-Signing Physician Notes PT OVERALL FEELING BETTER. LESS PAIN BUT HE CONTINUES TO HAVE NAUSEA WHICH HAS BEEN PRESENT FOR SEVERAL WEEKS. ON EXAM HE IS TENDER IN THE RUQ WELL LUQ. NO G/R. WILL CHECK HIDA TODAY TO R/O CHRONIC CHOLECYSTITIS. FRACTIONATE BILIRUBIN. IF HIDA NEGATIVE WILL PLAN EGD TOMORROW. Subjective 79-year-old gentleman with multiple comorbidities including a history of perforated gallbladder status post cholecystostomy tube 2023, presenting with abdominal pain, right upper quad abdominal pain, subjective chills with abnormal liver function tests, question biliary etiology is seen today on daily GI rounds. He presented to [facility] with RUQ pain, fevers, nausea and vomiting. Non bloody emesis. No coffee grounds. Labs on presentation show no evidence of leukocytosis. The patient presents with anemia with a hemoglobin of 8.3 on presentation. This is unchanged compared to previous labs a year prior. Chemistry is notable for elevated glucose, total bilirubin 1.6 with a direct fraction of 0.8. Transaminases are normal. Alkaline phosphatase is 192. The patient had CT abdomen without contrast 12/01/2024 showing no acute intra- abdominal process, cholelithiasis with a contracted gallbladder, calcified gallstones, normal liver. MRCP 12/02/2024 shows nonvisualization of the gallbladder without intra or extrahepatic biliary ductal dilatation, common bile duct 0.7 cm, trace perihepatic ascites, symmetric perinephric stranding, small pleural effusion. GI consulted, seen by colleague Dr. Wilbert Saeed 12/03/24. Differential diagnosis includes cholangitis, viral syndrome, persistent chronic cholecystitis. Recommended that General surgery be consulted for possible removal of gallbladder. No indication for ERCP at this time. General Surgery consultation is pending at this time. Todays labs - T-Bili 1.7, AST 21, ALT 26, Alk Phos 188, Albumin 3.1, CRP 7.0. Hgb 8.3, Hct 25.1, Platelet 520, WBC 6.09. Hepatitis Panel is pending. Liver US 12/03/24 - LIVER: Size: Mildly enlarged measuring up to 16.1 cm in craniocaudal length. Echogenicity: Increased Surface nodularity: None Mass: None identified. BILE DUCTS: Intrahepatic ducts: Nondilated Common bile duct diameter: 7 mm GALLBLADDER: Contracted gallbladder containing gallstones. No abnormal gallbladder wall thickening or significant pericholecystic fluid. Sonographic Maya sign: Absent PANCREAS: Visualized portions appear unremarkable RIGHT KIDNEY LENGTH: 10.2 cm No shadowing stones or hydronephrosis identified. ASCITES: Trace perihepatic ascites identified. Moderate right pleural fluid IMPRESSION: Echogenic liver suggesting a parenchymal process including but not limited to steatosis. Cholelithiasis without evidence of cholecystitis. Trace perihepatic ascites. Moderate right pleural fluid. Clinically patient was given morphine overnight for pain relief and Dulcolax PRN for constipation. Today he reports that his pain is improved in severity now a 2/10 in severity. He was able to eat breakfast this morning without any pain, but he still endorses poor appetite and nausea. He had a bowel movement about 10 minutes ago, which was brown well formed. Denies any fevers, chills, abdominal pain, vomiting, melena or hematochezia. Social history - Denies any NSAID, Alcohol or tobacco stephanie. Family history - Denies any IBD, Celiac or Colon CA. Surgical history - Ruptured Gallbladder 2023 with IR placement of stent. Review of Systems Review of Systems: See HPI Physical Exam Physical Exam: Constitutional: NAD. Alert. Answering questions appropriately. Respiratory: Breathing is even, non-labored. Lungs mendes are clear to auscultation anteriorly. Cardiovascular: Regular Rate and Rhythm, no murmurs, rubs or gallops appreciated. Gastrointestinal (Abdomen): Normoactive bowel sounds x4, soft, non-distended, non-tender. Negative [place] sign. Musculoskeletal: Lying in bed comfortably. No peripheral edema. Results & Data Results & Data Vital Signs (Past 12 Hours) Vital Signs Temp Pulse Pulse Resp BP BP Pulse Ox 12/04/24 08:24 98.1 F 67 18 111/60 91 12/04/24 08:24 65 12/04/24 03:44 98.6 F 58 L 16 112/53 L 93 12/03/24 22:35 98.4 F 59 L 18 110/56 L 94 12/03/24 21:51 68 O2 Del Method 12/04/24 08:24 Room Air 12/04/24 08:24 12/04/24 03:44 Room Air 12/03/24 22:35 Room Air 12/03/24 21:51 PG Care Time/CCT Total # of Minutes Spent Total Time Spent with Patient: Total time spent is greater than 50% in coordination of care (as documented) at patient's floor/unit and/or counseling patient: Coding Level of Care Code 05188 SUB INP/OBS CARE 3/50MIN Diagnoses Nausea R11.0 Elevated bilirubin R17 Cholelithiasis K80.20
--- NOTE | 2024-12-04 09:17 | Surgery Consultation ---
Date of Consultation December 04, 2024 Assessment & Plan (1) RUQ pain: (2) Cholelithiasis: (3) Elevated bilirubin: Plan 79 yo male with history of perforated cholecystitis and liver abscess who required IR cholecystostomy tube in summer at [facility] [place], [place] presented to ED with a few week history of RUQ pain , fevers, chills, and rigors. Imaging is showing contracted gallbladder with stones and labs showing elevated t. bili and alk phos. There is no evidence of gallbladder wall thickening, pericholecystic fluid and pain has improved with conservative measures with no leukocytosis. Given imaging findings and history, any surgical intervention for cholecystectomy would be a high risk especially given age and comorbidities and severely contracted gallbladder. He is currently feeling better with conservative measures. Would recommend against surgical intervention (as recom mended by [facility] surgeon) at this time. Could consider Ursodiol for gallstones however discussed with patient that this would likely require years to completely dissolve stones. GI work-up for elevated t. bili and alk phos. Consider outpatient abx on discharge. Low fat diet. Discussed with Dr. Lester who agrees with above. History of Present Illness Reason for Consultation: RUQ pain ,Chronic cholecystitis Requesting Physician: Bo Ventura MD Attending Physician: Andrew Wilhelm DO History of Present Illness Mr. Florian is a 79 yo male with history of CAD with cardiac bypass x 4 in 2019, HTN, HLD, DMII, myelodysplastic syndrome and history of perforated cholecystitis with liver abscess requiring IR cholecystostomy tube in summer presented to hospital with a few week history of chills and rigors with increasing RUQ abdominal pain. States pain was about 5/10 on presentation. Better than pain was in February of 2024. Saw [facility] surgeon in December 2023( Note personally reviewed) in which surgery was not recommended at that time to due to increased risk due to gallbladder being contracted and asymptomatic at the time. He currently states he is feeling better. Pain about 2/10. Denies chills, nausea, vomiting, increasing pain. Able to tolerate diet this morning without postprandial symptoms of pain, n,v. Allergies Allergy/AdvReac Type Severity Reaction Status Date / Time tree and shrub pollen Allergy Intermediate runny Verified 12/01/24 19:48 nose, cough Home Medications Medication Instructions Recorded Confirmed Type allopurinol 100 mg tablet 100 mg PO DAILY 10/22/23 12/01/24 History amlodipine 10 mg tablet 10 mg PO DAILY 10/22/23 12/01/24 History aspirin 81 mg tablet,delayed 81 mg PO DAILY 10/22/23 12/01/24 History release cetirizine 10 mg tablet 10 mg PO DAILY 10/22/23 12/01/24 History metformin 500 mg tablet 500 mg PO BID 10/22/23 12/01/24 History metoprolol succinate 100 mg 100 mg PO DAILY 10/22/23 12/01/24 History tablet,extended release 24 hr olmesartan 20 mg tablet 20 mg PO DAILY 10/22/23 12/01/24 History rosuvastatin 5 mg tablet 5 mg PO DAILY 10/22/23 12/01/24 History hydroxyurea 500 mg capsule 50 mg PO DAILY 12/01/24 12/01/24 History sacubitril 97 mg-valsartan 103 mg 1 tab PO BID 12/01/24 12/01/24 History tablet (Entresto) Patient History Social History Smoking Status: Never smoker Hx Alcohol Use: No Hx Substance Use: No Preferred Language: Turkmen Communication Ability: Effective Sole Leveler Machine Required: No Beliefs That Will Affect Care: None Current Living Situation: Spouse Other Information That Helps Us Care for You: No Feels Safe at Home: Yes Safety Concerns: Feels Safe At This Time Assistive Devices: Denture - Upper and Glasses Review of Systems Review of Systems: All systems reviewed & are unremarkable except as noted in HPI & below Physical Exam Constitutional: WD/WN, vitals as above cooperative, comfortable and + overweight; no acute distress and not ill appearing Respiratory: normal respiratory effort, lungs clear to auscultation Cardiovascular: RRR, no murmur, no edema Heart Sounds: normal S1 and normal S2 Gastrointestinal (Abdomen): Inspection/Auscultation: abdomen normal to inspection; abdomen not distended Percussion/Palpation: + abdomen tender (mild tenderness in RUQ on deep palpation. Negative Maya's sign) and abdomen soft; no guarding, abdomen not rigid and abdomen not firm Skin: no rashes, warm and dry Psychiatric: Orientation: alert and oriented x 3 Results & Data Vital Signs (Past 12 Hours) Vital Signs Temp Pulse Pulse Resp BP BP Pulse Ox 12/04/24 08:24 36.7 C 67 18 111/60 91 12/04/24 08:24 65 12/04/24 03:44 37 C 58 L 16 112/53 L 93 12/03/24 22:35 36.9 C 59 L 18 110/56 L 94 12/03/24 21:51 68 O2 Del Method 12/04/24 08:24 Room Air 12/04/24 08:24 12/04/24 03:44 Room Air 12/03/24 22:35 Room Air 12/03/24 21:51 Laboratory Results 12/04/24 12/04/24 12/03/24 Range/Units 07:57 06:32 20:05 WBC 6.09 (4.8-10.8) K/ul RBC 2.61 L (4.70-6.10) M/uL Hgb 8.3 L (14.0-18.0) g/dl Hct 25.1 L (42.0-52.0) % MCV 96.2 (80.0-100.0) fL MCH 31.8 (25.0-34.0) pg MCHC 33.1 (32.0-36.0) g/dL RDW Std Deviation 95.4 H (36.4-46.3) fL RDW Coeff of Cha 27.5 H (11.5-14.5) % Plt Count 520 H (130-400) K/uL MPV 10.0 (9.4-12.4) fL Immature Gran % (Auto) 0.7 % Neut % (Auto) 67.9 % Lymph % (Auto) 11.0 % [place] % (Auto) 15.9 % Eos % (Auto) 3.8 % Baso % (Auto) 0.7 % Neut # (Auto) 4.14 (1.40-6.50) K/uL Lymph # (Auto) 0.67 L (1.20-3.40) K/uL [place] # (Auto) 0.97 H (0.11-0.59) K/uL Eos # (Auto) 0.23 (0.00-0.50) K/uL Baso # (Auto) 0.04 (0.00-0.20) K/uL Immature Gran # (Auto) 0.04 (0.01-0.20) K/uL Hypochromasia Present Poikilocytosis Present Anisocytosis Present Sodium 137 (136-145) mmol/L Potassium 3.7 (3.5-5.1) mmol/L Chloride 102 (98-107) mmol/L Carbon Dioxide 26 (21-32) mmol/L Anion Gap 9 (3-11) BUN 12 (6-23) mg/dl Creatinine 1.12 (0.6-1.4) mg/dl Est Cr Clr Drug Dosing 51.9 ml/min eGFR 67.24 BUN/Creatinine Ratio 10.7 (10-20) Glucose 97 (70-99(Fasting)) mg/dl POC Glucose 107 H 133 H (70-99) mg/dl Calcium 8.4 L (8.6-10.3) mg/dl Total Bilirubin 1.7 H (0.2-1.0) mg/dl AST 21 (13-39) U/L ALT 26 (7-52) U/L Alkaline Phosphatase 188 H (34-104) U/L C-Reactive Protein 7.03 H (0-0.5) mg/dl Total Protein 6.1 (6.0-8.3) gm/dl Albumin 3.1 L (3.4-5.0) gm/dl Globulin 3.0 (2.5-4.0) gm/dl Albumin/Globulin Ratio 1.0 (0.9-2) Hepatitis A IgM Ab Hep Bs Antigen (Negative) Hep B Core IgM Ab Hepatitis C Antibody (Negative) 12/03/24 12/03/24 12/03/24 Range/Units 16:54 12:51 12:04 WBC (4.8-10.8) K/ul RBC (4.70-6.10) M/uL Hgb (14.0-18.0) g/dl Hct (42.0-52.0) % MCV (80.0-100.0) fL MCH (25.0-34.0) pg MCHC (32.0-36.0) g/dL RDW Std Deviation (36.4-46.3) fL RDW Coeff of Cha (11.5-14.5) % Plt Count (130-400) K/uL MPV (9.4-12.4) fL Immature Gran % (Auto) % Neut % (Auto) % Lymph % (Auto) % [place] % (Auto) % Eos % (Auto) % Baso % (Auto) % Neut # (Auto) (1.40-6.50) K/uL Lymph # (Auto) (1.20-3.40) K/uL [place] # (Auto) (0.11-0.59) K/uL Eos # (Auto) (0.00-0.50) K/uL Baso # (Auto) (0.00-0.20) K/uL Immature Gran # (Auto) (0.01-0.20) K/uL Hypochromasia Poikilocytosis Anisocytosis Sodium (136-145) mmol/L Potassium (3.5-5.1) mmol/L Chloride (98-107) mmol/L Carbon Dioxide (21-32) mmol/L Anion Gap (3-11) BUN (6-23) mg/dl Creatinine (0.6-1.4) mg/dl Est Cr Clr Drug Dosing ml/min eGFR BUN/Creatinine Ratio (10-20) Glucose (70-99(Fasting)) mg/dl POC Glucose 108 H 104 H (70-99) mg/dl Calcium (8.6-10.3) mg/dl Total Bilirubin (0.2-1.0) mg/dl AST (13-39) U/L ALT (7-52) U/L Alkaline Phosphatase (34-104) U/L C-Reactive Protein (0-0.5) mg/dl Total Protein (6.0-8.3) gm/dl Albumin (3.4-5.0) gm/dl Globulin (2.5-4.0) gm/dl Albumin/Globulin Ratio (0.9-2) Hepatitis A IgM Ab Pending Hep Bs Antigen (Negative) Hep B Core IgM Ab Pending Hepatitis C Antibody (Negative) 12/02/24 Range/Units 13:54 WBC (4.8-10.8) K/ul RBC (4.70-6.10) M/uL Hgb (14.0-18.0) g/dl Hct (42.0-52.0) % MCV (80.0-100.0) fL MCH (25.0-34.0) pg MCHC (32.0-36.0) g/dL RDW Std Deviation (36.4-46.3) fL RDW Coeff of Cha (11.5-14.5) % Plt Count (130-400) K/uL MPV (9.4-12.4) fL Immature Gran % (Auto) % Neut % (Auto) % Lymph % (Auto) % [place] % (Auto) % Eos % (Auto) % Baso % (Auto) % Neut # (Auto) (1.40-6.50) K/uL Lymph # (Auto) (1.20-3.40) K/uL [place] # (Auto) (0.11-0.59) K/uL Eos # (Auto) (0.00-0.50) K/uL Baso # (Auto) (0.00-0.20) K/uL Immature Gran # (Auto) (0.01-0.20) K/uL Hypochromasia Poikilocytosis Anisocytosis Sodium (136-145) mmol/L Potassium (3.5-5.1) mmol/L Chloride (98-107) mmol/L Carbon Dioxide (21-32) mmol/L Anion Gap (3-11) BUN (6-23) mg/dl Creatinine (0.6-1.4) mg/dl Est Cr Clr Drug Dosing ml/min eGFR BUN/Creatinine Ratio (10-20) Glucose (70-99(Fasting)) mg/dl POC Glucose (70-99) mg/dl Calcium (8.6-10.3) mg/dl Total Bilirubin (0.2-1.0) mg/dl AST (13-39) U/L ALT (7-52) U/L Alkaline Phosphatase (34-104) U/L C-Reactive Protein (0-0.5) mg/dl Total Protein (6.0-8.3) gm/dl Albumin (3.4-5.0) gm/dl Globulin (2.5-4.0) gm/dl Albumin/Globulin Ratio (0.9-2) Hepatitis A IgM Ab Hep Bs Antigen Negative (Negative) Hep B Core IgM Ab Hepatitis C Antibody Negative (Negative) Diagnostic Findings ABDOMINAL ULTRASOUND LIMITED INDICATION: Abdominal pain. TECHNIQUE: Limited upper quadrant ultrasound examination of the abdomen. COMPARISON: CT abdomen and pelvis December 01, 2024, MRCP December 02, 2024. FINDINGS: LIVER: Size: Mildly enlarged measuring up to 16.1 cm in craniocaudal length. Echogenicity: Increased Surface nodularity: None Mass: None identified. BILE DUCTS: Intrahepatic ducts: Nondilated Common bile duct diameter: 7 mm GALLBLADDER: Contracted gallbladder containing gallstones. No abnormal gallbladder wall thickening or significant pericholecystic fluid. Sonographic Maya sign: Absent PANCREAS: Visualized portions appear unremarkable RIGHT KIDNEY LENGTH: 10.2 cm No shadowing stones or hydronephrosis identified. ASCITES: Trace perihepatic ascites identified. Moderate right pleural fluid IMPRESSION: Echogenic liver suggesting a parenchymal process including but not limited to steatosis. Cholelithiasis without evidence of cholecystitis. Trace perihepatic ascites. EXAMINATION: CT of the abdomen and pelvis performed without contrast TECHNIQUE: Helical CT images from the lung bases through the symphysis pubis were obtained without contrast. Coronal and sagittal reformatted images were generated at a workstation for further assessment. Dose reduction techniques were achieved by using automatic exposure control and/or adjustment of mA and/or kV according to patient size and/or use of iterative reconstruction technique. COMPARISON: 11/06/2023 HISTORY: Abdominal pain FINDINGS: Lower chest: There is a small right pleural effusion with subjacent compressive atelectasis. Heavily calcified right coronary artery is seen. Liver: No suspicious liver lesions. Gallbladder: There are calcified gallstones. No evidence of acute cholecystitis. The gallbladder is contracted Spleen: Normal size. Pancreas: No suspicious pancreatic lesions. The pancreatic duct is not dilated. Adrenal glands: No adrenal nodules. Kidneys: No hydronephrosis or obstructing renal stones. There is a punctate nonobstructing right renal stone. Bladder / Pelvic organs: Unremarkable. Bowel: No bowel obstruction. No abnormal bowel wall thickening. The appendix is unremarkable. Sigmoid colonic diverticulosis without diverticulitis. Lymph nodes: No retroperitoneal, mesenteric, or pelvic lymphadenopathy. Peritoneum / Retroperitoneum: No free fluid or air within the abdomen. Vessels: No infrarenal aortic aneurysm. Heavy aortoiliac calcification. Bones and soft tissues: No suspicious lesion in the bones. IMPRESSION: No acute intra-abdominal process. HISTORY: Right upper quadrant pain, nausea, and vomiting for 3 days. TECHNIQUE: MRI of the abdomen without contrast was performed with MRCP protocol. Axial and coronal T2 weighted imaging and 3D rotating MIP reconstructions are provided. COMPARISON: None. FINDINGS: Small right pleural effusion with adjacent compressive atelectasis. Trace left pleural effusion. Trace perihepatic ascites. The liver is otherwise unremarkable.The gallbladder is surgically absent. No intrahepatic biliary ductal dilation. The common bile duct is normal in caliber for age measuring up to 0.7 cm in diameter. The common bile duct tapers distally. No choledocholithiasis is visible. The main pancreatic duct is not dilated. The pancreatic parenchyma is unremarkable. Symmetric perinephric stranding. T2 hyperintense cortical cysts within both kidneys. No hydronephrosis. The adrenal glands are unremarkable. No abdominal aortic aneurysm. The distal esophagus, stomach, and duodenum are unremarkable. The small and large bowel loops are normal in caliber. Mild body wall edema. Mild degenerative changes of the spine. IMPRESSION: 1. Nonvisualization of the gallbladder suggesting cholecystectomy. No intra or extrahepatic biliary ductal dilation. Common bile duct is normal in caliber for age measuring up to 0.7 cm in diameter. No evidence of choledocholithiasis. 2. Small right and trace left pleural effusions with associated compressive atelectasis. 3. Trace perihepatic ascites. 4. Additional chronic and/or incidental findings as above. I personally reviewed all imaging above and concur with above findings
[2024-12-04] MEDS: PIPERACILLIN/TAZOBACTAM 4.5 GM/100 ML BAG IV SCH (11:19)
[2024-12-04] MEDS: MoRPHine SULFATE 2 MG/ML CARP ONE (13:35)
--- NOTE | 2024-12-04 14:53 | Nuclear Medicine Report ---
NUCLEAR HEPATOBILIARY SCAN CLINICAL HISTORY: Right upper quadrant abdominal pain. Nausea and vomiting. Elevated hepatic transami nases. COMPARISON STUDY: Abdominal ultrasound dated 12/03/2024. MRCP dated 12/02/2024. Abdominal CT dated 12/01. TECHNIQUE: Dynamic images of the liver and anterior abdomen were obtained every 5 minutes for a total of 60 minutes following the IV administration of 4.1 mCi of technetium 99m Mebrofenin. The gallbladd er is not visualized at 60 minutes. The patient received 2 mg of IV morphine opacity 5 minutes, with additional imaging performed every 5 minutes up to 105 minutes. FINDINGS: The hepatobiliary scan shows prompt and homogeneous hepatic uptake. There is visualized act ivity within the intra and extrahepatic biliary tree at 15 minutes. There is normal biliary to bowel transit, with small bowel visualized by 25 minutes. The gallbladder was not seen at 60 minutes. Ther e is a small outpouching of tracer in the gallbladder fossa suggest only delayed images. IMPRESSION: 1. Abnormal nuclear hepatobiliary scan. The gallbladder was not seen at 60 minutes. 2. The gallbladder has been diminutive/contracted on all of the recent imaging studies. There is a sm all outpouching of tracer suggested in the gallbladder fossa on the delayed post morphine images. Thi s may be located within the contracted gallbladder but is not definitive. Acute or chronic cholecysti tis not excluded and clinical correlation will be essential. ACT 112: Negative or not required by law. Electronically signed by: Cong Mcgee M.D. 12/04/2024 2:52 PM
[2024-12-04] MEDS: DOXYCYCLINE HYCLATE 100 MG in DEXTROSE 5% MINI-B 100 ML IV SCH (15:01)
--- NOTE | 2024-12-04 15:17 | Billing Data ---
Date of Service December 04, 2024 Coding Level of Care Code 40463 SUB INP/OBS CARE
[2024-12-04] MEDS: IBUPROFEN 600 MG TAB PO PRN (22:26)
[2024-12-05] MEDS: MoRPHine SULFATE 2 MG/ML CARP IV STA (01:47)
[2024-12-05 06:40] LABS: Hematocrit (blood only) 25.2 % (42.0-52.0); Hemoglobin 8.3 g/dl (14.0-18.0); Immature Granulocytes # (auto) 0.03 K/uL (0.01-0.20); Immature Granulocytes % (auto) 0.5 %; Mean Corpuscular Hemoglobin 31.6 pg (25.0-34.0); Mean Corpuscular Volume 95.8 fL (80.0-100.0); Platelet Count 514 K/uL (130-400); RDW Standard Deviation 93.6 fL (36.4-46.3); Red Blood Count 2.63 M/uL (4.70-6.10); White Blood Count 5.58 K/ul (4.8-10.8)
[2024-12-05 06:58] LABS: Alanine Aminotransferase 26.0 U/L (7-52); Albumin Globulin Ratio 1.0 (0.9-2); Albumin Level 3.0 gm/dl (3.4-5.0); Alkaline Phosphatase 216.0 U/L (34-104); Anion Gap 8.0 (3-11); Bilirubin,Total 1.7 mg/dl (0.2-1.0); Blood Urea Nitrogen 12.0 mg/dl (6-23); Calcium 8.2 mg/dl (8.6-10.3); Carbon Dioxide 26.0 mmol/L (21-32); Chloride 101.0 mmol/L (98-107); Creatinine Clr Calc Pharmacy 51.6 ml/min; Globulin 2.9 gm/dl (2.5-4.0); Glucose 93.0 mg/dl (70-99(Fasting)); Potassium 3.5 mmol/L (3.5-5.1); Sodium 135.0 mmol/L (136-145); Total Protein 5.9 gm/dl (6.0-8.3)
[2024-12-05 07:11] LABS: Anisocytosis Present
--- NOTE | 2024-12-05 07:11 | Hospitalist Progress Note ---
Date of Service December 05, 2024 Assessment & Plan (1) Fever: (2) RUQ pain: (3) CAD (coronary artery disease): (4) HTN (hypertension): Plan 79yo male with history of HTN, HLP, DM and CAD presenting with several weeks of progressively worsening chills and rigors. Episodes of RUQ and lower abdominal pain. Patient afebrile, HD stable. Initially with elevated Lactate=2.1 --> 1.4 as well as mildly elevated procalcitonin=0.56. CRP=11.34-->8.97. Abdominal pain Gastritis Gastric Ulcers patient with elevated Tbili and Alkaline phosphatase. He has gallstones present on CT imaging but no evidence of cholecystitis or cholangitis/bile duct abnormality. MRCP shows trace ascites but no choledocholithiasis. HIDA Scan: 1. Abnormal nuclear hepatobiliary scan. The gallbladder was not seen at 60 minutes. 2. The gallbladder has been diminutive/contracted on all of the recent imaging studies. There is a small outpouching of tracer suggested in the gallbladder fossa on the delayed post morphine images. This may be located within the contracted gallbladder but is not definitive. Acute or chronic cholecystitis not excluded and clinical correlation will be essential.Patient with history of ruptured gallbladder in Summer 2023 which was treated with antibiotics and a drain. Suspect secondary to gastritis vs chronic cholecystitis vs hepatitis infection vs cholangitis. Alternatively, suspect secondary to tick-borne illness as possible differential diagnosis despite negative tick panel -EGD today: gastritis and gastric nonbleeding ulcers -Pantoprazole 40mg daily BID until course of antibiotics complete then one qdaily for 3 months per GI -follow-up EGD in 3 months outpatient -following hepatitis panel -GI on board, appreciate recs -general surgery on board, no plans for surgery at this time -MiraLax and Ducolax suppository prn for constipation Fever Chills Suspect Tick-borne Illness -Doxycycline 100mg BID for 10 day course; today 04/24 -Zosyn 4.5gm IV, today 05/22 -plan to switch to Augmentin when discharged -Tylenol PRN mild/moderate pain or fever -CBC and CMP in AM -hopefully d/c tomorrow #Hypokalemia, resolved -will follow #CAD - s/p CABG x 5v in July 2018. 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 No report of chest pain. Patient with preserved LV function with Type 2 diastolic dysfunction. -Continue ASA and Crestor #Diabetes - Patient on Metformin. Well controlled. Last [id number]=9.7 from 10/23/2023 -Hold Metformin -ISS, goal blood sugar 110 - 140 #Hypertension - borderline low blood pressures -Hold anti-hypertensives for now #Myelodysplastic Syndrome/Thrombocytosis/Anemia -on Aranesp injections [id number] -stable, will monitor Ppx - Lovenox for DVT prophylaxis Diet: PO as tolerated: Heart Healthy, CC diet, low fat Code Status: Full Code Admission and Anticipated Discharge Date Admission Date: December 02, 2024 Supervising Physician Co-Signing Physician Notes I personally examined the patient and verified all myers points of history and exam, discussed case, and agree with decision making with Dr Audrey case chills today. Feeling better. EGD noted. Vitals noted, in general he is awake and alert pleasant no distress. HEENT normocephalic atraumatic mucous membranes moist. Breathing unlabored no accessory muscle use good effort. Skin without rashes pallor or icterus. Neuro without focal deficits. EGD images reviewed as well. Rigorsuncertain etiology. I suspect separate from his GI symptoms given that the gallbladder workup mostly would be fitting with chronic processes, and the scope findings of PUD would account for some of his abdominal pain, but not his rigors. Have improvedwas on Zosyn for several days, improved after addition of doxycyclineWill cover for both enteric pathogens and atypicals given that he is getting better without totally clear etiology; at the same time I more strongly suspect tickborne. Follow into tomorrow. Hopefully home then. Peptic ulcer diseaseProtonix Lovenox for DVT prophylaxis. Subjective Overnight required a dose of morphine for RUQ pain. Today pt stated he feels "fine" this morning. He said today is the first day he has not experienced chills since they started. Denies fever, SOB, CP, adominal pain, N/V/C/D, and complaints. Review of Systems Review of Systems: per HPI Physical Exam Physical Exam: GA: well groomed, well nourished in no apparent distress. AAOx3. HEENT: head normocephalic, atraumatic. EOMI. RESP: vesicular breath sounds b/l. No wheezes, rhonchi, or rales CARDIOVASCULAR: S1 and S2 heard. Systolic murmur, no rubs, or gallops. Radial pulses 2+ b/l RRR GI: Normoactive bowel sounds, no tenderness or masses felt to palpation, normal percussion, no splenomegaly MSK: no gross abnormalities or focal deficits SKIN: warm, dry, no edema PSYCH: appropriate mood and affect NEURO: no focal deficits Results & Data Results & Data Vital Signs (Past 12 Hours) Vital Signs Temp Pulse Pulse Resp BP Pulse Ox O2 Del Method 12/05/24 02:39 36.9 C 64 18 133/60 93 Room Air 12/04/24 22:35 36.9 C 65 18 130/62 94 Room Air 12/04/24 22:22 65 Resident Activity Tracking Resident Involvement: Resident Care Provided Care Provided: Adult Hospital Medicine (1) Fever Fever type: unspecified Qualified Code(s): R50.9 - Fever, unspecified (3) CAD (coronary artery disease) Associated angina: unspecified whether angina present Coronary Disease- Associated Artery/Lesion type: unspecified vessel or lesion type [place] vs. transplanted heart: unspecified whether [place] or transplanted heart Qualified Code(s): I25.10 - Atherosclerotic heart disease of [place] coronary artery without angina pectoris (4) HTN (hypertension) Hypertension type: unspecified Qualified Code(s): I10 - Essential (primary) hypertension
--- NOTE | 2024-12-05 09:07 | History & Physical Bridge Note ---
Date of Service December 05, 2024 History & Physical Bridge Note I have examined the patient, reviewed the History & Physical and in the interval since the performance of the History & Physical I have noted the following changes of clinical significance: no changes noted. Reviewed HIDA scan revealing contracted gallbladder. Clinically nausea and abdominal pain are improving. He's been NPO since midnight. VSS. Labs stable. Case reviewed with Dr. Chatterjee. Plan to proceed with EGD for further evaluation today.
[2024-12-05] MEDS ORDERED: ATROPINE SULFATE 0.1 MG/ML 10ML SYR IV PRN (11:37)
--- NOTE | 2024-12-05 11:37 | Anesthesiology Consultation ---
Date of Service December 05, 2024 Assessment & Plan Chart Review Chart Review: Acceptable Risk for Surgery and Patient NOT seen in Pre Admission Testing Consults Requested none ASA ASA4 Proposed Anesthesia Anesthesia Type: MAC History Surgery Operation Date: 12/05/24 16:30 Proposed Procedures p Esophagogastroduodenoscopy Dr. Shena Chatterjee, DO Height/Weight Height: 5 ft 5 in Weight: 75.5 kg Allergies Allergy/AdvReac Type Severity Reaction Status Date / Time tree and shrub pollen Allergy Intermediate runny Verified 12/01/24 19:48 nose, cough Medications Home Medications Medication Instructions Recorded Confirmed Last Taken allopurinol 100 mg tablet 100 mg PO DAILY 10/22/23 12/01/24 12/01/24 amlodipine 10 mg tablet 10 mg PO DAILY 10/22/23 12/01/24 12/01/24 aspirin 81 mg tablet,delayed 81 mg PO DAILY 10/22/23 12/01/24 12/01/24 release cetirizine 10 mg tablet 10 mg PO DAILY 10/22/23 12/01/24 12/01/24 metformin 500 mg tablet 500 mg PO BID 10/22/23 12/01/24 12/01/24 08:00 metoprolol succinate 100 mg 100 mg PO DAILY 10/22/23 12/01/24 12/01/24 tablet,extended release 24 hr olmesartan 20 mg tablet 20 mg PO DAILY 10/22/23 12/01/24 12/01/24 rosuvastatin 5 mg tablet 5 mg PO DAILY 10/22/23 12/01/24 12/01/24 hydroxyurea 500 mg capsule 50 mg PO DAILY 12/01/24 12/01/24 12/01/24 sacubitril 97 mg-valsartan 103 mg 1 tab PO BID 12/01/24 12/01/24 12/01/24 08:00 tablet (Entresto) Active Medications Generic Name Dose Route Start Last Admin Trade Name Freq PRN Reason Stop Dose Admin Acetaminophen 650 mg 12/01/24 22:29 12/04/24 21:04 Acetaminophen 325 Mg Tab PO 12/31/24 22:28 650 mg Q4H PRN Administration Pain or Fever Allopurinol 100 mg 12/02/24 09:00 12/05/24 09:26 Allopurinol 100 Mg Tab PO 01/01/25 08:59 100 mg DAILY LORRIE Administration Aspirin 81 mg 12/02/24 09:00 12/05/24 09:26 Aspirin 81 Mg Ectab PO 01/01/25 08:59 81 mg DAILY LORRIE Administration Cetirizine HCl 10 mg 12/02/24 09:00 12/05/24 09:27 Cetirizine Hcl 10 Mg Tablet PO 01/01/25 08:59 10 mg DAILY LORRIE Administration Hydroxyurea 500 mg 12/02/24 09:00 12/05/24 09:28 Hydroxyurea 500 Mg Cap PO 01/01/25 08:59 500 mg DAILY LORRIE Administration Piperacillin Sod/Tazobactam Sod 4.5 gm in 100 mls @ 25 mls/hr 12/04/24 09:00 12/05/24 09:30 Zosyn IV 12/14/24 08:59 25 mls/hr Q8H LORRIE Administration Protocol Doxycycline Hyclate 100 mg/ 100 mls @ 50 mls/hr 12/04/24 12:30 12/05/24 03:27 Dextrose IV 12/14/24 12:29 Infused Q12H LORRIE Infusion Ibuprofen 600 mg 12/03/24 13:31 12/04/24 22:26 Ibuprofen 600 Mg Tab PO 01/02/25 13:30 600 mg QID PRN Administration severe pain Insulin Aspart 0 units 12/01/24 22:29 12/05/24 10:32 Insulin Aspart Per Unit Charge SC 12/31/24 22:28 Not Given ACHS [facility] Ondansetron HCl 4 mg 12/01/24 22:29 12/04/24 18:51 Ondansetron Inj 2 Mg/Ml 2 Ml Vial IV 12/31/24 22:28 4 mg Q6H PRN Administration Nausea And Vomiting Pantoprazole Sodium 40 mg 12/03/24 13:45 12/05/24 09:26 Pantoprazole 40 Mg Tab PO 12/06/24 09:01 40 mg QAM LORRIE Administration Rosuvastatin Calcium 5 mg 12/02/24 09:00 12/05/24 09:26 Rosuvastatin Calcium 5 Mg Tab PO 01/01/25 08:59 5 mg DAILY LORRIE Administration Past Medical History CAD s/p CABG ASCVD Aorta NIDDM HTN HLD myelodysplastic syn. Pulmonary HTN Anemia GOUT PFO mild Aortic stenosis elevated LFT's sepsis Exercise / Class Metabolic Activity III < 4 Walking/Shop/Light housework Past Anesthesia History No Hx of Anesthesia Complications and No Family Hx of Anesthesia Complications History of PONV No Hx of PONV and No Hx of Motion Sickness Social History Smoking Status: Never smoker Hx Alcohol Use: No Alcohol type: beer alcohol intake frequency: a few times a month Hx Substance Use: No substance use type: does not use Physical Exam Vital Signs Last Vital Signs Temp 36.8 C 12/05/24 11:20 Pulse 63 12/05/24 11:20 Resp 17 12/05/24 11:20 BP 160/66 H 12/05/24 11:20 Pulse Ox 97 12/05/24 11:20 O2 Del Method Room Air 12/05/24 11:20 Testing Laboratory Results 12/05/24 06:04 12/05/24 06:04 PT 11.5 Seconds (9.0-12.0) 12/01/24 18:07 INR 1.1 (0.9-1.1) 12/01/24 18:07 APTT 38 Seconds (21-31) H 12/01/24 18:07 Urine Color Dark Yellow 12/01/24 19:05 Urine Appearance Clear (Clear) 12/01/24 19:05 Urine pH 5.5 (4.5-7.5) 12/01/24 19:05 Ur Specific Mc[place] 1.020 (1.000-1.030) 12/01/24 19:05 Urine Protein 1+ (Negative) H 12/01/24 19:05 Urine Glucose (UA) Negative (Negative) 12/01/24 19:05 Urine Ketones 1+ (Negative) H 12/01/24 19:05 Urine Nitrite Negative (Negative) 12/01/24 19:05 Ur Leukocyte Esterase Trace (Negative) H 12/01/24 19:05 Urine WBC (Auto) 0-5 /hpf (0-5) 12/01/24 19:05 Urine RBC (Auto) 0-2 /hpf (0-2) 12/01/24 19:05 U Hyaline Cast (Auto) 3-5 /lpf (0-2) H 12/01/24 19:05 U Epithel Cells (Auto) 0-2 /hpf (0-2) 12/01/24 19:05 Urine Bacteria (Auto) None Seen (None Seen) 12/01/24 19:05 12/01/24 18:21 Aerobic Blood Culture - Preliminary Blood No growth in Aerobic bottle after 48 hours. Anaerobic Blood Culture - Preliminary No growth in Anaerobic bottle after 48 hours. 12/01/24 18:07 Aerobic Blood Culture - Preliminary Blood No growth in Aerobic bottle after 48 hours. Anaerobic Blood Culture - Preliminary No growth in Anaerobic bottle after 48 hours. 12/05/24 08:03 POC Glucose 106 H Electrocardiogram Date: 12/01/24 Findings: + NSR @ (@ 83;? anterior infarct,age?) Chest X-Ray Date: 12/01/24 Findings: + pleural effusion (right pleural effusion) Echocardiogram Date: 11/03/23 EF: 65% LV Function: normal RWMA: + none Other Findings: + atrial enlargement (RA dilation) and + LVH (mild) Valvular Disease: + (mild ), + AI (mild) and + MR (mild) TR-mod. Pulm artery pressure-48 Torr
--- NOTE | 2024-12-05 12:13 | GI REPORT ---
[facility] Patient: JOSÉ OLVERA : 1945 Sex at : Male Age: 79 Years Procedure: Upper GI endoscopy Date: 12/05/2024 Attending Physician: Tala Chatterjee DO Referring MD: Referred Self Indications: - Persistent unexplained vomiting with nausea, see full consult. HIDA scan positive. Medications: - Monitored Anesthesia Care - Propofol per Anesthesia Complications: - No immediate complications. Estimated Blood Loss: - Estimated blood loss: None. Procedure: - ASA Grade Assessment: IV - A patient with severe systemic disease that is a constant threat to life. - The egd scope was introduced through the mouth and advanced to the second part of the duodenum. - The upper GI endoscopy was accomplished without difficulty. - The patient tolerated the procedure well. Findings: - A small hiatal hernia was present. - Patchy moderate inflammation characterized by erythema was found in the gastric antrum. Biopsies were taken with a cold forceps for histology. - Few non-bleeding superficial gastric ulcers with no stigmata of bleeding were found in the gastric antrum. The largest lesion was 3 mm in largest dimension. Biopsies were taken with a cold forceps for histology. - The examined duodenum was normal. Impression: - Small hiatal hernia. - Gastritis, characterized by erythema. Biopsied. - Non-bleeding gastric ulcers with no stigmata of bleeding. Biopsied. - Normal examined duodenum. Recommendation: - Return patient to hospital [facility] for ongoing care. - Advance diet as tolerated. - Continue present medications. - Await pathology results. - Use Protonix (pantoprazole) 40 mg PO daily for 3 months. - Perform an upper GI endoscopy in 3 months. Procedure Code(s): - 05425, Esophagogastroduodenoscopy, flexible, transoral; with biopsy, single or multiple Diagnosis Code(s): - R11.2, Nausea with vomiting, unspecified - K44.9, Diaphragmatic hernia without obstruction or gangrene - K29.70, Gastritis, unspecified, without bleeding - K25.9, Gastric ulcer, unspecified as acute or chronic, without hemorrhage or perforation CPT(R) - 2023 copyright [employer] [place] [employer]. All Rights Reserved. The CPT codes, CCI edits and ICD codes generated are intended as suggestions and were generated based on input data. These codes are preliminary and upon water pollution control technician review may be revised to meet current compliance and payer requirements. The provider is responsible for the final determination of appropriate codes, and modifiers. Tala Chatterjee, This document has been electronically signed. Note Initiated:12/05/2024 Note Completed:12/05/2024 12:12 PM [id number]
--- NOTE | 2024-12-05 12:43 | Anesthesiology Progress Note ---
Date of Service December 05, 2024 Anesthesia Post Procedure Vital Signs Vital Signs: Temp Pulse Pulse Resp BP BP Pulse Ox 12/05/24 12:35 60 16 128/58 L 96 12/05/24 12:25 66 18 123/53 L 96 12/05/24 12:13 59 L 18 93/45 L 93 12/05/24 11:40 36.4 C L 69 16 144/70 H 95 12/05/24 11:20 36.8 C 63 17 160/66 H 97 12/05/24 11:08 60 12/05/24 08:26 36.9 C 59 L 17 133/67 93 12/05/24 02:39 36.9 C 64 18 133/60 93 12/04/24 22:35 36.9 C 65 18 130/62 94 12/04/24 22:22 65 12/04/24 19:08 37.1 C 73 18 146/68 H 95 12/04/24 17:46 63 12/04/24 15:29 37.2 C 70 20 134/65 93 O2 Del Method 12/05/24 12:35 Room Air 12/05/24 12:25 Room Air 12/05/24 12:13 Room Air 12/05/24 11:40 Room Air 12/05/24 11:20 Room Air 12/05/24 11:08 12/05/24 08:26 Room Air 12/05/24 02:39 Room Air 12/04/24 22:35 Room Air 12/04/24 22:22 12/04/24 19:08 Room Air 12/04/24 17:46 12/04/24 15:29 Room Air Transfer of Care Handoff Completed per policy Notes Mental Status: alert / awake / arousable Patient Amnestic to Procedure: Yes Nausea / Vomiting: adequately controlled Pain: adequately controlled Airway Patency, RR, SpO2: stable & adequate BP & HR: stable & adequate Hydration State: stable & adequate Anesthetic Complications: no major complications apparent
[2024-12-05 13:12] LABS: Hepatitis A Antibody IgM NON-REACTIVE (NON-REACTIVE); Hepatitis B Core Antibody IgM NON-REACTIVE (NON-REACTIVE)
--- NOTE | 2024-12-05 15:39 | Billing Data ---
Date of Service December 05, 2024 Coding Level of Care Code 38320 SUB INP/OBS CARE
[2024-12-05] MEDS: DOXYCYCLINE HYCLATE 100 MG CAP PO SCH (18:16)
[2024-12-05] MEDS: LIDOCAINE 2% 2 ML VIAL/AMP(20MG/ML) INFIL ONE (19:44)
[2024-12-05] MEDS: PROPOFOL IV EMULSION 10 MG/ML 20 ML VIAL IV ONE (19:44)
[2024-12-05] MEDS: MELATONIN 3 MG TAB PO PRN (20:07)
[2024-12-06 04:28] VITALS: O2SAT 96
[2024-12-06 06:54] LABS: Hematocrit (blood only) 25.7 % (42.0-52.0); Hemoglobin 8.5 g/dl (14.0-18.0); Immature Granulocytes # (auto) 0.04 K/uL (0.01-0.20); Immature Granulocytes % (auto) 0.8 %; Mean Corpuscular Hemoglobin 31.6 pg (25.0-34.0); Mean Corpuscular Volume 95.5 fL (80.0-100.0); Platelet Count 510 K/uL (130-400); RDW Standard Deviation 93.0 fL (36.4-46.3); Red Blood Count 2.69 M/uL (4.70-6.10); White Blood Count 5.18 K/ul (4.8-10.8)
[2024-12-06 07:24] LABS: Alanine Aminotransferase 22.0 U/L (7-52); Albumin Globulin Ratio 1.0 (0.9-2); Albumin Level 3.1 gm/dl (3.4-5.0); Alkaline Phosphatase 190.0 U/L (34-104); Anion Gap 9.0 (3-11); Bilirubin,Total 1.3 mg/dl (0.2-1.0); Blood Urea Nitrogen 12.0 mg/dl (6-23); Calcium 8.3 mg/dl (8.6-10.3); Carbon Dioxide 25.0 mmol/L (21-32); Chloride 101.0 mmol/L (98-107); Creatinine Clr Calc Pharmacy 59.1 ml/min; Globulin 3.1 gm/dl (2.5-4.0); Glucose 101.0 mg/dl (70-99(Fasting)); Potassium 3.6 mmol/L (3.5-5.1); Sodium 135.0 mmol/L (136-145); Total Protein 6.2 gm/dl (6.0-8.3)
[2024-12-06 07:36] VITALS: RESP 18; TEMP 98.6
[2024-12-06 07:49] LABS: Anisocytosis Present; Giant Platelets 1+; Target Cells 1+
[2024-12-06] MEDS: ENOXAPARIN INJ 40 MG/0.4 ML SYR SQ SCH (09:06)
--- NOTE | 2024-12-06 09:20 | Discharge Summary ---
Date of Service December 06, 2024 Admission HPI Per Admitting Provider The patient is a 79-year-old gentleman with medical history including hypertension, coronary disease, diabetes, hyperlipidemia, coronary disease status post 5 vessel coronary bypass 07/2018 (chronic aspirin 81 mg) who presented to [facility] on 12/01/2024 with complaints of right upper quadrant abdominal pain along with subjective chills. Symptoms have been occurring over the past 2 weeks with escalating symptoms including a stabbing right upper quadrant abdominal pain with some radiation to the lower abdomen. Associated symptoms include an isolated episode of nonbloody emesis. Interestingly the patient has a history of gallbladder rupture approximately a year ago treated conservatively with antibiotic therapy and a cholecystostomy tube. Labs on presentation show no evidence of leukocytosis. The patient presents with anemia with a hemoglobin of 8.3 on presentation. This is unchanged compared to previous labs a year prior. Chemistry is notable for elevated glucose, total bilirubin 1.6 with a direct fraction of 0.8. Transaminases are normal. Alkaline phosphatase is 192. The patient had CT abdomen without contrast 12/01/2024 showing no acute intra-abdominal process, cholelithiasis with a contracted gallbladder, calcified gallstones, normal liver. MRCP 12/02/2024 shows nonvisualization of the gallbladder without intra or extrahepatic biliary ductal dilatation, common bile duct 0.7 cm, trace perihepatic ascites, symmetric perinephric stranding, small pleural effusion. Admission Exam Per Admitting Provider General: patient resting comfortably, NAD, non-toxic in appearance, AA&O x 4 Skin: warm, dry, intact, no rashes or lesions HEENT: NC/AT, PERRL, EOMI, anicteric sclera, conjunctiva without injection, external ear normal to inspection and nontender, nares patent, moist mucus membranes, dentition intact, no oropharyngeal lesions, neck supple, trachea midline, no LAD, no thyromegaly, no JVD Heart: +S1/S2, regular, no m/r/g Lungs: equal air entry bilaterally, no rales/rhonchi/wheezes Abd: +BS, soft, ND, RUQ tenderness with no rebound/guarding, no masses/organomegaly/ascites Ext: warm, 2+ pulses in UE/LE bilaterally, no clubbing/cyanosis or edema Neuro: nonfocal, patient AA&O x 4, speech intact, no facial droop, moving all extremities on command with equal strength 5/5 Principal Diagnosis Gastritis Discharge Exam GA: well groomed, well nourished in no apparent distress. AAOx3. HEENT: head normocephalic, atraumatic. EOMI. RESP: vesicular breath sounds b/l. No wheezes, rhonchi, or rales CARDIOVASCULAR: S1 and S2 heard. Systolic murmur, no rubs, or gallops. Radial pulses 2+ b/l RRR GI: no tenderness or masses felt to palpation MSK: no gross abnormalities or focal deficits SKIN: warm, dry, no edema PSYCH: appropriate mood and affect NEURO: no focal deficits Discharge Data Allergies Allergy/AdvReac Type Severity Reaction Status Date / Time tree and shrub pollen Allergy Intermediate runny Verified 12/01/24 19:48 nose, cough Consultations 12/01/24 19:37 ED Decision to Admit Stat 12/02/24 13:29 Consult Gastroenterology Routine 12/03/24 13:07 Consult General Surgery Routine Procedures Performed Operation Date: 12/05/24 16:30 Actual Procedures p EGD Biopsy Cytology - Tala Chatterjee DO Ordered Studies 12/01/24 18:36 CT abd pelvis wo con Stat 12/02/24 13:47 MR MRCP Routine 12/03/24 11:56 US RUQ [US liver] Routine Hospital Course (1) RUQ pain: (2) Fever: (3) DMII (diabetes mellitus, type 2): (4) HTN (hypertension): (5) Elevated bilirubin: (6) Gastritis: (7) Tick-borne fever: Plan 79yo male with history of HTN, HLP, DM and CAD presenting with several weeks of progressively worsening chills and rigors. Episodes of RUQ and lower abdominal pain. Patient afebrile, HD stable. Initially with elevated Lactate=2.1 --> 1.4 as well as mildly elevated procalcitonin=0.56. CRP=11.34-->8.97. Abdominal pain Gastritis Gastric Ulcers patient with elevated Tbili and Alkaline phosphatase. He has gallstones present on CT imaging but no evidence of cholecystitis or cholangitis/bile duct abnormality. MRCP shows trace ascites but no choledocholithiasis. HIDA Scan: 1. Abnormal nuclear hepatobiliary scan. The gallbladder was not seen at 60 minutes. 2. The gallbladder has been diminutive/contracted on all of the recent imaging studies. There is a small outpouching of tracer suggested in the gallbladder fossa on the delayed post morphine images. This may be located within the contracted gallbladder but is not definitive. Acute or chronic cholecystitis not excluded and clinical correlation will be essential.Patient with history of ruptured gallbladder in Summer 2023 which was treated with antibiotics and a drain. Suspect secondary to gastritis vs chronic cholecystitis vs hepatitis i nfection vs cholangitis. Alternatively, suspect secondary to tick-borne illness as possible differential diagnosis despite negative tick panel -Pantoprazole 40mg daily BID until course of antibiotics complete then one qdaily for 3 months per GI -follow-up EGD in 3 months outpatient -hepatitis panel negative -stable for discharge -avoid NSAIDs Fever Chills Suspect Tick-borne Illness -Doxycycline 100mg BID for 10 day course; today 05/22 -Augmentin 875mg BID for 10 day course; today 07/22 -Tylenol PRN mild/moderate pain or fever #CAD - s/p CABG x 5v in July 2018. 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 No report of chest pain. Patient with preserved LV function with Type 2 diastolic dysfunction. -Continue ASA and Crestor #Diabetes - Patient on Metformin. Well controlled. Last [id number]=8.7 from 10/23/2023 -continue home meds #Hypertension - borderline low blood pressures -continue home meds #Myelodysplastic Syndrome/Thrombocytosis/Anemia -continue home meds Total Time Total Time Spent Total Time Spent (In Minutes): <30 Discharge Plan Discharge Items Patient Disposition: Home - Self-Care Reason For Visit: ABDOMINAL PAIN, ?INFECTION Discharge Diagnosis: Gastritis Condition on Discharge: Fair Activity: As commented below Non-emergency contact: Primary Care Provider Call non-emergency contact if: your symptoms worsen, your pain is worsening and you have a fever Follow-up/Referrals: May Siegel MD [Primary Care Provider] - (Please call your primary care provider to schedule a hospital follow-up appointment within 7-10 days) Diet: Carb Count or DM1 and Heart Healthy Addtl Attending Provider Instructions: You were admitted because you were experiencing chills for 2 weeks associated with abdominal pain. Your gallbladder lab levels were elevated as well as some markers for inflammation. The CT imaging and other imaging of your abdomen showed calcified gallstones. You were given pain medications and IV fluids which helped your pain. You were also started on antibiotics for a suspected gastrointestinal infection, as well as tick-borne illness. You were seen by GI doctors, as well as the general surgery team. The surgery team did not think it was necessary to have surgery at this time for removal of your gallbladder. The GI doctors did a procedure to look into your upper GI tract called an endoscopy. The endoscopy showed you have inflammation of the stomach, as well as some stomach ulcers. Biopsies were taken during that procedure and results are pending. You were started on a medication called pantoprazole to help heal the inflammation and ulcers. Other labs completed in the hospital were negative. Please follow-up with your Primary Care Doctor within 1-2 weeks to discuss your stay in the hospital. Please follow-up with the GI Doctors in 3 months as they recommended for you to possibly have another endoscopy to see how things are healing. You may take Tylenol/Acetaminophen for pain or discomfort as needed but should AVOID NSAID pain medications (ibuprofen/motrin, aleve/naproxen) until you follow-up with the GI team as those medications can cause stomach ulcers. Advance your diet as tolerated and you should continue a low fat diet. Below are the new medications that are added and directions on how to take them as discussed with you before you left. New Medications: Pantoprazole 40mg-take one tablet/capsule twice a day until you finish your antibiotics, then you may take once daily for a total of 3 months. Take with water first thing in the morning at least 30 minutes before eating or drinking to allow for full effect. Doxycycline 100mg: take one tablet twice daily for 7 more days. Take with full g lass of water to avoid throat irritation and limit sun exposure while taken as this can cause severe sunburns. Take second dose 45 minutes before bedtime or earlier. Augmentin 875mg: take one tablet twice daily for 5 more days. You received a dose this morning in the hospital of a similar antibiotic so take your first dose starting tonight and then twice daily for 5 more days. Home Medications: continue to take as prescribed. Please return to the Emergency Room if your symptoms or pain worsen or if you develop a fever (100.4 or higher). Thank you for allowing us to be a part of your care. Pending Studies at Discharge: No Stand-Alone Forms: [facility], Smoking Cessation Medications and DC Order Prescriptions: New pantoprazole 40 mg tablet,delayed release (DR/EC) 40 mg PO DAILY Qty: 60 0RF doxycycline monohydrate 100 mg capsule 100 mg PO BID 7 Days Qty: 14 0RF amoxicillin-pot clavulanate 875-125 mg tablet 1 tab PO BID Qty: 11 0RF Continued metformin 500 mg tablet 500 mg PO BID amlodipine 10 mg tablet 10 mg PO DAILY olmesartan 20 mg tablet 20 mg PO DAILY cetirizine 10 mg Tablet 10 mg PO DAILY metoprolol succinate 100 mg tablet extended release 24 hr 100 mg PO DAILY allopurinol 100 mg tablet 100 mg PO DAILY aspirin 81 mg Tablet,Delayed Release (Dr/Ec) 81 mg PO DAILY rosuvastatin 5 mg tablet 5 mg PO DAILY hydroxyurea 500 mg capsule 50 mg PO DAILY sacubitril-valsartan [Entresto] 97-103 mg tablet 1 tab PO BID Discharge Orders: Discharge Order (Routine); Ordered 12/06/24 Ordered By: Bo Ventura Admission Data Admit Date/Time: 12/02/24 13:56 Attending Provider: Andrew Wilhelm Admit Provider: Giovanna Nobles Primary Care Provider: May Siegel Other Providers: Giovanna Nobles; Salvador Christiansen; Cedric Gomez; Danielle Bourne; Yessi Ramires; Alexia Holland; Daniella Loyd; Ronen Douglass; Kevin Ford; Kenny Corey; Rayne Lanier S; Nimo Person; Gabriella Chin; Yesenia Bcuhanan; Vale Ayala; Juanito Paige; Artur Boykin; Walter Nagy; Jackie Livingston; Frannie Cevallos Jr; Lauro Payne; Domeinco Collins; Prabhjot Walter; Severiano Johnston; Meaghan Holder; Marquis Fu I; Gisselle Dacosta; Ankit Baez; Alvaro Avila; Wilbert Saeed; Joe Anderson; Tala Chatterjee; Angelica Breaux; Hitesh Cantu; Cruz Casarez; Aquilse Campo; Michael Rolon; Madelyn Sahni; Jorge Campbell; Jeffery Cartwright; Mata Maravilla; Hermelinda Jimenez; Nayan Cullen; Kartik Bose Other Interventions: Discharge Summary Assessment (RN) Last Done: 12/06/24 10:53 Supervising Physician Co-Signing Physician Notes I personally examined the patient and verified all myers points of history and e xam, discussed case, and agree with decision making with Dr Ventura continues to feel well. no further rigors. feels up to going home. Vitals noted, in general he is awake and alert pleasant no distress. HEENT normocephalic atraumatic mucous membranes moist. Breathing unlabored no accessory muscle use good effort. Skin without rashes pallor or icterus. Neuro without focal deficits. Rigorsuncertain etiology. sepsis POA noted (HR, temp) with suspected tickborne disease vs less likely GI etiology treated wtih first zosyn, and now augmetnin and doxycycline. I suspect rigors/sepsis was separate from his GI symptoms given that the gallbladder workup mostly would be fitting with chronic processes, and the scope findings of PUD would account for some of his abdominal pain, but not his rigors. overall improvedwas on Zosyn for several days, improved after addition of doxycyclineWill cover for both enteric pathogens and atypicals given that he is getting better without totally clear etiology; at the same time I more strongly suspect tickborne. doing well over 2 days now - appearing very safe for home - finish Rx w doxy and augmentin; PCP f/u next week Peptic ulcer diseaseProtonix Lovenox for DVT prophylaxis. Resident Activity Tracking Resident Involvement: Resident Care Provided Care Provided: Adult Hospital Medicine
[2024-12-06 10:55] VITALS: BP 139/59; PULSE 67
--- NOTE | 2024-12-06 11:00 | Gastroenterology Progress Note ---
Date of Service December 06, 2024 Assessment & Plan (1) Nausea: (2) Elevated LFTs: Plan 79-year-old gentleman with multiple comorbidities including a history of perforated gallbladder status post cholecystostomy tube 2023, presenting with abdominal pain, right upper quad abdominal pain, subjective chills with abnormal liver function tests, question biliary etiology is seen today on daily GI rounds. Clinically he reports that his symptoms are improving in severity although he still has some nausea and loss of appetite. Liver US revealed cholelithiasis without signs of acute cholecystitis. HIDA with contracted gallbladder. General surgery felt risks of surgery outweigh potential benefit given history of perforated gallbladder.Tick borne, illness, Hepatitis panel, blood cultures negative. LFT stable with predominant Bilirubin/Alkaline phosphatase elevation. VSS. Abdominal examination benign. (1) Abdominal pain with N/V and elevation in LFTs. Gastritis on EGD. -- Discharge on Pantoprazole 40mg BID until antibiotics are completed. Then take once daily x 3 months. -- Avoid NSAIDs, tobacco and alcohol products. -- Avoid trigger foods. -- Follow up in office in 2-4 weeks. Reviewed callback and ER precautions. -- Plan to repeat EGD in 3 months. -- Understanding and satisfaction voiced. -- Thank you for allowing us to participate in the care of this patient. Please call with any acute changes, questions or concerns. Please see addendum below with additional recommendation from my supervising physician. Admission and Anticipated Discharge Date Admission Date: December 02, 2024 Subjective 79-year-old gentleman with multiple comorbidities including a history of perforated gallbladder status post cholecystostomy tube 2023, presenting with abdominal pain, right upper quad abdominal pain, subjective chills with abnormal liver function tests, question biliary etiology is seen today on daily GI rounds. He presented to [facility] with RUQ pain, fevers, nausea and vomiting. Non bloody emesis. No coffee grounds. Labs on presentation show no evidence of leukocytosis. The patient presents with anemia with a hemoglobin of 8.3 on presentation. This is unchanged compared to previous labs a year prior. Chemistry is notable for elevated glucose, total bilirubin 1.6 with a direct fraction of 0.8. Transaminases are normal. Alkaline phosphatase is 192. The patient had CT abdomen without contrast 12/01/2024 showing no acute intra- abdominal process, cholelithiasis with a contracted gallbladder, calcified gallstones, normal liver. MRCP 12/02/2024 shows nonvisualization of the gallbladder without intra or extrahepatic biliary ductal dilatation, common bile duct 0.7 cm, trace perihepatic ascites, symmetric perinephric stranding, small pleural effusion. General surgery was consulted and they felt patient would be poor candidate for surgical removal of gallbladder given history of rupture/scarring/contracted state of gallbladder. EGD completed 12/06/[address] Chatterjee which revealed some gastritis and small (3mm was largest) non-bleeding ulcers. Biopsies. Collected. Recommended PPI therapy with f/u in 3 month EGD. Today patient reports that he continues to feel better. He's eating better. Denies fevers, chills, vomiting, abdominal pain, melena or hematochezia. Last BM was this morning. Loose brown. Today's LFTs labs - T-Bili 1.3, AST 19, ALT 22, Alk Phos 190, Albumin 3.1 gb 8.3. Of note - Hepatitis Panel negative. Tick borne illness screening negative. Liver US 12/03/24 - LIVER: Size: Mildly enlarged measuring up to 16.1 cm in craniocaudal length. Echogenicity: Increased Surface nodularity: None Mass: None identified. BILE DUCTS: Intrahepatic ducts: Nondilated Common bile duct diameter: 7 mm GALLBLADDER: Contracted gallbladder containing gallstones. No abnormal gallbladder wall thickening or significant pericholecystic fluid. Sonographic Maya sign: Absent PANCREAS: Visualized portions appear unremarkable RIGHT KIDNEY LENGTH: 10.2 cm No shadowing stones or hydronephrosis identified. ASCITES: Trace perihepatic ascites identified. Moderate right pleural fluid IMPRESSION: Echogenic liver suggesting a parenchymal process including but not limited to steatosis. Cholelithiasis without evidence of cholecystitis. Trace perihepatic ascites. Moderate right pleural fluid. Clinically patient was given morphine overnight for pain relief and Dulcolax PRN for constipation. Today he reports that his pain is improved in severity now a 2/10 in severity. He was able to eat breakfast this morning without any pain, but he still endorses poor appetite and nausea. He had a bowel movement about 10 minutes ago, which was brown well formed. Denies any fevers, chills, abdominal pain, vomiting, melena or hematochezia. Social history - Denies any NSAID, Alcohol or tobacco stephanie. Family history - Denies any IBD, Celiac or Colon CA. Surgical history - Ruptured Gallbladder 2023 with IR placement of stent. Review of Systems Review of Systems: See HPI Physical Exam Physical Exam: Constitutional: NAD. Alert. Answering questions appropriately. Respiratory: Breathing is even, non-labored. Lungs mendes are clear to auscultation anteriorly. Cardiovascular: Regular Rate and Rhythm, no murmurs, rubs or gallops appreciated. Gastrointestinal (Abdomen): Normoactive bowel sounds x4, soft, non-distended, non-tender. Musculoskeletal: Lying in bed comfortably. No peripheral edema. Results & Data Results & Data Vital Signs (Past 12 Hours) Vital Signs Temp Pulse Pulse Pulse Resp BP BP 12/06/24 07:54 59 L 12/06/24 07:35 98.6 F 75 18 127/59 L 12/06/24 04:27 98.4 F 67 20 136/63 12/05/24 23:06 98.4 F 72 18 139/59 L Pulse Ox O2 Del Method 12/06/24 07:54 12/06/24 07:35 96 Room Air 12/06/24 04:27 96 Room Air 12/05/24 23:06 95 Room Air PG Care Time/CCT Total # of Minutes Spent Total Time Spent with Patient: Total time spent is greater than 50% in coordination of care (as documented) at patient's floor/unit and/or counseling patient: Coding Level of Care Code 17818 SUB INP/OBS CARE 2/35MIN Diagnoses Nausea R11.0 Elevated LFTs R79.89
--- NOTE | 2024-12-06 11:56 | Billing Data ---
Date of Service December 06, 2024 Coding Level of Care Code 77629 IN/OBS DISCH 30 MIN/LESS
== END 2024-12-06 12:38 | disposition home or self-care (01) | DRG 872 ==
LOC: 2W 16:51 → ED 16:51 → SUATTDRO 20:53 → 2W 22:08 → SUATTDRO 12-02 13:56